=== PATIENT | female | born 1965 | race African-American/Black ===

== ENCOUNTER 2016-09-09 22:35 | Emergency (ER) | payer MEDICAID ==
[2016-09-09 22:40] VITALS: BP 187/83; BMI 41.5
--- NOTE | 2016-09-09 22:52 | DR.GENAD ---
HPI - PCP Primary Care Physician: CHARLA - Complaint/Symptoms Chief Complaint Doctors Comments: Patient states that her stomach hurts as well as her arthritis Chief Complaint:: EMS RESPONDED TO A CALL FOR PAIN ALL OVER. UPON ARRIVAL PATIENT STATES, "MY ARTHRITIS HURTS." - Source History Provided: Patient - Mode of Arrival Mode of Arrival: EMS - Timing Onset of Chief Complaint: 09/09/16 PMH - PMH Past Medical History: Yes Past Medical History: Arthritis, Asthma, Diabetes, Hypertension Past Surgical History: Yes Surgical History: Hysterectomy - Family History History of Family Medical Conditions: Yes Family Medical History: Diabetes Mellitus, [place], Coronary Artery Disease - Social History Type of Tobacco Use: None Alcohol Use: None Do you use any recreational Drugs:: No Lives Where: Home - infectious screening Have you traveled outside the country in the last 6 months?: No Isolation: Standard ROS - Review of Systems Constitutional: No Symptoms Reported Eyes: No Symptoms Reported ENTM: No Symptoms Reported Respiratoy: No Symptoms Reported Cardiovascular: No Symptoms Reported Gastrointestinal/Abdominal: Abdominal Pain Genitourinary: No Symptoms Reported Neurological: No Symptoms Reported Musculoskeletal: Hip Integumentary: No Symptoms Reported Hematologic/Lymphatic: No Symptoms Reported Endocrine: No Symptoms Reported Psychiatric: No Symptoms Reported All Other Systems: Reviewed and Negative PE - Vital Signs Vitals: Temperature 97.0 F Pulse Rate 70 Respiratory Rate 18 Blood Pressure [Right Calf] 170/84 Blood Pressure [Left Arm] 188/88 Blood Pressure [Right Arm] 186/83 Blood Pressure [Right Arm] 174/83 Blood Pressure 187/83 O2 Sat by Pulse Oximetry 98 - General Limitations: No Limitations General Appearance: Alert, In No Apparent Distress - Head Head Exam: Normal Inspection, Atraumatic - Eyes Eye exam: Normal Appearance, PERRL, EOMI - ENT ENT Exam: Normal Exam, Normal Oropharynx External Ear Exam: Normal External Inspection TM/Canal Exam: Bilateral Normal Nose Exam: Normal Nose Exam Mouth Exam: Normal Inspection Throat Exam: Normal Inspection - Neck Neck Exam: Normal Inspection - Chest Chest Inspection: Normal Inspection - Respiratory Respiratory Exam: Normal Lung Sounds Bilat Respiratory Exam: Bilateral Clear to Auscultation - Cardiovascular Cardiovascular Exam: Regular Rate, Normal Rhythm - Abdominal Exam Abdominal Exam: Normal Inspection Abdominal Tenderness: negative: RUQ, RLQ, LUQ, LLQ, Epigastrium, Suprapubic, Diffuse, Mild, Moderate, Severe, Other - Extremities Extremities Exam: Normal Inspection - Back Back Exam: Normal Inspection, Full ROM - Neurologic Neurological Exam: Alert, Oriented X3, CN II-XII Intact - Psychiatric Psychiatric Exam: Normal Affect, Normal Mood - Skin Skin Exam: Warm, Dry, Intact ROR - Labs Reviewed Laboratory Results Reviewed?: Yes (low sod) Result Diagrams: 09/09/16 22:19 09/09/16 22:19 Laboratory: WBC 10.7 X10^3/uL (3.6-10.0) H 09/09/16 22:19 RBC 4.46 X10^6/uL (3.5-5.4) 09/09/16 22:19 Hgb 11.6 g/dL (12.0-16.0) L 09/09/16 22:19 Hct 35.8 % (36.0-47.0) L 09/09/16 22:19 MCV 80.2 fL (80.0-100.0) 09/09/16 22:19 MCH 25.9 pg (27.0-34.0) L 09/09/16 22:19 MCHC 32.3 g/dL (33.0-35.0) L 09/09/16 22:19 RDW 16.3 % (11.6-16.5) 09/09/16 22:19 Plt Count 233 X10^3/uL (150.0-450.0) 09/09/16 22:19 Plt Count Comment Adequate (ADEQUATE) 09/09/16 22:19 MPV 7.6 fL (7.4-11.0) 09/09/16 22:19 Neut % 52.0 % (42.0-75.0) 09/09/16 22:19 Lymph % 39.1 % (21.0-51.0) 09/09/16 22:19 [place] % 5.8 % (0.0-13.0) 09/09/16 22:19 Eos % 2.1 % (0.9-2.9) 09/09/16 22:19 Baso % 1.0 % (0.2-1.0) 09/09/16 22:19 Neut # 5.6 x10^3/uL (2.2-4.8) H 09/09/16 22:19 Lymph # 4.2 X10^3/uL (1.3-2.9) H 09/09/16 22:19 Bos[place] # 0.6 x10^3/uL (0.3-0.8) 09/09/16 22:19 Eos # 0.2 x10^3/uL (0.0-0.2) 09/09/16 22:19 Baso # 0.1 X10^3/uL (0.0-0.1) 09/09/16 22:19 Absolute Nucleated RBC 0.1 /100WBC 09/09/16 22:19 Plt Morphology Comment Normal (NORMAL) 09/09/16 22:19 RBC Morphology Abnormal (NORMAL) A 09/09/16 22:19 Hypochromasia Slight A 09/09/16 22:19 Sodium 131 mmol/L (136-145) L 09/09/16 22:19 Corrected Sodium TNP 09/09/16 22:19 Potassium 3.5 mmol/L (3.5-5.1) 09/09/16 22:19 Chloride 100 mmol/L (98-107) 09/09/16 22:19 Carbon Dioxide 30.1 mmol/L (21-32) 09/09/16 22:19 BUN 29 mg/dL (7-18) H 09/09/16 22:19 Creatinine 1.74 mg/dL (0.55-1.02) H 09/09/16 22:19 Est GFR (MDRD) Af Amer 40 (>60) L 09/09/16 22:19 Est GFR (MDRD) Non-Af 33 (>60) L 09/09/16 22:19 Glucose 110 mg/dL (65-99) H 09/09/16 22:19 Calcium 9.5 mg/dL (8.5-10.1) 09/09/16 22:19 Corrected Calcium TNP 09/09/16 22:19 Total Bilirubin 0.20 mg/dL (0.2-1.0) 09/09/16 22:19 AST 46 Units/L (15-37) H 09/09/16 22:19 ALT 124 Units/L (12-78) H 09/09/16 22:19 Alkaline Phosphatase 200 Units/L (46-116) H 09/09/16 22:19 Total Protein 8.6 g/dL (6.4-8.2) H 09/09/16 22:19 Albumin 3.4 g/dL (3.4-5.0) 09/09/16 22:19 Globulin 5.2 g/dL (2.5-4.5) H 09/09/16 22:19 Albumin/Globulin Ratio 0.7 Ratio (1.1-2.1) L 09/09/16 22:19 - XRAY XRAY Interpreted by: Radiologist (KUB: no acute abnormality) - Diagnosis Discharge Problem: Abdominal pain Qualifiers: Abdominal location: upper abdomen, unspecified Qualified Code(s): R10.10 - Upper abdominal pain, unspecified - Discharge Plan Condition: Stable - Follow ups/Referrals Follow ups/Referrals: DIEGO DUNHAM [Primary Care Provider] - 3 days - Instructions
--- NOTE | 2016-09-09 23:17 | RAD ---
EXAM: Abdomen x-ray INDICATION: Abdominal pain COMPARISION: No priors TECHNIQUE: AP view, single view FINDINGS: The bowel loops are nonobstructed. No abnormal mass or calcification is identified. The regional ske leton is intact. IMPRESSION: Normal single view abdominal x-ray examination Reported By:
[2016-09-09] MEDS ORDERED: BENTYL I.M. INJ 10 MG IM ONE ×2 (23:24→23:27)
[2016-09-09] MEDS ORDERED: TORADOL 60 MG VIAL IM ONE (23:26)
[2016-09-09] MEDS ORDERED: TORADOL 60 MG VIAL ONE (23:27)
[2016-09-09 23:30] LABS: BASOPHILS # (AUTO) 0.1 X10^3/uL (0.0-0.1); EOSINOPHILS # (AUTO) 0.2 x10^3/uL (0.0-0.2); EOSINOPHILS % (AUTO) 2.1 % (0.9-2.9); HEMATOCRIT 35.8 % (36.0-47.0); HEMOGLOBIN 11.6 g/dL (12.0-16.0); LYMPHOCYTES # (AUTO) 4.2 X10^3/uL (1.3-2.9); LYMPHOCYTES % (AUTO) 39.1 % (21.0-51.0); MEAN CORPUSCULAR HEMOGLOBIN 25.9 pg (27.0-34.0); MEAN CORPUSCULAR HGB CONC 32.3 g/dL (33.0-35.0); MEAN CORPUSCULAR VOLUME 80.2 fL (80.0-100.0); MEAN PLATELET VOLUME 7.6 fL (7.4-11.0); MONOCYTES # (AUTO) 0.6 x10^3/uL (0.3-0.8); MONOCYTES % (AUTO) 5.8 % (0.0-13.0); NEUTROPHILS # (AUTO) 5.6 x10^3/uL (2.2-4.8); PLATELET COUNT 233 X10^3/uL (150.0-450.0); RED BLOOD COUNT 4.46 X10^6/uL (3.5-5.4); RED CELL DISTRIBUTION WIDTH 16.3 % (11.6-16.5); WHITE BLOOD COUNT 10.7 X10^3/uL (3.6-10.0)
[2016-09-09 23:38] LABS: ALANINE AMINOTRANSFERASE 124 Units/L (12-78); ALBUMIN 3.4 g/dL (3.4-5.0); ALKALINE PHOSPHATASE 200 Units/L (46-116); ASPARTATE AMINO TRANSFERASE 46 Units/L (15-37); BLOOD UREA NITROGEN 29 mg/dL (7-18); CALCIUM 9.5 mg/dL (8.5-10.1); CARBON DIOXIDE 30.1 mmol/L (21-32); CHLORIDE 100 mmol/L (98-107); CREATININE 1.74 mg/dL (0.55-1.02); GLUCOSE 110 mg/dL (65-99); SODIUM 131 mmol/L (136-145); TOTAL PROTEIN 8.6 g/dL (6.4-8.2); eGFR BLACK RACES 40 (>60); eGFR NON BLACK RACES 33 (>60)
[2016-09-09 23:50] LABS: HYPOCHROMASIA SLIGHT; PLATELET MORPHOLOGY COMMENT NORMAL (NORMAL)
[2016-09-10] MEDS ORDERED: NS 1000 ML 1,000 ML IV ONE (00:16)
== END 2016-09-10 00:36 | disposition home or self-care (01) ==
LOC: ER 22:35
DX: R10.84 Generalized abdominal pain (principal)
CPT/HCPCS: 36415; 74000; 80053; 85025; 96372; 99283; J0500; J1885

== ENCOUNTER 2016-09-15 14:53 | Emergency (ER) | payer MEDICAID ==
[2016-09-15 14:58] VITALS: BMI 40.5
--- NOTE | 2016-09-15 15:26 | DR.GENAD ---
HPI - PCP Primary Care Physician: lyle barreto - Complaint/Symptoms Chief Complaint:: sore on Self Treatment fo Chief Complaint: sore on left great toe x 2 months - Nurses notes reviewed Nurses Notes Review: Yes - Source History Provided: Patient - Mode of Arrival Mode of Arrival: Ambulatory - Timing Onset of Chief Complaint: 09/15/16 Came on: Gradually - Duration How lon Duration: Weeks - Location Location: left great toe - Severity Severity: Mild - Modifying Factors Worsens:: movement - Associated Signs and Symptoms Associated Signs and Symptoms: peeling - Other History Other History: diabetes, has had no tretment since onset PMH - PMH Past Medical History: Yes Past Medical History: Arthritis, Asthma, Diabetes, Hypertension Past Surgical History: Yes Surgical History: Hysterectomy - Family History History of Family Medical Conditions: No Family Medical History: Diabetes Mellitus, [place], Coronary Artery Disease - Social History Does patient currently use any type of tobacco product: No Have you used tobacco products in the last 12 months: No Type of Tobacco Use: None Does any household member use tobacco: No Alcohol Use: None Do you use any recreational Drugs:: No Lives With: Family Lives Where: Home - infectious screening In the last 2 months have you had wt loss of >10#?: NO Have you had fever, night sweats or hemotysis?: No Have you traveled outside the country in the last 6 months?: No Isolation: Standard ROS - Review of Systems Constitutional: No Symptoms Reported Eyes: No Symptoms Reported ENTM: No Symptoms Reported Respiratoy: No Symptoms Reported Cardiovascular: No Symptoms Reported Gastrointestinal/Abdominal: No Symptoms Reported Genitourinary: No Symptoms Reported Neurological: No Symptoms Reported Musculoskeletal: No Symptoms Reported Integumentary: Other (left great toe sore) Hematologic/Lymphatic: No Symptoms Reported Endocrine: No Symptoms Reported Psychiatric: Depression PE - Vital Signs Vitals: Temperature 98.6 F Pulse Rate 72 Respiratory Rate 16 Blood Pressure [Right Calf] 170/84 Blood Pressure [Left Arm] 188/88 Blood Pressure [Right Arm] 186/83 Blood Pressure [Right Arm] 174/83 Blood Pressure 201/93 O2 Sat by Pulse Oximetry 99 - General Limitations: No Limitations General Appearance: Alert, In No Apparent Distress - Head Head Exam: Normal Inspection - Eyes Eye exam: Normal Appearance, EOMI. negative: Scleral Icterus, Conjunctival Injection - ENT ENT Exam: Normal Exam External Ear Exam: Normal External Inspection - Neck Neck Exam: Normal Inspection, Full ROM, Trachea Midline - Chest Chest Inspection: Normal Inspection - Respiratory Respiratory Exam: negative: Accessory Muscle Use, Respiratory Distress - Extremities Extremities Exam: Normal Inspection, Full ROM - Back Back Exam: Normal Inspection - Neurologic Neurological Exam: Alert, Oriented X3, CN II-XII Intact - Psychiatric Psychiatric Exam: Depressed - Skin Skin Exam: negative: Intact, Normal Color (peeling skin, no drainage, no ulceer) - Diagnosis Discharge Problem: Diabetic skin ulcer Hypertension Qualifiers: Hypertension type: essential hypertension Qualified Code(s): I10 - Essential ( primary) hypertension - Discharge Plan Condition: Stable Prescriptions: Clindamycin Phosphate (Topical [Cleocin-T gel 1%] 1 applic TOP BID #60 gm - Follow ups/Referrals Follow ups/Referrals: Christi MCGUIREc [Primary Care Provider] - 3 days - Instructions
[2016-09-15] MEDS ORDERED: CATAPRES TAB 0.2 MG PO ONE (15:40)
[2016-09-15] MEDS ORDERED: CATAPRES TAB 0.2 MG ONE (15:41)
[2016-09-15 16:26] VITALS: BP 196/97
== END 2016-09-15 16:39 | disposition home or self-care (01) ==
LOC: ER 15:02
DX: E11.622 Type 2 diabetes mellitus with other skin ulcer (principal); I10 Essential (primary) hypertension
CPT/HCPCS: 99282

== ENCOUNTER 2016-09-16 19:30 | Emergency (ER) | payer MEDICAID ==
[2016-09-16 19:53] VITALS: BP 176/102; BMI 43.4
--- NOTE | 2016-09-16 20:23 | DR.GENAD ---
HPI - PCP Primary Care Physician: Michele BANG - Complaint/Symptoms Chief Complaint Doctors Comments: Patient states that she had arthritis of the hands and they are hurting. She states that when this happens she gets a shot. She indicated that her primary care physician is in [place]. She will be able to get an appointment with her primary next week. 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 - Family History History of Family Medical Conditions: Yes Family Medical History: Hypertension - Social History Does patient currently use any type of tobacco product: No Have you used tobacco products in the last 12 months: No Type of Tobacco Use: None Does any household member use tobacco: No Alcohol Use: None Do you use any recreational Drugs:: No Lives With: Alone Lives Where: Home - infectious screening In the last 2 months have you had wt loss of >10#?: NO Have you had fever, night sweats or hemotysis?: No Have you traveled outside the country in the last 6 months?: No Isolation: Standard ROS - Review of Systems Constitutional: No Symptoms Reported Eyes: No Symptoms Reported ENTM: No Symptoms Reported Respiratoy: No Symptoms Reported Cardiovascular: No Symptoms Reported Gastrointestinal/Abdominal: No Symptoms Reported Genitourinary: No Symptoms Reported Neurological: No Symptoms Reported Musculoskeletal: Hand (arthritis) Integumentary: No Symptoms Reported Hematologic/Lymphatic: No Symptoms Reported Endocrine: No Symptoms Reported Psychiatric: No Symptoms Reported All Other Systems: Reviewed and Negative PE - Vital Signs Vitals: Temperature 98.9 F Pulse Rate 66 Respiratory Rate 18 Blood Pressure [Right Calf] 170/84 Blood Pressure [Left Arm] 196/97 Blood Pressure [Right Arm] 186/83 Blood Pressure [Right Arm] 174/83 Blood Pressure 176/102 O2 Sat by Pulse Oximetry 99 - General Limitations: No Limitations General Appearance: Alert, In No Apparent Distress, Appears Intoxicated - Head Head Exam: Normal Inspection, Atraumatic - Eyes Eye exam: Normal Appearance, PERRL, EOMI - ENT ENT Exam: Normal Exam External Ear Exam: Normal External Inspection TM/Canal Exam: Bilateral Normal Nose Exam: Normal Nose Exam Mouth Exam: Normal Inspection Throat Exam: Normal Inspection - Neck Neck Exam: Normal Inspection, Full ROM - Chest Chest Inspection: Normal Inspection - Respiratory Respiratory Exam: Normal Lung Sounds Bilat Respiratory Exam: Bilateral Clear to Auscultation - Cardiovascular Cardiovascular Exam: Regular Rate, Normal Rhythm - Abdominal Exam Abdominal Exam: Normal Inspection, Normal Bowel Sounds Abdominal Tenderness: negative: RUQ, RLQ, LUQ, LLQ, Epigastrium, Suprapubic, Diffuse, Mild, Moderate, Severe, Other - Extremities Extremities Exam: Tenderness (right hand with decrease extension) - Back Back Exam: Normal Inspection - Neurologic Neurological Exam: Alert, Oriented X3, CN II-XII Intact - Psychiatric Psychiatric Exam: Normal Affect - Skin Skin Exam: Warm, Dry, Intact - Diagnosis Discharge Problem: Arthritis - Discharge Plan Condition: Stable - Follow ups/Referrals Follow ups/Referrals: Yenifer BANG [Primary Care Provider] - 3 days - Instructions
[2016-09-16] MEDS ORDERED: TORADOL 60 MG VIAL IM ONE (20:26)
[2016-09-16] MEDS ORDERED: TORADOL 60 MG VIAL ONE (20:29)
== END 2016-09-16 20:45 | disposition home or self-care (01) ==
LOC: ER 19:58
DX: M19.049 Primary osteoarthritis, unspecified hand (principal)
CPT/HCPCS: 96372; 99282; J1885

== ENCOUNTER 2016-09-19 18:25 | Emergency (ER) | payer MEDICAID ==
[2016-09-19 18:31] VITALS: BP 207/86; BMI 43.4
--- NOTE | 2016-09-19 19:07 | DR.GENAD ---
HPI - PCP Primary Care Physician: QUINN - HPI Comment HPI Comment: KNOWN DIABETIC. SAW BLISTER ON LEFT BIG TOE FEW DAYS AGO. IT IS NOW SWOLLEN AND PAINFUL. NO DRAINAGE NOTED. - Complaint/Symptoms Chief Complaint Doctors Comments: SORE ON LEFT BIG TOE FOR FEW DAYS. Chief Complaint:: PT C/O SORE ON LEFT BIG TOE PAINFUL TOO TOUCH - Nurses notes reviewed Nurses Notes Review: Yes - Source History Provided: Patient - Mode of Arrival Mode of Arrival: Ambulatory - Timing Onset of Chief Complaint: 09/19/16 Came on: Gradually - Duration Duration: Constant Duration: Days - Severity Severity: Moderate PMH - PMH Past Medical History: Yes Past Medical History: Arthritis, Diabetes, Hypertension Past Surgical History: Yes Surgical History: [employer] Surgery - Family History History of Family Medical Conditions: Yes Family Medical History: Hypertension - Social History Does any household member use tobacco: No Alcohol Use: None Do you use any recreational Drugs:: No Lives With: Family Lives Where: Home - infectious screening In the last 2 months have you had wt loss of >10#?: NO Have you had fever, night sweats or hemotysis?: No Have you traveled outside the country in the last 6 months?: No Isolation: Standard ROS - Review of Systems Constitutional: No Symptoms Reported. negative: Chills, Fever, Weakness, Fatigue Eyes: No Symptoms Reported ENTM: No Symptoms Reported Respiratoy: No Symptoms Reported Cardiovascular: No Symptoms Reported Gastrointestinal/Abdominal: No Symptoms Reported Genitourinary: No Symptoms Reported Neurological: Numbness (DUE TO NEUROPATHY, CHRONIC) Musculoskeletal: Muscle Pain Integumentary: Wound (LEFT GREAT TOE SWOLLEN AND TENDER. SLIGHTLY DISCOLORED.) Hematologic/Lymphatic: Easy Bruising Endocrine: Increased Thirst, Increased Urine. negative: Flushing All Other Systems: Reviewed and Negative PE - Vital Signs Vitals: Temperature 98.3 F Pulse Rate 67 Respiratory Rate 18 Blood Pressure [Right Calf] 170/84 Blood Pressure [Left Arm] 196/97 Blood Pressure [Right Arm] 186/83 Blood Pressure [Right Arm] 174/83 Blood Pressure 207/86 O2 Sat by Pulse Oximetry 98 - General Limitations: No Limitations General Appearance: Alert - Head Head Exam: Normal Inspection - Eyes Eye exam: Normal Appearance - ENT ENT Exam: Normal External Ear Exam TM/Canal Exam: Bilateral Normal Nose Exam: Normal Nose Exam Mouth Exam: Normal Inspection Throat Exam: Normal Inspection - Neck Neck Exam: Trachea Midline - Chest Chest Inspection: Symmetric Chest Wall Rise - Respiratory Respiratory Exam: negative: Chest Wall Tenderness Respiratory Exam: Bilateral Rales, Lower Rales - Cardiovascular Cardiovascular Exam: Regular Rate, Normal Rhythm, Normal Heart Sounds - Abdominal Exam Abdominal Exam: Normal Bowel Sounds, Soft. negative: Tenderness - Extremities Extremities Exam: Tenderness (LT GREAT TOE.) - Back Back Exam: Muscle Spasm - Neurologic Neurological Exam: Alert, Oriented X3 - Psychiatric Psychiatric Exam: Normal Affect, Normal Mood - Skin Skin Exam: Erythema MDM - Additional Information Additional Information Obtained From: Family (MORMON FRIEND) - Differential Diagnosis Differential Diagnosis: CELLULITIS LT GREAT TOE, R/O DRY GANGRENE Course - Treatment Treatment: SEE ORDERS. PATIENT WILL TAKE HOME MEDS FOR HTN TONIGHT. WILL TAKE MED FOR DIABETES IN AM. - Consultation Consultation Comments: DISCUSS PATIENT WITH DR. REYNA. HE WILL FOLLOW PATIENT UP IN THE OFFICE. - Education/Counseling Education/Counseling: Patient, Education Educated On: Treatment, Diagnosis, Needs for Follow Up ROR - Labs Reviewed Laboratory Results Reviewed?: Yes Result Diagrams: 09/19/16 20:20 09/19/16 20:20 Laboratory: WBC 8.4 X10^3/uL (3.6-10.0) 09/19/16 20:20 RBC 4.40 X10^6/uL (3.5-5.4) 09/19/16 20:20 Hgb 11.4 g/dL (12.0-16.0) L 09/19/16 20:20 Hct 35.6 % (36.0-47.0) L 09/19/16 20:20 MCV 80.9 fL (80.0-100.0) 09/19/16 20:20 MCH 26.0 pg (27.0-34.0) L 09/19/16 20:20 MCHC 32.1 g/dL (33.0-35.0) L 09/19/16 20:20 RDW 17.2 % (11.6-16.5) H 09/19/16 20:20 Plt Count 228 X10^3/uL (150.0-450.0) 09/19/16 20:20 MPV 7.8 fL (7.4-11.0) 09/19/16 20:20 Neut % 48.5 % (42.0-75.0) 09/19/16 20:20 Lymph % 42.7 % (21.0-51.0) 09/19/16 20:20 Thomas % 5.9 % (0.0-13.0) 09/19/16 20:20 Eos % 1.6 % (0.9-2.9) 09/19/16 20:20 Baso % 1.3 % (0.2-1.0) H 09/19/16 20:20 Neut # 4.1 x10^3/uL (2.2-4.8) 09/19/16 20:20 Lymph # 3.6 X10^3/uL (1.3-2.9) H 09/19/16 20:20 Thomas # 0.5 x10^3/uL (0.3-0.8) 09/19/16 20:20 Eos # 0.1 x10^3/uL (0.0-0.2) 09/19/16 20:20 Baso # 0.1 X10^3/uL (0.0-0.1) 09/19/16 20:20 Absolute Nucleated RBC 0.1 /100WBC 09/19/16 20:20 Sodium 144 mmol/L (136-145) 09/19/16 20:20 Corrected Sodium 148 mmol/L (136-145) H 09/19/16 20:20 Potassium 3.4 mmol/L (3.5-5.1) L 09/19/16 20:20 Chloride 106 mmol/L (98-107) 09/19/16 20:20 Carbon Dioxide 26.6 mmol/L (21-32) 09/19/16 20:20 BUN 23 mg/dL (7-18) H 09/19/16 20:20 Creatinine 1.71 mg/dL (0.55-1.02) H 09/19/16 20:20 Est GFR (MDRD) Af Amer 40 (>60) L 09/19/16 20:20 Est GFR (MDRD) Non-Af 33 (>60) L 09/19/16 20:20 Glucose 260 mg/dL (65-99) H 09/19/16 20:20 Calcium 8.9 mg/dL (8.5-10.1) 09/19/16 20:20 Corrected Calcium TNP 03/27/17 20:20 Total Bilirubin 0.40 mg/dL (0.2-1.0) 09/19/16 20:20 AST 19 Units/L (15-37) 09/19/16 20:20 ALT 38 Units/L (12-78) 09/19/16 20:20 Alkaline Phosphatase 142 Units/L (46-116) H 09/19/16 20:20 Total Protein 8.0 g/dL (6.4-8.2) 09/19/16 20:20 Albumin 3.4 g/dL (3.4-5.0) 09/19/16 20:20 Globulin 4.6 g/dL (2.5-4.5) H 09/19/16 20:20 Albumin/Globulin Ratio 0.7 Ratio (1.1-2.1) L 09/19/16 20:20 - XRAY XRAY Interpreted by: Radiologist XRAY Findings: REPORT DISCUSS WITH PATIENT. - Diagnosis Discharge Problem: Cellulitis of great toe of left foot, Hyperglycemia Hypertension Qualifiers: Hypertension type: essential hypertension Qualified Code(s): I10 - Essential ( primary) hypertension - Discharge Plan Disposition: HOME, SELF-CARE Condition: Stable Prescriptions: Clindamycin HCl 300 mg PO Q6H #40 cap Sulfamethoxazole-Trimethoprim [BACTRIM DS TAB 800/160 MG *] 1 tab PO BID #20 tab - Follow ups/Referrals Follow ups/Referrals: NFD,None [Primary Care Provider] - 09/20/16 POLI REYNA [STAFF PHYSICIAN] - 09/20/16 - Instructions Instructions: Cellulitis Additional Instructions: RETURN TO ED IF WORSE.
[2016-09-19 20:29] LABS: BASOPHILS # (AUTO) 0.1 X10^3/uL (0.0-0.1); BASOPHILS % (AUTO) 1.3 % (0.2-1.0); EOSINOPHILS # (AUTO) 0.1 x10^3/uL (0.0-0.2); EOSINOPHILS % (AUTO) 1.6 % (0.9-2.9); HEMATOCRIT 35.6 % (36.0-47.0); HEMOGLOBIN 11.4 g/dL (12.0-16.0); LYMPHOCYTES # (AUTO) 3.6 X10^3/uL (1.3-2.9); LYMPHOCYTES % (AUTO) 42.7 % (21.0-51.0); MEAN CORPUSCULAR HGB CONC 32.1 g/dL (33.0-35.0); MEAN CORPUSCULAR VOLUME 80.9 fL (80.0-100.0); MEAN PLATELET VOLUME 7.8 fL (7.4-11.0); MONOCYTES # (AUTO) 0.5 x10^3/uL (0.3-0.8); MONOCYTES % (AUTO) 5.9 % (0.0-13.0); NEUTROPHILS # (AUTO) 4.1 x10^3/uL (2.2-4.8); NEUTROPHILS % (AUTO) 48.5 % (42.0-75.0); PLATELET COUNT 228 X10^3/uL (150.0-450.0); RED CELL DISTRIBUTION WIDTH 17.2 % (11.6-16.5); WHITE BLOOD COUNT 8.4 X10^3/uL (3.6-10.0)
[2016-09-19 20:37] LABS: ALANINE AMINOTRANSFERASE 38 Units/L (12-78); ALBUMIN 3.4 g/dL (3.4-5.0); ALKALINE PHOSPHATASE 142 Units/L (46-116); ASPARTATE AMINO TRANSFERASE 19 Units/L (15-37); BLOOD UREA NITROGEN 23 mg/dL (7-18); CALCIUM 8.9 mg/dL (8.5-10.1); CARBON DIOXIDE 26.6 mmol/L (21-32); CHLORIDE 106 mmol/L (98-107); COR NA(FOR HYPERGLY) 148 mmol/L (136-145); CREATININE 1.71 mg/dL (0.55-1.02); GLUCOSE 260 mg/dL (65-99); SODIUM 144 mmol/L (136-145); eGFR BLACK RACES 40 (>60); eGFR NON BLACK RACES 33 (>60)
--- NOTE | 2016-09-19 22:08 | RAD ---
Three views of the left foot Indication: Great toe wound with pain and swelling Findings: There is ulceration along the medial aspect of the great toe at the level of the proximal phalangeal head without evidence of cortical destruction or periosteal reaction. No fracture, disloc ation or radiopaque foreign body within the left foot. Mild calcified atherosclerotic disease of the interdigital arteries is noted. The Lisfranc joint alignment is maintained. Moderate enthesopathic change of the Achilles and plantar fascia. Impression: Ulceration along the medial aspect of the great toe with surrounding soft tissue swellin g without radiographic evidence of acute fracture, dislocation or osteomyelitis. Reported By:
[2016-09-19] MEDS ORDERED: CLEOCIN ONE (22:21)
[2016-09-19] MEDS ORDERED: BACTRIM DS TAB PO ONE (22:21)
[2016-09-19] MEDS: CLEOCIN PO ONE (22:27)
[2016-09-19] MEDS: BACTRIM DS TAB PO ONE (22:27)
== END 2016-09-19 22:53 | disposition home or self-care (01) ==
LOC: ER 18:34
DX: L03.032 Cellulitis of left toe (principal); R73.9 Hyperglycemia, unspecified; I10 Essential (primary) hypertension
CPT/HCPCS: 36415; 73630; 80053; 85025; 99283

== ENCOUNTER 2016-10-19 19:15 | Emergency (ER) | payer MEDICAID ==
[2016-10-19 19:27] VITALS: BP 190/98; BMI 39.0
[2016-10-19] MEDS ORDERED: TORADOL 60 MG VIAL ONE (19:32)
--- NOTE | 2016-10-19 19:33 | DR.GENAD ---
HPI - Complaint/Symptoms Chief Complaint Doctors Comments: Patient states she is out of her pain medication trammadol and she has hand,feet and leg pain. 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 - Family History History of Family Medical Conditions: Yes Family Medical History: Hypertension - Social History Does any household member use tobacco: No Alcohol Use: None Do you use any recreational Drugs:: No Lives With: Alone Lives Where: Home - infectious screening In the last 2 months have you had wt loss of >10#?: NO Have you had fever, night sweats or hemotysis?: No Have you traveled outside the country in the last 6 months?: No Isolation: Standard ROS - Review of Systems Eyes: No Symptoms Reported ENTM: No Symptoms Reported Respiratoy: No Symptoms Reported Cardiovascular: No Symptoms Reported Gastrointestinal/Abdominal: No Symptoms Reported Genitourinary: No Symptoms Reported, Discharge Musculoskeletal: Hand, Leg (pain), Foot Integumentary: No Symptoms Reported Hematologic/Lymphatic: No Symptoms Reported Endocrine: No Symptoms Reported Psychiatric: No Symptoms Reported All Other Systems: Reviewed and Negative PE - Vital Signs Vitals: Temperature 99.1 F Pulse Rate 88 Respiratory Rate 18 Blood Pressure [Right Calf] 170/84 Blood Pressure [Left Arm] 196/97 Blood Pressure [Right Arm] 186/83 Blood Pressure [Right Arm] 174/83 Blood Pressure 190/98 O2 Sat by Pulse Oximetry 98 - General Limitations: No Limitations General Appearance: Alert, In No Apparent Distress - Head Head Exam: Normal Inspection, Atraumatic - Eyes Eye exam: Normal Appearance, PERRL, EOMI - ENT ENT Exam: Normal Exam External Ear Exam: Normal External Inspection TM/Canal Exam: Bilateral Normal Nose Exam: Normal Nose Exam Mouth Exam: Normal Inspection Throat Exam: Normal Inspection - Neck Neck Exam: Normal Inspection - Chest Chest Inspection: Normal Inspection - Respiratory Respiratory Exam: Normal Lung Sounds Bilat Respiratory Exam: Bilateral Clear to Auscultation - Cardiovascular Cardiovascular Exam: Regular Rate - Abdominal Exam Abdominal Exam: Normal Inspection Abdominal Tenderness: negative: RUQ, RLQ, LUQ, LLQ, Epigastrium, Suprapubic, Diffuse, Mild, Moderate, Severe, Other - Extremities Extremities Exam: Normal Inspection - Back Back Exam: Normal Inspection - Neurologic Neurological Exam: Alert, Oriented X3, CN II-XII Intact - Psychiatric Psychiatric Exam: Normal Affect, Normal Mood - Skin Skin Exam: Warm, Dry - Diagnosis Discharge Problem: Arthritis - Discharge Plan Condition: Stable - Follow ups/Referrals Follow ups/Referrals: NFD,None [Primary Care Provider] - 3 days - Instructions
[2016-10-19] MEDS ORDERED: TORADOL 60 MG VIAL IM ONE (19:37)
== END 2016-10-19 19:53 | disposition home or self-care (01) ==
LOC: ER 19:20
DX: M19.90 Unspecified osteoarthritis, unspecified site (principal)
CPT/HCPCS: 96372; 99282; J1885

== ENCOUNTER 2016-11-06 23:42 | Emergency (ER) | payer MEDICAID ==
[2016-11-06 23:54] VITALS: BP 196/89; BMI 36.1
--- NOTE | 2016-11-07 01:02 | DR.GENAD ---
HPI - PCP Primary Care Physician: Gucci Canres - Complaint/Symptoms Chief Complaint Doctors Comments: Patient with diabetes and complains of severe leg pain. She has diabetic neuropathy and not on medication at this time. Chief Complaint:: "My legs my feet my hands are in pain. I cant move my feet because they was in pain. I had a muscle that was hurting me. 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 - Family History History of Family Medical Conditions: Yes Family Medical History: Hypertension - Social History Alcohol Use: None Do you use any recreational Drugs:: No Lives Where: Home - infectious screening Have you traveled outside the country in the last 6 months?: No ROS - Review of Systems Eyes: No Symptoms Reported ENTM: No Symptoms Reported Respiratoy: No Symptoms Reported Cardiovascular: No Symptoms Reported Gastrointestinal/Abdominal: No Symptoms Reported Genitourinary: No Symptoms Reported Neurological: No Symptoms Reported Musculoskeletal: Left, Knee (pain) Integumentary: No Symptoms Reported Hematologic/Lymphatic: No Symptoms Reported Endocrine: No Symptoms Reported Psychiatric: No Symptoms Reported All Other Systems: Reviewed and Negative PE - Vital Signs Vitals: Temperature 98.3 F Pulse Rate 79 Respiratory Rate 18 Blood Pressure [Right Calf] 170/84 Blood Pressure [Left Arm] 196/97 Blood Pressure [Right Arm] 186/83 Blood Pressure [Right Arm] 174/83 Blood Pressure 196/89 O2 Sat by Pulse Oximetry 100 - General Limitations: No Limitations General Appearance: Alert, In No Apparent Distress - Head Head Exam: Normal Inspection, Atraumatic - Eyes Eye exam: Normal Appearance, PERRL, EOMI - ENT ENT Exam: Normal Exam External Ear Exam: Normal External Inspection TM/Canal Exam: Bilateral Normal Nose Exam: Normal Nose Exam Mouth Exam: Normal Inspection Throat Exam: Normal Inspection - Neck Neck Exam: Normal Inspection - Chest Chest Inspection: Normal Inspection - Respiratory Respiratory Exam: Normal Lung Sounds Bilat Respiratory Exam: Bilateral Clear to Auscultation - Cardiovascular Cardiovascular Exam: Regular Rate - Abdominal Exam Abdominal Exam: Normal Inspection Abdominal Tenderness: negative: RUQ, RLQ, LUQ, LLQ, Epigastrium, Suprapubic, Diffuse, Mild, Moderate, Severe, Other - Extremities Extremities Exam: Other (in left lower extrmity) - Back Back Exam: Normal Inspection - Neurologic Neurological Exam: Alert, Oriented X3, CN II-XII Intact - Psychiatric Psychiatric Exam: Normal Affect - Skin Skin Exam: Warm, Dry, Intact - Diagnosis Discharge Problem: Diabetic neuropathy Qualifiers: Diabetes mellitus type: due to underlying condition Diabetes mellitus complication detail: diabetic mononeuropathy Qualified Code(s): E08.41 - 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
[2016-11-07] MEDS ORDERED: TORADOL 60 MG VIAL IM ONE (01:07)
[2016-11-07] MEDS ORDERED: TORADOL 60 MG VIAL ONE (01:10)
== END 2016-11-07 01:36 | disposition home or self-care (01) ==
LOC: ER 23:42
DX: E08.41 Diabetes mellitus due to underlying condition with diabetic mononeuropathy (principal)
CPT/HCPCS: 96372; 99282; J1885

== ENCOUNTER 2016-11-16 02:56 | Emergency (ER) | payer MEDICAID ==
[2016-11-16] MEDS ORDERED: TORADOL 60 MG VIAL IM ONE (03:01)
--- NOTE | 2016-11-16 03:05 | DR.GENAD ---
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 - Family History History of Family Medical Conditions: Yes Family Medical History: Hypertension - Social History Does any household member use tobacco: No Do you use any recreational Drugs:: No Lives With: Family Lives Where: Home - infectious screening In the last 2 months have you had wt loss of >10#?: NO Have you had fever, night sweats or hemotysis?: No Have you traveled outside the country in the last 6 months?: No Isolation: Standard ROS - Review of Systems Constitutional: No Symptoms Reported Eyes: No Symptoms Reported ENTM: No Symptoms Reported Respiratoy: No Symptoms Reported Cardiovascular: No Symptoms Reported Gastrointestinal/Abdominal: No Symptoms Reported Genitourinary: No Symptoms Reported Neurological: Other (neuropathy) Musculoskeletal: Other (arthritis) Integumentary: No Symptoms Reported Hematologic/Lymphatic: No Symptoms Reported Endocrine: No Symptoms Reported Psychiatric: No Symptoms Reported PE - Vital Signs Vitals: Temperature 97.8 F Pulse Rate 84 Respiratory Rate 18 Blood Pressure [Right Calf] 170/84 Blood Pressure [Left Arm] 196/97 Blood Pressure [Right Arm] 186/83 Blood Pressure [Right Arm] 174/83 Blood Pressure 153/78 O2 Sat by Pulse Oximetry 97 - General Limitations: No Limitations General Appearance: Alert, In No Apparent Distress - Head Head Exam: Normal Inspection - Eyes Eye exam: EOMI. negative: Scleral Icterus, Conjunctival Injection - ENT ENT Exam: Normal Exam External Ear Exam: Normal External Inspection - Neck Neck Exam: Normal Inspection, Full ROM, Trachea Midline - Respiratory Respiratory Exam: negative: Accessory Muscle Use, Respiratory Distress - Cardiovascular Cardiovascular Exam: Regular Rate - Extremities Extremities Exam: Normal Inspection, Full ROM, Tenderness (hands) - Neurologic Neurological Exam: Alert, Oriented X3, CN II-XII Intact - Psychiatric Psychiatric Exam: Depressed - Skin Skin Exam: Intact, Normal Color - Diagnosis Discharge Problem: Arthralgia of both hands - Discharge Plan Condition: Stable - Follow ups/Referrals Follow ups/Referrals: NFD,None [Primary Care Provider] - 3 days - Instructions
[2016-11-16 03:09] VITALS: BP 153/78; BMI 37.1
[2016-11-16] MEDS ORDERED: TORADOL 60 MG VIAL ONE (03:09)
== END 2016-11-16 03:45 | disposition home or self-care (01) ==
LOC: ER 02:56
DX: M26.623 Arthralgia of bilateral temporomandibular joint (principal)
CPT/HCPCS: 96372; 99282; J1885

== ENCOUNTER 2016-11-29 15:40 | Emergency (ER) | payer MEDICAID ==
[2016-11-29 16:04] VITALS: BMI 34.3
[2016-11-29] MEDS ORDERED: CATAPRES TAB 0.3 MG PO ONE (16:32)
--- NOTE | 2016-11-29 16:32 | DR.EXTPAIN ---
HPI - PCP Primary Care Physician: BETI HARRISON - Complaint/Symptoms Chief Complaint:: PT STATES " MY TOES WITH A SORE" Self Treatment fo Chief Complaint: PT STATES " I HAVE HAD THIS SORE ON MY TOE FOR 5 MONTHS".. PT STATES " I WANT A DRESSING AND SOME OINTMENT.. 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 - Family History History of Family Medical Conditions: Yes Family Medical History: Hypertension - Social History Does patient currently use any type of tobacco product: No Have you used tobacco products in the last 12 months: No Type of Tobacco Use: None Does any household member use tobacco: No Alcohol Use: None Do you use any recreational Drugs:: No Lives With: Family Lives Where: Home - infectious screening In the last 2 months have you had wt loss of >10#?: NO Have you had fever, night sweats or hemotysis?: No Have you traveled outside the country in the last 6 months?: No Isolation: Standard PE - Vital Signs Vitals: Temperature 98.7 F Pulse Rate 82 Respiratory Rate 20 Blood Pressure [Right Calf] 170/84 Blood Pressure [Left Arm] 196/97 Blood Pressure [Right Arm] 186/83 Blood Pressure [Right Arm] 174/83 Blood Pressure 240/103 O2 Sat by Pulse Oximetry 94 ROR - Labs Reviewed Result Diagrams: 11/29/16 17:12 11/29/16 17:12 Laboratory: WBC 8.8 X10^3/uL (3.6-10.0) 11/29/16 17:12 RBC 4.08 X10^6/uL (3.5-5.4) 11/29/16 17:12 Hgb 11.9 g/dL (12.0-16.0) L 11/29/16 17:12 Hct 35.9 % (36.0-47.0) L 11/29/16 17:12 MCV 88.2 fL (80.0-100.0) 11/29/16 17:12 MCH 29.1 pg (27.0-34.0) 11/29/16 17:12 MCHC 33.0 g/dL (33.0-35.0) 11/29/16 17:12 RDW 16.1 % (11.6-16.5) 11/29/16 17:12 Plt Count 207 X10^3/uL (150.0-450.0) 11/29/16 17:12 MPV 8.2 fL (7.4-11.0) 11/29/16 17:12 Neut % 51.5 % (42.0-75.0) 11/29/16 17:12 Lymph % 40.4 % (21.0-51.0) 11/29/16 17:12 Mayes % 4.6 % (0.0-13.0) 11/29/16 17:12 Eos % 2.7 % (0.9-2.9) 11/29/16 17:12 Baso % 0.8 % (0.2-1.0) 11/29/16 17:12 Neut # 4.5 x10^3/uL (2.2-4.8) 11/29/16 17:12 Lymph # 3.5 X10^3/uL (1.3-2.9) H 11/29/16 17:12 Mayes # 0.4 x10^3/uL (0.3-0.8) 11/29/16 17:12 Eos # 0.2 x10^3/uL (0.0-0.2) 11/29/16 17:12 Baso # 0.1 X10^3/uL (0.0-0.1) 11/29/16 17:12 Absolute Nucleated RBC 0.1 /100WBC 11/29/16 17:12 Sodium 143 mmol/L (136-145) 11/29/16 17:12 Corrected Sodium 147 mmol/L (136-145) H 11/29/16 17:12 Potassium 4.0 mmol/L (3.5-5.1) 11/29/16 17:12 Chloride 106 mmol/L (98-107) 11/29/16 17:12 Carbon Dioxide 27.1 mmol/L (21-32) 11/29/16 17:12 BUN 21 mg/dL (7-18) H 11/29/16 17:12 Creatinine 1.58 mg/dL (0.55-1.02) H 11/29/16 17:12 Est GFR (MDRD) Af Amer 44 (>60) L 11/29/16 17:12 Est GFR (MDRD) Non-Af 37 (>60) L 11/29/16 17:12 Glucose 265 mg/dL (65-99) H 11/29/16 17:12 Calcium 9.4 mg/dL (8.5-10.1) 11/29/16 17:12 Corrected Calcium TNP 11/29/16 17:12 Total Bilirubin 0.30 mg/dL (0.2-1.0) 11/29/16 17:12 AST 64 Units/L (15-37) H 11/29/16 17:12 ALT 96 Units/L (12-78) H 11/29/16 17:12 Alkaline Phosphatase 153 Units/L (46-116) H 11/29/16 17:12 Total Protein 8.3 g/dL (6.4-8.2) H 11/29/16 17:12 Albumin 3.4 g/dL (3.4-5.0) 11/29/16 17:12 Globulin 4.9 g/dL (2.5-4.5) H 11/29/16 17:12 Albumin/Globulin Ratio 0.7 Ratio (1.1-2.1) L 11/29/16 17:12 - Diagnosis Discharge Problem: Toe infection Hypertension Qualifiers: Hypertension type: essential hypertension Qualified Code(s): I10 - Essential ( primary) hypertension - Discharge Plan Condition: Stable - Follow ups/Referrals Follow ups/Referrals: NFD,None [Primary Care Provider] - 3 days - Instructions Instructions: Hypertension, Wound Infection, [id number] Additional Instructions: RETURN TO ED IF WORSE. PICK YOUR ANTIBIOTIC FROM DRUG STORE AND TAKE IT PRESCRIBE.
[2016-11-29] MEDS ORDERED: CATAPRES TAB 0.3 MG ONE (16:34)
[2016-11-29 17:23] LABS: BASOPHILS # (AUTO) 0.1 X10^3/uL (0.0-0.1); BASOPHILS % (AUTO) 0.8 % (0.2-1.0); EOSINOPHILS # (AUTO) 0.2 x10^3/uL (0.0-0.2); EOSINOPHILS % (AUTO) 2.7 % (0.9-2.9); HEMATOCRIT 35.9 % (36.0-47.0); HEMOGLOBIN 11.9 g/dL (12.0-16.0); LYMPHOCYTES # (AUTO) 3.5 X10^3/uL (1.3-2.9); LYMPHOCYTES % (AUTO) 40.4 % (21.0-51.0); MEAN CORPUSCULAR HEMOGLOBIN 29.1 pg (27.0-34.0); MEAN CORPUSCULAR VOLUME 88.2 fL (80.0-100.0); MEAN PLATELET VOLUME 8.2 fL (7.4-11.0); MONOCYTES # (AUTO) 0.4 x10^3/uL (0.3-0.8); MONOCYTES % (AUTO) 4.6 % (0.0-13.0); NEUTROPHILS # (AUTO) 4.5 x10^3/uL (2.2-4.8); NEUTROPHILS % (AUTO) 51.5 % (42.0-75.0); PLATELET COUNT 207 X10^3/uL (150.0-450.0); RED BLOOD COUNT 4.08 X10^6/uL (3.5-5.4); RED CELL DISTRIBUTION WIDTH 16.1 % (11.6-16.5); WHITE BLOOD COUNT 8.8 X10^3/uL (3.6-10.0)
[2016-11-29 17:31] LABS: ALANINE AMINOTRANSFERASE 96 Units/L (12-78); ALBUMIN 3.4 g/dL (3.4-5.0); ALKALINE PHOSPHATASE 153 Units/L (46-116); ASPARTATE AMINO TRANSFERASE 64 Units/L (15-37); BLOOD UREA NITROGEN 21 mg/dL (7-18); CALCIUM 9.4 mg/dL (8.5-10.1); CARBON DIOXIDE 27.1 mmol/L (21-32); CHLORIDE 106 mmol/L (98-107); COR NA(FOR HYPERGLY) 147 mmol/L (136-145); CREATININE 1.58 mg/dL (0.55-1.02); GLUCOSE 265 mg/dL (65-99); SODIUM 143 mmol/L (136-145); TOTAL PROTEIN 8.3 g/dL (6.4-8.2); eGFR BLACK RACES 44 (>60); eGFR NON BLACK RACES 37 (>60)
--- NOTE | 2016-11-29 17:46 | RAD ---
HISTORY: Ulcer left great toe Study: Three views of the left foot Comparison: September 19, 2016 Findings: No evidence of acute displaced fracture or dislocation is identified. Mild degenerative changes of t he mid and hindfoot are noted. Spurring is seen along the Achilles and plantar insertions of the audrey caneus. Subtle lucency is seen within the medial soft tissues overlying the great toe likely represe nting the patient's known ulcer. Correlate clinically. IMPRESSION: 1. Soft tissue changes overlying the medial aspect of the left great toe as noted above. Reported By:
[2016-11-29 18:32] VITALS: BP 214/88
[2016-11-29] MEDS ORDERED: NIFEDIPINE CAP 10 MG PO ONE (18:32)
[2016-11-29] MEDS ORDERED: NIFEDIPINE CAP 10 MG ONE (18:33)
== END 2016-11-29 19:25 | disposition home or self-care (01) ==
LOC: ER 16:06
DX: L08.9 Local infection of the skin and subcutaneous tissue, unspecified (principal); I10 Essential (primary) hypertension
CPT/HCPCS: 36415; 73630; 80053; 85025; 99283

== ENCOUNTER 2016-12-22 09:21 | Emergency (ER) | payer MEDICAID ==
[2016-12-22 09:27] VITALS: BP 170/92; BMI 24.2
--- NOTE | 2016-12-22 09:42 | DR.BITE ---
HPI - Time Seen Time seen: 09:34 - PCP Primary Care Physician: BETI - Complaint/Symptoms Chief Complaint Doctor Comments: Patient presents to the ED with complaint of bugs being in her house. She has told the landlord but he has done nothing. She states that she noticed the bug(s) last week. She has not sprayed the apartment no has the landlord. She has no definite insect bite. 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 - Family History History of Family Medical Conditions: Yes Family Medical History: Hypertension - Social History Does any household member use tobacco: No Alcohol Use: None Do you use any recreational Drugs:: No Lives With: Alone Lives Where: Home - infectious screening In the last 2 months have you had wt loss of >10#?: NO Have you had fever, night sweats or hemotysis?: No Have you traveled outside the country in the last 6 months?: No Isolation: Standard ROS - Review of Systems Constitutional: negative: Diaphoresis Eyes: No Symptoms Reported ENTM: No Symptoms Reported Respiratoy: No Symptoms Reported Cardiovascular: No Symptoms Reported Gastrointestinal/Abdominal: No Symptoms Reported Genitourinary: No Symptoms Reported Neurological: No Symptoms Reported Musculoskeletal: No Symptoms Reported Integumentary: Other (bug bite) Hematologic/Lymphatic: No Symptoms Reported Endocrine: No Symptoms Reported Psychiatric: No Symptoms Reported All Other Systems: Reviewed and Negative PE - Vital Signs Vital Signs: Temp Pulse Resp BP BP BP BP 12/22/16 09:23 97.8 F 77 20 170/92 11/29/16 18:32 214/88 214/88 09/15/16 16:25 196/97 07/14/16 07:41 170/84 02/11/15 08:00 174/83 Pulse Ox 12/22/16 09:23 99 11/29/16 18:32 09/15/16 16:25 07/14/16 07:41 02/11/15 08:00 - Constitutional Limitations: No Limitations General Appearance: Alert, In No Apparent Distress - Head Head Exam: Normal Inspection, Atraumatic - Eyes Eye exam: Normal Appearance, PERRL, EOMI - ENT ENT Exam: Normal Exam, Normal Oropharynx, Normal External Ear Exam - Neck Neck Exam: Normal Inspection - Chest Chest Inspection: Normal Inspection - Respiratory Respiratory Exam: Normal Lung Sounds Bilat Respiratory Exam: Bilateral Clear to Auscultation - Cardiovascular Cardiovascular Exam: Regular Rate, Normal Rhythm - Abdominal Exam Abdominal Exam: Normal Inspection Abdominal Tenderness: negative: RUQ, RLQ, LUQ, LLQ, Epigastrium, Suprapubic, Diffuse, Mild, Moderate, Severe, Other - Extremities Extremities Exam: Normal Inspection, Full ROM - Back Back Exam: Normal Inspection - Neurologic Neurological Exam: Alert, Oriented X3, CN II-XII Intact Cranial Nerve Exam: EOM Function (II, III, IV, ): Normal Cerebellar Function: Finger to Nose: Normal Upper Motor Neuron Exam: Alfredo Neglect: Normal - Psychiatric Psychiatric Exam: Normal Affect - Skin Skin Exam: Warm, Dry, Intact, Other (nape of neck healed papule grayish with black border) Type of Lesion: Rash - Diagnosis Discharge Problem: Insect bite or sting - Discharge Plan Condition: Stable - Follow ups/Referrals Follow ups/Referrals: Yenifer BANG [Primary Care Provider] - 3 days - Instructions
== END 2016-12-22 10:03 | disposition home or self-care (01) ==
LOC: ER 09:28
DX: S10.96XA Insect bite of unspecified part of neck, initial encounter (principal); W57.XXXA Bitten or stung by nonvenomous insect and other nonvenomous arthropods, initial encounter; Y92.9 Unspecified place or not applicable
CPT/HCPCS: 99281

== ENCOUNTER 2016-12-22 22:15 | Emergency (ER) | payer MEDICAID ==
[2016-12-22 22:32] VITALS: BP 176/86; BMI 38.2
--- NOTE | 2016-12-22 23:48 | DR.GENAD ---
HPI - PCP Primary Care Physician: DR. CRUZ - Complaint/Symptoms Chief Complaint Doctors Comments: Patient was seen earlier in the day with complaint of bug bites. She now c/o abdominal pain for 2-3 days. 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 - Family History History of Family Medical Conditions: Yes Family Medical History: Hypertension - Social History Does patient currently use any type of tobacco product: No Have you used tobacco products in the last 12 months: No Type of Tobacco Use: None Alcohol Use: None Do you use any recreational Drugs:: No Lives With: Alone Lives Where: Home - infectious screening In the last 2 months have you had wt loss of >10#?: NO Have you had fever, night sweats or hemotysis?: No Have you traveled outside the country in the last 6 months?: No Isolation: Standard ROS - Review of Systems Eyes: No Symptoms Reported ENTM: No Symptoms Reported Respiratoy: No Symptoms Reported Cardiovascular: No Symptoms Reported Gastrointestinal/Abdominal: No Symptoms Reported Genitourinary: No Symptoms Reported Neurological: No Symptoms Reported Musculoskeletal: No Symptoms Reported Integumentary: No Symptoms Reported Hematologic/Lymphatic: No Symptoms Reported Endocrine: No Symptoms Reported Psychiatric: No Symptoms Reported All Other Systems: Reviewed and Negative PE - Vital Signs Vitals: Temperature 97.9 F Pulse Rate 73 Respiratory Rate 20 Blood Pressure [Right Calf] 170/84 Blood Pressure [Left Arm] 196/97 Blood Pressure [Right Arm] 214/88 Blood Pressure [Right Arm] 174/83 Blood Pressure 176/86 O2 Sat by Pulse Oximetry 100 - General Limitations: No Limitations General Appearance: Alert - Head Head Exam: Atraumatic - Eyes Eye exam: Normal Appearance, PERRL, EOMI - ENT ENT Exam: Normal Exam External Ear Exam: Normal External Inspection TM/Canal Exam: Bilateral Normal Nose Exam: Normal Nose Exam Mouth Exam: Normal Inspection Throat Exam: Normal Inspection - Neck Neck Exam: Normal Inspection, Full ROM - Chest Chest Inspection: Normal Inspection - Respiratory Respiratory Exam: Normal Lung Sounds Bilat Respiratory Exam: Bilateral Clear to Auscultation - Cardiovascular Cardiovascular Exam: Regular Rate, Normal Rhythm - Abdominal Exam Abdominal Exam: Normal Inspection, Normal Bowel Sounds, Soft Abdominal Tenderness: negative: RUQ, RLQ, LUQ, LLQ, Epigastrium, Suprapubic, Diffuse, Mild, Moderate, Severe, Other - Extremities Extremities Exam: Normal Inspection - Back Back Exam: Normal Inspection, Full ROM - Neurologic Neurological Exam: Alert, Oriented X3 - Psychiatric Psychiatric Exam: Normal Affect, Normal Mood - Skin Skin Exam: Warm, Dry, Intact - Diagnosis Discharge Problem: Stomach pain - Discharge Plan Condition: Stable - Follow ups/Referrals Follow ups/Referrals: NFD,None [Primary Care Provider] - 3 days - Instructions
--- NOTE | 2016-12-23 00:30 | RAD ---
EXAM: Abdomen x-ray INDICATION: Abdominal pain COMPARISION: Prior exam from September 09, 2016 TECHNIQUE: AP view, single view FINDINGS: The bowel loops are nonobstructed. No abnormal mass or calcification is identified. The regional ske leton is intact. IMPRESSION: Normal single view abdominal x-ray examination Reported By:
[2016-12-23] MEDS ORDERED: BENTYL I.M. INJ 10 MG IM ONE ×2 (00:39→00:52)
[2016-12-23 00:58] LABS: C-REACTIVE PROTEIN 2.2 mg/L (0-3.0); CALCIUM 8.9 mg/dL (8.5-10.1); CARBON DIOXIDE 27.1 mmol/L (21-32); CREATININE 2.17 mg/dL (0.55-1.02)
[2016-12-23 01:01] LABS: BASOPHILS # (AUTO) 0.1 X10^3/uL (0.0-0.1); EOSINOPHILS # (AUTO) 0.2 x10^3/uL (0.0-0.2); EOSINOPHILS % (AUTO) 1.6 % (0.9-2.9); HEMATOCRIT 34.6 % (36.0-47.0); HEMOGLOBIN 11.7 g/dL (12.0-16.0); LYMPHOCYTES # (AUTO) 3.8 X10^3/uL (1.3-2.9); LYMPHOCYTES % (AUTO) 39.9 % (21.0-51.0); MEAN CORPUSCULAR HEMOGLOBIN 29.3 pg (27.0-34.0); MEAN CORPUSCULAR HGB CONC 33.7 g/dL (33.0-35.0); MEAN CORPUSCULAR VOLUME 86.8 fL (80.0-100.0); MEAN PLATELET VOLUME 8.3 fL (7.4-11.0); MONOCYTES # (AUTO) 0.6 x10^3/uL (0.3-0.8); MONOCYTES % (AUTO) 6.6 % (0.0-13.0); NEUTROPHILS # (AUTO) 4.9 x10^3/uL (2.2-4.8); NEUTROPHILS % (AUTO) 50.9 % (42.0-75.0); PLATELET COUNT 269 X10^3/uL (150.0-450.0); RED BLOOD COUNT 3.99 X10^6/uL (3.5-5.4); WHITE BLOOD COUNT 9.6 X10^3/uL (3.6-10.0)
== END 2016-12-23 01:00 | disposition home or self-care (01) ==
LOC: ER 22:38
DX: R10.84 Generalized abdominal pain (principal)
CPT/HCPCS: 36415; 74000; 80048; 85025; 86140; 96372; 99282; J0500

== ENCOUNTER 2017-01-12 06:58 | Emergency (ER) | payer MEDICAID ==
[2017-01-12 07:07] VITALS: BP 184/80; BMI 38.2
[2017-01-12] MEDS ORDERED: TORADOL 60 MG VIAL IM ONE (07:19)
--- NOTE | 2017-01-12 07:19 | DR.GENAD ---
HPI - PCP Primary Care Physician: DIEGO BANG - Complaint/Symptoms Chief Complaint Doctors Comments: Patient admits to arthritis pain in her legs onset this morning. 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 - Family History History of Family Medical Conditions: Yes Family Medical History: Hypertension - Social History Does patient currently use any type of tobacco product: No Have you used tobacco products in the last 12 months: No Type of Tobacco Use: None Does any household member use tobacco: No Alcohol Use: None Do you use any recreational Drugs:: No Lives With: Alone Lives Where: Home - infectious screening In the last 2 months have you had wt loss of >10#?: NO Have you had fever, night sweats or hemotysis?: No Have you traveled outside the country in the last 6 months?: No Isolation: Standard ROS - Review of Systems Constitutional: No Symptoms Reported Eyes: No Symptoms Reported ENTM: No Symptoms Reported Respiratoy: No Symptoms Reported Cardiovascular: No Symptoms Reported Gastrointestinal/Abdominal: No Symptoms Reported Genitourinary: No Symptoms Reported Neurological: No Symptoms Reported Musculoskeletal: No Symptoms Reported Integumentary: No Symptoms Reported Hematologic/Lymphatic: No Symptoms Reported Endocrine: No Symptoms Reported Psychiatric: No Symptoms Reported All Other Systems: Reviewed and Negative PE - Vital Signs Vitals: Temperature 98.3 F Pulse Rate 78 Respiratory Rate 10 Blood Pressure [Right Calf] 170/84 Blood Pressure [Left Arm] 196/97 Blood Pressure [Right Arm] 214/88 Blood Pressure [Right Arm] 174/83 Blood Pressure 184/80 O2 Sat by Pulse Oximetry 100 - General Limitations: No Limitations General Appearance: Alert - Head Head Exam: Normal Inspection, Atraumatic - Eyes Eye exam: Normal Appearance, PERRL, EOMI - ENT ENT Exam: Normal Exam External Ear Exam: Normal External Inspection TM/Canal Exam: Bilateral Normal Nose Exam: Normal Nose Exam Mouth Exam: Normal Inspection Throat Exam: Normal Inspection - Neck Neck Exam: Normal Inspection - Chest Chest Inspection: Normal Inspection - Respiratory Respiratory Exam: Normal Lung Sounds Bilat Respiratory Exam: Bilateral Clear to Auscultation - Cardiovascular Cardiovascular Exam: Regular Rate, Normal Rhythm - Abdominal Exam Abdominal Exam: Normal Inspection Abdominal Tenderness: negative: RUQ, RLQ, LUQ, LLQ, Epigastrium, Suprapubic, Diffuse, Mild, Moderate, Severe, Other - Extremities Extremities Exam: Normal Inspection - Back Back Exam: Normal Inspection - Neurologic Neurological Exam: Alert, Oriented X3, CN II-XII Intact Course - Reevaluation 1st: Improved - Diagnosis Discharge Problem: Arthritis - Discharge Plan Condition: Stable - Follow ups/Referrals Follow ups/Referrals: Christi MCGUIREc [Primary Care Provider] - 3 days - Instructions
[2017-01-12] MEDS ORDERED: TORADOL 60 MG VIAL ONE (07:25)
== END 2017-01-12 07:56 | disposition home or self-care (01) ==
LOC: ER 06:58
DX: M19.90 Unspecified osteoarthritis, unspecified site (principal)
CPT/HCPCS: 96372; 99282; J1885

== ENCOUNTER 2017-02-07 18:23 | Emergency (ER) | payer MEDICAID ==
[2017-02-07 18:31] VITALS: BMI 44.6
[2017-02-07] MEDS ORDERED: CATAPRES TAB 0.2 MG PO ONE (19:12)
[2017-02-07] MEDS ORDERED: CATAPRES TAB 0.2 MG ONE (19:15)
--- NOTE | 2017-02-07 19:15 | DR.GENAD ---
HPI - PCP Primary Care Physician: BETI HARRISON - Complaint/Symptoms Chief Complaint:: PT STATES " I HAVE BEEN SWELLING IN MY STOMACK AND MY BREAST AND MY NIPPLES ARE BURNING , I AM CATCHING A COLD, AND I FELL LIKE SOMETHING IS RUNNING BACK AND FORTH ON MY PRIVATE AREA".. Self Treatment fo Chief Complaint: NO EDEMA NOTED... PT IS RAMBLING ABOUT HER HOUSE AND SNAKES BEING THERE .. 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 - Family History History of Family Medical Conditions: Yes Family Medical History: Hypertension - Social History Does patient currently use any type of tobacco product: No Have you used tobacco products in the last 12 months: No Type of Tobacco Use: None Does any household member use tobacco: No Alcohol Use: None Do you use any recreational Drugs:: No Lives With: Alone Lives Where: Home - infectious screening In the last 2 months have you had wt loss of >10#?: NO Have you had fever, night sweats or hemotysis?: No Have you traveled outside the country in the last 6 months?: No Isolation: Standard ROS - Review of Systems Constitutional: No Symptoms Reported Eyes: No Symptoms Reported ENTM: No Symptoms Reported Respiratoy: No Symptoms Reported Cardiovascular: No Symptoms Reported Gastrointestinal/Abdominal: No Symptoms Reported, Other (BLOATING) Genitourinary: No Symptoms Reported Neurological: No Symptoms Reported Musculoskeletal: No Symptoms Reported Integumentary: No Symptoms Reported Hematologic/Lymphatic: No Symptoms Reported Endocrine: No Symptoms Reported Psychiatric: Anxiety, Depression All Other Systems: Reviewed and Negative PE - Vital Signs Vitals: Temperature 98.3 F Pulse Rate 85 Respiratory Rate 18 Blood Pressure [Right Calf] 170/84 Blood Pressure [Left Arm] 196/97 Blood Pressure [Right Arm] 208/97 Blood Pressure [Right Arm] 174/83 Blood Pressure 208/90 O2 Sat by Pulse Oximetry 96 - General Limitations: No Limitations General Appearance: Alert, In No Apparent Distress - Head Head Exam: Normal Inspection - Eyes Eye exam: Normal Appearance, EOMI. negative: Scleral Icterus, Conjunctival Injection - ENT ENT Exam: Normal Exam, Normal Oropharynx - Neck Neck Exam: Normal Inspection, Full ROM, Trachea Midline - Chest Chest Inspection: Normal Inspection - Respiratory Respiratory Exam: Normal Lung Sounds Bilat. negative: Accessory Muscle Use, Respiratory Distress Respiratory Exam: Bilateral Clear to Auscultation - Cardiovascular Cardiovascular Exam: Regular Rate - Abdominal Exam Abdominal Exam: Normal Inspection, Normal Bowel Sounds, Soft. negative: Distention, Tenderness, Guarding - Extremities Extremities Exam: Normal Inspection - Back Back Exam: Normal Inspection - Neurologic Neurological Exam: Alert, Oriented X3, CN II-XII Intact - Psychiatric Psychiatric Exam: Normal Affect - Skin Skin Exam: Intact, Normal Color - Diagnosis Discharge Problem: Hypertension Qualifiers: Hypertension type: essential hypertension Qualified Code(s): I10 - Essential ( primary) hypertension Diabetes mellitus, insulin dependent (IDDM), uncontrolled Qualifiers: Diabetes mellitus complication status: without complication Qualified Code(s): E10.65 - Type 1 diabetes mellitus with hyperglycemia - Discharge Plan Condition: Stable - Follow ups/Referrals Follow ups/Referrals: NFD,None [Primary Care Provider] - 3 days - Instructions
[2017-02-07 19:22] VITALS: BP 208/97
[2017-02-07] MEDS ORDERED: HumuLIN R SUBCUT PRN (19:29)
[2017-02-07] MEDS ORDERED: HumuLIN R ONE (19:33)
== END 2017-02-07 20:50 | disposition home or self-care (01) ==
LOC: ER 18:37
DX: I10 Essential (primary) hypertension (principal); E10.65 Type 1 diabetes mellitus with hyperglycemia
CPT/HCPCS: 96372; 99282; J1815

== ENCOUNTER 2017-02-15 02:32 | Emergency (ER) | payer MEDICAID ==
[2017-02-15 02:41] VITALS: BP 184/88; BMI 44.6
--- NOTE | 2017-02-15 02:49 | DR.GENAD ---
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 - Family History History of Family Medical Conditions: Yes Family Medical History: Hypertension - Social History Do you use any recreational Drugs:: No Lives With: Family Lives Where: Home - infectious screening In the last 2 months have you had wt loss of >10#?: NO Have you had fever, night sweats or hemotysis?: No Have you traveled outside the country in the last 6 months?: No Isolation: Standard ROS - Review of Systems Eyes: Other (erythematous left conjunctiva) ENTM: No Symptoms Reported Respiratoy: No Symptoms Reported Cardiovascular: No Symptoms Reported Gastrointestinal/Abdominal: No Symptoms Reported Genitourinary: No Symptoms Reported Neurological: No Symptoms Reported Musculoskeletal: No Symptoms Reported Integumentary: No Symptoms Reported Hematologic/Lymphatic: No Symptoms Reported Endocrine: No Symptoms Reported Psychiatric: No Symptoms Reported All Other Systems: Reviewed and Negative PE - Vital Signs Vitals: Temperature 98.2 F Pulse Rate 76 Respiratory Rate 18 Blood Pressure [Right Calf] 170/84 Blood Pressure [Left Arm] 196/97 Blood Pressure [Right Arm] 208/97 Blood Pressure [Right Arm] 174/83 Blood Pressure 184/88 O2 Sat by Pulse Oximetry 100 - General General Appearance: Alert, In No Apparent Distress - Head Head Exam: Normal Inspection - Eyes Eye exam: Normal Appearance, PERRL, EOMI, Other (left conjunctiva erythematous laterally, good movement w/o pain) - ENT ENT Exam: Normal Exam External Ear Exam: Normal External Inspection TM/Canal Exam: Bilateral Normal Nose Exam: Normal Nose Exam Mouth Exam: Normal Inspection Throat Exam: Normal Inspection - Neck Neck Exam: Normal Inspection, Full ROM - Chest Chest Inspection: Normal Inspection, Symmetric Chest Wall Rise - Respiratory Respiratory Exam: Normal Lung Sounds Bilat Respiratory Exam: Bilateral Clear to Auscultation - Cardiovascular Cardiovascular Exam: Regular Rate, Normal Rhythm - Abdominal Exam Abdominal Exam: Normal Inspection Abdominal Tenderness: negative: RUQ, RLQ, LUQ, LLQ, Epigastrium, Suprapubic, Diffuse, Mild, Moderate, Severe, Other - Extremities Extremities Exam: Normal Inspection, Full ROM - Back Back Exam: Normal Inspection, Full ROM - Neurologic Neurological Exam: Alert, Oriented X3, CN II-XII Intact - Psychiatric Psychiatric Exam: Normal Affect - Skin Skin Exam: Warm, Dry, Intact - Diagnosis Discharge Problem: Conjunctivitis Qualifiers: Conjunctivitis type: acute Acute conjunctivitis type: bacterial Laterality: left Qualified Code(s): H10.32 - Unspecified acute conjunctivitis, left eye - Discharge Plan Condition: Stable - Follow ups/Referrals Follow ups/Referrals: NFD,None [Primary Care Provider] - 3 days - Instructions
== END 2017-02-15 02:53 | disposition home or self-care (01) ==
LOC: ER 02:32
DX: H10.32 Unspecified acute conjunctivitis, left eye (principal)
CPT/HCPCS: 99281; 99282

== ENCOUNTER 2017-03-09 04:02 | Emergency (ER) | payer MEDICAID ==
[2017-03-09 04:20] VITALS: BP 193/90; BMI 38.0
[2017-03-09] MEDS ORDERED: TORADOL 60 MG VIAL IM ONE (04:37)
--- NOTE | 2017-03-09 04:38 | DR.GENAD ---
HPI - PCP Primary Care Physician: NFD - Complaint/Symptoms Chief Complaint Doctors Comments: Patient reports that she injected her insulin 25U just prior to being seen. This inofrmation given s/p BMP revealed glucose of 33mg/d/. 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 - Family History History of Family Medical Conditions: Yes Family Medical History: Hypertension - Social History Does patient currently use any type of tobacco product: No Have you used tobacco products in the last 12 months: No Type of Tobacco Use: None Does any household member use tobacco: No Alcohol Use: None Do you use any recreational Drugs:: No Lives With: Alone Lives Where: Home - infectious screening In the last 2 months have you had wt loss of >10#?: NO Have you had fever, night sweats or hemotysis?: No Have you traveled outside the country in the last 6 months?: No Isolation: Standard ROS - Review of Systems Constitutional: No Symptoms Reported Eyes: No Symptoms Reported ENTM: No Symptoms Reported Respiratoy: No Symptoms Reported Cardiovascular: No Symptoms Reported Gastrointestinal/Abdominal: No Symptoms Reported Genitourinary: No Symptoms Reported Neurological: No Symptoms Reported Musculoskeletal: Other (cramps) Integumentary: No Symptoms Reported Hematologic/Lymphatic: No Symptoms Reported Endocrine: No Symptoms Reported Psychiatric: No Symptoms Reported All Other Systems: Reviewed and Negative PE - Vital Signs Vitals: Temperature 98.0 F Pulse Rate 64 Respiratory Rate 16 Blood Pressure [Right Calf] 170/84 Blood Pressure [Left Arm] 196/97 Blood Pressure [Right Arm] 208/97 Blood Pressure [Right Arm] 174/83 Blood Pressure 193/90 O2 Sat by Pulse Oximetry 98 - General General Appearance: Alert - Head Head Exam: Normal Inspection, Atraumatic - Eyes Eye exam: Normal Appearance, PERRL, EOMI - ENT ENT Exam: Normal Oropharynx External Ear Exam: Normal External Inspection TM/Canal Exam: Bilateral Normal Nose Exam: Normal Nose Exam Mouth Exam: Normal Inspection Throat Exam: Normal Inspection - Neck Neck Exam: Normal Inspection - Chest Chest Inspection: Normal Inspection - Respiratory Respiratory Exam: Bilateral Clear to Auscultation - Cardiovascular Cardiovascular Exam: Regular Rate - Abdominal Exam Abdominal Exam: Normal Inspection, Normal Bowel Sounds Abdominal Tenderness: negative: RUQ, RLQ, LUQ, LLQ, Epigastrium, Suprapubic, Diffuse, Mild, Moderate, Severe, Other - Extremities Extremities Exam: Normal Inspection - Back Back Exam: Normal Inspection, Full ROM - Neurologic Neurological Exam: Alert, Oriented X3, CN II-XII Intact - Psychiatric Psychiatric Exam: Normal Affect - Skin Skin Exam: Warm, Dry Course - Treatment Treatment: s/p D50 bolus serum glucose 100mg/dl--patient given breakfast. - Reevaluation 1st: Improved ROR - Labs Reviewed Result Diagrams: 03/09/17 04:55 Laboratory: Sodium 144 mmol/L (136-145) 03/09/17 04:55 Corrected Sodium TNP 03/09/17 04:55 Potassium 3.6 mmol/L (3.5-5.1) 03/09/17 04:55 Chloride 107 mmol/L (98-107) 03/09/17 04:55 Carbon Dioxide 30.1 mmol/L (21-32) 03/09/17 04:55 BUN 38 mg/dL (7-18) H 03/09/17 04:55 Creatinine 1.74 mg/dL (0.55-1.02) H 03/09/17 04:55 Est GFR (MDRD) Af Amer 40 (>60) L 03/09/17 04:55 Est GFR (MDRD) Non-Af 33 (>60) L 03/09/17 04:55 Glucose 39 mg/dL (65-99) L* 03/09/17 04:55 POC Glucose (mg/dL) 100 mg/dL (65-99) H 03/09/17 06:14 Calcium 9.4 mg/dL (8.5-10.1) 03/09/17 04:55 Corrected Calcium 10.0 mg/dL (8.5-10.1) 03/09/17 04:55 Total Bilirubin 0.20 mg/dL (0.2-1.0) 03/09/17 04:55 AST 29 Units/L (15-37) 03/09/17 04:55 ALT 65 Units/L (12-78) 03/09/17 04:55 Alkaline Phosphatase 142 Units/L (46-116) H 03/09/17 04:55 Total Protein 8.0 g/dL (6.4-8.2) 03/09/17 04:55 Albumin 3.2 g/dL (3.4-5.0) L 03/09/17 04:55 Globulin 4.8 g/dL (2.5-4.5) H 03/09/17 04:55 Albumin/Globulin Ratio 0.7 Ratio (1.1-2.1) L 03/09/17 04:55 - Diagnosis Discharge Problem: Hypoglycemia, Leg pain, left - Discharge Plan Condition: Stable - Follow ups/Referrals Follow ups/Referrals: NFD,None [Primary Care Provider] - 3 days - Instructions
[2017-03-09] MEDS ORDERED: TORADOL 60 MG VIAL ONE (04:45)
[2017-03-09 05:19] LABS: BLOOD UREA NITROGEN 38 mg/dL (7-18); CALCIUM 9.4 mg/dL (8.5-10.1); CARBON DIOXIDE 30.1 mmol/L (21-32); CHLORIDE 107 mmol/L (98-107); CREATININE 1.74 mg/dL (0.55-1.02); SODIUM 144 mmol/L (136-145); eGFR BLACK RACES 40 (>60); eGFR NON BLACK RACES 33 (>60)
[2017-03-09 05:20] LABS: ALANINE AMINOTRANSFERASE 65 Units/L (12-78); ALBUMIN 3.2 g/dL (3.4-5.0); ALKALINE PHOSPHATASE 142 Units/L (46-116); ASPARTATE AMINO TRANSFERASE 29 Units/L (15-37)
[2017-03-09] MEDS ORDERED: D50W ABBOJECT SYR IV ONE ×2 (05:25→07:37)
[2017-03-09] MEDS ORDERED: D50W ABBOJECT SYR ONE ×2 (05:36→07:38)
[2017-03-09] MEDS ORDERED: NS 1000 ML 1,000 ML ONE (05:41)
[2017-03-09] MEDS ORDERED: NS 1000 ML 1,000 ML IV SCH (06:00)
[2017-03-09] MEDS ORDERED: D5W 1000 ML IV 1,000 ML IV ONE (06:15)
[2017-03-09] MEDS ORDERED: D5W 1000 ML IV 1,000 ML IV SCH (07:00)
== END 2017-03-09 07:52 | disposition home or self-care (01) ==
LOC: ER 04:02
DX: M79.605 Pain in left leg (principal); E16.2 Hypoglycemia, unspecified
CPT/HCPCS: 36415; 80053; 96365; 96372; 96374; 96375; 99283; A4222; J1885; J3490

== ENCOUNTER 2017-03-30 21:38 | Emergency (ER) | payer MEDICAID ==
[2017-03-30 21:46] VITALS: BP 188/89; BMI 39.5
--- NOTE | 2017-03-30 23:03 | DR.GENAD ---
HPI - PCP Primary Care Physician: BETI - Complaint/Symptoms Chief Complaint Doctors Comments: Patient states that she has stomach pain, admits to constipation. Denies fever, vomiting or fever. 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 - Family History History of Family Medical Conditions: Yes Family Medical History: Hypertension - Social History Does patient currently use any type of tobacco product: No Have you used tobacco products in the last 12 months: No Type of Tobacco Use: None Does any household member use tobacco: No Alcohol Use: None Do you use any recreational Drugs:: No Lives With: Alone Lives Where: Home - infectious screening In the last 2 months have you had wt loss of >10#?: NO Have you had fever, night sweats or hemotysis?: No Have you traveled outside the country in the last 6 months?: No Isolation: Standard ROS - Review of Systems Eyes: No Symptoms Reported ENTM: No Symptoms Reported Respiratoy: No Symptoms Reported Cardiovascular: No Symptoms Reported Gastrointestinal/Abdominal: No Symptoms Reported Genitourinary: No Symptoms Reported Neurological: No Symptoms Reported Musculoskeletal: No Symptoms Reported Integumentary: No Symptoms Reported Hematologic/Lymphatic: No Symptoms Reported Endocrine: No Symptoms Reported Psychiatric: No Symptoms Reported All Other Systems: Reviewed and Negative PE - Vital Signs Vitals: Temperature 98.6 F Pulse Rate 80 Respiratory Rate 16 Blood Pressure [Right Calf] 170/84 Blood Pressure [Left Arm] 196/97 Blood Pressure [Right Arm] 208/97 Blood Pressure [Right Arm] 174/83 Blood Pressure 188/89 O2 Sat by Pulse Oximetry 97 - General Limitations: No Limitations General Appearance: Alert, In No Apparent Distress - Head Head Exam: Normal Inspection, Atraumatic - Eyes Eye exam: Normal Appearance, PERRL, EOMI - ENT ENT Exam: Normal Exam External Ear Exam: Normal External Inspection TM/Canal Exam: Bilateral Normal Nose Exam: Normal Nose Exam Mouth Exam: Normal Inspection Throat Exam: Normal Inspection - Neck Neck Exam: Normal Inspection, Full ROM - Chest Chest Inspection: Normal Inspection - Respiratory Respiratory Exam: Normal Lung Sounds Bilat Respiratory Exam: Bilateral Clear to Auscultation - Cardiovascular Cardiovascular Exam: Regular Rate, Normal Rhythm - Abdominal Exam Abdominal Exam: Normal Inspection Abdominal Tenderness: Epigastrium - Extremities Extremities Exam: Normal Inspection, Full ROM - Back Back Exam: Normal Inspection - Neurologic Neurological Exam: Alert, Oriented X3, CN II-XII Intact - Psychiatric Psychiatric Exam: Normal Affect - Skin Skin Exam: Warm, Dry, Intact ROR - Labs Reviewed Result Diagrams: 03/30/17 23:56 03/30/17 23:56 Laboratory: WBC 9.9 X10^3/uL (3.6-10.0) 03/30/17 23:56 RBC 3.48 X10^6/uL (3.5-5.4) L 03/30/17 23:56 Hgb 10.4 g/dL (12.0-16.0) L 03/30/17 23:56 Hct 30.2 % (36.0-47.0) L 03/30/17 23:56 MCV 86.6 fL (80.0-100.0) 03/30/17 23:56 MCH 29.8 pg (27.0-34.0) 03/30/17 23:56 MCHC 34.4 g/dL (33.0-35.0) 03/30/17 23:56 RDW 15.5 % (11.6-16.5) 03/30/17 23:56 Plt Count 215 X10^3/uL (150.0-450.0) 03/30/17 23:56 MPV 7.8 fL (7.4-11.0) 03/30/17 23:56 Neut % 61.8 % (42.0-75.0) 03/30/17 23:56 Lymph % 31.0 % (21.0-51.0) 03/30/17 23:56 [place] % 5.3 % (0.0-13.0) 03/30/17 23:56 Eos % 1.3 % (0.9-2.9) 03/30/17 23:56 Baso % 0.6 % (0.2-1.0) 03/30/17 23:56 Neut # 6.1 x10^3/uL (2.2-4.8) H 03/30/17 23:56 Lymph # 3.1 X10^3/uL (1.3-2.9) H 03/30/17 23:56 [place] # 0.5 x10^3/uL (0.3-0.8) 03/30/17 23:56 Eos # 0.1 x10^3/uL (0.0-0.2) 03/30/17 23:56 Baso # 0.1 X10^3/uL (0.0-0.1) 03/30/17 23:56 Absolute Nucleated RBC 0.0 /100WBC 03/30/17 23:56 Sodium 136 mmol/L (136-145) 03/30/17 23:56 Corrected Sodium 143 mmol/L (136-145) 03/30/17 23:56 Potassium 3.8 mmol/L (3.5-5.1) 03/30/17 23:56 Chloride 102 mmol/L (98-107) 03/30/17 23:56 Carbon Dioxide 27.0 mmol/L (21-32) 03/30/17 23:56 BUN 22 mg/dL (7-18) H 03/30/17 23:56 Creatinine 2.18 mg/dL (0.55-1.02) H 03/30/17 23:56 Est GFR (MDRD) Af Amer 30 (>60) L 03/30/17 23:56 Est GFR (MDRD) Non-Af 25 (>60) L 03/30/17 23:56 Glucose 405 mg/dL (65-99) H 03/30/17 23:56 Calcium 9.0 mg/dL (8.5-10.1) 03/30/17 23:56 Specimen Type Clean catch urine 03/31/17 00:23 Urine Color Yellow (YELLOW) 03/31/17 00:23 Urine Appearance Clear (CLEAR) 03/31/17 00:23 Urine pH 7.0 (5.0 - 8.0) 03/31/17 00:23 Ur Specific [place] 1.005 (1.000-1.030) 03/31/17 00:23 Urine Protein 3+ (NEGATIVE) 03/31/17 00:23 Urine Glucose (UA) 4+ (NEGATIVE) 03/31/17 00:23 Urine Ketones Negative (NEGATIVE) 03/31/17 00:23 Urine Occult Blood 2+ (NEGATIVE) 03/31/17 00:23 Urine Nitrite Negative (NEGATIVE) 03/31/17 00:23 Urine Bilirubin Negative (NEGATIVE) 03/31/17 00:23 Urine Urobilinogen Normal (NORMAL) 03/31/17 00:23 Ur Leukocyte Esterase Negative (NEGATIVE) 03/31/17 00:23 Urine RBC 0-3 /HPF (NEGATIVE) 03/31/17 00:23 Urine WBC 0-3 /HPF (NEGATIVE) 03/31/17 00:23 Ur Squamous Epith Cells Rare /HPF (NEGATIVE) 03/31/17 00:23 Urine Bacteria Negative /HPF (NEGATIVE) 03/31/17 00:23 Ur Culture Indicated? No/not indicated 03/31/17 00:23 - Diagnosis Discharge Problem: Hyperglycemia - Discharge Plan Disposition: 07 AGAINST MEDICAL ADVICE Condition: Stable - Follow ups/Referrals Follow ups/Referrals: CHARLEE BANG [Primary Care Provider] - 3 days - Instructions
[2017-03-31 00:32] LABS: CREATININE 2.18 mg/dL (0.55-1.02)
[2017-03-31 00:33] LABS: BASOPHILS # (AUTO) 0.1 X10^3/uL (0.0-0.1); BASOPHILS % (AUTO) 0.6 % (0.2-1.0); EOSINOPHILS # (AUTO) 0.1 x10^3/uL (0.0-0.2); EOSINOPHILS % (AUTO) 1.3 % (0.9-2.9); HEMATOCRIT 30.2 % (36.0-47.0); HEMOGLOBIN 10.4 g/dL (12.0-16.0); LYMPHOCYTES # (AUTO) 3.1 X10^3/uL (1.3-2.9); MEAN CORPUSCULAR HEMOGLOBIN 29.8 pg (27.0-34.0); MEAN CORPUSCULAR HGB CONC 34.4 g/dL (33.0-35.0); MEAN CORPUSCULAR VOLUME 86.6 fL (80.0-100.0); MEAN PLATELET VOLUME 7.8 fL (7.4-11.0); MONOCYTES # (AUTO) 0.5 x10^3/uL (0.3-0.8); MONOCYTES % (AUTO) 5.3 % (0.0-13.0); NEUTROPHILS # (AUTO) 6.1 x10^3/uL (2.2-4.8); NEUTROPHILS % (AUTO) 61.8 % (42.0-75.0); PLATELET COUNT 215 X10^3/uL (150.0-450.0); RED BLOOD COUNT 3.48 X10^6/uL (3.5-5.4); RED CELL DISTRIBUTION WIDTH 15.5 % (11.6-16.5); WHITE BLOOD COUNT 9.9 X10^3/uL (3.6-10.0)
[2017-03-31] MEDS ORDERED: NS 1000 ML 1,000 ML IV ONE (00:54)
[2017-03-31] MEDS ORDERED: NS 1000 ML 1,000 ML ONE (00:56)
[2017-03-31 00:58] LABS: BILIRUBIN,URINE NEGATIVE (NEGATIVE); BLOOD/HEMOGLOBIN,URINE 2+ (NEGATIVE); GLUCOSE, URINE 4+ (NEGATIVE); KETONES,URINE NEGATIVE (NEGATIVE); LEUKOCYTE ESTERASE ,URINE NEGATIVE (NEGATIVE); NITRITES,URINE NEGATIVE (NEGATIVE); PROTEIN,URINE 3+ (NEGATIVE); UROBILINOGEN,URINE NORMAL (NORMAL)
[2017-03-31 01:10] LABS: APPEARANCE,URINE CLEAR (CLEAR); BACTERIA,URINE NEGATIVE /HPF (NEGATIVE); COLOR,URINE YELLOW (YELLOW); RBC,URINE 0-3 /HPF (NEGATIVE); SQUAMOUS EPITHELIAL CELL,UR RARE /HPF (NEGATIVE)
== END 2017-03-31 02:00 | disposition left against medical advice (07) ==
LOC: ER 21:50
DX: R73.9 Hyperglycemia, unspecified (principal)
CPT/HCPCS: 36415; 74000; 80048; 81001; 85025; 99283; A4222

== ENCOUNTER 2017-04-01 14:05 | Emergency (ER) | payer MEDICAID ==
[2017-04-01 14:12] VITALS: BP 215/90; BMI 39.6
[2017-04-01] MEDS ORDERED: CLEOCIN PO STA (15:01)
[2017-04-01] MEDS ORDERED: XYLOCAINE VISCOUS MT STA (15:02)
[2017-04-01] MEDS ORDERED: TYLENOL #3 TAB (W/CODEINE) PO STA (15:03)
--- NOTE | 2017-04-01 15:03 | DR.TOOTHHP ---
HPI - Time Seen Time seen: 14:57 - Primary Care Physician Primary Care Physician: DR. CRUZ - Complaints Chief Complaint Doctors Comments: Patient states she has an infection in her tooth and she need some antibiotic pills. She is seeing Dr. Chaves in [place] and is using mouth rinse but her tooth is still hurting. She denies fever, chills, nausea or vomiting. States the pain is 5 of 10. she denies tobacco or alcohol usage. She goes to [facility] in [place]. States she is allergic to penicillin. she denies dysuria, hematuria, diarrhea or sore throat. Chief Complaint:: PT C/O LOSING HER BIOLOGY PILLS AND THAT SHE HAS A TOOTHACHE AND THAT HER DENTIST APPT IS IN 3 WEEKS... Self Treatment fo Chief Complaint: CHLORHEXIDINE - Reviewed Nurses Notes Reviewed: Yes - Source History Provided: Patient - Mode of Arrival Mode of Arrival: Ambulatory - Timing Onset of Chief Complaint: 03/29/17 - Severity Pain Severity: Moderate - Location Location:: Left, Upper, Tooth, Gums - Context Onset:: Previous Caries History Of: None - Modifying Factors Worsens:: Heat, Cold, Chewing Improves:: Analgesics not used - Associated Signs and Symptoms Associated signs and symptoms: Sore Throat PMH - PMH Past Medical History: Yes Past Medical History: Arthritis, Diabetes, Hypertension Past Surgical History: 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 - Family History History of Family Medical Conditions: Yes Family Medical History: Hypertension - Social History Does patient currently use any type of tobacco product: No Have you used tobacco products in the last 12 months: No Type of Tobacco Use: None Does any household member use tobacco: No Do you use any recreational Drugs:: No Lives With: Alone Lives Where: Home - infectious screening In the last 2 months have you had wt loss of >10#?: NO Have you had fever, night sweats or hemotysis?: No Have you traveled outside the country in the last 6 months?: No Isolation: Standard ROS - Review of Systems Constitutional: No Symptoms Reported. negative: See HPI, Chills, Diaphoresis, Fever, Malaise, Weakness, Irritable, Fatigue, Loss of Appetite, Other Eyes: No Symptoms Reported ENTM: No Symptoms Reported, Mouth Pain. negative: See HPI, Ear Pain, Ear Discharge, Pulling on Ears, Hearing Loss, Nose Pain, Nose Discharge, Epistaxis, Nose Congestion, Mouth Swelling, Loose Teeth, Drooling, Throat Pain, Throat Swelling, Ear Foreign Body Respiratoy: No Symptoms Reported. negative: See HPI, Productive Cough, Non- Productive Cough, Moist Cough, Dry Cough, Hacking Cough, Barking Cough, Brassy Cough, Orthopnea, Short of Breath, Stridor, Wheezing, Hemoptysis, Other Cardiovascular: No Symptoms Reported Gastrointestinal/Abdominal: No Symptoms Reported Genitourinary: No Symptoms Reported Neurological: No Symptoms Reported Musculoskeletal: No Symptoms Reported Integumentary: No Symptoms Reported Hematologic/Lymphatic: No Symptoms Reported Endocrine: No Symptoms Reported Psychiatric: No Symptoms Reported PE - Vital Signs Vitals: Temperature 98.8 F Pulse Rate 72 Respiratory Rate 20 Blood Pressure [Right Calf] 170/84 Blood Pressure [Left Arm] 196/97 Blood Pressure [Right Arm] 208/97 Blood Pressure [Right Arm] 174/83 Blood Pressure 215/90 O2 Sat by Pulse Oximetry 99 - General Limitations: No Limitations General Appearance: Alert, In No Apparent Distress - Head Head Exam: Normal Inspection, Atraumatic, Normocephalic - Eyes Eye exam: Normal Appearance, PERRL, EOMI. negative: Scleral Icterus, Conjunctival Injection, Nystagmus, Miosis, Mydrasis, Periorbital Swelling, Periorbital Tenderness, Other - ENT ENT Exam: Normal Exam, Normal Oropharynx, Normal External Ear Exam, Mucous Membranes Moist, TM's Normal Bilaterally External Ear Exam: Normal External Inspection TM/Canal Exam: Bilateral Normal Nose Exam: Normal Nose Exam Mouth Exam: Normal Inspection Teeth Exam: Normal Inspection, Dental Caries, Gingival Swelling Throat Exam: Normal Inspection. negative: Tonsillar Erythema, Tonsillomegaly, Tonsillar Exudate, R Peritonsillar Mass, L Peritonsillar Mass, Muffled Voice, Other - Neck Neck Exam: Normal Inspection, Full ROM, Trachea Midline. negative: Tenderness, Meningismus, Lymphadenopathy, Thyromegaly, Other - Chest Chest Inspection: Normal Inspection, Symmetric Chest Wall Rise - Respiratory Respiratory Exam: Normal Lung Sounds Bilat Respiratory Exam: Bilateral Clear to Auscultation - Cardiovascular Cardiovascular Exam: Regular Rate, Normal Rhythm, Normal Heart Sounds - Abdominal Exam Abdominal Exam: Normal Inspection, Normal Bowel Sounds, Soft Abdominal Tenderness: negative: RUQ, RLQ, LUQ, LLQ, Epigastrium, Suprapubic, Diffuse, Mild, Moderate, Severe, Other - Extremities Extremities Exam: Normal Inspection, Full ROM, Normal Capillary Refill. negative: Tenderness, Edema, Joint Swelling, Calf Tenderness, Other - Back Back Exam: Normal Inspection, Full ROM. negative: Tenderness, (R) CVA Tenderness, (L) CVA Tenderness, Muscle Spasm, Paraspinal Tenderness, Vertebral Tenderness, Rashes, (R) Sciatic Notch Tenderness, (L) Sciatic Notch Tendern, (R ) Straight Leg Raise, (L) Straight Leg Raise, Other - Neurologic Neurological Exam: Alert, Oriented X3, CN II-XII Intact, Normal Gait, Reflexes Normal - Psychiatric Psychiatric Exam: Normal Affect, Normal Mood. negative: Depressed, Agitated, Anxious, Flat Affect, Manic, Homicidal Ideation, Suicidal Ideation, Other - Skin Skin Exam: Warm, Dry, Intact, Normal Color - Diagnosis Discharge Problem: Dental caries, Pain, dental - Discharge Plan Disposition: 01 HOME, SELF-CARE Condition: Stable Prescriptions: Clindamycin HCl 300 mg PO Q6H #40 cap Ibuprofen [MOTRIN TAB 800 MG *] 800 mg PO BID PRN #40 tab PRN Reason: Pain/Inflammation - Follow ups/Referrals Follow ups/Referrals: NFD,None [Primary Care Provider] - 3 days - Instructions Instructions: Dental Caries, Preventive Dental Care, Adult
[2017-04-01] MEDS ORDERED: CLEOCIN ONE (15:05)
[2017-04-01] MEDS ORDERED: TYLENOL #3 TAB (W/CODEINE) PO ONE (15:05)
[2017-04-01] MEDS ORDERED: CATAPRES TAB 0.2 MG ONE (15:28)
[2017-04-01] MEDS ORDERED: CATAPRES TAB 0.2 MG PO ONE (15:28)
== END 2017-04-01 16:11 | disposition home or self-care (01) ==
LOC: ER 14:34
DX: K02.9 Dental caries, unspecified (principal); K08.89 Other specified disorders of teeth and supporting structures
CPT/HCPCS: 99282

== ENCOUNTER 2017-04-04 04:04 | Emergency (ER) | payer MEDICAID ==
[2017-04-04 04:14] VITALS: BP 181/84; BMI 39.9
[2017-04-04] MEDS ORDERED: TORADOL 60 MG VIAL IM ONE (04:18)
[2017-04-04] MEDS ORDERED: TORADOL 60 MG VIAL ONE (04:19)
--- NOTE | 2017-04-04 04:22 | DR.GENAD ---
HPI - PCP Primary Care Physician: adalberto - Complaint/Symptoms Chief Complaint Doctors Comments: Patient presented to the ED via EMS with complaint of left leg hurting. She states that she takes Tramadol but is out it. She has a history of arthritis. 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 - Family History History of Family Medical Conditions: Yes Family Medical History: Hypertension - Social History Does patient currently use any type of tobacco product: No Have you used tobacco products in the last 12 months: No Type of Tobacco Use: None Does any household member use tobacco: No Alcohol Use: None Do you use any recreational Drugs:: No Lives With: Alone Lives Where: Home - infectious screening In the last 2 months have you had wt loss of >10#?: NO Have you had fever, night sweats or hemotysis?: No Have you traveled outside the country in the last 6 months?: No Isolation: Standard ROS - Review of Systems Eyes: No Symptoms Reported ENTM: No Symptoms Reported Respiratoy: No Symptoms Reported Cardiovascular: No Symptoms Reported Gastrointestinal/Abdominal: No Symptoms Reported Genitourinary: No Symptoms Reported Neurological: No Symptoms Reported Musculoskeletal: No Symptoms Reported Integumentary: No Symptoms Reported Hematologic/Lymphatic: No Symptoms Reported Endocrine: No Symptoms Reported Psychiatric: No Symptoms Reported All Other Systems: Reviewed and Negative PE - Vital Signs Vitals: Temperature 98.6 F Pulse Rate 73 Respiratory Rate 16 Blood Pressure [Right Calf] 170/84 Blood Pressure [Left Arm] 196/97 Blood Pressure [Right Arm] 208/97 Blood Pressure [Right Arm] 174/83 Blood Pressure 181/84 O2 Sat by Pulse Oximetry 98 - General General Appearance: Alert, In No Apparent Distress - Head Head Exam: Normal Inspection, Atraumatic - Eyes Eye exam: Normal Appearance, PERRL, EOMI - ENT ENT Exam: Normal Exam External Ear Exam: Normal External Inspection TM/Canal Exam: Bilateral Normal Nose Exam: Normal Nose Exam Mouth Exam: Normal Inspection Throat Exam: Normal Inspection - Chest Chest Inspection: Normal Inspection - Respiratory Respiratory Exam: Normal Lung Sounds Bilat Respiratory Exam: Bilateral Clear to Auscultation - Cardiovascular Cardiovascular Exam: Regular Rate - Abdominal Exam Abdominal Exam: Normal Inspection Abdominal Tenderness: negative: RUQ, RLQ, LUQ, LLQ, Epigastrium, Suprapubic, Diffuse, Mild, Moderate, Severe, Other - Extremities Extremities Exam: Normal Inspection, Full ROM - Back Back Exam: Normal Inspection, Full ROM - Neurologic Neurological Exam: Alert, Oriented X3, CN II-XII Intact - Psychiatric Psychiatric Exam: Normal Affect, Normal Mood - Skin Skin Exam: Warm, Dry, Intact Course - Reevaluation 1st: Improved - Diagnosis Discharge Problem: Leg pain, lateral Qualifiers: Laterality: right Qualified Code(s): M79.604 - Pain in right leg - Discharge Plan Condition: Stable - Follow ups/Referrals Follow ups/Referrals: Yenifer BANG [Primary Care Provider] - 3 days - Instructions
== END 2017-04-04 04:27 | disposition home or self-care (01) ==
LOC: ER 04:04
DX: M79.604 Pain in right leg (principal)
CPT/HCPCS: 96372; 99282; J1885

== ENCOUNTER 2017-04-09 14:06 | Emergency (ER) | payer MEDICAID ==
[2017-04-09 14:13] VITALS: BP 181/72; BMI 37.1
--- NOTE | 2017-04-09 17:17 | DR.GENAD ---
HPI - PCP Primary Care Physician: BETI - HPI Comment HPI Comment: PATIENT WITH ARTHRITIS AND HAVE HAD FLARE UP FOR SEVERAL DAYS NOW. - Complaint/Symptoms Chief Complaint Doctors Comments: GENERALIZE BODY ACHES AND JOINT PAIN TIMES SEVERAL DAYS. GLUCOSE LOW IN ED. PATIENT IS A DIABETIC. GLUCOSE IS 48 BUT SHE ALERT AND ORIENTED. Chief Complaint:: PT C/O BODY ACHES. 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 negative: Chills, Fever Eyes: No Symptoms Reported. negative: Eye Pain, Blurred Vision, Discharge ENTM: negative: Ear Pain, Nose Discharge, Nose Congestion, Throat Pain Respiratoy: Non-Productive Cough. negative: Productive Cough, Short of Breath, Wheezing, Hemoptysis Cardiovascular: negative: Chest Pain, Palpitations, Syncope Gastrointestinal/Abdominal: negative: Abdominal Pain, Diarrhea, Nausea, Vomiting Genitourinary: negative: Dysuria, Hematuria Neurological: Weakness, Dizziness. negative: Headache Musculoskeletal: Joint Pain, Muscle Pain Integumentary: Wound (DIABETIC FOOT ULCER.) Hematologic/Lymphatic: No Symptoms Reported Endocrine: negative: Flushing All Other Systems: Reviewed and Negative PE - Vital Signs Vitals: Temperature 98.0 F Pulse Rate 70 Respiratory Rate 22 Blood Pressure [Right Calf] 170/84 Blood Pressure [Left Arm] 196/97 Blood Pressure [Right Arm] 208/97 Blood Pressure [Right Arm] 174/83 Blood Pressure 181/72 O2 Sat by Pulse Oximetry 100 - General Limitations: No Limitations General Appearance: Alert - Head Head Exam: Normal Inspection - Eyes Eye exam: Normal Appearance - ENT ENT Exam: Normal External Ear Exam External Ear Exam: Normal External Inspection TM/Canal Exam: Bilateral Normal Nose Exam: Normal Nose Exam Mouth Exam: Normal Inspection Throat Exam: Normal Inspection - Neck Neck Exam: Trachea Midline - Chest Chest Inspection: Symmetric Chest Wall Rise - Respiratory Respiratory Exam: Normal Lung Sounds Bilat Respiratory Exam: Bilateral Rhonchi, Lower Rhonchi - Cardiovascular Cardiovascular Exam: Regular Rate, Normal Rhythm, Normal Heart Sounds - Abdominal Exam Abdominal Exam: Normal Bowel Sounds, Soft. negative: Tenderness - Extremities Extremities Exam: Joint Swelling (KNEES SWOLLEN AND TENDER.), Other (DIABETIC FOOT ULCER) - Back Back Exam: Normal Inspection - Neurologic Neurological Exam: Alert, Oriented X3 - Psychiatric Psychiatric Exam: Normal Affect, Normal Mood - Skin Skin Exam: Erythema MDM - Differential Diagnosis Differential Diagnosis: ARTHRITIS, HYPOGLYCEMIA, DIABETIC FOOT ULCER. Course - Treatment Treatment: SEE ORTHERS. GLUCOSE CORRECTED WITH D50 AND FOOD INTAKE IN ED. WILL HOLD INSULIN TONIGHT AND IN AM. - Reevaluation 1st: Improved - Education/Counseling Education/Counseling: Patient, Education Educated On: Diagnosis, Needs for Follow Up ROR - Labs Reviewed Laboratory Results Reviewed?: Yes Result Diagrams: 04/09/17 17:25 04/09/17 17:25 Laboratory: WBC 10.0 X10^3/uL (3.6-10.0) 04/09/17 17:25 RBC 3.80 X10^6/uL (3.5-5.4) 04/09/17 17:25 Hgb 10.7 g/dL (12.0-16.0) L 04/09/17 17:25 Hct 31.4 % (36.0-47.0) L 04/09/17 17:25 MCV 82.7 fL (80.0-100.0) 04/09/17 17:25 MCH 28.0 pg (27.0-34.0) 04/09/17 17:25 MCHC 33.9 g/dL (33.0-35.0) 04/09/17 17:25 RDW 15.1 % (11.6-16.5) 04/09/17 17:25 Plt Count 260 X10^3/uL (150.0-450.0) 04/09/17 17:25 Plt Count Comment Adequate (ADEQUATE) 04/09/17 17:25 MPV 7.8 fL (7.4-11.0) 04/09/17 17:25 Neut % 51.2 % (42.0-75.0) 04/09/17 17:25 Lymph % 39.3 % (21.0-51.0) 04/09/17 17:25 [place] % 5.5 % (0.0-13.0) 04/09/17 17:25 Eos % 2.0 % (0.9-2.9) 04/09/17 17:25 Baso % 2.0 % (0.2-1.0) H 04/09/17 17:25 Neut # 5.1 x10^3/uL (2.2-4.8) H 04/09/17 17:25 Lymph # 3.9 X10^3/uL (1.3-2.9) H 04/09/17 17:25 [place] # 0.6 x10^3/uL (0.3-0.8) 04/09/17 17:25 Eos # 0.2 x10^3/uL (0.0-0.2) 04/09/17 17:25 Baso # 0.2 X10^3/uL (0.0-0.1) H 04/09/17 17:25 Absolute Nucleated RBC 0.1 /100WBC 04/09/17 17:25 Total Counted 100 04/09/17 17:25 Neutrophils % (Manual) 44 % (39-76) 04/09/17 17:25 Band Neutrophils % 0 % (0-10) 04/09/17 17:25 Lymphocytes % (Manual) 46 % (13-43) H 04/09/17 17:25 Monocytes % (Manual) 7 % (4-9) 04/09/17 17:25 Eosinophils % (Manual) 3 % (0-6) 04/09/17 17:25 Plt Morphology Comment Normal (NORMAL) 04/09/17 17:25 RBC Morphology Normal (NORMAL) 04/09/17 17:25 Sodium 145 mmol/L (136-145) 04/09/17 17:25 Corrected Sodium TNP 04/09/17 17:25 Potassium 3.3 mmol/L (3.5-5.1) L 04/09/17 17:25 Chloride 104 mmol/L (98-107) 04/09/17 17:25 Carbon Dioxide 30.2 mmol/L (21-32) 04/09/17 17:25 BUN 30 mg/dL (7-18) H 04/09/17 17:25 Creatinine 2.69 mg/dL (0.55-1.02) H 04/09/17 17:25 Est GFR (MDRD) Af Amer 24 (>60) L 04/09/17 17:25 Est GFR (MDRD) Non-Af 20 (>60) L 04/09/17 17:25 Glucose 48 mg/dL (65-99) L* 04/09/17 17:25 POC Glucose (mg/dL) 137 mg/dL (65-99) H 04/09/17 20:39 Calcium 9.1 mg/dL (8.5-10.1) 04/09/17 17:25 Corrected Calcium 9.7 mg/dL (8.5-10.1) 04/09/17 17:25 Total Bilirubin 0.30 mg/dL (0.2-1.0) 04/09/17 17:25 AST 19 Units/L (15-37) 04/09/17 17:25 ALT 30 Units/L (12-78) 04/09/17 17:25 Alkaline Phosphatase 141 Units/L (46-116) H 04/09/17 17:25 Total Protein 8.0 g/dL (6.4-8.2) 04/09/17 17:25 Albumin 3.3 g/dL (3.4-5.0) L 04/09/17 17:25 Globulin 4.7 g/dL (2.5-4.5) H 04/09/17 17:25 Albumin/Globulin Ratio 0.7 Ratio (1.1-2.1) L 04/09/17 17:25 Influenza Type A (PCR) Negative (NEGATIVE) 04/09/17 18:06 Influenza Type B (PCR) Negative (NEGATIVE) 04/09/17 18:06 - Diagnosis Discharge Problem: Hypoglycemia, Essential hypertension, Hypoglycemia due to insulin, Arthritis Arthralgia Qualifiers: Joint pain location: unspecified Qualified Code(s): M25.50 - Pain in unspecified joint - Discharge Plan Disposition: 01 HOME, SELF-CARE Condition: Stable - Follow ups/Referrals Follow ups/Referrals: CHARLEE BANG [Primary Care Provider] - 04/10/17 - Instructions Instructions: Osteoarthritis, Hypoglycemia, [id number] Additional Instructions: RETURN TO ED IF WORSE. DO NOT TAKE YOUR INSULIN TONIGHT OR TOMORROW.
[2017-04-09 17:40] LABS: BASOPHILS # (AUTO) 0.2 X10^3/uL (0.0-0.1); EOSINOPHILS # (AUTO) 0.2 x10^3/uL (0.0-0.2); HEMATOCRIT 31.4 % (36.0-47.0); HEMOGLOBIN 10.7 g/dL (12.0-16.0); LYMPHOCYTES # (AUTO) 3.9 X10^3/uL (1.3-2.9); LYMPHOCYTES % (AUTO) 39.3 % (21.0-51.0); MEAN CORPUSCULAR HGB CONC 33.9 g/dL (33.0-35.0); MEAN CORPUSCULAR VOLUME 82.7 fL (80.0-100.0); MEAN PLATELET VOLUME 7.8 fL (7.4-11.0); MONOCYTES # (AUTO) 0.6 x10^3/uL (0.3-0.8); MONOCYTES % (AUTO) 5.5 % (0.0-13.0); NEUTROPHILS # (AUTO) 5.1 x10^3/uL (2.2-4.8); NEUTROPHILS % (AUTO) 51.2 % (42.0-75.0); PLATELET COUNT 260 X10^3/uL (150.0-450.0); RED CELL DISTRIBUTION WIDTH 15.1 % (11.6-16.5)
[2017-04-09 17:48] LABS: BLOOD UREA NITROGEN 30 mg/dL (7-18); CALCIUM 9.1 mg/dL (8.5-10.1); CARBON DIOXIDE 30.2 mmol/L (21-32); CHLORIDE 104 mmol/L (98-107); CREATININE 2.69 mg/dL (0.55-1.02); SODIUM 145 mmol/L (136-145); eGFR BLACK RACES 24 (>60); eGFR NON BLACK RACES 20 (>60)
[2017-04-09 17:50] LABS: ALANINE AMINOTRANSFERASE 30 Units/L (12-78); ALBUMIN 3.3 g/dL (3.4-5.0); ALKALINE PHOSPHATASE 141 Units/L (46-116); ASPARTATE AMINO TRANSFERASE 19 Units/L (15-37); COR CA(FOR HYPOALB) 9.7 mg/dL (8.5-10.1)
[2017-04-09 17:57] LABS: BAND NEUTROPHILS % 0 % (0-10); PLATELET MORPHOLOGY COMMENT NORMAL (NORMAL)
[2017-04-09] MEDS ORDERED: TORADOL 60 MG VIAL IM ONE (20:28)
[2017-04-09] MEDS ORDERED: TORADOL 60 MG VIAL ONE (20:30)
== END 2017-04-09 20:57 | disposition home or self-care (01) ==
LOC: ER 14:16
DX: E16.1 Other hypoglycemia (principal); I10 Essential (primary) hypertension; M19.90 Unspecified osteoarthritis, unspecified site; M25.50 Pain in unspecified joint
CPT/HCPCS: 36415; 80053; 85025; 87502; 96372; 99283; J1885

== ENCOUNTER → 2017-04-18 | Outpatient (CLI) | payer MEDICAID ==
[2017-04-09 14:13] VITALS: BP 181/72
[2017-04-18 09:00] LABS: BASOPHILS # (AUTO) 0.1 X10^3/uL (0.0-0.1); BASOPHILS % (AUTO) 0.8 % (0.2-1.0); EOSINOPHILS % (AUTO) 0.3 % (0.9-2.9); HEMATOCRIT 32.7 % (36.0-47.0); LYMPHOCYTES # (AUTO) 1.3 X10^3/uL (1.3-2.9); LYMPHOCYTES % (AUTO) 14.1 % (21.0-51.0); MEAN CORPUSCULAR HEMOGLOBIN 27.9 pg (27.0-34.0); MEAN CORPUSCULAR HGB CONC 33.5 g/dL (33.0-35.0); MEAN CORPUSCULAR VOLUME 83.1 fL (80.0-100.0); MEAN PLATELET VOLUME 8.1 fL (7.4-11.0); MONOCYTES # (AUTO) 0.6 x10^3/uL (0.3-0.8); MONOCYTES % (AUTO) 6.4 % (0.0-13.0); NEUTROPHILS # (AUTO) 7.1 x10^3/uL (2.2-4.8); NEUTROPHILS % (AUTO) 78.4 % (42.0-75.0); PLATELET COUNT 228 X10^3/uL (150.0-450.0); RED BLOOD COUNT 3.93 X10^6/uL (3.5-5.4); RED CELL DISTRIBUTION WIDTH 15.5 % (11.6-16.5)
[2017-04-18 09:29] LABS: ALANINE AMINOTRANSFERASE 27 Units/L (12-78); ALBUMIN 3.4 g/dL (3.4-5.0); ALKALINE PHOSPHATASE 124 Units/L (46-116); ASPARTATE AMINO TRANSFERASE 22 Units/L (15-37); BLOOD UREA NITROGEN 40 mg/dL (7-18); CALCIUM 9.2 mg/dL (8.5-10.1); CARBON DIOXIDE 26.1 mmol/L (21-32); CHLORIDE 103 mmol/L (98-107); CHOLESTEROL 131 mg/dL (0-200); COR NA(FOR HYPERGLY) 144 mmol/L (136-145); CREATININE 2.26 mg/dL (0.55-1.02); HDL CHOLESTEROL 43 mg/dL (40-60); SODIUM 139 mmol/L (136-145); TOTAL PROTEIN 8.3 g/dL (6.4-8.2); TRIGLYCERIDES 170 mg/dL (0-150); eGFR BLACK RACES 29 (>60); eGFR NON BLACK RACES 24 (>60)
== END ==
LOC: LAB 08:30
PROVIDERS: ATTEND Physician Assistant Medical
DX: E11.9 Type 2 diabetes mellitus without complications (principal); I10 Essential (primary) hypertension; E78.2 Mixed hyperlipidemia
CPT/HCPCS: 36415; 80053; 80061; 85025

== ENCOUNTER 2017-04-19 22:50 | Emergency (ER) | payer MEDICAID ==
[2017-04-19 22:55] VITALS: BP 169/73; BMI 37.1
[2017-04-19] MEDS ORDERED: TORADOL 30 MG VIAL IM ONE (23:13)
[2017-04-19] MEDS ORDERED: TORADOL 30 MG VIAL ONE (23:14)
--- NOTE | 2017-04-19 23:18 | DR.GENAD ---
HPI - PCP Primary Care Physician: BETI - Complaint/Symptoms Chief Complaint Doctors Comments: Patient states that she take tramadol but it is not working. 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 - Family History History of Family Medical Conditions: Yes Family Medical History: Hypertension - Social History Does patient currently use any type of tobacco product: No Have you used tobacco products in the last 12 months: No Type of Tobacco Use: None Does any household member use tobacco: No Alcohol Use: None Do you use any recreational Drugs:: No Lives With: Alone Lives Where: Home - infectious screening In the last 2 months have you had wt loss of >10#?: NO Have you had fever, night sweats or hemotysis?: No Have you traveled outside the country in the last 6 months?: No Isolation: Standard ROS - Review of Systems Eyes: No Symptoms Reported ENTM: No Symptoms Reported Respiratoy: No Symptoms Reported Cardiovascular: No Symptoms Reported Gastrointestinal/Abdominal: No Symptoms Reported Genitourinary: No Symptoms Reported Neurological: No Symptoms Reported Musculoskeletal: Hand (pain due to arthritis) Integumentary: No Symptoms Reported Hematologic/Lymphatic: No Symptoms Reported Endocrine: No Symptoms Reported Psychiatric: No Symptoms Reported All Other Systems: Reviewed and Negative PE - Vital Signs Vitals: Temperature 98.2 F Pulse Rate 74 Respiratory Rate 16 Blood Pressure [Right Calf] 170/84 Blood Pressure [Left Arm] 196/97 Blood Pressure [Right Arm] 208/97 Blood Pressure [Right Arm] 174/83 Blood Pressure 169/73 O2 Sat by Pulse Oximetry 96 - General General Appearance: Alert, In No Apparent Distress - Head Head Exam: Normal Inspection, Atraumatic - Eyes Eye exam: Normal Appearance, PERRL, EOMI - ENT ENT Exam: Normal Exam External Ear Exam: Normal External Inspection TM/Canal Exam: Bilateral Normal Nose Exam: Normal Nose Exam Mouth Exam: Normal Inspection Throat Exam: Normal Inspection - Neck Neck Exam: Normal Inspection, Full ROM - Chest Chest Inspection: Normal Inspection - Respiratory Respiratory Exam: Normal Lung Sounds Bilat Respiratory Exam: Bilateral Clear to Auscultation - Cardiovascular Cardiovascular Exam: Regular Rate - Abdominal Exam Abdominal Exam: Normal Inspection Abdominal Tenderness: negative: RUQ, RLQ, LUQ, LLQ, Epigastrium, Suprapubic, Diffuse, Mild, Moderate, Severe, Other - Extremities Extremities Exam: Normal Inspection, Full ROM - Back Back Exam: Normal Inspection, Full ROM - Neurologic Neurological Exam: Alert, Oriented X3, CN II-XII Intact - Psychiatric Psychiatric Exam: Normal Affect, Depressed - Skin Skin Exam: Warm, Dry, Intact - Diagnosis Discharge Problem: Arthralgia Qualifiers: Joint pain location: hand Laterality: bilateral Qualified Code(s): M25.541 - Pain in joints of right hand; M25.542 - Pain in joints of left hand; M25.542 - Pain in joints of left hand - Discharge Plan Condition: Stable - Follow ups/Referrals Follow ups/Referrals: Yenifer BANG [Primary Care Provider] - 3 days - Instructions
== END 2017-04-19 23:45 | disposition home or self-care (01) ==
LOC: ER 22:52
DX: M25.541 Pain in joints of right hand (principal); M25.542 Pain in joints of left hand
CPT/HCPCS: 96372; 99282; J1885

== ENCOUNTER 2017-05-06 11:55 | Observation (INO) | payer MEDICAID ==
[2017-05-06 11:59] VITALS: BMI 35.5
[2017-05-06] MEDS ORDERED: D5 NS 1000 ML 1,000 ML IV ONE (12:29)
[2017-05-06] MEDS ORDERED: SOLU-Medrol 125 MG VIAL ONE (12:29)
[2017-05-06] MEDS ORDERED: SOLU-Medrol 125 MG VIAL IVP ONE (12:30)
[2017-05-06] MEDS ORDERED: LASIX IVP STA (12:31)
[2017-05-06] MEDS ORDERED: LASIX ONE (12:35)
[2017-05-06] MEDS: D5 1/2 NS 1000 ML 1,000 ML with POTASSIUM CHLORIDE INJ 10 MEQ VIAL 10 MEQ IV SCH ×2 (12:35)
--- NOTE | 2017-05-06 12:35 | DR.GENAD ---
HPI - PCP Primary Care Physician: Deyvi - Complaint/Symptoms Chief Complaint Doctors Comments: Patient states she took her insulin and did not eat. EMS states her glucose was 30 when they checked it and they gave her a glucogon shot with glucose pasted because they have problems getting and IV on her. Patient states she took 90 units of insulin and has not been able to eat today because she had a seizure. States she is a patient of Dr. Ying. she denies chest pain, SOB, cold or cough. She denies dysuria, hematuria, nausea or vomiting. Patient diaphoretic with cool skin on arrival; glucose 70 presently. Chief Complaint:: "I took some insulin last night and forgot to eat. 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 - Family History History of Family Medical Conditions: Yes Family Medical History: Hypertension - Social History Does patient currently use any type of tobacco product: No Have you used tobacco products in the last 12 months: No Type of Tobacco Use: None Does any household member use tobacco: No Alcohol Use: None Do you use any recreational Drugs:: No Lives With: Alone Lives Where: Home - infectious screening In the last 2 months have you had wt loss of >10#?: NO Have you had fever, night sweats or hemotysis?: No Have you traveled outside the country in the last 6 months?: No Isolation: Standard ROS - Review of Systems Constitutional: No Symptoms Reported, Weakness, Loss of Appetite. negative: See HPI, Chills, Diaphoresis, Fever, Malaise, Irritable, Fatigue, Other Eyes: No Symptoms Reported. negative: See HPI, Eye Pain, Blurred Vision, Tearing, Discharge, Photophobia, Diplopia, Other ENTM: No Symptoms Reported Respiratoy: No Symptoms Reported. negative: See HPI, Productive Cough, Non- Productive Cough, Moist Cough, Dry Cough, Hacking Cough, Barking Cough, Brassy Cough, Orthopnea, Short of Breath, Stridor, Wheezing, Hemoptysis, Other Cardiovascular: No Symptoms Reported, Edema. negative: See HPI, Chest Pain, Palpitations, Syncope, Cyanosis, Skin Mottling, Other Gastrointestinal/Abdominal: No Symptoms Reported. negative: See HPI, Abdominal Pain, Constipation, Diarrhea, Nausea, Vomiting, Food Intolerance, Other Genitourinary: No Symptoms Reported. negative: See HPI, Discharge, Dysuria, Frequency, Hematuria, Pain, Bleeding, Other Neurological: No Symptoms Reported, Seizure, Weakness. negative: See HPI, Anxiety, Depressed, Emotional Problems, Headache, Numbness, Paresthesia, Pre- existing Deficit, Tingling, Tremors, Dizziness, Problems Walking, Speech Problem , Other Musculoskeletal: No Symptoms Reported Integumentary: No Symptoms Reported. negative: See HPI, Change in Color, Change in Hair/Nails, Dryness, Lesions, Lumps, Rash, Itching, Wound, Bruises, Juandice, Other Hematologic/Lymphatic: No Symptoms Reported Endocrine: No Symptoms Reported Psychiatric: No Symptoms Reported PE - Vital Signs Vitals: Temperature 96.7 F Pulse Rate 54 Respiratory Rate 18 Blood Pressure [Right Calf] 170/84 Blood Pressure [Left Arm] 196/97 Blood Pressure [Right Arm] 208/97 Blood Pressure [Right Arm] 174/83 Blood Pressure 178/84 O2 Sat by Pulse Oximetry 98 - General Limitations: No Limitations General Appearance: Alert, In Distress (mild) - Head Head Exam: Normal Inspection, Atraumatic, Normocephalic - Eyes Eye exam: Normal Appearance, PERRL, EOMI. negative: Scleral Icterus, Conjunctival Injection, Nystagmus, Miosis, Mydrasis, Periorbital Swelling, Periorbital Tenderness, Other - ENT ENT Exam: Normal Exam, Normal Oropharynx, Normal External Ear Exam, Mucous Membranes Moist, TM's Normal Bilaterally External Ear Exam: Normal External Inspection TM/Canal Exam: Bilateral Normal Nose Exam: Normal Nose Exam Mouth Exam: Normal Inspection Throat Exam: Normal Inspection - Neck Neck Exam: Normal Inspection, Full ROM, Trachea Midline - Chest Chest Inspection: Normal Inspection, Symmetric Chest Wall Rise - Respiratory Respiratory Exam: Normal Lung Sounds Bilat Respiratory Exam: Bilateral Clear to Auscultation - Cardiovascular Cardiovascular Exam: Regular Rate, Normal Rhythm, Normal Heart Sounds. negative : Bradycardia, Tachycardia, Irregular Rhythm, Systolic Murmur, Diastolic Murmur , Rubs, Gallop, Clicks, JVD, +S1, +S2, +S3, +S4, Other - Abdominal Exam Abdominal Exam: Normal Inspection, Normal Bowel Sounds, Soft Abdominal Tenderness: negative: RUQ, RLQ, LUQ, LLQ, Epigastrium, Suprapubic, Diffuse, Mild, Moderate, Severe, Other - Extremities Extremities Exam: Normal Inspection, Full ROM, Normal Capillary Refill. negative: Tenderness - Back Back Exam: Normal Inspection, Full ROM. negative: Tenderness, (R) CVA Tenderness, (L) CVA Tenderness, Muscle Spasm, Paraspinal Tenderness, Vertebral Tenderness, Rashes, (R) Sciatic Notch Tenderness, (L) Sciatic Notch Tendern, (R ) Straight Leg Raise, (L) Straight Leg Raise, Other - Neurologic Neurological Exam: Alert, Oriented X3, CN II-XII Intact, Reflexes Normal. negative: Normal Gait (gait not tested) - Psychiatric Psychiatric Exam: Normal Affect, Normal Mood - Skin Skin Exam: Warm, Dry, Intact, Normal Color Course - Reevaluation 1st: Improved - Consultation Called: 16:21 Call Returned: 16:21 (Dr. Mckeon to admit) - Education/Counseling Education/Counseling: Patient, Family Educated On: Treatment, Diagnosis, Needs for Follow Up ROR - Labs Reviewed Laboratory Results Reviewed?: Yes (all labs and x-ray results reviewed and discussed with patient) Result Diagrams: 05/06/17 14:36 05/06/17 14:36 Laboratory: WBC 6.4 X10^3/uL (3.6-10.0) 05/06/17 14:36 RBC 4.11 X10^6/uL (3.5-5.4) 05/06/17 14:36 Hgb 13.2 g/dL (12.0-16.0) 05/06/17 14:36 Hct 39.0 % (36.0-47.0) 05/06/17 14:36 MCV 94.7 fL (80.0-100.0) 05/06/17 14:36 MCH 32.1 pg (27.0-34.0) 05/06/17 14:36 MCHC 34.0 g/dL (33.0-35.0) 05/06/17 14:36 RDW 14.4 % (11.6-16.5) 05/06/17 14:36 Plt Count 204 X10^3/uL (150.0-450.0) 05/06/17 14:36 MPV 8.7 fL (7.4-11.0) 05/06/17 14:36 Neut % 88.1 % (42.0-75.0) H 05/06/17 14:36 Lymph % 8.8 % (21.0-51.0) L 05/06/17 14:36 [place] % 2.3 % (0.0-13.0) 05/06/17 14:36 Eos % 0.3 % (0.9-2.9) L 05/06/17 14:36 Baso % 0.5 % (0.2-1.0) 05/06/17 14:36 Neut # 5.6 x10^3/uL (2.2-4.8) H 05/06/17 14:36 Lymph # 0.6 X10^3/uL (1.3-2.9) L 05/06/17 14:36 [place] # 0.1 x10^3/uL (0.3-0.8) L 05/06/17 14:36 Eos # 0.0 x10^3/uL (0.0-0.2) 05/06/17 14:36 Baso # 0.0 X10^3/uL (0.0-0.1) 05/06/17 14:36 Absolute Nucleated RBC 0.0 /100WBC 05/06/17 14:36 Sodium 140 mmol/L (136-145) 05/06/17 14:36 Corrected Sodium TNP 05/06/17 14:36 Potassium 3.4 mmol/L (3.5-5.1) L 05/06/17 14:36 Chloride 101 mmol/L (98-107) 05/06/17 14:36 Carbon Dioxide 26.8 mmol/L (21-32) 05/06/17 14:36 BUN 7 mg/dL (7-18) 05/06/17 14:36 Creatinine 1.19 mg/dL (0.55-1.02) H 05/06/17 14:36 Est GFR (MDRD) Af Amer > 60 (>60) 05/06/17 14:36 Est GFR (MDRD) Non-Af 51 (>60) L 05/06/17 14:36 Glucose 102 mg/dL (65-99) H 05/06/17 14:36 POC Glucose (mg/dL) 70 mg/dL (65-99) 05/06/17 12:27 Calcium 10.9 mg/dL (8.5-10.1) H 05/06/17 14:36 Corrected Calcium TNP 05/06/17 14:36 Total Bilirubin 0.70 mg/dL (0.2-1.0) 05/06/17 14:36 AST 40 Units/L (15-37) H 05/06/17 14:36 ALT 38 Units/L (12-78) 05/06/17 14:36 Alkaline Phosphatase 63 Units/L (46-116) 05/06/17 14:36 Creatine Kinase 249 Units/L (26-192) H 05/06/17 14:36 CK-MB (CK-2) < 1.0 ng/mL (0-4.0) 05/06/17 14:36 CK/CKMB % Calc 0.4 % (<4) 05/06/17 14:36 Troponin I < 0.02 ng/mL (0-1.5) 05/06/17 14:36 Total Protein 9.2 g/dL (6.4-8.2) H 05/06/17 14:36 Albumin 5.2 g/dL (3.4-5.0) H 05/06/17 14:36 Globulin 4.0 g/dL (2.5-4.5) 05/06/17 14:36 Albumin/Globulin Ratio 1.3 Ratio (1.1-2.1) 05/06/17 14:36 - XRAY XRAY Interpreted by: Radiologist (CXR: Cardiomegaly with pulmonary vascular changes consistent w/ mild CHF) - Diagnosis Discharge Problem: peristent hypoglycemia, Diabetes mellitus type 1, uncontrolled, Congestive heart failure, Cardiomegaly, Chronic kidney disease (CKD) stage G2/A3, mildly decreased glomerular filtration rate (GFR) between 60-89 mL/min/1.73 square meter and albuminuria creatinine ratio greater than 300 mg/g, Hypokalemia - Discharge Plan Condition: Stable - Follow ups/Referrals Follow ups/Referrals: CHARLEE BANG [Primary Care Provider] - 3 days - Instructions
--- NOTE | 2017-05-06 13:03 | RAD ---
Examination: Portable AP chest History: Diabetes and hypertension Comparison reference: 07/13/2016 Findings: There is moderate cardiac enlargement. The pulmonary vessels are congested and indistinct. There is no evidence for pneumothorax, large pleural effusion or pulmonary consolidation. There is a metallic device projected over the left lower chest. Additional metallic densities noted in the midli ne at the cervicothoracic junction. Impression: 1. Cardiomegaly with pulmonary vascular changes consistent with mild CHF. 2. Metallic foreign densities projected at cervicothoracic junction and left lower chest. Correlate c linically. New Reported By:
[2017-05-06 15:00] LABS: BASOPHILS % (AUTO) 0.5 % (0.2-1.0); EOSINOPHILS % (AUTO) 0.3 % (0.9-2.9); HEMOGLOBIN 13.2 g/dL (12.0-16.0); LYMPHOCYTES # (AUTO) 0.6 X10^3/uL (1.3-2.9); LYMPHOCYTES % (AUTO) 8.8 % (21.0-51.0); MEAN CORPUSCULAR HEMOGLOBIN 32.1 pg (27.0-34.0); MEAN CORPUSCULAR VOLUME 94.7 fL (80.0-100.0); MEAN PLATELET VOLUME 8.7 fL (7.4-11.0); MONOCYTES # (AUTO) 0.1 x10^3/uL (0.3-0.8); MONOCYTES % (AUTO) 2.3 % (0.0-13.0); NEUTROPHILS # (AUTO) 5.6 x10^3/uL (2.2-4.8); NEUTROPHILS % (AUTO) 88.1 % (42.0-75.0); PLATELET COUNT 204 X10^3/uL (150.0-450.0); RED BLOOD COUNT 4.11 X10^6/uL (3.5-5.4); RED CELL DISTRIBUTION WIDTH 14.4 % (11.6-16.5); WHITE BLOOD COUNT 6.4 X10^3/uL (3.6-10.0)
[2017-05-06 15:21] LABS: BLOOD UREA NITROGEN 7 mg/dL (7-18); CALCIUM 10.9 mg/dL (8.5-10.1); CARBON DIOXIDE 26.8 mmol/L (21-32); CHLORIDE 101 mmol/L (98-107); CREATININE 1.19 mg/dL (0.55-1.02); SODIUM 140 mmol/L (136-145); TROPONIN I < 0.02 ng/mL (0-1.5); eGFR BLACK RACES > 60 (>60); eGFR NON BLACK RACES 51 (>60)
[2017-05-06 15:24] LABS: ALANINE AMINOTRANSFERASE 38 Units/L (12-78); ALBUMIN 5.2 g/dL (3.4-5.0); ALKALINE PHOSPHATASE 63 Units/L (46-116); ASPARTATE AMINO TRANSFERASE 40 Units/L (15-37); CKMB % 0.4 % (<4); CREATINE KINASE 249 Units/L (26-192); CREATINE KINASE MB < 1.0 ng/mL (0-4.0); TOTAL PROTEIN 9.2 g/dL (6.4-8.2)
[2017-05-06] MEDS ORDERED: PHENERGAN INJ 25 MG IV PRN (16:23)
[2017-05-06] MEDS ORDERED: ZOFRAN INJ 4 MG VIAL IVP PRN (16:23)
[2017-05-06] MEDS ORDERED: ALBUTEROL SULFATE INH PRN (16:32)
[2017-05-06] MEDS ORDERED: VENTOLIN or PROAIR HFA IN PRN (16:37)
[2017-05-06] MEDS ORDERED: PEPCID 20 MG IV PREMIX* 50 ML IV SCH (17:00)
[2017-05-06] MEDS: DUONEB 0.5 MG/3 MG NEB SCH (17:13)
[2017-05-06] MEDS ORDERED: DUONEB 0.5 MG/3 MG NEB SCH (18:00)
[2017-05-06] MEDS: LASIX IVP SCH (20:49)
[2017-05-06] MEDS: LIPITOR TAB 20 MG PO SCH (20:49)
[2017-05-06] MEDS: PEPCID 20 MG IV PREMIX* 20 MG/50 ML BAG IV SCH (20:49)
[2017-05-06] MEDS: NORVASC TAB 10 MG PO SCH (20:49)
[2017-05-06] MEDS ORDERED: HumuLIN R SUBCUT ONE ×2 (23:04)
[2017-05-07] MEDS: DUONEB 0.5 MG/3 MG NEB SCH ×5 (01:18→20:10)
[2017-05-07] MEDS: D5 1/2 NS 1000 ML 1,000 ML with POTASSIUM CHLORIDE INJ 10 MEQ VIAL 10 MEQ IV SCH ×4 (03:26→14:54)
[2017-05-07 05:31] LABS: BASOPHILS % (AUTO) 0.3 % (0.2-1.0); HEMATOCRIT 30.6 % (36.0-47.0); HEMOGLOBIN 10.1 g/dL (12.0-16.0); LYMPHOCYTES # (AUTO) 1.3 X10^3/uL (1.3-2.9); LYMPHOCYTES % (AUTO) 11.3 % (21.0-51.0); MEAN CORPUSCULAR HEMOGLOBIN 27.8 pg (27.0-34.0); MEAN CORPUSCULAR HGB CONC 32.8 g/dL (33.0-35.0); MEAN CORPUSCULAR VOLUME 84.7 fL (80.0-100.0); MEAN PLATELET VOLUME 8.8 fL (7.4-11.0); MONOCYTES # (AUTO) 0.4 x10^3/uL (0.3-0.8); MONOCYTES % (AUTO) 3.4 % (0.0-13.0); NEUTROPHILS # (AUTO) 9.7 x10^3/uL (2.2-4.8); PLATELET COUNT 219 X10^3/uL (150.0-450.0); RED BLOOD COUNT 3.62 X10^6/uL (3.5-5.4); WHITE BLOOD COUNT 11.5 X10^3/uL (3.6-10.0)
[2017-05-07 05:35] LABS: ALBUMIN 2.7 g/dL (3.4-5.0); CALCIUM 8.7 mg/dL (8.5-10.1); CARBON DIOXIDE 25.1 mmol/L (21-32); COR CA(FOR HYPOALB) 9.7 mg/dL (8.5-10.1); CREATININE 2.25 mg/dL (0.55-1.02); TOTAL PROTEIN 7.2 g/dL (6.4-8.2)
[2017-05-07] MEDS: D5 1/2 NS + KCL 20 MEQ/L 1,000 ML IV SCH ×2 (07:43→09:50)
[2017-05-07] MEDS: LASIX IVP SCH ×2 (09:00→20:35)
[2017-05-07] MEDS: PEPCID 20 MG IV PREMIX* 20 MG/50 ML BAG IV SCH ×2 (09:00→20:35)
--- NOTE | 2017-05-07 15:39 | DR.H&P ---
H&P - History & Physical for Day of: H&P Date: 05/06/17 - Chief Complaint Chief Complaint: HYPERGLYCEMIA - Allergies Allergies/Adverse Reactions: Allergies Allergy/AdvReac Type Severity Reaction Status Date / Time penicillin G Allergy Verified 02/07/17 19:36 Penicillins Allergy Verified 02/07/17 19:36 - History of Present Illness History of Present Illness: IS A 51 YEAR OLD PATIENT OF DR.JOHN BANG. SHE PRESENTED TO THE EMERGENCY ROOM WITH COMPLAINTS OF HYPOGLYCEMIA. PATIENT STATES I TOOK SOME INUSLIN LAST NIGHT AND FORGOT TO EAT. MY BLOOD SUGAR HAS DROPPED NOW. PATIENT REPORTS TAKING 90 UNITS OF INSULIN AND HAS NOT BEEN ABLE TO EAT TODAY DUE TO HAVING A SEIZURE. PATIENTS FAMILY CALLED EMS TO TRANSPORT HER TO THE ER. WHEN EMS ARRIVED, PATIENTS BLOOD SUGAR WAS NOTED TO BE 30. SHE WAS GIVEN GLUCAGON. ON ARRIVAL TO THE ED, GLUCOSE WAS NOTED TO BE 70. PATIENT WAS DIAPHORETIC WITH COOL SKIN. ASSOCIATED SYMPTOMS ARE WEAKNESS, LOSS OF APPETITE, BILATERAL LOWER EXTREMITY EDEMA, NAUSEA, SEIZURE, AND SHORTNESS OF BREATH. ON ARRIVAL TO THE ER, HER VITAL SIGNS WERE 97.6-54-18-98%- 178/84. LABS, CHEST XRAY, AND EKG WERE OBTAINED. ABNORMAL LAB VALUES INCLUDE THE FOLLOWING: POTASSIUM 3.4, CREATININE 1.19, GLUCOSE 02, CALCIUM 10.9, AST 40 , CREATINE KINASE 249, TOTAL PROTEIN 9.2, ALBUMIN 5.2. CHEST XRAY REPORTED CARDIOMEGALY WITH PULMONARY VASCULAR CHANGES CONSISTENT WITH MILD CHF AND INCIDENTAL FINDINGS OF METALLIC FOREIGN DENSITIES PROJECTED AT THE CERVICOTHORACID JUNCTION AND LEFT LOWER CHEST. EKG REPORTED SINUS RHYTHM WITH HR 89. SHE WAS STARTED ON D51/2 NS WITH 10MEQ KCL AT 80ML/HR, GIVEN LASIX 20MG IV X 1, AND SOLU-MEDROL 125MG IVP X 1. WE ADMITTED PATIENT FOR FURTHER TREATMENT AND EVALUATION. WE PLAN TO FOLLOW UP WITH AM LABS AND CONTINUE TO MONITOR PATIENT. - Past Medical History Past Medical History: Arthritis, Diabetes, Hypertension Additional Medical History: Diabetic Neuropathy, Intellectual Disabilities, Cataracts, Gall Bladder Disease,. 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
[2017-05-07] MEDS: HumuLIN R SC PRN ×2 (16:33→21:58)
[2017-05-07] MEDS: NS 1/2 + KCL 20 MEQ/L 1,000 ML IV SCH (16:33)
[2017-05-07] MEDS ORDERED: SNACK - Diabetic Appropriate PO SCH (20:00)
[2017-05-07] MEDS: NORVASC TAB 10 MG PO SCH (20:35)
[2017-05-07] MEDS: LIPITOR TAB 20 MG PO SCH (20:36)
[2017-05-07] MEDS ORDERED: ROBITUSSIN DM PO PRN (20:44)
[2017-05-08] MEDS: DUONEB 0.5 MG/3 MG NEB SCH ×3 (00:45→11:31)
[2017-05-08 05:03] LABS: BASOPHILS # (AUTO) 0.1 X10^3/uL (0.0-0.1); BASOPHILS % (AUTO) 0.7 % (0.2-1.0); EOSINOPHILS # (AUTO) 0.1 x10^3/uL (0.0-0.2); EOSINOPHILS % (AUTO) 0.5 % (0.9-2.9); HEMATOCRIT 29.7 % (36.0-47.0); HEMOGLOBIN 9.7 g/dL (12.0-16.0); LYMPHOCYTES # (AUTO) 4.3 X10^3/uL (1.3-2.9); LYMPHOCYTES % (AUTO) 32.9 % (21.0-51.0); MEAN CORPUSCULAR HEMOGLOBIN 27.6 pg (27.0-34.0); MEAN CORPUSCULAR HGB CONC 32.6 g/dL (33.0-35.0); MEAN CORPUSCULAR VOLUME 84.8 fL (80.0-100.0); MEAN PLATELET VOLUME 8.9 fL (7.4-11.0); MONOCYTES # (AUTO) 0.7 x10^3/uL (0.3-0.8); MONOCYTES % (AUTO) 5.4 % (0.0-13.0); NEUTROPHILS # (AUTO) 7.8 x10^3/uL (2.2-4.8); NEUTROPHILS % (AUTO) 60.5 % (42.0-75.0); PLATELET COUNT 219 X10^3/uL (150.0-450.0); RED CELL DISTRIBUTION WIDTH 16.1 % (11.6-16.5)
[2017-05-08 05:15] LABS: ALBUMIN 2.8 g/dL (3.4-5.0); CALCIUM 8.8 mg/dL (8.5-10.1); CARBON DIOXIDE 29.2 mmol/L (21-32); COR CA(FOR HYPOALB) 9.8 mg/dL (8.5-10.1); CREATININE 2.19 mg/dL (0.55-1.02); TOTAL PROTEIN 7.2 g/dL (6.4-8.2)
[2017-05-08] MEDS: NS 1/2 + KCL 20 MEQ/L 1,000 ML IV SCH (06:18)
--- NOTE | 2017-05-08 08:18 | RAD ---
History: Shortness of breath Study: Portable AP chest Comparison: May 06, 2017 Findings: There is persistent mild cardiomegaly slightly improved. There is persistent vascular conge stion also improved. There is no a interstitial edema or pleural effusion. Impression: Improving cardiomegaly and vascular congestion Reported By:
[2017-05-08] MEDS: PEPCID 20 MG IV PREMIX* 20 MG/50 ML BAG IV SCH (08:50)
[2017-05-08] MEDS: LASIX IVP SCH (08:50)
[2017-05-08] MEDS: HumuLIN R SC PRN (11:28)
[2017-05-08 12:35] VITALS: BP 175/76
== END 2017-05-08 15:40 | disposition home or self-care (01) | DRG 639 ==
LOC: ER 12:09 → MED/SURG 16:21
PROVIDERS: ADMIT Internal Medicine; ATTEND Internal Medicine
DX: E10.649 Type 1 diabetes mellitus with hypoglycemia without coma (principal); I50.9 Heart failure, unspecified; I51.7 Cardiomegaly; E87.6 Hypokalemia; R94.31 Abnormal electrocardiogram [ECG] [EKG]; R60.0 Localized edema; R06.02 Shortness of breath; I10 Essential (primary) hypertension; Z79.4 Long term (current) use of insulin; E10.65 Type 1 diabetes mellitus with hyperglycemia
CPT/HCPCS: 36415; 71010; 80053; 82550; 82553; 84484; 85025; 93005; 94640; 94760; 96365; 96367; 96374; 96375; 99284; A4222; J7030; S0028; G0378; J1815; J1940; J2550; J2930; J3480; J7042; J7620

== ENCOUNTER 2017-05-15 03:50 | Emergency (ER) | payer MEDICAID ==
[2017-05-15 04:02] VITALS: BMI 38.4
--- NOTE | 2017-05-15 04:16 | DR.GENAD ---
HPI - PCP Primary Care Physician: Michele BANG - Complaint/Symptoms Chief Complaint Doctors Comments: Patient states that she awakened this morning with her left leg hurting above the knee downward. She denies trauma. The leg carnes not hurt with movement. 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 - Family History History of Family Medical Conditions: Yes Family Medical History: Hypertension - Social History Does patient currently use any type of tobacco product: No Have you used tobacco products in the last 12 months: No Type of Tobacco Use: None Does any household member use tobacco: No Alcohol Use: None Do you use any recreational Drugs:: No Lives With: Alone Lives Where: Home - infectious screening In the last 2 months have you had wt loss of >10#?: NO Have you had fever, night sweats or hemotysis?: No Have you traveled outside the country in the last 6 months?: No Isolation: Standard ROS - Review of Systems Eyes: No Symptoms Reported ENTM: No Symptoms Reported Respiratoy: No Symptoms Reported Cardiovascular: No Symptoms Reported Gastrointestinal/Abdominal: No Symptoms Reported Genitourinary: No Symptoms Reported Neurological: No Symptoms Reported Musculoskeletal: Leg Integumentary: No Symptoms Reported Hematologic/Lymphatic: No Symptoms Reported Endocrine: No Symptoms Reported Psychiatric: No Symptoms Reported All Other Systems: Reviewed and Negative PE - Vital Signs Vitals: Temperature 98.0 F Pulse Rate 64 Respiratory Rate 20 Blood Pressure [Right Calf] 170/84 Blood Pressure [Left Arm] 175/76 Blood Pressure [Right Arm] 162/70 Blood Pressure [Right Arm] 174/83 Blood Pressure 174/66 O2 Sat by Pulse Oximetry 99 - General General Appearance: Alert, In No Apparent Distress - Head Head Exam: Normal Inspection, Atraumatic - Eyes Eye exam: Normal Appearance, PERRL, EOMI - ENT ENT Exam: Normal Exam External Ear Exam: Normal External Inspection TM/Canal Exam: Bilateral Normal Nose Exam: Normal Nose Exam Mouth Exam: Normal Inspection Throat Exam: Normal Inspection - Neck Neck Exam: Normal Inspection, Full ROM - Chest Chest Inspection: Normal Inspection - Respiratory Respiratory Exam: Normal Lung Sounds Bilat Respiratory Exam: Bilateral Clear to Auscultation - Cardiovascular Cardiovascular Exam: Regular Rate, Normal Rhythm - Abdominal Exam Abdominal Exam: Normal Inspection Abdominal Tenderness: negative: RUQ, RLQ, LUQ, LLQ, Epigastrium, Suprapubic, Diffuse, Mild, Moderate, Severe, Other - Extremities Extremities Exam: Normal Inspection, Full ROM, Normal Capillary Refill. negative: Edema, Joint Swelling, Calf Tenderness - Back Back Exam: Normal Inspection, Full ROM - Neurologic Neurological Exam: Alert, Oriented X3, CN II-XII Intact - Psychiatric Psychiatric Exam: Normal Affect - Skin Skin Exam: Warm, Dry, Intact - Diagnosis Discharge Problem: Leg pain, left - Discharge Plan Condition: Stable - Follow ups/Referrals Follow ups/Referrals: Yenifer BANG [Primary Care Provider] - 3 days - Instructions
[2017-05-15] MEDS ORDERED: TORADOL 60 MG VIAL IM ONE (04:19)
[2017-05-15] MEDS ORDERED: TORADOL 60 MG VIAL ONE (04:22)
[2017-05-15 05:26] VITALS: BP 176/79
== END 2017-05-15 05:34 | disposition home or self-care (01) ==
LOC: ER 03:50
DX: M79.605 Pain in left leg (principal)
CPT/HCPCS: 96372; 99282; J1885

== ENCOUNTER 2017-05-25 05:07 | Emergency (ER) | payer MEDICAID ==
[2017-05-25 05:11] VITALS: BMI 35.2
[2017-05-25] MEDS ORDERED: D50W ABBOJECT SYR ONE ×2 (05:16→05:24)
[2017-05-25 05:42] LABS: BASOPHILS % (AUTO) 0.2 % (0.2-1.0); EOSINOPHILS # (AUTO) 0.1 x10^3/uL (0.0-0.2); EOSINOPHILS % (AUTO) 0.6 % (0.9-2.9); HEMATOCRIT 33.2 % (36.0-47.0); HEMOGLOBIN 10.8 g/dL (12.0-16.0); LYMPHOCYTES # (AUTO) 2.3 X10^3/uL (1.3-2.9); LYMPHOCYTES % (AUTO) 19.7 % (21.0-51.0); MEAN CORPUSCULAR HEMOGLOBIN 27.6 pg (27.0-34.0); MEAN CORPUSCULAR HGB CONC 32.5 g/dL (33.0-35.0); MEAN CORPUSCULAR VOLUME 84.9 fL (80.0-100.0); MEAN PLATELET VOLUME 7.7 fL (7.4-11.0); MONOCYTES # (AUTO) 0.7 x10^3/uL (0.3-0.8); MONOCYTES % (AUTO) 5.6 % (0.0-13.0); NEUTROPHILS # (AUTO) 8.8 x10^3/uL (2.2-4.8); NEUTROPHILS % (AUTO) 73.9 % (42.0-75.0); PLATELET COUNT 243 X10^3/uL (150.0-450.0); RED BLOOD COUNT 3.91 X10^6/uL (3.5-5.4); RED CELL DISTRIBUTION WIDTH 16.2 % (11.6-16.5); WHITE BLOOD COUNT 11.9 X10^3/uL (3.6-10.0)
--- NOTE | 2017-05-25 05:42 | DR.GENAD ---
HPI - HPI Comment HPI Comment: EMS GAVE ORAL GLUCOSE. PATIENT WILL OPEN EYES AND BACK TO SLEEP. BG 11 IN ED. - Complaint/Symptoms Chief Complaint Doctors Comments: LOW BLOOD GLUCOSE. FOUND AT HOME BY HER SON UNRESPONSIVE. PATIENT IS A DIABETIC. Chief Complaint:: pt brought in via ems with low bloodsugar. ems states her bs was 20. they gave her 3 oral glucose tubes and rechecked it and got 30. pt is snoring when brought in. 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 - Family History History of Family Medical Conditions: Yes Family Medical History: Hypertension - Social History Do you use any recreational Drugs:: No - infectious screening Have you traveled outside the country in the last 6 months?: No ROS - Review of Systems Constitutional: No Symptoms Reported Eyes: No Symptoms Reported ENTM: negative: Ear Pain, Nose Discharge, Nose Congestion Respiratoy: negative: Productive Cough, Non-Productive Cough, Short of Breath, Wheezing, Hemoptysis Cardiovascular: negative: Chest Pain Gastrointestinal/Abdominal: negative: Abdominal Pain, Diarrhea, Nausea, Vomiting Genitourinary: negative: Dysuria, Pain, Bleeding Neurological: Headache, Weakness, Dizziness Musculoskeletal: Muscle Pain Integumentary: No Symptoms Reported Hematologic/Lymphatic: Easy Bleeding, Easy Bruising Endocrine: Decreased Appetite All Other Systems: Reviewed and Negative Unable to Obtain Due To: Altered mental status (HISTORY GIVEN BY PATIENT WHEN SHE BECAME ALERT.) PE - Vital Signs Vitals: Temperature 97 F Pulse Rate 71 Respiratory Rate 18 Blood Pressure [Right Calf] 170/84 Blood Pressure [Left Arm] 184/90 Blood Pressure [Right Arm] 176/79 Blood Pressure [Right Arm] 174/83 Blood Pressure 189/86 O2 Sat by Pulse Oximetry 100 - General Limitations: Altered Mental Status - Head Head Exam: Normocephalic - Eyes Eye exam: PERRL, EOMI. negative: Scleral Icterus, Conjunctival Injection - ENT ENT Exam: Normal Oropharynx, Normal External Ear Exam, TM's Normal Bilaterally External Ear Exam: Normal External Inspection TM/Canal Exam: Bilateral Normal Nose Exam: Normal Nose Exam Mouth Exam: Normal Inspection Throat Exam: Normal Inspection - Neck Neck Exam: Trachea Midline - Chest Chest Inspection: Symmetric Chest Wall Rise - Respiratory Respiratory Exam: Normal Lung Sounds Bilat Respiratory Exam: Bilateral Clear to Auscultation - Cardiovascular Cardiovascular Exam: Regular Rate, Normal Rhythm, Normal Heart Sounds - Abdominal Exam Abdominal Exam: Normal Bowel Sounds, Soft. negative: Distention - Extremities Extremities Exam: Edema - Back Back Exam: Paraspinal Tenderness - Neurologic Neurological Exam: Alert - Psychiatric Psychiatric Exam: Flat Affect - Skin Skin Exam: Diaphoresis, Pallor, Mottled. negative: Rash MDM - Additional Information Additional Information Obtained From: Family - Differential Diagnosis Differential Diagnosis: HYPOGLYCEMIA Course - Treatment Treatment: SEE ORDERS. IV D50 IN ED. - Education/Counseling Education/Counseling: Patient, Family, Education Educated On: Treatment, Diagnosis, Needs for Follow Up ROR - Labs Reviewed Laboratory Results Reviewed?: Yes Result Diagrams: 05/25/17 05:20 05/25/17 05:20 Laboratory: WBC 11.9 X10^3/uL (3.6-10.0) H 05/25/17 05:20 RBC 3.91 X10^6/uL (3.5-5.4) 05/25/17 05:20 Hgb 10.8 g/dL (12.0-16.0) L 05/25/17 05:20 Hct 33.2 % (36.0-47.0) L 05/25/17 05:20 MCV 84.9 fL (80.0-100.0) 05/25/17 05:20 MCH 27.6 pg (27.0-34.0) 05/25/17 05:20 MCHC 32.5 g/dL (33.0-35.0) L 05/25/17 05:20 RDW 16.2 % (11.6-16.5) 05/25/17 05:20 Plt Count 243 X10^3/uL (150.0-450.0) 05/25/17 05:20 MPV 7.7 fL (7.4-11.0) 05/25/17 05:20 Neut % 73.9 % (42.0-75.0) 05/25/17 05:20 Lymph % 19.7 % (21.0-51.0) L 05/25/17 05:20 [place] % 5.6 % (0.0-13.0) 05/25/17 05:20 Eos % 0.6 % (0.9-2.9) L 05/25/17 05:20 Baso % 0.2 % (0.2-1.0) 05/25/17 05:20 Neut # 8.8 x10^3/uL (2.2-4.8) H 05/25/17 05:20 Lymph # 2.3 X10^3/uL (1.3-2.9) 05/25/17 05:20 [place] # 0.7 x10^3/uL (0.3-0.8) 05/25/17 05:20 Eos # 0.1 x10^3/uL (0.0-0.2) 05/25/17 05:20 Baso # 0.0 X10^3/uL (0.0-0.1) 05/25/17 05:20 Absolute Nucleated RBC 0.0 /100WBC 05/25/17 05:20 Sodium 144 mmol/L (136-145) 05/25/17 05:20 Corrected Sodium TNP 05/25/17 05:20 Potassium 3.4 mmol/L (3.5-5.1) L 05/25/17 05:20 Chloride 108 mmol/L (98-107) H 05/25/17 05:20 Carbon Dioxide 25.3 mmol/L (21-32) 05/25/17 05:20 BUN 30 mg/dL (7-18) H 05/25/17 05:20 Creatinine 1.95 mg/dL (0.55-1.02) H 05/25/17 05:20 Est GFR (MDRD) Af Amer 35 (>60) L 05/25/17 05:20 Est GFR (MDRD) Non-Af 29 (>60) L 05/25/17 05:20 Glucose 49 mg/dL (65-99) L* 05/25/17 05:20 POC Glucose (mg/dL) 203 mg/dL (65-99) H 05/25/17 08:47 Calcium 9.0 mg/dL (8.5-10.1) 05/25/17 05:20 Corrected Calcium TNP 05/25/17 05:20 Total Bilirubin 0.20 mg/dL (0.2-1.0) 05/25/17 05:20 AST 32 Units/L (15-37) 05/25/17 05:20 ALT 67 Units/L (12-78) 05/25/17 05:20 Alkaline Phosphatase 172 Units/L (46-116) H 05/25/17 05:20 Total Protein 7.9 g/dL (6.4-8.2) 05/25/17 05:20 Albumin 3.4 g/dL (3.4-5.0) 05/25/17 05:20 Globulin 4.5 g/dL (2.5-4.5) 05/25/17 05:20 Albumin/Globulin Ratio 0.8 Ratio (1.1-2.1) L 05/25/17 05:20 - Diagnosis Discharge Problem: Hypoglycemia - Discharge Plan Disposition: 01 HOME, SELF-CARE Condition: Stable - Follow ups/Referrals Follow ups/Referrals: NFD,None [Primary Care Provider] - 2 days - Instructions Instructions: Hypoglycemia, [id number] Additional Instructions: RETURN TO ED IF WORSE.
[2017-05-25 05:47] LABS: BLOOD UREA NITROGEN 30 mg/dL (7-18); CARBON DIOXIDE 25.3 mmol/L (21-32); CHLORIDE 108 mmol/L (98-107); CREATININE 1.95 mg/dL (0.55-1.02); SODIUM 144 mmol/L (136-145); eGFR BLACK RACES 35 (>60); eGFR NON BLACK RACES 29 (>60)
[2017-05-25 05:48] LABS: ALANINE AMINOTRANSFERASE 67 Units/L (12-78); ALBUMIN 3.4 g/dL (3.4-5.0); ALKALINE PHOSPHATASE 172 Units/L (46-116); ASPARTATE AMINO TRANSFERASE 32 Units/L (15-37); TOTAL PROTEIN 7.9 g/dL (6.4-8.2)
[2017-05-25] MEDS ORDERED: D5 1/2 NS 1000 ML 1,000 ML IV ONE (05:58)
[2017-05-25] MEDS ORDERED: LOPRESSOR TAB 25 MG PO ONE (07:08)
[2017-05-25] MEDS ORDERED: APRESOLINE TAB 10 MG PO ONE (07:10)
[2017-05-25] MEDS ORDERED: HYDROCHLOROTHIAZIDE 25 MG TAB ONE (07:13)
[2017-05-25] MEDS ORDERED: HYDROCHLOROTHIAZIDE 25 MG TAB PO SCH (08:00)
[2017-05-25] MEDS ORDERED: DIOVAN TAB 160 MG PO SCH (08:00)
[2017-05-25 08:40] VITALS: BP 184/90
== END 2017-05-25 08:51 | disposition home or self-care (01) ==
LOC: ER 05:07
DX: E16.2 Hypoglycemia, unspecified (principal)
CPT/HCPCS: 36415; 80053; 85025; 96365; 96367; 96374; 96375; 99282; 99283; A4222; J3490; J7042

== ENCOUNTER 2017-06-02 09:20 | Inpatient (IN) | payer MEDICAID ==
[2017-06-02 09:39] VITALS: BMI 32.3
--- NOTE | 2017-06-02 09:47 | DR.GENAD ---
HPI - PCP Primary Care Physician: CHAU - HPI Comment HPI Comment: WORSE THIS AM. NO FEVER. KNOWN DIABETIC. GLUCOSE CHECK NOT LOW PER EMS. PATIENT SLEEPY BUT FULLY AROUSABLE. ANSWER ALL QUESTIONS AND FOLLOW COMMAND. SOB AND CHEST PAIN ALSO PRESENT. - Complaint/Symptoms Chief Complaint Doctors Comments: GENERALIZE WEAKNESS, ABDOMINAL PAIN, NAUSEA, AND BODYACHES SINCE LAST NIGHT. Chief Complaint:: PT C/O BODY ACHES AND NAUSEA. PT STATES SHE STARTED FEELING BAD LAST NIGHT AROUND 10 PM. PT HAS NOT TAKEN HER AM MEDICAITONS. 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 negative: Chills, Fever Eyes: negative: Eye Pain, Discharge ENTM: negative: Ear Pain, Nose Discharge, Nose Congestion, Throat Pain Respiratoy: Non-Productive Cough, Short of Breath, Wheezing. negative: Productive Cough, Hemoptysis Cardiovascular: Chest Pain, Edema (TRACE) Gastrointestinal/Abdominal: Abdominal Pain, Nausea. negative: Diarrhea, Vomiting Genitourinary: negative: Dysuria, Hematuria Neurological: Headache, Weakness, Dizziness Musculoskeletal: Back Pain, Muscle Pain Integumentary: Change in Color, Lesions, Other (DIABETIC FOOT ULCER LT FOOT) Hematologic/Lymphatic: Easy Bleeding, Easy Bruising Endocrine: negative: Flushing, Increased Thirst, Increased Urine Psychiatric: Anxiety All Other Systems: Reviewed and Negative Unable to Obtain Due To: Altered mental status PE - Vital Signs Vitals: Temperature 98.9 F Pulse Rate 87 Respiratory Rate 22 Blood Pressure [Right Calf] 170/84 Blood Pressure [Left Arm] 184/90 Blood Pressure [Right Arm] 176/79 Blood Pressure [Right Arm] 174/83 Blood Pressure 211/100 O2 Sat by Pulse Oximetry 90 - General Limitations: Altered Mental Status General Appearance: Other (SLEEPY BUT AROUSABLE) - Head Head Exam: Normal Inspection - Eyes Eye exam: Normal Appearance, PERRL, EOMI. negative: Scleral Icterus, Conjunctival Injection - ENT ENT Exam: Normal External Ear Exam External Ear Exam: Normal External Inspection TM/Canal Exam: Bilateral Normal Nose Exam: Normal Nose Exam Mouth Exam: Normal Inspection Throat Exam: Normal Inspection - Neck Neck Exam: Trachea Midline - Chest Chest Inspection: Symmetric Chest Wall Rise - Respiratory Respiratory Exam: Respiratory Distress Respiratory Exam: Bilateral Rhonchi, Upper Rhonchi, Lower Rhonchi - Cardiovascular Cardiovascular Exam: Regular Rate, Normal Rhythm, Normal Heart Sounds - Abdominal Exam Abdominal Exam: Normal Bowel Sounds, Soft, Tenderness Abdominal Tenderness: Diffuse, Mild - Extremities Extremities Exam: Tenderness (DIABETIC FOOT ULCER LLE.) - Back Back Exam: Paraspinal Tenderness - Neurologic Neurological Exam: Alert, Other (AMS, SLEEPY) - Psychiatric Psychiatric Exam: Anxious - Skin Skin Exam: Erythema MDM - Differential Diagnosis Differential Diagnosis: GENERALIZE WEAKNESS, HYPOGLYCEMIA, SOB, PNEUMONIA, [place], BRONCHITIS, UTI Course - Treatment Treatment: SEE ORDERS. - Consultation Consultation Comments: DISCUSS PATIENT WITH DR. GOMES. HE WILL ADMIT PATIENT. - Education/Counseling Education/Counseling: Patient, Education Educated On: Treatment, Diagnosis ROR - Labs Reviewed Laboratory Results Reviewed?: Yes Result Diagrams: 06/05/17 04:15 06/05/17 04:15 Laboratory: WBC 15.7 X10^3/uL (3.6-10.0) H 06/02/17 10:10 RBC 3.64 X10^6/uL (3.5-5.4) 06/02/17 10:10 Hgb 9.9 g/dL (12.0-16.0) L 06/02/17 10:10 Hct 30.6 % (36.0-47.0) L 06/02/17 10:10 MCV 84.2 fL (80.0-100.0) 06/02/17 10:10 MCH 27.3 pg (27.0-34.0) 06/02/17 10:10 MCHC 32.4 g/dL (33.0-35.0) L 06/02/17 10:10 RDW 15.9 % (11.6-16.5) 06/02/17 10:10 Plt Count 224 X10^3/uL (150.0-450.0) 06/02/17 10:10 MPV 7.8 fL (7.4-11.0) 06/02/17 10:10 Neut % 80.5 % (42.0-75.0) H 06/02/17 10:10 Lymph % 12.6 % (21.0-51.0) L 06/02/17 10:10 [place] % 5.4 % (0.0-13.0) 06/02/17 10:10 Eos % 0.5 % (0.9-2.9) L 06/02/17 10:10 Baso % 1.0 % (0.2-1.0) 06/02/17 10:10 Neut # 12.7 x10^3/uL (2.2-4.8) H 06/02/17 10:10 Lymph # 2.0 X10^3/uL (1.3-2.9) 06/02/17 10:10 [place] # 0.8 x10^3/uL (0.3-0.8) 06/02/17 10:10 Eos # 0.1 x10^3/uL (0.0-0.2) 06/02/17 10:10 Baso # 0.2 X10^3/uL (0.0-0.1) H 06/02/17 10:10 Absolute Nucleated RBC 0.0 /100WBC 06/02/17 10:10 Sodium 140 mmol/L (136-145) 06/02/17 10:10 Corrected Sodium 143 mmol/L (136-145) 06/02/17 10:10 Potassium 4.0 mmol/L (3.5-5.1) 06/02/17 10:10 Chloride 104 mmol/L (98-107) 06/02/17 10:10 Carbon Dioxide 28.9 mmol/L (21-32) 06/02/17 10:10 BUN 16 mg/dL (7-18) 06/02/17 10:10 Creatinine 2.08 mg/dL (0.55-1.02) H 06/02/17 10:10 Est GFR (MDRD) Af Amer 32 (>60) L 06/02/17 10:10 Est GFR (MDRD) Non-Af 27 (>60) L 06/02/17 10:10 Glucose 238 mg/dL (65-99) H 06/02/17 10:10 POC Glucose (mg/dL) 228 mg/dL (65-99) H 06/02/17 12:41 Lactic Acid 1.1 mmol/L (0.4-2.0) 06/02/17 12:00 Calcium 8.6 mg/dL (8.5-10.1) 06/02/17 10:10 Corrected Calcium 9.7 mg/dL (8.5-10.1) 06/02/17 10:10 Total Bilirubin 1.10 mg/dL (0.2-1.0) H 06/02/17 10:10 AST 27 Units/L (15-37) 06/02/17 10:10 ALT 82 Units/L (12-78) H 06/02/17 10:10 Alkaline Phosphatase 181 Units/L (46-116) H 06/02/17 10:10 Creatine Kinase 208 Units/L (26-192) H 06/02/17 10:10 CK-MB (CK-2) 1.2 ng/mL (0-4.0) 06/02/17 10:10 CK/CKMB % Calc 0.6 % (<4) 06/02/17 10:10 Troponin I 0.05 ng/mL (0-1.5) 06/02/17 10:10 Total Protein 7.1 g/dL (6.4-8.2) 06/02/17 10:10 Albumin 2.6 g/dL (3.4-5.0) L 06/02/17 10:10 Globulin 4.5 g/dL (2.5-4.5) 06/02/17 10:10 Albumin/Globulin Ratio 0.6 Ratio (1.1-2.1) L 06/02/17 10:10 Specimen Type Random urine 06/02/17 11:12 Urine Color Yellow (YELLOW) 06/02/17 11:12 Urine Appearance Clear (CLEAR) 06/02/17 11:12 Urine pH 7.0 (5.0 - 8.0) 12/08/17 11:12 Ur Specific [place] 1.010 (1.000-1.030) 06/02/17 11:12 Urine Protein 4+ (NEGATIVE) 06/02/17 11:12 Urine Glucose (UA) 3+ (NEGATIVE) 06/02/17 11:12 Urine Ketones Negative (NEGATIVE) 06/02/17 11:12 Urine Occult Blood 3+ (NEGATIVE) 06/02/17 11:12 Urine Nitrite Negative (NEGATIVE) 06/02/17 11:12 Urine Bilirubin Negative (NEGATIVE) 06/02/17 11:12 Urine Urobilinogen Normal (NORMAL) 06/02/17 11:12 Ur Leukocyte Esterase Negative (NEGATIVE) 06/02/17 11:12 Urine RBC 10-20 /HPF (NEGATIVE) 06/02/17 11:12 Urine WBC 0-5 /HPF (NEGATIVE) 06/02/17 11:12 Ur Squamous Epith Cells Moderate /HPF (NEGATIVE) 06/02/17 11:12 Urine Bacteria Negative /HPF (NEGATIVE) 06/02/17 11:12 Ur Culture Indicated? No/not indicated 06/02/17 11:12 - XRAY XRAY Interpreted by: Radiologist XRAY Findings: REPORT DISCUSS WITH PATIENT. - EKG Rhythm: NSR (EKG NOTED) - Diagnosis Discharge Problem: Shortness of breath at rest, Weakness Pneumonia Qualifiers: Pneumonia type: due to unspecified organism Laterality: bilateral Lung location : lower lobe of lung Qualified Code(s): J18.9 - Pneumonia, unspecified organism - Discharge Plan Disposition: ADMITTED INPATIENT Condition: Stable - Follow ups/Referrals - Instructions
[2017-06-02 10:17] LABS: BASOPHILS # (AUTO) 0.2 X10^3/uL (0.0-0.1); EOSINOPHILS # (AUTO) 0.1 x10^3/uL (0.0-0.2); EOSINOPHILS % (AUTO) 0.5 % (0.9-2.9); HEMATOCRIT 30.6 % (36.0-47.0); HEMOGLOBIN 9.9 g/dL (12.0-16.0); LYMPHOCYTES % (AUTO) 12.6 % (21.0-51.0); MEAN CORPUSCULAR HEMOGLOBIN 27.3 pg (27.0-34.0); MEAN CORPUSCULAR HGB CONC 32.4 g/dL (33.0-35.0); MEAN CORPUSCULAR VOLUME 84.2 fL (80.0-100.0); MEAN PLATELET VOLUME 7.8 fL (7.4-11.0); MONOCYTES # (AUTO) 0.8 x10^3/uL (0.3-0.8); MONOCYTES % (AUTO) 5.4 % (0.0-13.0); NEUTROPHILS # (AUTO) 12.7 x10^3/uL (2.2-4.8); NEUTROPHILS % (AUTO) 80.5 % (42.0-75.0); PLATELET COUNT 224 X10^3/uL (150.0-450.0); RED BLOOD COUNT 3.64 X10^6/uL (3.5-5.4); RED CELL DISTRIBUTION WIDTH 15.9 % (11.6-16.5); WHITE BLOOD COUNT 15.7 X10^3/uL (3.6-10.0)
[2017-06-02 10:34] LABS: CALCIUM 8.6 mg/dL (8.5-10.1); CARBON DIOXIDE 28.9 mmol/L (21-32); CREATININE 2.08 mg/dL (0.55-1.02); TROPONIN I 0.05 ng/mL (0-1.5)
[2017-06-02 10:38] LABS: ALBUMIN 2.6 g/dL (3.4-5.0); CKMB % 0.6 % (<4); COR CA(FOR HYPOALB) 9.7 mg/dL (8.5-10.1); CREATINE KINASE MB 1.2 ng/mL (0-4.0); TOTAL PROTEIN 7.1 g/dL (6.4-8.2)
--- NOTE | 2017-06-02 10:59 | RAD ---
Examination: Portable AP chest History: Pain in upper back, elevated blood pressure Comparison reference 05/08/2017 Findings: Persistent mild cardiomegaly. Central vascular congestion with diffuse airspace disease in the right lung. No pneumothorax or large pleural effusion. Impression: Interval appearance of airspace process in the right lung compatible with pneumonia or un ilateral pulmonary edema. Reported By:
[2017-06-02 11:31] LABS: BILIRUBIN,URINE NEGATIVE (NEGATIVE); BLOOD/HEMOGLOBIN,URINE 3+ (NEGATIVE); GLUCOSE, URINE 3+ (NEGATIVE); KETONES,URINE NEGATIVE (NEGATIVE); LEUKOCYTE ESTERASE ,URINE NEGATIVE (NEGATIVE); NITRITES,URINE NEGATIVE (NEGATIVE); PROTEIN,URINE 4+ (NEGATIVE); UROBILINOGEN,URINE NORMAL (NORMAL)
[2017-06-02 11:41] LABS: APPEARANCE,URINE CLEAR (CLEAR); BACTERIA,URINE NEGATIVE /HPF (NEGATIVE); COLOR,URINE YELLOW (YELLOW); SQUAMOUS EPITHELIAL CELL,UR MODERATE /HPF (NEGATIVE)
[2017-06-02] MEDS ORDERED: LEVAQUIN PREMIX IV 500 MG 500 MG/100 ML BAG IV ONE (11:49)
--- NOTE | 2017-06-02 11:49 | CT ---
HISTORY: Abdominal pain and nausea Study: CT abdomen and pelvis without IV or oral contrast Comparison: 01/08/2015. Technique: Multiple axial images of the abdomen and pelvis were obtained from the lung bases to the pubic symphy sis without the administration of IV or oral contrast. Coronal and sagittal images are reviewed. Dos e reduction techniques utilized automatic exposure control. Findings: There are patchy bilateral lower lobe foci of infiltrate or edema. No pleural fluid is seen. The live r, spleen, pancreas, right kidney and adrenal glands are unremarkable in their CT appearance. Gallbla dder is again seen to be surgically absent. Two small cortical calcifications are again seen in the u pper pole of the left kidney, unchanged from prior studies.. No significant mesenteric lymphadenopat hy or stranding can be observed. No free fluid or free air is seen within the abdomen. No bowel wal l thickening or bowel dilatation is present. Uncomplicated appearing descending and sigmoid colon di verticulosis is present without diverticulitis, abscess or fluid. The uterus and ovaries are not iden tified and may be surgically absent. The appendix is normal. The urinary bladder is grossly unremarka ble. The bony structures are grossly intact. IMPRESSION: Bilateral lower lobe patchy foci of infiltrate or edema. Postsurgical changes as noted above. Two small cortical calcifications present in the upper pole left kidney, unchanged from prior studies . Mild an uncomplicated appearing descending and sigmoid colon diverticulosis. Reported By:
[2017-06-02] MEDS ORDERED: LEVAQUIN PREMIX IV 750 MG 750 MG/150 ML BAG IV ONE ×2 (11:57→12:37)
[2017-06-02] MEDS ORDERED: CONSULT PHARMACY - ANTIBIOTIC XX SCH (12:00)
[2017-06-02] MEDS ORDERED: NS 1/2 1000 ML IV 1,000 ML IV ONE (12:37)
[2017-06-02] MEDS ORDERED: NIFEDIPINE CAP 10 MG ONE (13:41)
[2017-06-02] MEDS ORDERED: NIFEDIPINE CAP 10 MG PO ONE (13:44)
[2017-06-02] MEDS ORDERED: SALINE 3% 15 ML NEB TX ONE (14:14)
[2017-06-02] MEDS: DUONEB 0.5 MG/3 MG NEB SCH ×3 (14:20→20:55)
[2017-06-02 14:45] LABS: ABG BASE EXCESS 5.4 mmol/L (-2.0-2.0)
--- NOTE | 2017-06-02 15:59 | RAD ---
Examination: Chest x-ray. Clinical history: Hypertension, diabetes, central line placement. Technique: A single portable AP view of the chest was obtained. Comparison: 06/02/2017 at 10:22 a.m.. Findings: The costophrenic angles were omitted from the image bilaterally. A central venous line inserted from the right neck is noted with the tip in the superior vena cava. The cardiac silhouette appears enlarged. The cardiac silhouette size may be accentuated by the AP pro jection. No pneumothorax or pleural effusion is noted. Patchy areas of confluent opacity are present in the perihilar regions bilaterally and the mid and lo wer lung zones bilaterally. Findings are slightly more pronounced when compared to the prior examinat ion and could be due to edema and/or pneumonia. No acute osseous abnormality is noted. Impression: 1. The cardiac silhouette appears enlarged. The cardiac silhouette size may be accentuated by the AP projection. 2. Patchy areas of confluent opacity are present in the perihilar regions bilaterally and the mid and lower lung zones bilaterally. Findings are slightly more pronounced when compared to the prior exami nation and could be due to edema and/or pneumonia. 3. A central venous line inserted from the right neck is noted with the tip in the superior vena cava . Reported By:
[2017-06-02] MEDS: NS 1/2 1000 ML IV 1,000 ML IV SCH (16:04)
[2017-06-02] MEDS ORDERED: SALINE 3% 15 ML NEB TX NEB ONE (16:12)
[2017-06-02] MEDS: ROBITUSSIN DM PO SCH ×2 (18:18→20:56)
[2017-06-02] MEDS: ZITHROMAX INJ 500 MG VIAL 500 MG in NS 250 ML IV 250 ML IV SCH (18:18)
[2017-06-02] MEDS ORDERED: PHENERGAN INJ 25 MG IV PRN (19:47)
[2017-06-02] MEDS: TUSSIONEX PENNKINETIC SUSP PO PRN (20:56)
[2017-06-03] MEDS: DUONEB 0.5 MG/3 MG NEB SCH ×6 (01:30→21:51)
[2017-06-03] MEDS: NS 1/2 1000 ML IV 1,000 ML IV SCH ×2 (04:07→20:48)
[2017-06-03 04:46] LABS: BASOPHILS # (AUTO) 0.1 X10^3/uL (0.0-0.1); BASOPHILS % (AUTO) 0.7 % (0.2-1.0); EOSINOPHILS % (AUTO) 0.2 % (0.9-2.9); HEMATOCRIT 27.7 % (36.0-47.0); LYMPHOCYTES # (AUTO) 1.5 X10^3/uL (1.3-2.9); LYMPHOCYTES % (AUTO) 10.9 % (21.0-51.0); MEAN CORPUSCULAR HEMOGLOBIN 27.7 pg (27.0-34.0); MEAN CORPUSCULAR HGB CONC 32.6 g/dL (33.0-35.0); MEAN CORPUSCULAR VOLUME 84.9 fL (80.0-100.0); MEAN PLATELET VOLUME 8.1 fL (7.4-11.0); MONOCYTES # (AUTO) 0.9 x10^3/uL (0.3-0.8); MONOCYTES % (AUTO) 6.5 % (0.0-13.0); NEUTROPHILS # (AUTO) 11.2 x10^3/uL (2.2-4.8); NEUTROPHILS % (AUTO) 81.7 % (42.0-75.0); PLATELET COUNT 199 X10^3/uL (150.0-450.0); RED BLOOD COUNT 3.27 X10^6/uL (3.5-5.4); RED CELL DISTRIBUTION WIDTH 15.9 % (11.6-16.5); WHITE BLOOD COUNT 13.7 X10^3/uL (3.6-10.0)
[2017-06-03 04:58] LABS: ALBUMIN 2.1 g/dL (3.4-5.0); CALCIUM 8.2 mg/dL (8.5-10.1); CARBON DIOXIDE 25.5 mmol/L (21-32); COR CA(FOR HYPOALB) 9.7 mg/dL (8.5-10.1); CREATININE 2.05 mg/dL (0.55-1.02); TOTAL PROTEIN 6.7 g/dL (6.4-8.2)
[2017-06-03] MEDS: HumuLIN R SC PRN ×4 (06:34→20:48)
--- NOTE | 2017-06-03 08:41 | RAD ---
Examination: Portable AP chest History: Hypertension and chest pain Comparison reference 06/02/2017 Findings: Continued cardiomegaly with confluent bilateral airspace disease. Considering technical dif ferences, there is little change. No developing pleural fluid or pneumothorax. Impression: No significant change in the degree of cardiomegaly or bilateral pulmonary edema. Reported By:
[2017-06-03] MEDS: ZITHROMAX INJ 500 MG VIAL 500 MG in NS 250 ML IV 250 ML IV SCH (10:04)
[2017-06-03] MEDS: ROBITUSSIN DM PO SCH ×4 (10:04→20:47)
--- NOTE | 2017-06-03 11:21 | DR.UPDATE ---
H&P Update History and Physical Update: History and Physical reviewed and patient examined. Changes noted: NO Yes with the following:agree with H&P. will place CVL Procedures (ALL) - Central Line Placement PCM.CLCO: written consent Time out performed: Yes Patient placed pm monitor/pulse ox: Yes prep: mask, gown, gloves, other Centrial line prep: chlorhexidine scrub Local anesthsia used: lidocane 1% Ultrasound used for placement: Yes (right IJ easily identified and visualization of needle cannulating right IJ) Central line lumen ininserted: triple (threaded to 15cm) Post procedure: sutured in place, good blood return, all ports aspirated, flushed,capped, sterile dressing applied Post procedure xray: tip oc catheter in good position, no pneumothorax seen Patient tolerated procedure: Yes
[2017-06-03] MEDS: LEVAQUIN PREMIX IV 750 MG 750 MG/150 ML BAG IV SCH (11:52)
[2017-06-03] MEDS: TYLENOL 325 MG TAB PO PRN ×2 (13:02→20:48)
[2017-06-03] MEDS: TUSSIONEX PENNKINETIC SUSP PO PRN (20:47)
[2017-06-04] MEDS: NORCO 5/325 MG TAB PO PRN ×2 (00:33→21:23)
[2017-06-04] MEDS: DUONEB 0.5 MG/3 MG NEB SCH ×6 (01:39→21:00)
[2017-06-04 04:39] LABS: BASOPHILS # (AUTO) 0.1 X10^3/uL (0.0-0.1); BASOPHILS % (AUTO) 0.6 % (0.2-1.0); EOSINOPHILS # (AUTO) 0.3 x10^3/uL (0.0-0.2); EOSINOPHILS % (AUTO) 2.5 % (0.9-2.9); HEMATOCRIT 25.4 % (36.0-47.0); HEMOGLOBIN 8.4 g/dL (12.0-16.0); LYMPHOCYTES # (AUTO) 2.1 X10^3/uL (1.3-2.9); LYMPHOCYTES % (AUTO) 17.8 % (21.0-51.0); MEAN CORPUSCULAR VOLUME 84.9 fL (80.0-100.0); MEAN PLATELET VOLUME 7.9 fL (7.4-11.0); MONOCYTES # (AUTO) 0.6 x10^3/uL (0.3-0.8); MONOCYTES % (AUTO) 5.3 % (0.0-13.0); NEUTROPHILS # (AUTO) 8.8 x10^3/uL (2.2-4.8); NEUTROPHILS % (AUTO) 73.8 % (42.0-75.0); PLATELET COUNT 194 X10^3/uL (150.0-450.0); RED BLOOD COUNT 2.99 X10^6/uL (3.5-5.4); RED CELL DISTRIBUTION WIDTH 15.8 % (11.6-16.5); WHITE BLOOD COUNT 11.9 X10^3/uL (3.6-10.0)
[2017-06-04 04:59] LABS: ALBUMIN 1.8 g/dL (3.4-5.0); CALCIUM 8.4 mg/dL (8.5-10.1); CARBON DIOXIDE 26.2 mmol/L (21-32); COR CA(FOR HYPOALB) 10.2 mg/dL (8.5-10.1); CREATININE 2.05 mg/dL (0.55-1.02); TOTAL PROTEIN 6.5 g/dL (6.4-8.2)
[2017-06-04] MEDS: HumuLIN R SC PRN ×4 (06:18→21:26)
[2017-06-04] MEDS: ROBITUSSIN DM PO SCH ×4 (09:29→21:24)
[2017-06-04] MEDS: ZITHROMAX INJ 500 MG VIAL 500 MG in NS 250 ML IV 250 ML IV SCH (09:29)
[2017-06-04] MEDS: TYLENOL 325 MG TAB PO PRN (09:29)
[2017-06-04] MEDS: NS 1/2 1000 ML IV 1,000 ML IV SCH ×2 (09:34→22:11)
[2017-06-04] MEDS ORDERED: ALBUTEROL SULFATE INH PRN (10:13)
[2017-06-04] MEDS ORDERED: HYDROCHLOROTHIAZIDE PO SCH (10:15)
[2017-06-04] MEDS ORDERED: [UNRECOGNIZED DRUG - OTHER] PO SCH (10:15)
[2017-06-04] MEDS ORDERED: VALSARTAN PO SCH (10:15)
[2017-06-04] MEDS ORDERED: GLUCOPHAGE ONE ×2 (11:41→20:50)
[2017-06-04] MEDS: GLUCOPHAGE PO SCH ×2 (11:46→21:24)
[2017-06-04] MEDS: SINGULAIR TAB 10 MG PO SCH (11:46)
[2017-06-04] MEDS: APRESOLINE TAB 10 MG PO SCH ×2 (11:46→21:24)
[2017-06-04] MEDS: ULTRAM PO SCH (11:47)
[2017-06-04] MEDS: PEPCID TAB 20 MG PO SCH (11:47)
[2017-06-04] MEDS: ASPIRIN EC 81 MG PO SCH (11:47)
[2017-06-04] MEDS: PLAVIX PO SCH (11:48)
[2017-06-04] MEDS ORDERED: INSULIN LISPRO 5 UNIT SUBCUT SCH (12:00)
[2017-06-04] MEDS ORDERED: NS 1/2 1000 ML IV 1,000 ML IV ONE (13:08)
[2017-06-04] MEDS: LOPRESSOR TAB 25 MG PO SCH (17:44)
--- NOTE | 2017-06-04 21:01 | DR.H&P ---
H&P - History & Physical for Day of: H&P Date: 06/02/17 - Chief Complaint Chief Complaint: GENERALIZED WEAKNESS, SHORTNESS OF BREATH, ABDOMINAL PAIN - Allergies Allergies/Adverse Reactions: Allergies Allergy/AdvReac Type Severity Reaction Status Date / Time penicillin G Allergy Verified 02/07/17 19:36 Penicillins Allergy Verified 02/07/17 19:36 - History of Present Illness History of Present Illness: IS A 51 YEAR OLD PATIENT OF [facility] WHO PRESENTED TO THE ER VIA EMS WITH COMPLAINTS OF GENERALIZED BODY ACHES, ABDOMINAL PAIN, NAUSEA, AND SHORTNESS OF BREATH. PATIENT REPORTS THAT SYMPTOMS BEGAN AT 10PM LAST NIGHT AND HAVE INCREASINGLY GOTTEN WORSE TODAY. ON EXAMINATION, HEART RATE IS NORMAL IN RATE AND RHYTHM. LUNG SOUNDS ARE DIMINISHED THROUGHOUT. ABDOMEN IS ROUND, SOFT, AND NOTED WITH MODERATE, DIFFUSE TENDERNESS TO PALPATION. THERE IS GOOD MOVEMENT IN ALL EXTREMITIES. ON ARRIVAL TO THE ER, VITALS WERE 98.9-87-22-90%-211/100. LABS, CHEST XRAY, EKG, AND ABD/ PELVIS CT WERE OBTAINED. ABNORMAL LAB VALUES INCLUDE THE FOLLOWING: WBC 15.7, HGB 9.9, HCT 30.6, CREATININE 2.08, GFR 32, GLUCOSE 238, TOTAL BILI 1.10, ALT 82 , ALKALINE PHOSPHATASE 181, CREATININE 208, ALBUMIN 2.6, A/G RATIO 0.6. URINALYSIS REPORTED RBC 10-20, WBC 0-5, BACTERIA NEGATIVE, LEUKOCYTES NEGATIVE, OCCULT BLOOD 3+, URINE PROTEIN 4+. ABG REPORTED PH 7.490, P02 40, HC03 29, 02 80 , BASE EXCESS 5.4. BLOOD CULTURES AND SPUTUM CULTURES WERE OBTAINED AND ARE PENDING. EKG SHOWS SINUS RHYTHM WITH HR 85. CHEST XRAY REPORTED INTERVAL APPEARANCE OF AIRSPACE PROCESS IN THE RIGHT LUNG COMPATIBLE WITH PNEUMONIA OR UNILATERAL PULMONARY EDEMA. ABD/PELVIS CT REPORTS BILATERAL LOWER LOBE PATCHY FOCI OF INFILTRATE OR EDEMA. TWO SMALL CORTICAL CALCIFICATIONS PRESENT IN THE UPPER POLE LEFT KIDNEY, UNCHANGED FROM PRIOR STUDIES. MILD AND UNCOMPLICATED APPEARING DESCENDIGN AND SIGMOID COLON DIVERTICULOSIS. A CENTRAL LINE WAS INSERTED ON ADMISSION DUE TO UNSUCCESSFUL IV ATTEMPTS. WE ADMITTED PATIENT FOR FURTHER EVALUATION AND TREATMENT OF BILATERAL LOWER LOBE PNEUMONIA, GENERALIZED WEAKNESS, AND SHORNTESS OF BREATH. SHE WAS STARTED ON NORMAL SALINE AT KVO, LEVAQUIN 750MG IV Q48H, AZITHROMYCIN 500MG IV DAILY, AND BREATHING TREATMENTS. WE PLAN TO FOLLOW UP WITH AM LABS AND CONTINUE TO MONITOR PATIENT. - Past Medical History Past Medical History: Arthritis, Diabetes, Hypertension Additional Medical History: Diabetic Neuropathy, Intellectual Disabilities, Cataracts, Gall Bladder Disease,. 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 - Family History Family Medical History: Hypertension - Social History Does patient currently use any type of tobacco product: No Have you used tobacco products in the last 12 months: No Type of Tobacco Use: None Does any household member use tobacco: No Alcohol Use: None Drug Use: None - Physical Exam Vital Signs: Temperature 99.3 F Pulse Rate [Left Brachial] 89 Pulse Rate [Right Brachial] 90 Pulse Rate 85 Respiratory Rate 14 Blood Pressure [Right Calf] 143/66 Blood Pressure [Left Arm] 191/85 Blood Pressure [Right Arm] 168/81 Blood Pressure [Right Arm] 174/83 Blood Pressure 211/100 O2 Sat by Pulse Oximetry 92 - Assessment/Plan (1) Pneumonia Qualifiers: Pneumonia type: due to unspecified organism Laterality: bilateral Lung location: lower lobe of lung Qualified Code(s): J18.9 - Pneumonia, unspecified organism Status: Acute Plan: PNEUMONIA PROTOCOL, LEVAQUIN IV, AZITHROMYCIN IV, DUONEBS, SUPPLEMENTAL OXYGEN, CONTINUE TO MONITOR (2) Shortness of breath at rest Status: Acute Plan: DUONEBS, SUPPLEMENTAL OXYGEN, CONTINUE TO MONITOR (3) Weakness Status: Acute Plan: TREAT PNEUMONIA, CONTINUE TO MONITOR
[2017-06-04] MEDS: TUSSIONEX PENNKINETIC SUSP PO PRN (21:24)
[2017-06-04] MEDS: LIPITOR TAB 20 MG PO SCH (21:24)
--- NOTE | 2017-06-05 00:37 | PCM.PROG ---
Progress Note - Progress Note for Day of Date: 06/03/17 - Subjective Subjective: WAS ADMITTED FOR BILATERAL LOWER LOBE PNEUMONIA. TODAY, SHE IS ALERT AND ORIENTED, LYING IN BED ON MORNING ROUNDS. FAMILY IS AT BEDSIDE. TODAY, SHE CONTINUES WITH COMPLAINTS OF SHORNTESS OF BREATH AND GENERALIZED WEAKNESS. SHE IS NOTED WITH A PERSISTENT, NON-PRODUCTIVE COUGH TODAY. ON EXAMINATION, HEART IS NORMAL IN RATE AND RHYTHM. LUNGS ARE NOTED WITH RHONCHI THROUGHOUT. SHE IS NOTED TO BE UTILIZING OXYGEN VIA [employer] CANNULA AT 2L/ MIN AT THIS TIME. ABDOMEN IS ROUND, SOFT, AND NOTED WITH MILD, DIFFUSE TENDERNESS ON PALPATION. THERE IS GOOD MOVEMENT NOTED IN ALL EXTREMITIES. THERE IS A DIABETIC ULCER NOTED TO LEFT GREAT TOE. WOUND IS NOTED WITH PURULENT DRAINAGE. WOUND CULTURE WAS COLLECTED ON ADMISSION AND IS PENDING RESULTS. HER VITALS SIGNS THIS MORNING ARE 98.9-97-20-92%-185/86. ABNORMAL LAB VALUES INCLUDE THE FOLLOWING: WBC 13.7, RBC 3.27, HGB 9.0, HCT 27.7, BUN 20, CREATININE 2.05, GLUCOSE 231, CALCIUM 8.2, TOTAL BILI 1.20, ALK PHOS 162, ALBUMIN 2.1, GLOBULIN 4.6, A/G RATIO 0.5. A CHEST XRAY WAS OBTAINED TODAY AND REPORTS NO SIGNIFICANT CHANGE IN THE DEGREE OF CARDIOMEGALY OR BILATERAL PULMONARY EDEMA. SHE IS CURRENTLY RECEIVING DUONEBS AND AZITHROMYCIN IV AND LEVAQUIN IV. WE WILL CONTINUE WITH CURRENT PLAN OF CARE TODAY. WE PLAN TO FOLLOW UP WITH AM LABS AND CONTINUE TO MONITOR PATIENT. - Past Medical Family Social History Past Med/Fam/Surg Hx: No changes since H&P Allergies: Allergies penicillin G Allergy (Verified 02/07/17 19:36) Penicillins Allergy (Verified 02/07/17 19:36) - Review of Systems ROS: No change since H&P - Vital Signs and I&O's Vital Signs: Temperature 100.5 F Pulse Rate [Left Brachial] 88 Pulse Rate [Right Brachial] 90 Pulse Rate 92 Respiratory Rate 24 Blood Pressure [Right Calf] 143/66 Blood Pressure [Left Arm] 183/73 Blood Pressure [Right Arm] 168/81 Blood Pressure [Right Arm] 174/83 Blood Pressure 211/100 O2 Sat by Pulse Oximetry 92 Intake and Output: Intake & Output 06/02/17 06/03/17 06/04/1717 11:59 11:59 11:59 11:59 Intake Total 740 2366 2942 Balance 740 2366 2942 - Physical Exam Oriented: Normal. negative: Time, Person, Place, Not Oriented, Unable to test, Other Eyes: Normal. negative: Blurred Vision, Diplopia, Discharge, Pain, Redness, Photophobia, Other Ear: Normal. negative: Right, Left, Swelling, Ecchymosis, Hemotypanum, Abrasion , Laceration Nose: Normal. negative: Injected, Discharge, Blood, Other Throat: Normal. negative: Tonsillar Hypertrophy, Red, Exudate, Dry, Other Respiratory: Rhonchi Cardiovascular: Normal. negative: Tachycardia, Bradycardia, Irregular, S3, S4, Systolic, Diastolic, Murmur, Edema, Other : Normal. negative: Dysuria, Hematuria, Frequency, Discharge, Testicular Pain , Bleeding, , Other Auscultation: Bowel Sounds: Normal. negative: Bruit, Absent, Increased, Decreased, High Pitched, Other Palpation: Normal. negative: Spleen Enlarged, Liver Enlarged, Mass Pulsatile, Other Tenderness: Diffuse, Mild Skin: Normal. negative: Decreased Turgur, Rash, Papular, Macular, Maculopapular , Vesicular, Pustular, Petechial, Red, Tender, Hot, Diaphoresis, Wound, Bruising , Ecchymosis, Other Musculoskeletal: Normal. negative: Right, Left, Shoulder, Clavicle, Arm, Elbow , Forearm, Wrist, Hand, Hip, Thigh, Knee, Leg, Ankle, Foot, Back:Thoracic, Back: Lumbar, Back:Midline, Back:Paraspinous, Pelvis, Swelling, Tender, Deformity, Pulse Deficit, Motor Deficit, Sensory Deficit, Instability, Crepitance Psychiatric: Normal. negative: Anxiety, Depression, Agitation, Other Mood Description: Calm Affect: Normal Speech Pattern: Clear, Appropriate - Laboratory and Diagnostics Result Diagrams: 06/04/17 04:15 06/04/17 04:15 Labs: 06/02/17 12:05 Blood Blood Culture - Preliminary 06/02/17 12:00 Blood Blood Culture - Preliminary 06/02/17 17:30 Foot - Left Gram Stain - Final 06/02/17 17:30 Foot - Left Wound Culture - Final Stenotrophomonas Maltophilia Laboratory WBC 11.9 X10^3/uL (3.6-10.0) H 06/04/17 04:15 RBC 2.99 X10^6/uL (3.5-5.4) L 06/04/17 04:15 Hgb 8.4 g/dL (12.0-16.0) L 06/04/17 04:15 Hct 25.4 % (36.0-47.0) L 06/04/17 04:15 MCV 84.9 fL (80.0-100.0) 06/04/17 04:15 MCH 28.0 pg (27.0-34.0) 06/04/17 04:15 MCHC 33.0 g/dL (33.0-35.0) 06/04/17 04:15 RDW 15.8 % (11.6-16.5) 06/04/17 04:15 Plt Count 194 X10^3/uL (150.0-450.0) 06/04/17 04:15 MPV 7.9 fL (7.4-11.0) 06/04/17 04:15 Neut % 73.8 % (42.0-75.0) 06/04/17 04:15 Lymph % 17.8 % (21.0-51.0) L 06/04/17 04:15 Young % 5.3 % (0.0-13.0) 06/04/17 04:15 Eos % 2.5 % (0.9-2.9) 06/04/17 04:15 Baso % 0.6 % (0.2-1.0) 06/04/17 04:15 Neut # 8.8 x10^3/uL (2.2-4.8) H 06/04/17 04:15 Lymph # 2.1 X10^3/uL (1.3-2.9) 06/04/17 04:15 Young # 0.6 x10^3/uL (0.3-0.8) 06/04/17 04:15 Eos # 0.3 x10^3/uL (0.0-0.2) H 06/04/17 04:15 Baso # 0.1 X10^3/uL (0.0-0.1) 06/04/17 04:15 Absolute Nucleated RBC 0.0 /100WBC 06/04/17 04:15 Sample Site Left brachial 06/02/17 14:20 ABG pH 7.490 (7.35-7.45) H 06/02/17 14:20 ABG pCO2 38.0 mmHg (35.0-45.0) 06/02/17 14:20 ABG pO2 40.0 mmHg (80.0-100.0) L* 06/02/17 14:20 ABG HCO3 29.0 mmol/L (22-26) H 06/02/17 14:20 ABG O2 Saturation 80.0 % (90-100) L* 06/02/17 14:20 ABG Base Excess 5.4 mmol/L (-2.0-2.0) H 06/02/17 14:20 Rambo Test Na 06/02/17 14:20 A-a Gradient 62.0 mmHg 06/02/17 14:20 FiO2 21.000 06/02/17 14:20 Blood Gas Comments Hannah well aw 06/02/17 14:20 Sodium 138 mmol/L (136-145) 06/04/17 04:15 Corrected Sodium 141 mmol/L (136-145) 06/04/17 04:15 Potassium 3.7 mmol/L (3.5-5.1) 06/04/17 04:15 Chloride 103 mmol/L (98-107) 06/04/17 04:15 Carbon Dioxide 26.2 mmol/L (21-32) 06/04/17 04:15 BUN 21 mg/dL (7-18) H 06/04/17 04:15 Creatinine 2.05 mg/dL (0.55-1.02) H 06/04/17 04:15 Est GFR (MDRD) Af Amer 33 (>60) L 06/04/17 04:15 Est GFR (MDRD) Non-Af 27 (>60) L 06/04/17 04:15 Glucose 224 mg/dL (65-99) H 06/04/17 04:15 POC Glucose (mg/dL) 225 mg/dL (65-99) H 06/04/17 20:20 Lactic Acid 1.1 mmol/L (0.4-2.0) 06/02/17 12:00 Calcium 8.4 mg/dL (8.5-10.1) L 06/04/17 04:15 Corrected Calcium 10.2 mg/dL (8.5-10.1) H 06/04/17 04:15 Total Bilirubin 1.20 mg/dL (0.2-1.0) H 06/04/17 04:15 AST 17 Units/L (15-37) 06/04/17 04:15 ALT 49 Units/L (12-78) 06/04/17 04:15 Alkaline Phosphatase 160 Units/L (46-116) H 06/04/17 04:15 Creatine Kinase 208 Units/L (26-192) H 06/02/17 10:10 CK-MB (CK-2) 1.2 ng/mL (0-4.0) 06/02/17 10:10 CK/CKMB % Calc 0.6 % (<4) 06/02/17 10:10 Troponin I 0.05 ng/mL (0-1.5) 06/02/17 10:10 Total Protein 6.5 g/dL (6.4-8.2) 06/04/17 04:15 Albumin 1.8 g/dL (3.4-5.0) L 06/04/17 04:15 Globulin 4.7 g/dL (2.5-4.5) H 06/04/17 04:15 Albumin/Globulin Ratio 0.4 Ratio (1.1-2.1) L 06/04/17 04:15 Specimen Type Random urine 06/02/17 11:12 Urine Color Yellow (YELLOW) 06/02/17 11:12 Urine Appearance Clear (CLEAR) 06/02/17 11:12 Urine pH 7.0 (5.0 - 8.0) 06/02/17 11:12 Ur Specific [place] 1.010 (1.000-1.030) 06/02/17 11:12 Urine Protein 4+ (NEGATIVE) 06/02/17 11:12 Urine Glucose (UA) 3+ (NEGATIVE) 06/02/17 11:12 Urine Ketones Negative (NEGATIVE) 06/02/17 11:12 Urine Occult Blood 3+ (NEGATIVE) 06/02/17 11:12 Urine Nitrite Negative (NEGATIVE) 06/02/17 11:12 Urine Bilirubin Negative (NEGATIVE) 06/02/17 11:12 Urine Urobilinogen Normal (NORMAL) 06/02/17 11:12 Ur Leukocyte Esterase Negative (NEGATIVE) 06/02/17 11:12 Urine RBC 10-20 /HPF (NEGATIVE) 06/02/17 11:12 Urine WBC 0-5 /HPF (NEGATIVE) 06/02/17 11:12 Ur Squamous Epith Cells Moderate /HPF (NEGATIVE) 06/02/17 11:12 Urine Bacteria Negative /HPF (NEGATIVE) 06/02/17 11:12 Ur Culture Indicated? No/not indicated 06/02/17 11:12 - Plan (1) Pneumonia Status: Acute Qualifiers: Pneumonia type: due to unspecified organism Laterality: bilateral Lung location: lower lobe of lung Qualified Code(s): J18.9 - Pneumonia, unspecified organism Plan: PNEUMONIA PROTOCOL, LEVAQUIN IV, AZITHROMYCIN IV, DUONEBS, SUPPLEMENTAL OXYGEN, CONTINUE TO MONITOR (2) Shortness of breath at rest Status: Acute Plan: DUONEBS, SUPPLEMENTAL OXYGEN, CONTINUE TO MONITOR (3) Weakness Status: Acute Plan: TREAT PNEUMONIA, CONTINUE TO MONITOR
[2017-06-05] MEDS: DUONEB 0.5 MG/3 MG NEB SCH ×6 (01:22→20:45)
[2017-06-05 05:21] LABS: ALBUMIN 1.9 g/dL (3.4-5.0); CALCIUM 8.7 mg/dL (8.5-10.1); CARBON DIOXIDE 25.6 mmol/L (21-32); COR CA(FOR HYPOALB) 10.4 mg/dL (8.5-10.1); CREATININE 2.09 mg/dL (0.55-1.02); TOTAL PROTEIN 6.9 g/dL (6.4-8.2)
[2017-06-05 05:26] LABS: BASOPHILS # (AUTO) 0.1 X10^3/uL (0.0-0.1); BASOPHILS % (AUTO) 1.2 % (0.2-1.0); EOSINOPHILS # (AUTO) 0.4 x10^3/uL (0.0-0.2); EOSINOPHILS % (AUTO) 3.6 % (0.9-2.9); HEMATOCRIT 25.8 % (36.0-47.0); HEMOGLOBIN 8.5 g/dL (12.0-16.0); LYMPHOCYTES # (AUTO) 2.4 X10^3/uL (1.3-2.9); LYMPHOCYTES % (AUTO) 19.3 % (21.0-51.0); MEAN CORPUSCULAR HEMOGLOBIN 27.7 pg (27.0-34.0); MEAN CORPUSCULAR HGB CONC 33.1 g/dL (33.0-35.0); MEAN CORPUSCULAR VOLUME 83.7 fL (80.0-100.0); MEAN PLATELET VOLUME 8.2 fL (7.4-11.0); MONOCYTES # (AUTO) 0.8 x10^3/uL (0.3-0.8); MONOCYTES % (AUTO) 6.3 % (0.0-13.0); NEUTROPHILS # (AUTO) 8.6 x10^3/uL (2.2-4.8); NEUTROPHILS % (AUTO) 69.6 % (42.0-75.0); PLATELET COUNT 218 X10^3/uL (150.0-450.0); RED BLOOD COUNT 3.08 X10^6/uL (3.5-5.4); WHITE BLOOD COUNT 12.3 X10^3/uL (3.6-10.0)
[2017-06-05] MEDS: LOPRESSOR TAB 25 MG PO SCH ×2 (06:07→17:26)
--- NOTE | 2017-06-05 06:18 | RAD ---
Chest AP portable Indication: Dyspnea. Comparison: 06/03/2017 radiograph Findings: Right IJ catheter tip is over the SVC. There is cardiomegaly and diffuse increased bilatera l pulmonary opacities. Effusions are probable. There is no pneumothorax. Impression: Cardiomegaly and pulmonary edema suggesting CHF. Underlying infection not excluded. Reported By:
[2017-06-05] MEDS: ZITHROMAX INJ 500 MG VIAL 500 MG in NS 250 ML IV 250 ML IV SCH (09:37)
[2017-06-05] MEDS: ROBITUSSIN DM PO SCH ×4 (09:39→21:47)
[2017-06-05] MEDS: ULTRAM PO SCH (09:40)
[2017-06-05] MEDS: PLAVIX PO SCH (09:40)
[2017-06-05] MEDS: DIOVAN TAB 160 MG PO SCH (09:40)
[2017-06-05] MEDS: PEPCID TAB 20 MG PO SCH (09:40)
[2017-06-05] MEDS: HYDROCHLOROTHIAZIDE 25 MG TAB PO SCH (09:40)
[2017-06-05] MEDS: SINGULAIR TAB 10 MG PO SCH (09:40)
[2017-06-05] MEDS: APRESOLINE TAB 10 MG PO SCH ×2 (09:40→21:27)
[2017-06-05] MEDS: ASPIRIN EC 81 MG PO SCH (09:40)
[2017-06-05] MEDS: SNACK - Diabetic Appropriate PO SCH ×2 (09:41→21:45)
[2017-06-05] MEDS: GLUCOPHAGE PO SCH ×2 (09:43→21:26)
[2017-06-05] MEDS ORDERED: GLUCOPHAGE ONE ×2 (09:43→21:08)
[2017-06-05] MEDS: HumuLIN R SC PRN ×2 (12:59→17:25)
[2017-06-05] MEDS: LEVAQUIN PREMIX IV 750 MG 750 MG/150 ML BAG IV SCH (13:02)
--- NOTE | 2017-06-05 15:16 | US ---
History: Chronic renal failure Study: Ultrasound of the kidneys Comparison: None Findings: The right kidney measures 9.4 x 4.7 x 5.3 cm and the left kidney measures 11 x 4.5 x 5.7 cm . There is no hydronephrosis or mass or calculus. There is increased echogenicity of renal cortex valeria aterally. There is no free fluid. The urinary bladder is partially empty. Impression: Increased echogenicity of renal cortex compatible with a diffuse renal cortical disease. Reported By:
[2017-06-05] MEDS: TUSSIONEX PENNKINETIC SUSP PO PRN (21:26)
[2017-06-05] MEDS: NORCO 5/325 MG TAB PO PRN (21:26)
[2017-06-05] MEDS: LIPITOR TAB 20 MG PO SCH (21:26)
[2017-06-05] MEDS: LANTUS SC SCH (21:45)
[2017-06-05] MEDS: NS 1/2 1000 ML IV 1,000 ML IV SCH (21:47)
--- NOTE | 2017-06-05 22:28 | PCM.PROG ---
Progress Note - Progress Note for Day of Date: 06/05/17 - Subjective Subjective: WAS ADMITTED FOR BILATERAL LOWER LOBE PNEUMONIA. TODAY, SHE IS ALERT AND ORIENTED, LYING IN BED ON MORNING ROUNDS. FAMILY IS AT BEDSIDE. TODAY, SHE CONTINUES WITH COMPLAINTS OF SHORNTESS OF BREATH AND NON- PRODUCTIVE COUGH. ON EXAMINATION, HEART IS NORMAL IN RATE AND RHYTHM. LUNGS CONTINUE WITH RHONCHI AND WHEEZING THROUGHOUT. SHE IS NOTED TO BE UTILIZING OXYGEN VIA [employer] CANNULA AT 2L/MIN AT THIS TIME. ABDOMEN IS ROUND, SOFT, NON- TENDER. NORMAL BOWEL SOUNDS ARE NOTED IN ALL QUADRANTS. THERE IS GOOD MOVEMENT NOTED IN ALL EXTREMITIES. DRESSING TO LEFT TOE NOTED DRY AND INTACT.. HER VITALS SIGNS THIS MORNING ARE 99.3-85-16-94%-184/77. ABNORMAL LAB VALUES INCLUDE THE FOLLOWING: WBC 11.9, RBC 2.99, HGB 8.4, HCT 25.4, BUN 21, CREATININE 2.05, GLUCOSE 224, CALCIUM 8.4, TOTAL BILI 1.20, ALK PHOS 160, ALBUMIN 1.8, GLOBULIN 4.7, A/G RATIO 0.4. WOUND CULTURE REPORTS GROWTH OF STENOTROPHOMONAS MALTOPHILIA. IT IS SENSITIVE TO THE LEVAQUIN THAT SHE IS CURRENTLY ON. SHE IS CURRENTLY RECEIVING DUONEBS, AZITHROMYCIN IV, AND LEVAQUIN IV. WE WILL CONTINUE WITH CURRENT PLAN OF CARE TODAY. WE PLAN TO FOLLOW UP WITH AM LABS AND CONTINUE TO MONITOR PATIENT. - Past Medical Family Social History Past Med/Fam/Surg Hx: No changes since H&P Allergies: Allergies penicillin G Allergy (Verified 02/07/17 19:36) Penicillins Allergy (Verified 02/07/17 19:36) - Review of Systems ROS: No change since H&P - Vital Signs and I&O's Vital Signs: Temperature 98.8 F Pulse Rate [Left Brachial] 94 Pulse Rate [Right Brachial] 90 Pulse Rate 91 Respiratory Rate 15 Blood Pressure [Right Calf] 143/66 Blood Pressure [Left Arm] 169/90 Blood Pressure [Right Arm] 146/64 Blood Pressure [Right Arm] 174/83 Blood Pressure 211/100 O2 Sat by Pulse Oximetry 93 Intake and Output: Intake & Output 06/03/17 06/04/17 06/05/17 06/06/17 11:59 11:59 11:59 11:59 Intake Total 740 2366 3122 1060 Balance 740 2366 3122 1060 - Physical Exam Oriented: Normal. negative: Time, Person, Place, Not Oriented, Unable to test, Other Eyes: Normal. negative: Blurred Vision, Diplopia, Discharge, Pain, Redness, Photophobia, Other Ear: Normal. negative: Right, Left, Swelling, Ecchymosis, Hemotypanum, Abrasion , Laceration Nose: Normal. negative: Injected, Discharge, Blood, Other Throat: Normal. negative: Tonsillar Hypertrophy, Red, Exudate, Dry, Other Respiratory: Right, Left, Generalized, Wheezes, Rhonchi Cardiovascular: Normal. negative: Tachycardia, Bradycardia, Irregular, S3, S4, Systolic, Diastolic, Murmur, Edema, Other : Normal. negative: Dysuria, Hematuria, Frequency, Discharge, Testicular Pain , Bleeding, , Other Auscultation: Bowel Sounds: Normal. negative: Bruit, Absent, Increased, Decreased, High Pitched, Other Palpation: Normal Tenderness: Diffuse, Mild Skin: Normal. negative: Decreased Turgur, Rash, Papular, Macular, Maculopapular , Vesicular, Pustular, Petechial, Red, Tender, Hot, Diaphoresis, Wound, Bruising , Ecchymosis, Other Musculoskeletal: Normal. negative: Right, Left, Shoulder, Clavicle, Arm, Elbow , Forearm, Wrist, Hand, Hip, Thigh, Knee, Leg, Ankle, Foot, Back:Thoracic, Back: Lumbar, Back:Midline, Back:Paraspinous, Pelvis, Swelling, Tender, Deformity, Pulse Deficit, Motor Deficit, Sensory Deficit, Instability, Crepitance Psychiatric: Normal. negative: Anxiety, Depression, Agitation, Other Mood Description: Calm Affect: Normal Speech Pattern: Clear, Appropriate - Laboratory and Diagnostics Result Diagrams: 06/05/17 04:15 06/05/17 04:15 Labs: 06/02/17 12:05 Blood Blood Culture - Preliminary 06/02/17 12:00 Blood Blood Culture - Preliminary 06/02/17 17:30 Foot - Left Gram Stain - Final 06/02/17 17:30 Foot - Left Wound Culture - Final Stenotrophomonas Maltophilia Laboratory WBC 12.3 X10^3/uL (3.6-10.0) H 06/05/17 04:15 RBC 3.08 X10^6/uL (3.5-5.4) L 06/05/17 04:15 Hgb 8.5 g/dL (12.0-16.0) L 06/05/17 04:15 Hct 25.8 % (36.0-47.0) L 06/05/17 04:15 MCV 83.7 fL (80.0-100.0) 06/05/17 04:15 MCH 27.7 pg (27.0-34.0) 06/05/17 04:15 MCHC 33.1 g/dL (33.0-35.0) 06/05/17 04:15 RDW 16.0 % (11.6-16.5) 06/05/17 04:15 Plt Count 218 X10^3/uL (150.0-450.0) 06/05/17 04:15 MPV 8.2 fL (7.4-11.0) 06/05/17 04:15 Neut % 69.6 % (42.0-75.0) 06/05/17 04:15 Lymph % 19.3 % (21.0-51.0) L 06/05/17 04:15 Sherman % 6.3 % (0.0-13.0) 06/05/17 04:15 Eos % 3.6 % (0.9-2.9) H 06/05/17 04:15 Baso % 1.2 % (0.2-1.0) H 06/05/17 04:15 Neut # 8.6 x10^3/uL (2.2-4.8) H 06/05/17 04:15 Lymph # 2.4 X10^3/uL (1.3-2.9) 06/05/17 04:15 Sherman # 0.8 x10^3/uL (0.3-0.8) 06/05/17 04:15 Eos # 0.4 x10^3/uL (0.0-0.2) H 06/05/17 04:15 Baso # 0.1 X10^3/uL (0.0-0.1) 06/05/17 04:15 Absolute Nucleated RBC 0.0 /100WBC 06/05/17 04:15 Sample Site Left brachial 06/02/17 14:20 ABG pH 7.490 (7.35-7.45) H 06/02/17 14:20 ABG pCO2 38.0 mmHg (35.0-45.0) 06/02/17 14:20 ABG pO2 40.0 mmHg (80.0-100.0) L* 06/02/17 14:20 ABG HCO3 29.0 mmol/L (22-26) H 06/02/17 14:20 ABG O2 Saturation 80.0 % (90-100) L* 06/02/17 14:20 ABG Base Excess 5.4 mmol/L (-2.0-2.0) H 06/02/17 14:20 Rambo Test Na 06/02/17 14:20 A-a Gradient 62.0 mmHg 06/02/17 14:20 FiO2 21.000 06/02/17 14:20 Blood Gas Comments Hannah well aw 06/02/17 14:20 Sodium 137 mmol/L (136-145) 06/05/17 04:15 Corrected Sodium 139 mmol/L (136-145) 06/05/17 04:15 Potassium 3.9 mmol/L (3.5-5.1) 06/05/17 04:15 Chloride 102 mmol/L (98-107) 06/05/17 04:15 Carbon Dioxide 25.6 mmol/L (21-32) 06/05/17 04:15 BUN 23 mg/dL (7-18) H 06/05/17 04:15 Creatinine 2.09 mg/dL (0.55-1.02) H 06/05/17 04:15 Est GFR (MDRD) Af Amer 32 (>60) L 06/05/17 04:15 Est GFR (MDRD) Non-Af 26 (>60) L 06/05/17 04:15 Glucose 204 mg/dL (65-99) H 06/05/17 04:15 POC Glucose (mg/dL) 199 mg/dL (65-99) H 06/05/17 20:08 Lactic Acid 1.1 mmol/L (0.4-2.0) 06/02/17 12:00 Calcium 8.7 mg/dL (8.5-10.1) 06/05/17 04:15 Corrected Calcium 10.4 mg/dL (8.5-10.1) H 06/05/17 04:15 Total Bilirubin 1.10 mg/dL (0.2-1.0) H 06/05/17 04:15 AST 35 Units/L (15-37) 06/05/17 04:15 ALT 61 Units/L (12-78) 06/05/17 04:15 Alkaline Phosphatase 217 Units/L (46-116) H 06/05/17 04:15 Creatine Kinase 208 Units/L (26-192) H 06/02/17 10:10 CK-MB (CK-2) 1.2 ng/mL (0-4.0) 06/02/17 10:10 CK/CKMB % Calc 0.6 % (<4) 06/02/17 10:10 Troponin I 0.05 ng/mL (0-1.5) 06/02/17 10:10 Total Protein 6.9 g/dL (6.4-8.2) 06/05/17 04:15 Albumin 1.9 g/dL (3.4-5.0) L 06/05/17 04:15 Globulin 5.0 g/dL (2.5-4.5) H 06/05/17 04:15 Albumin/Globulin Ratio 0.4 Ratio (1.1-2.1) L 06/05/17 04:15 Specimen Type Random urine 06/02/17 11:12 Urine Color Yellow (YELLOW) 06/02/17 11:12 Urine Appearance Clear (CLEAR) 06/02/17 11:12 Urine pH 7.0 (5.0 - 8.0) 06/02/17 11:12 Ur Specific [place] 1.010 (1.000-1.030) 06/02/17 11:12 Urine Protein 4+ (NEGATIVE) 06/02/17 11:12 Urine Glucose (UA) 3+ (NEGATIVE) 06/02/17 11:12 Urine Ketones Negative (NEGATIVE) 06/02/17 11:12 Urine Occult Blood 3+ (NEGATIVE) 06/02/17 11:12 Urine Nitrite Negative (NEGATIVE) 06/02/17 11:12 Urine Bilirubin Negative (NEGATIVE) 06/02/17 11:12 Urine Urobilinogen Normal (NORMAL) 06/02/17 11:12 Ur Leukocyte Esterase Negative (NEGATIVE) 06/02/17 11:12 Urine RBC 10-20 /HPF (NEGATIVE) 06/02/17 11:12 Urine WBC 0-5 /HPF (NEGATIVE) 06/02/17 11:12 Ur Squamous Epith Cells Moderate /HPF (NEGATIVE) 06/02/17 11:12 Urine Bacteria Negative /HPF (NEGATIVE) 06/02/17 11:12 Ur Culture Indicated? No/not indicated 06/02/17 11:12 - Plan (1) Pneumonia Status: Acute Qualifiers: Pneumonia type: due to other aerobic Gram-negative bacteria Laterality: bilateral Lung location: lower lobe of lung Qualified Code(s): J15.6 - Pneumonia due to other Gram-negative bacteria Plan: PNEUMONIA PROTOCOL, LEVAQUIN IV, AZITHROMYCIN IV, DUONEBS, SUPPLEMENTAL OXYGEN, CONTINUE TO MONITOR (2) Shortness of breath at rest Status: Acute Plan: DUONEBS, SUPPLEMENTAL OXYGEN, CONTINUE TO MONITOR (3) Weakness Status: Acute Plan: TREAT PNEUMONIA, CONTINUE TO MONITOR
--- NOTE | 2017-06-06 00:45 | PCM.PROG ---
Progress Note - Progress Note for Day of Date: 06/05/17 - Subjective Subjective: WAS ADMITTED FOR BILATERAL LOWER LOBE PNEUMONIA. TODAY, SHE IS ALERT AND ORIENTED, LYING IN BED ON MORNING ROUNDS. FAMILY IS AT BEDSIDE. TODAY, SHE CONTINUES WITH COMPLAINTS OF SHORNTESS OF BREATH AND NON- PRODUCTIVE COUGH. ON EXAMINATION, HEART IS NORMAL IN RATE AND RHYTHM. LUNGS CONTINUE WITH RHONCHI AND WHEEZING THROUGHOUT. SHE IS NOTED TO BE UTILIZING OXYGEN VIA [employer] CANNULA AT 2L/MIN AT THIS TIME. ABDOMEN IS ROUND, SOFT, NON- TENDER. NORMAL BOWEL SOUNDS ARE NOTED IN ALL QUADRANTS. THERE IS GOOD MOVEMENT NOTED IN ALL EXTREMITIES. DRESSING TO LEFT TOE NOTED DRY AND INTACT. HER VITALS SIGNS THIS MORNING ARE 99.6-96-24-92%-190/83. ABNORMAL LAB VALUES INCLUDE THE FOLLOWING: WBC 12.3, RBC 3.08, HGB 8.5, HCT 25.8, BUN 23, CREATININE 2.09, GLUCOSE 204, TOTAL BILI 1.10, ALK PHOS 217, ALBUMIN 1.9, GLOBULIN 5.0, A/G RATIO 0.4. SHE IS CURRENTLY ON LEVAQUIN FOR PNEUMONIA AND GROWTH OF STENOTROPHOMONAS MALTOPHILIA TO DIABETIC ULCER TO THE LEFT GREAT TOE. PATIENT HAS A SURGICAL CONSULT WITH IN [place] ON MONDAY FOR WOUND. TODAY , WE WILL OBTAIN AN ECHOCARDIOGRAM AND A RENAL ULTRASOUND DUE TO ELEVATED KIDNEY FUNCTION. OTHERWISE, WILL CONTINUE WITH CURRENT PLAN OF CARE TODAY. WE PLAN TO FOLLOW UP WITH AM LABS AND CONTINUE TO MONITOR PATIENT. - Past Medical Family Social History Past Med/Fam/Surg Hx: No changes since H&P Allergies: Allergies penicillin G Allergy (Verified 02/07/17 19:36) Penicillins Allergy (Verified 02/07/17 19:36) - Review of Systems ROS: No change since H&P - Vital Signs and I&O's Vital Signs: Temperature 99.3 F Pulse Rate [Left Brachial] 81 Pulse Rate [Right Brachial] 90 Pulse Rate 91 Respiratory Rate 15 Blood Pressure [Right Calf] 192/84 Blood Pressure [Left Arm] 169/90 Blood Pressure [Right Arm] 146/64 Blood Pressure [Right Arm] 174/83 Blood Pressure 211/100 O2 Sat by Pulse Oximetry 93 Intake and Output: Intake & Output 12/09/17 12/10/17 12/11/17 12/12/17 11:59 11:59 11:59 11:59 Intake Total 740 2366 3122 1060 Balance 740 2366 3122 1060 - Physical Exam Oriented: Normal. negative: Time, Person, Place, Not Oriented, Unable to test, Other Eyes: Normal. negative: Blurred Vision, Diplopia, Discharge, Pain, Redness, Photophobia, Other Ear: Normal. negative: Right, Left, Swelling, Ecchymosis, Hemotypanum, Abrasion , Laceration Nose: Normal. negative: Injected, Discharge, Blood, Other Throat: Normal. negative: Tonsillar Hypertrophy, Red, Exudate, Dry, Other Respiratory: Right, Left, Generalized, Wheezes, Rhonchi Cardiovascular: Normal. negative: Tachycardia, Bradycardia, Irregular, S3, S4, Systolic, Diastolic, Murmur, Edema, Other : Normal. negative: Dysuria, Hematuria, Frequency, Discharge, Testicular Pain , Bleeding, , Other Auscultation: Bowel Sounds: Normal. negative: Bruit, Absent, Increased, Decreased, High Pitched, Other Palpation: Normal Tenderness: Diffuse, Mild Skin: Normal. negative: Decreased Turgur, Rash, Papular, Macular, Maculopapular , Vesicular, Pustular, Petechial, Red, Tender, Hot, Diaphoresis, Wound, Bruising , Ecchymosis, Other Musculoskeletal: Normal. negative: Right, Left, Shoulder, Clavicle, Arm, Elbow , Forearm, Wrist, Hand, Hip, Thigh, Knee, Leg, Ankle, Foot, Back:Thoracic, Back: Lumbar, Back:Midline, Back:Paraspinous, Pelvis, Swelling, Tender, Deformity, Pulse Deficit, Motor Deficit, Sensory Deficit, Instability, Crepitance Psychiatric: Normal. negative: Anxiety, Depression, Agitation, Other Mood Description: Calm Affect: Normal Speech Pattern: Clear, Appropriate - Laboratory and Diagnostics Result Diagrams: 06/05/17 04:15 06/05/17 04:15 Labs: 06/02/17 12:05 Blood Blood Culture - Preliminary 06/02/17 12:00 Blood Blood Culture - Preliminary 06/02/17 17:30 Foot - Left Gram Stain - Final 06/02/17 17:30 Foot - Left Wound Culture - Final Stenotrophomonas Maltophilia Laboratory WBC 12.3 X10^3/uL (3.6-10.0) H 06/05/17 04:15 RBC 3.08 X10^6/uL (3.5-5.4) L 06/05/17 04:15 Hgb 8.5 g/dL (12.0-16.0) L 06/05/17 04:15 Hct 25.8 % (36.0-47.0) L 06/05/17 04:15 MCV 83.7 fL (80.0-100.0) 06/05/17 04:15 MCH 27.7 pg (27.0-34.0) 06/05/17 04:15 MCHC 33.1 g/dL (33.0-35.0) 06/05/17 04:15 RDW 16.0 % (11.6-16.5) 06/05/17 04:15 Plt Count 218 X10^3/uL (150.0-450.0) 06/05/17 04:15 MPV 8.2 fL (7.4-11.0) 06/05/17 04:15 Neut % 69.6 % (42.0-75.0) 06/05/17 04:15 Lymph % 19.3 % (21.0-51.0) L 06/05/17 04:15 Cottle % 6.3 % (0.0-13.0) 06/05/17 04:15 Eos % 3.6 % (0.9-2.9) H 06/05/17 04:15 Baso % 1.2 % (0.2-1.0) H 06/05/17 04:15 Neut # 8.6 x10^3/uL (2.2-4.8) H 06/05/17 04:15 Lymph # 2.4 X10^3/uL (1.3-2.9) 06/05/17 04:15 Cottle # 0.8 x10^3/uL (0.3-0.8) 06/05/17 04:15 Eos # 0.4 x10^3/uL (0.0-0.2) H 06/05/17 04:15 Baso # 0.1 X10^3/uL (0.0-0.1) 06/05/17 04:15 Absolute Nucleated RBC 0.0 /100WBC 06/05/17 04:15 Sample Site Left brachial 06/02/17 14:20 ABG pH 7.490 (7.35-7.45) H 06/02/17 14:20 ABG pCO2 38.0 mmHg (35.0-45.0) 06/02/17 14:20 ABG pO2 40.0 mmHg (80.0-100.0) L* 06/02/17 14:20 ABG HCO3 29.0 mmol/L (22-26) H 06/02/17 14:20 ABG O2 Saturation 80.0 % (90-100) L* 06/02/17 14:20 ABG Base Excess 5.4 mmol/L (-2.0-2.0) H 06/02/17 14:20 Rambo Test Na 06/02/17 14:20 A-a Gradient 62.0 mmHg 06/02/17 14:20 FiO2 21.000 06/02/17 14:20 Blood Gas Comments Hannah well aw 06/02/17 14:20 Sodium 137 mmol/L (136-145) 06/05/17 04:15 Corrected Sodium 139 mmol/L (136-145) 06/05/17 04:15 Potassium 3.9 mmol/L (3.5-5.1) 06/05/17 04:15 Chloride 102 mmol/L (98-107) 06/05/17 04:15 Carbon Dioxide 25.6 mmol/L (21-32) 06/05/17 04:15 BUN 23 mg/dL (7-18) H 06/05/17 04:15 Creatinine 2.09 mg/dL (0.55-1.02) H 06/05/17 04:15 Est GFR (MDRD) Af Amer 32 (>60) L 06/05/17 04:15 Est GFR (MDRD) Non-Af 26 (>60) L 06/05/17 04:15 Glucose 204 mg/dL (65-99) H 06/05/17 04:15 POC Glucose (mg/dL) 199 mg/dL (65-99) H 06/05/17 20:08 Lactic Acid 1.1 mmol/L (0.4-2.0) 06/02/17 12:00 Calcium 8.7 mg/dL (8.5-10.1) 06/05/17 04:15 Corrected Calcium 10.4 mg/dL (8.5-10.1) H 06/05/17 04:15 Total Bilirubin 1.10 mg/dL (0.2-1.0) H 06/05/17 04:15 AST 35 Units/L (15-37) 06/05/17 04:15 ALT 61 Units/L (12-78) 06/05/17 04:15 Alkaline Phosphatase 217 Units/L (46-116) H 06/05/17 04:15 Creatine Kinase 208 Units/L (26-192) H 06/02/17 10:10 CK-MB (CK-2) 1.2 ng/mL (0-4.0) 06/02/17 10:10 CK/CKMB % Calc 0.6 % (<4) 06/02/17 10:10 Troponin I 0.05 ng/mL (0-1.5) 06/02/17 10:10 Total Protein 6.9 g/dL (6.4-8.2) 06/05/17 04:15 Albumin 1.9 g/dL (3.4-5.0) L 06/05/17 04:15 Globulin 5.0 g/dL (2.5-4.5) H 06/05/17 04:15 Albumin/Globulin Ratio 0.4 Ratio (1.1-2.1) L 06/05/17 04:15 Specimen Type Random urine 06/02/17 11:12 Urine Color Yellow (YELLOW) 06/02/17 11:12 Urine Appearance Clear (CLEAR) 06/02/17 11:12 Urine pH 7.0 (5.0 - 8.0) 06/02/17 11:12 Ur Specific Gantt 1.010 (1.000-1.030) 06/02/17 11:12 Urine Protein 4+ (NEGATIVE) 06/02/17 11:12 Urine Glucose (UA) 3+ (NEGATIVE) 06/02/17 11:12 Urine Ketones Negative (NEGATIVE) 06/02/17 11:12 Urine Occult Blood 3+ (NEGATIVE) 06/02/17 11:12 Urine Nitrite Negative (NEGATIVE) 06/02/17 11:12 Urine Bilirubin Negative (NEGATIVE) 06/02/17 11:12 Urine Urobilinogen Normal (NORMAL) 06/02/17 11:12 Ur Leukocyte Esterase Negative (NEGATIVE) 06/02/17 11:12 Urine RBC 10-20 /HPF (NEGATIVE) 06/02/17 11:12 Urine WBC 0-5 /HPF (NEGATIVE) 06/02/17 11:12 Ur Squamous Epith Cells Moderate /HPF (NEGATIVE) 06/02/17 11:12 Urine Bacteria Negative /HPF (NEGATIVE) 06/02/17 11:12 Ur Culture Indicated? No/not indicated 06/02/17 11:12 - Plan (1) Pneumonia Status: Acute Qualifiers: Pneumonia type: due to other aerobic Gram-negative bacteria Laterality: bilateral Lung location: lower lobe of lung Qualified Code(s): J15.6 - Pneumonia due to other Gram-negative bacteria Plan: PNEUMONIA PROTOCOL, LEVAQUIN IV, AZITHROMYCIN IV, DUONEBS, SUPPLEMENTAL OXYGEN, CONTINUE TO MONITOR (2) CHF (congestive heart failure) Status: Acute Qualifiers: Congestive heart failure type: systolic Congestive heart failure chronicity : acute on chronic Qualified Code(s): I50.23 - Acute on chronic systolic ( congestive) heart failure Plan: CONTINUE HCTZ, CONTINUE DIOVAN, OBTAIN ECHO, CONTINUE RESPIRATORY TX, CONTINUE TO MONITOR (3) Shortness of breath at rest Status: Acute Plan: DUONEBS, SUPPLEMENTAL OXYGEN, CONTINUE TO MONITOR (4) Diabetic ulcer of left great toe Status: Acute Plan: CONTINUE IV ANTIBIOTICS, WOUND CARE, CONTINUE TO MONITOR (5) Weakness Status: Acute Plan: TREAT PNEUMONIA, CONTINUE TO MONITOR (6) Diabetes mellitus, type 2 Status: Chronic Qualifiers: Diabetes mellitus complication status: with circulatory complication Diabetes mellitus complication detail: with peripheral angiopathy without gangrene Diabetes mellitus buttermaker helper insulin use: with buttermaker helper use Qualified Code(s): E11.51 - Type 2 diabetes mellitus with diabetic peripheral angiopathy without gangrene; Z79.4 - jail (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; Z79.4 - jail (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; Z79.4 - jail (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 ; Z79.4 - moth exterminator (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 Plan: CONTNUE LANTUS, CONTINUE HUMULIN R, CONTINUE GLUCOPHAGE, CONTINUE TO MONITOR (7) GERD (gastroesophageal reflux disease) Status: Chronic Qualifiers: Esophagitis presence: esophagitis presence not specified Qualified Code(s) : K21.9 - Gastro-esophageal reflux disease without esophagitis Plan: CONTINUE PEPCID, CONTINUE TO MONITOR (8) Hypertension Status: Chronic Qualifiers: Hypertension type: essential hypertension Qualified Code(s): I10 - Essential (primary) hypertension Plan: CONTINUE DIOVAN, CONTINUE APRESOLINE, CONTINUE LOPRESSOR, CONTINUE TO MONITOR (9) Chronic kidney disease (CKD) Status: Chronic Qualifiers: Chronic kidney disease stage: unspecified stage Qualified Code(s): N18.9 - Chronic kidney disease, unspecified Plan: OBTAIN RENAL ULTRASOUND, CONTINUE TO MONITOR
[2017-06-06] MEDS: DUONEB 0.5 MG/3 MG NEB SCH ×6 (01:08→21:42)
[2017-06-06 05:30] LABS: BASOPHILS # (AUTO) 0.1 X10^3/uL (0.0-0.1); BASOPHILS % (AUTO) 1.1 % (0.2-1.0); EOSINOPHILS # (AUTO) 0.3 x10^3/uL (0.0-0.2); EOSINOPHILS % (AUTO) 3.2 % (0.9-2.9); LYMPHOCYTES # (AUTO) 2.3 X10^3/uL (1.3-2.9); LYMPHOCYTES % (AUTO) 21.8 % (21.0-51.0); MEAN CORPUSCULAR HGB CONC 33.3 g/dL (33.0-35.0); MEAN CORPUSCULAR VOLUME 84.1 fL (80.0-100.0); MEAN PLATELET VOLUME 7.6 fL (7.4-11.0); MONOCYTES # (AUTO) 0.7 x10^3/uL (0.3-0.8); MONOCYTES % (AUTO) 6.5 % (0.0-13.0); NEUTROPHILS # (AUTO) 7.2 x10^3/uL (2.2-4.8); NEUTROPHILS % (AUTO) 67.4 % (42.0-75.0); PLATELET COUNT 233 X10^3/uL (150.0-450.0); RED BLOOD COUNT 2.86 X10^6/uL (3.5-5.4); RED CELL DISTRIBUTION WIDTH 15.5 % (11.6-16.5); WHITE BLOOD COUNT 10.7 X10^3/uL (3.6-10.0)
[2017-06-06 05:46] LABS: ALBUMIN 1.7 g/dL (3.4-5.0); CALCIUM 8.7 mg/dL (8.5-10.1); CARBON DIOXIDE 24.2 mmol/L (21-32); COR CA(FOR HYPOALB) 10.5 mg/dL (8.5-10.1); CREATININE 2.22 mg/dL (0.55-1.02); TOTAL PROTEIN 6.8 g/dL (6.4-8.2)
[2017-06-06] MEDS: HumuLIN R SC PRN ×2 (06:26→12:20)
[2017-06-06] MEDS: LOPRESSOR TAB 25 MG PO SCH ×2 (06:26→16:54)
[2017-06-06] MEDS: NS 1/2 1000 ML IV 1,000 ML IV SCH ×3 (06:28→22:46)
--- NOTE | 2017-06-06 07:06 | RAD ---
Examination: Portable AP chest History: SOB Comparison reference 06/05/2017 Findings: Continued cardiomegaly with pulmonary vascular congestion and interstitial edema. This proc ess has improved slightly since 1 day earlier. Stable position of right jugular line. Impression: Persistent cardiomegaly and CHF with slight interval improvement. Reported By:
[2017-06-06] MEDS ORDERED: NS 1/2 1000 ML IV 1,000 ML IV ONE (08:56)
[2017-06-06] MEDS ORDERED: GLUCOPHAGE ONE ×2 (08:56→20:50)
[2017-06-06] MEDS: ROBITUSSIN DM PO SCH ×4 (09:58→21:17)
[2017-06-06] MEDS: ALBUMIN HUMAN 25%- 100ML 200 ML IV SCH (09:58)
[2017-06-06] MEDS: ASPIRIN EC 81 MG PO SCH (10:01)
[2017-06-06] MEDS: DIOVAN TAB 160 MG PO SCH (10:01)
[2017-06-06] MEDS: ULTRAM PO SCH (10:01)
[2017-06-06] MEDS: SINGULAIR TAB 10 MG PO SCH (10:01)
[2017-06-06] MEDS: HYDROCHLOROTHIAZIDE 25 MG TAB PO SCH (10:01)
[2017-06-06] MEDS: PEPCID TAB 20 MG PO SCH (10:02)
[2017-06-06] MEDS: GLUCOPHAGE PO SCH ×2 (10:02→21:13)
[2017-06-06] MEDS: APRESOLINE TAB 10 MG PO SCH ×2 (10:02→21:13)
[2017-06-06] MEDS: PLAVIX PO SCH (10:03)
[2017-06-06] MEDS: TUSSIONEX PENNKINETIC SUSP PO PRN (21:13)
[2017-06-06] MEDS: LANTUS SC SCH (21:14)
[2017-06-06] MEDS: LIPITOR TAB 20 MG PO SCH (21:14)
[2017-06-06] MEDS: SNACK - Diabetic Appropriate PO SCH (21:17)
[2017-06-07] MEDS: DUONEB 0.5 MG/3 MG NEB SCH ×6 (01:11→21:41)
[2017-06-07 04:49] LABS: ALANINE AMINOTRANSFERASE 42 Units/L (12-78); ALBUMIN 2.1 g/dL (3.4-5.0); ALKALINE PHOSPHATASE 210 Units/L (46-116); ASPARTATE AMINO TRANSFERASE 20 Units/L (15-37); BLOOD UREA NITROGEN 34 mg/dL (7-18); CALCIUM 9.1 mg/dL (8.5-10.1); CARBON DIOXIDE 25.2 mmol/L (21-32); CHLORIDE 104 mmol/L (98-107); COR CA(FOR HYPOALB) 10.6 mg/dL (8.5-10.1); CREATININE 2.15 mg/dL (0.55-1.02); SODIUM 141 mmol/L (136-145); TOTAL PROTEIN 7.2 g/dL (6.4-8.2); eGFR BLACK RACES 31 (>60); eGFR NON BLACK RACES 26 (>60)
[2017-06-07 04:55] LABS: BASOPHILS # (AUTO) 0.1 X10^3/uL (0.0-0.1); BASOPHILS % (AUTO) 0.8 % (0.2-1.0); EOSINOPHILS # (AUTO) 0.4 x10^3/uL (0.0-0.2); EOSINOPHILS % (AUTO) 2.9 % (0.9-2.9); HEMATOCRIT 24.8 % (36.0-47.0); HEMOGLOBIN 7.9 g/dL (12.0-16.0); LYMPHOCYTES # (AUTO) 2.6 X10^3/uL (1.3-2.9); LYMPHOCYTES % (AUTO) 20.8 % (21.0-51.0); MEAN CORPUSCULAR HGB CONC 31.9 g/dL (33.0-35.0); MEAN CORPUSCULAR VOLUME 84.5 fL (80.0-100.0); MEAN PLATELET VOLUME 7.8 fL (7.4-11.0); MONOCYTES # (AUTO) 0.7 x10^3/uL (0.3-0.8); NEUTROPHILS # (AUTO) 8.7 x10^3/uL (2.2-4.8); NEUTROPHILS % (AUTO) 69.5 % (42.0-75.0); PLATELET COUNT 266 X10^3/uL (150.0-450.0); RED BLOOD COUNT 2.94 X10^6/uL (3.5-5.4); WHITE BLOOD COUNT 12.4 X10^3/uL (3.6-10.0)
[2017-06-07 05:29] LABS: HYPOCHROMASIA SLIGHT; PLATELET MORPHOLOGY COMMENT NORMAL (NORMAL)
[2017-06-07] MEDS: NS 1/2 1000 ML IV 1,000 ML IV SCH (06:05)
[2017-06-07] MEDS: LOPRESSOR TAB 25 MG PO SCH ×2 (06:05→17:01)
--- NOTE | 2017-06-07 09:26 | RAD ---
Examination: AP chest History: SOB CHF Comparison reference 06/06/2017 Findings: Stable heart size, no change in position of right jugular line in the SVC. Persistent bilat eral infiltrates or pulmonary edema with slight interval improvement since 1 day earlier. No new abno rmality. Impression: Slight interval improvement in aeration of the lungs. Stable cardiomegaly. Reported By:
[2017-06-07] MEDS: ALBUMIN HUMAN 25%- 100ML 200 ML IV SCH (09:31)
[2017-06-07] MEDS: ROBITUSSIN DM PO SCH ×4 (09:32→21:07)
[2017-06-07] MEDS: LEVAQUIN PREMIX IV 750 MG 750 MG/150 ML BAG IV SCH ×2 (09:32→11:00)
[2017-06-07] MEDS: APRESOLINE TAB 10 MG PO SCH ×2 (09:33→21:05)
[2017-06-07] MEDS: ASPIRIN EC 81 MG PO SCH (09:33)
[2017-06-07] MEDS: DIOVAN TAB 160 MG PO SCH (09:33)
[2017-06-07] MEDS: PEPCID TAB 20 MG PO SCH (09:33)
[2017-06-07] MEDS: ULTRAM PO SCH (09:34)
[2017-06-07] MEDS: SINGULAIR TAB 10 MG PO SCH (09:34)
[2017-06-07] MEDS: PLAVIX PO SCH (09:35)
[2017-06-07] MEDS: LASIX IVP SCH ×2 (09:37→21:05)
--- NOTE | 2017-06-07 11:35 | PCM.PROG ---
Progress Note - Progress Note for Day of Date: 06/06/17 - Subjective Subjective: WAS ADMITTED FOR BILATERAL LOWER LOBE PNEUMONIA. TODAY, SHE IS ALERT AND ORIENTED, LYING IN BED ON MORNING ROUNDS. SHE CONTINUES WITH COMPLAINTS OF SHORNTESS OF BREATH AND COUGH. ON EXAMINATION, HEART IS NORMAL IN RATE AND RHYTHM. LUNGS CONTINUE WITH RHONCHI AND WHEEZING THROUGHOUT. SHE IS NOTED TO BE UTILIZING OXYGEN VIA [employer] CANNULA AT 2L/MIN AT THIS TIME. ABDOMEN IS ROUND, SOFT, NON-TENDER. NORMAL BOWEL SOUNDS ARE NOTED IN ALL QUADRANTS. THERE IS GOOD MOVEMENT NOTED IN ALL EXTREMITIES. THERE IS A DIABETIC ULCER NOTED TO THE LEFT GREAT TOE. NO DRAINAGE NOTED AT THIS TIME. HER VITALS SIGNS THIS MORNING ARE 99.3-79-20-92%-172/81. ABNORMAL LAB VALUES INCLUDE THE FOLLOWING: WBC 10.7, RBC 2.86, HGB 8.0, HCT 24.0, BUN 29, CREATININE 2.22, GLUCOSE 237, ALK PHOS 222, ALBUMIN 1.7, GLOBULIN 5.1, A/G RATIO 0.3. WE WILL CONTINUE WITH IV ANTIBIOTICS FOR PNEUMONIA AND INFECTION TO LEFT GREAT TOE. OTHERWISE, WILL CONTINUE WITH CURRENT PLAN OF CARE TODAY. WE PLAN TO FOLLOW UP WITH AM LABS AND CONTINUE TO MONITOR PATIENT. - Past Medical Family Social History Past Med/Fam/Surg Hx: No changes since H&P Allergies: Allergies penicillin G Allergy (Verified 02/07/17 19:36) Penicillins Allergy (Verified 02/07/17 19:36) - Review of Systems ROS: No change since H&P - Vital Signs and I&O's Vital Signs: Temperature 98.3 F Pulse Rate [Left Brachial] 68 Pulse Rate [Right Brachial] 85 Pulse Rate 86 Respiratory Rate 18 Blood Pressure [Right Calf] 190/87 Blood Pressure [Left Arm] 190/81 Blood Pressure [Right Arm] 188/84 Blood Pressure [Right Arm] 174/83 Blood Pressure 211/100 O2 Sat by Pulse Oximetry 92 Intake and Output: Intake & Output 06/04/17 06/05/17 06/06/17 06/07/17 11:59 11:59 11:59 11:59 Intake Total 2366 3122 1500 1315 Balance 2366 3122 1500 1315 - Physical Exam Oriented: Normal. negative: Time, Person, Place, Not Oriented, Unable to test, Other Eyes: Normal. negative: Blurred Vision, Diplopia, Discharge, Pain, Redness, Photophobia, Other Ear: Normal. negative: Right, Left, Swelling, Ecchymosis, Hemotypanum, Abrasion , Laceration Nose: Normal. negative: Injected, Discharge, Blood, Other Throat: Normal. negative: Tonsillar Hypertrophy, Red, Exudate, Dry, Other Respiratory: Right, Left, Generalized, Wheezes, Rhonchi Cardiovascular: Normal. negative: Tachycardia, Bradycardia, Irregular, S3, S4, Systolic, Diastolic, Murmur, Edema, Other : Normal. negative: Dysuria, Hematuria, Frequency, Discharge, Testicular Pain , Bleeding, , Other Auscultation: Bowel Sounds: Normal. negative: Bruit, Absent, Increased, Decreased, High Pitched, Other Palpation: Normal Tenderness: Diffuse, Mild Skin: Wound (DIABETIC ULCER, LEFT GREAT TOE ) Musculoskeletal: Normal. negative: Right, Left, Shoulder, Clavicle, Arm, Elbow , Forearm, Wrist, Hand, Hip, Thigh, Knee, Leg, Ankle, Foot, Back:Thoracic, Back: Lumbar, Back:Midline, Back:Paraspinous, Pelvis, Swelling, Tender, Deformity, Pulse Deficit, Motor Deficit, Sensory Deficit, Instability, Crepitance Psychiatric: Normal. negative: Anxiety, Depression, Agitation, Other Mood Description: Calm Affect: Normal Speech Pattern: Clear, Appropriate - Laboratory and Diagnostics Result Diagrams: 06/07/17 03:40 06/07/17 03:40 Labs: 06/02/17 12:05 Blood Blood Culture - Preliminary 06/02/17 12:00 Blood Blood Culture - Preliminary 06/02/17 17:30 Foot - Left Gram Stain - Final 06/02/17 17:30 Foot - Left Wound Culture - Final Stenotrophomonas Maltophilia Laboratory WBC 12.4 X10^3/uL (3.6-10.0) H 06/07/17 03:40 RBC 2.94 X10^6/uL (3.5-5.4) L 06/07/17 03:40 Hgb 7.9 g/dL (12.0-16.0) L 06/07/17 03:40 Hct 24.8 % (36.0-47.0) L 06/07/17 03:40 MCV 84.5 fL (80.0-100.0) 06/07/17 03:40 MCH 27.0 pg (27.0-34.0) 06/07/17 03:40 MCHC 31.9 g/dL (33.0-35.0) L 06/07/17 03:40 RDW 16.0 % (11.6-16.5) 06/07/17 03:40 Plt Count 266 X10^3/uL (150.0-450.0) 06/07/17 03:40 Plt Count Comment Adequate (ADEQUATE) 06/07/17 03:40 MPV 7.8 fL (7.4-11.0) 06/07/17 03:40 Neut % 69.5 % (42.0-75.0) 06/07/17 03:40 Lymph % 20.8 % (21.0-51.0) L 06/07/17 03:40 Delta % 6.0 % (0.0-13.0) 06/07/17 03:40 Eos % 2.9 % (0.9-2.9) 06/07/17 03:40 Baso % 0.8 % (0.2-1.0) 06/07/17 03:40 Neut # 8.7 x10^3/uL (2.2-4.8) H 06/07/17 03:40 Lymph # 2.6 X10^3/uL (1.3-2.9) 06/07/17 03:40 Delta # 0.7 x10^3/uL (0.3-0.8) 06/07/17 03:40 Eos # 0.4 x10^3/uL (0.0-0.2) H 06/07/17 03:40 Baso # 0.1 X10^3/uL (0.0-0.1) 06/07/17 03:40 Absolute Nucleated RBC 0.0 /100WBC 06/07/17 03:40 Plt Morphology Comment Normal (NORMAL) 06/07/17 03:40 RBC Morphology Abnormal (NORMAL) A 06/07/17 03:40 Hypochromasia Slight A 06/07/17 03:40 Sample Site Left brachial 06/02/17 14:20 ABG pH 7.490 (7.35-7.45) H 06/02/17 14:20 ABG pCO2 38.0 mmHg (35.0-45.0) 06/02/17 14:20 ABG pO2 40.0 mmHg (80.0-100.0) L* 06/02/17 14:20 ABG HCO3 29.0 mmol/L (22-26) H 06/02/17 14:20 ABG O2 Saturation 80.0 % (90-100) L* 06/02/17 14:20 ABG Base Excess 5.4 mmol/L (-2.0-2.0) H 06/02/17 14:20 Rambo Test Na 06/02/17 14:20 A-a Gradient 62.0 mmHg 06/02/17 14:20 FiO2 21.000 06/02/17 14:20 Blood Gas Comments Hannah well aw 06/02/17 14:20 Sodium 141 mmol/L (136-145) 06/07/17 03:40 Corrected Sodium TNP 06/07/17 03:40 Potassium 3.7 mmol/L (3.5-5.1) 06/07/17 03:40 Chloride 104 mmol/L (98-107) 06/07/17 03:40 Carbon Dioxide 25.2 mmol/L (21-32) 06/07/17 03:40 BUN 34 mg/dL (7-18) H 06/07/17 03:40 Creatinine 2.15 mg/dL (0.55-1.02) H 06/07/17 03:40 Est GFR (MDRD) Af Amer 31 (>60) L 06/07/17 03:40 Est GFR (MDRD) Non-Af 26 (>60) L 06/07/17 03:40 Glucose 107 mg/dL (65-99) H 06/07/17 03:40 POC Glucose (mg/dL) 100 mg/dL (65-99) H 06/07/17 05:24 Lactic Acid 1.1 mmol/L (0.4-2.0) 06/02/17 12:00 Calcium 9.1 mg/dL (8.5-10.1) 06/07/17 03:40 Corrected Calcium 10.6 mg/dL (8.5-10.1) H 06/07/17 03:40 Total Bilirubin 0.70 mg/dL (0.2-1.0) 06/07/17 03:40 AST 20 Units/L (15-37) 06/07/17 03:40 ALT 42 Units/L (12-78) 06/07/17 03:40 Alkaline Phosphatase 210 Units/L (46-116) H 06/07/17 03:40 Creatine Kinase 208 Units/L (26-192) H 06/02/17 10:10 CK-MB (CK-2) 1.2 ng/mL (0-4.0) 06/02/17 10:10 CK/CKMB % Calc 0.6 % (<4) 06/02/17 10:10 Troponin I 0.05 ng/mL (0-1.5) 06/02/17 10:10 Total Protein 7.2 g/dL (6.4-8.2) 06/07/17 03:40 Albumin 2.1 g/dL (3.4-5.0) L 06/07/17 03:40 Globulin 5.1 g/dL (2.5-4.5) H 06/07/17 03:40 Albumin/Globulin Ratio 0.4 Ratio (1.1-2.1) L 06/07/17 03:40 Specimen Type Random urine 06/02/17 11:12 Urine Color Yellow (YELLOW) 06/02/17 11:12 Urine Appearance Clear (CLEAR) 06/02/17 11:12 Urine pH 7.0 (5.0 - 8.0) 06/02/17 11:12 Ur Specific Mico 1.010 (1.000-1.030) 06/02/17 11:12 Urine Protein 4+ (NEGATIVE) 06/02/17 11:12 Urine Glucose (UA) 3+ (NEGATIVE) 06/02/17 11:12 Urine Ketones Negative (NEGATIVE) 06/02/17 11:12 Urine Occult Blood 3+ (NEGATIVE) 06/02/17 11:12 Urine Nitrite Negative (NEGATIVE) 06/02/17 11:12 Urine Bilirubin Negative (NEGATIVE) 06/02/17 11:12 Urine Urobilinogen Normal (NORMAL) 06/02/17 11:12 Ur Leukocyte Esterase Negative (NEGATIVE) 06/02/17 11:12 Urine RBC 10-20 /HPF (NEGATIVE) 06/02/17 11:12 Urine WBC 0-5 /HPF (NEGATIVE) 06/02/17 11:12 Ur Squamous Epith Cells Moderate /HPF (NEGATIVE) 06/02/17 11:12 Urine Bacteria Negative /HPF (NEGATIVE) 06/02/17 11:12 Ur Culture Indicated? No/not indicated 06/02/17 11:12 - Plan (1) Pneumonia Status: Acute Qualifiers: Pneumonia type: due to other aerobic Gram-negative bacteria Laterality: bilateral Lung location: lower lobe of lung Qualified Code(s): J15.6 - Pneumonia due to other Gram-negative bacteria Plan: PNEUMONIA PROTOCOL, LEVAQUIN IV, AZITHROMYCIN IV, DUONEBS, SUPPLEMENTAL OXYGEN, CONTINUE TO MONITOR (2) CHF (congestive heart failure) Status: Acute Qualifiers: Congestive heart failure type: systolic Congestive heart failure chronicity : acute on chronic Qualified Code(s): I50.23 - Acute on chronic systolic ( congestive) heart failure Plan: CONTINUE HCTZ, CONTINUE DIOVAN, OBTAIN ECHO, CONTINUE RESPIRATORY TX, CONTINUE TO MONITOR (3) Shortness of breath at rest Status: Acute Plan: DUONEBS, SUPPLEMENTAL OXYGEN, CONTINUE TO MONITOR (4) Diabetic ulcer of left great toe Status: Acute Plan: CONTINUE IV ANTIBIOTICS, WOUND CARE, CONTINUE TO MONITOR (5) Weakness Status: Acute Plan: TREAT PNEUMONIA, CONTINUE TO MONITOR (6) Diabetes mellitus, type 2 Status: Chronic Qualifiers: Diabetes mellitus complication status: with circulatory complication Diabetes mellitus complication detail: with peripheral angiopathy without gangrene Diabetes mellitus bed bug exterminator insulin use: with fpc use Qualified Code(s): E11.51 - Type 2 diabetes mellitus with diabetic peripheral angiopathy without gangrene; Z79.4 - bed bug exterminator (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; Z79.4 - bed bug exterminator (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; Z79.4 - bed bug exterminator (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 ; Z79.4 - bed bug exterminator (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 Plan: CONTNUE LANTUS, CONTINUE HUMULIN R, CONTINUE GLUCOPHAGE, CONTINUE TO MONITOR (7) GERD (gastroesophageal reflux disease) Status: Chronic Qualifiers: Esophagitis presence: esophagitis presence not specified Qualified Code(s) : K21.9 - Gastro-esophageal reflux disease without esophagitis Plan: CONTINUE PEPCID, CONTINUE TO MONITOR (8) Hypertension Status: Chronic Qualifiers: Hypertension type: essential hypertension Qualified Code(s): I10 - Essential (primary) hypertension Plan: CONTINUE DIOVAN, CONTINUE APRESOLINE, CONTINUE LOPRESSOR, CONTINUE TO MONITOR (9) Chronic kidney disease (CKD) Status: Chronic Qualifiers: Chronic kidney disease stage: unspecified stage Qualified Code(s): N18.9 - Chronic kidney disease, unspecified Plan: OBTAIN RENAL ULTRASOUND, CONTINUE TO MONITOR
[2017-06-07] MEDS: HumuLIN R SC PRN (12:45)
[2017-06-07] MEDS: LIPITOR TAB 20 MG PO SCH (21:05)
[2017-06-07] MEDS: LANTUS SC SCH (21:06)
[2017-06-07] MEDS: SNACK - Diabetic Appropriate PO SCH (21:07)
[2017-06-07] MEDS: NORCO 5/325 MG TAB PO PRN (21:15)
[2017-06-08] MEDS: DUONEB 0.5 MG/3 MG NEB SCH ×6 (01:15→21:09)
[2017-06-08] MEDS: LOPRESSOR TAB 25 MG PO SCH ×2 (06:03→16:49)
[2017-06-08 06:14] LABS: BASOPHILS # (AUTO) 0.1 X10^3/uL (0.0-0.1); BASOPHILS % (AUTO) 0.6 % (0.2-1.0); EOSINOPHILS # (AUTO) 0.4 x10^3/uL (0.0-0.2); EOSINOPHILS % (AUTO) 3.6 % (0.9-2.9); HEMATOCRIT 23.8 % (36.0-47.0); LYMPHOCYTES # (AUTO) 2.6 X10^3/uL (1.3-2.9); LYMPHOCYTES % (AUTO) 23.1 % (21.0-51.0); MEAN CORPUSCULAR HEMOGLOBIN 27.6 pg (27.0-34.0); MEAN CORPUSCULAR VOLUME 83.5 fL (80.0-100.0); MEAN PLATELET VOLUME 7.5 fL (7.4-11.0); MONOCYTES # (AUTO) 0.8 x10^3/uL (0.3-0.8); MONOCYTES % (AUTO) 6.9 % (0.0-13.0); NEUTROPHILS # (AUTO) 7.4 x10^3/uL (2.2-4.8); NEUTROPHILS % (AUTO) 65.8 % (42.0-75.0); PLATELET COUNT 289 X10^3/uL (150.0-450.0); RED BLOOD COUNT 2.85 X10^6/uL (3.5-5.4); WHITE BLOOD COUNT 11.3 X10^3/uL (3.6-10.0)
[2017-06-08 06:27] LABS: HEMOGLOBIN 7.9 g/dL (12.0-16.0)
[2017-06-08 06:35] LABS: ALBUMIN 2.5 g/dL (3.4-5.0); CARBON DIOXIDE 26.4 mmol/L (21-32); COR CA(FOR HYPOALB) 10.2 mg/dL (8.5-10.1); CREATININE 2.14 mg/dL (0.55-1.02); TOTAL PROTEIN 7.4 g/dL (6.4-8.2)
[2017-06-08] MEDS: ALBUMIN HUMAN 25%- 100ML 200 ML IV SCH (08:27)
[2017-06-08] MEDS: ROBITUSSIN DM PO SCH ×4 (08:28→21:22)
[2017-06-08] MEDS: LASIX IVP SCH ×2 (08:28→21:23)
[2017-06-08] MEDS: DIOVAN TAB 160 MG PO SCH (08:29)
[2017-06-08] MEDS: PLAVIX PO SCH (08:29)
[2017-06-08] MEDS: PEPCID TAB 20 MG PO SCH (08:29)
[2017-06-08] MEDS: SINGULAIR TAB 10 MG PO SCH (08:29)
[2017-06-08] MEDS: ASPIRIN EC 81 MG PO SCH (08:29)
[2017-06-08] MEDS: APRESOLINE TAB 10 MG PO SCH (08:29)
[2017-06-08] MEDS: ULTRAM PO SCH (08:30)
--- NOTE | 2017-06-08 09:18 | RAD ---
Examination: AP chest History: SOB follow-up pneumonia Comparison reference 06/07/2017 Findings: There is no change in heart size or configuration. Stable position of right jugular line. P ersistent vascular congestion and bilateral infiltrates consistent with pneumonia/CHF. No developing pleural fluid or pneumothorax. Impression: No change since 1 day earlier. Reported By:
--- NOTE | 2017-06-08 11:33 | PCM.PROG ---
Progress Note - Progress Note for Day of Date: 06/07/17 - Subjective Subjective: WAS ADMITTED FOR BILATERAL LOWER LOBE PNEUMONIA. TODAY, SHE IS ALERT AND ORIENTED, LYING IN BED ON MORNING ROUNDS. SHE CONTINUES WITH COMPLAINTS OF SHORNTESS OF BREATH AND COUGH. STAFF REPORTS THAT WHILE PATIENT WAS AMBULATING IN ROOM THIS MORNING, HER OXYGEN SATURATIONS DROPPED INTO THE 70S ON OXYGEN AT 2L/MIN. ON EXAMINATION, HEART IS NORMAL IN RATE AND RHYTHM. LUNGS CONTINUE WITH RHONCHI AND WHEEZING THROUGHOUT. SHE IS NOTED TO BE UTILIZING OXYGEN VIA [employer] CANNULA AT 2L/MIN AT THIS TIME. ABDOMEN IS ROUND, SOFT , NON-TENDER. NORMAL BOWEL SOUNDS ARE NOTED IN ALL QUADRANTS. THERE IS GOOD MOVEMENT NOTED IN ALL EXTREMITIES. THERE IS A DIABETIC ULCER NOTED TO THE LEFT GREAT TOE. NO DRAINAGE NOTED AT THIS TIME. HER VITALS SIGNS THIS MORNING ARE 98.3-68-22-96%-188/84. ABNORMAL LAB VALUES INCLUDE THE FOLLOWING: AN INCREASE IN WBC TO 12.4, RBC 2.94, HGB 7.9, HCT 24.8, BUN 34, CREATININE 2.15, GLUCOSE 107, ALK PHOS 210, ALBUMIN 2.1, GLOBULIN 5.1, A/G RATIO 0.4. A CHEST XRAY WAS OBTAINED AND REPORTED PERSISTENT BILATERAL INFILTRATES OR PULMONARY EDEMA WITH SLIGHT INTERVAL IMPROVEMENT SINCE DAY ONE. TODAY, WE WILL DISCONTINUE HER HOME MEDICATION OF HCTZ AND START LASIX 20MG IV Q12H AND DISCONTINUE IV FLUIDS. WE WILL CONTINUE WITH IV ANTIBIOTICS FOR PNEUMONIA AND INFECTION TO LEFT GREAT TOE. OTHERWISE, WILL CONTINUE WITH CURRENT PLAN OF CARE TODAY. WE PLAN TO FOLLOW UP WITH AM LABS AND CONTINUE TO MONITOR PATIENT. - Past Medical Family Social History Past Med/Fam/Surg Hx: No changes since H&P Allergies: Allergies penicillin G Allergy (Verified 02/07/17 19:36) Penicillins Allergy (Verified 02/07/17 19:36) - Review of Systems ROS: No change since H&P - Vital Signs and I&O's Vital Signs: Temperature 98.3 F Pulse Rate [Left Brachial] 78 Pulse Rate [Right Brachial] 85 Pulse Rate 89 Respiratory Rate 20 Blood Pressure [Right Calf] 190/87 Blood Pressure [Left Arm] 197/86 Blood Pressure [Right Arm] 140/81 Blood Pressure [Right Arm] 174/83 Blood Pressure 211/100 O2 Sat by Pulse Oximetry 91 Intake and Output: Intake & Output 06/05/17 06/06/17 06/07/17 06/08/17 11:59 11:59 11:59 11:59 Intake Total 3122 1500 1315 1960 Balance 3122 1500 1315 1959 - Physical Exam Oriented: Normal. negative: Time, Person, Place, Not Oriented, Unable to test, Other Eyes: Normal. negative: Blurred Vision, Diplopia, Discharge, Pain, Redness, Photophobia, Other Ear: Normal. negative: Right, Left, Swelling, Ecchymosis, Hemotypanum, Abrasion , Laceration Nose: Normal. negative: Injected, Discharge, Blood, Other Throat: Normal. negative: Tonsillar Hypertrophy, Red, Exudate, Dry, Other Respiratory: Right, Left, Generalized, Wheezes, Rhonchi Cardiovascular: Normal. negative: Tachycardia, Bradycardia, Irregular, S3, S4, Systolic, Diastolic, Murmur, Edema, Other : Normal. negative: Dysuria, Hematuria, Frequency, Discharge, Testicular Pain , Bleeding, , Other Auscultation: Bowel Sounds: Normal. negative: Bruit, Absent, Increased, Decreased, High Pitched, Other Palpation: Normal Tenderness: Normal Skin: Wound (DIABETIC ULCER, LEFT GREAT TOE ) Musculoskeletal: Normal. negative: Right, Left, Shoulder, Clavicle, Arm, Elbow , Forearm, Wrist, Hand, Hip, Thigh, Knee, Leg, Ankle, Foot, Back:Thoracic, Back: Lumbar, Back:Midline, Back:Paraspinous, Pelvis, Swelling, Tender, Deformity, Pulse Deficit, Motor Deficit, Sensory Deficit, Instability, Crepitance Psychiatric: Normal. negative: Anxiety, Depression, Agitation, Other Mood Description: Calm Affect: Normal Speech Pattern: Clear, Appropriate - Laboratory and Diagnostics Result Diagrams: 06/08/17 05:30 06/08/17 05:30 Labs: 06/02/17 12:05 Blood Blood Culture - Final 06/02/17 12:00 Blood Blood Culture - Final 06/02/17 17:30 Foot - Left Gram Stain - Final 06/02/17 17:30 Foot - Left Wound Culture - Final Stenotrophomonas Maltophilia Laboratory WBC 11.3 X10^3/uL (3.6-10.0) H 06/08/17 05:30 RBC 2.85 X10^6/uL (3.5-5.4) L 06/08/17 05:30 Hgb 7.9 g/dL (12.0-16.0) L 06/08/17 05:30 Hct 23.8 % (36.0-47.0) L 06/08/17 05:30 MCV 83.5 fL (80.0-100.0) 06/08/17 05:30 MCH 27.6 pg (27.0-34.0) 06/08/17 05:30 MCHC 33.0 g/dL (33.0-35.0) 06/08/17 05:30 RDW 16.0 % (11.6-16.5) 06/08/17 05:30 Plt Count 289 X10^3/uL (150.0-450.0) 06/08/17 05:30 Plt Count Comment Adequate (ADEQUATE) 06/07/17 03:40 MPV 7.5 fL (7.4-11.0) 06/08/17 05:30 Neut % 65.8 % (42.0-75.0) 06/08/17 05:30 Lymph % 23.1 % (21.0-51.0) 06/08/17 05:30 Pershing % 6.9 % (0.0-13.0) 06/08/17 05:30 Eos % 3.6 % (0.9-2.9) H 06/08/17 05:30 Baso % 0.6 % (0.2-1.0) 06/08/17 05:30 Neut # 7.4 x10^3/uL (2.2-4.8) H 06/08/17 05:30 Lymph # 2.6 X10^3/uL (1.3-2.9) 06/08/17 05:30 Pershing # 0.8 x10^3/uL (0.3-0.8) 06/08/17 05:30 Eos # 0.4 x10^3/uL (0.0-0.2) H 06/08/17 05:30 Baso # 0.1 X10^3/uL (0.0-0.1) 06/08/17 05:30 Absolute Nucleated RBC 0.1 /100WBC 06/08/17 05:30 Plt Morphology Comment Normal (NORMAL) 06/07/17 03:40 RBC Morphology Abnormal (NORMAL) A 06/07/17 03:40 Hypochromasia Slight A 06/07/17 03:40 Sample Site Left brachial 06/02/17 14:20 ABG pH 7.490 (7.35-7.45) H 06/02/17 14:20 ABG pCO2 38.0 mmHg (35.0-45.0) 06/02/17 14:20 ABG pO2 40.0 mmHg (80.0-100.0) L* 06/02/17 14:20 ABG HCO3 29.0 mmol/L (22-26) H 06/02/17 14:20 ABG O2 Saturation 80.0 % (90-100) L* 06/02/17 14:20 ABG Base Excess 5.4 mmol/L (-2.0-2.0) H 06/02/17 14:20 Rambo Test Na 06/02/17 14:20 A-a Gradient 62.0 mmHg 06/02/17 14:20 FiO2 21.000 06/02/17 14:20 Blood Gas Comments Hannah well aw 06/02/17 14:20 Sodium 139 mmol/L (136-145) 06/08/17 05:30 Corrected Sodium 140 mmol/L (136-145) 06/08/17 05:30 Potassium 3.4 mmol/L (3.5-5.1) L 06/08/17 05:30 Chloride 101 mmol/L (98-107) 06/08/17 05:30 Carbon Dioxide 26.4 mmol/L (21-32) 06/08/17 05:30 BUN 32 mg/dL (7-18) H 06/08/17 05:30 Creatinine 2.14 mg/dL (0.55-1.02) H 06/08/17 05:30 Est GFR (MDRD) Af Amer 31 (>60) L 06/08/17 05:30 Est GFR (MDRD) Non-Af 26 (>60) L 06/08/17 05:30 Glucose 129 mg/dL (65-99) H 06/08/17 05:30 POC Glucose (mg/dL) 127 mg/dL (65-99) H 06/08/17 05:33 Lactic Acid 1.1 mmol/L (0.4-2.0) 06/02/17 12:00 Calcium 9.0 mg/dL (8.5-10.1) 06/08/17 05:30 Corrected Calcium 10.2 mg/dL (8.5-10.1) H 06/08/17 05:30 Total Bilirubin 0.70 mg/dL (0.2-1.0) 06/08/17 05:30 AST 36 Units/L (15-37) 06/08/17 05:30 ALT 49 Units/L (12-78) 06/08/17 05:30 Alkaline Phosphatase 215 Units/L (46-116) H 06/08/17 05:30 Creatine Kinase 208 Units/L (26-192) H 06/02/17 10:10 CK-MB (CK-2) 1.2 ng/mL (0-4.0) 06/02/17 10:10 CK/CKMB % Calc 0.6 % (<4) 06/02/17 10:10 Troponin I 0.05 ng/mL (0-1.5) 06/02/17 10:10 Total Protein 7.4 g/dL (6.4-8.2) 06/08/17 05:30 Albumin 2.5 g/dL (3.4-5.0) L 06/08/17 05:30 Globulin 4.9 g/dL (2.5-4.5) H 06/08/17 05:30 Albumin/Globulin Ratio 0.5 Ratio (1.1-2.1) L 06/08/17 05:30 Specimen Type Random urine 06/02/17 11:12 Urine Color Yellow (YELLOW) 06/02/17 11:12 Urine Appearance Clear (CLEAR) 06/02/17 11:12 Urine pH 7.0 (5.0 - 8.0) 06/02/17 11:12 Ur Specific [place] 1.010 (1.000-1.030) 06/02/17 11:12 Urine Protein 4+ (NEGATIVE) 06/02/17 11:12 Urine Glucose (UA) 3+ (NEGATIVE) 06/02/17 11:12 Urine Ketones Negative (NEGATIVE) 06/02/17 11:12 Urine Occult Blood 3+ (NEGATIVE) 06/02/17 11:12 Urine Nitrite Negative (NEGATIVE) 06/02/17 11:12 Urine Bilirubin Negative (NEGATIVE) 06/02/17 11:12 Urine Urobilinogen Normal (NORMAL) 06/02/17 11:12 Ur Leukocyte Esterase Negative (NEGATIVE) 06/02/17 11:12 Urine RBC 10-20 /HPF (NEGATIVE) 06/02/17 11:12 Urine WBC 0-5 /HPF (NEGATIVE) 06/02/17 11:12 Ur Squamous Epith Cells Moderate /HPF (NEGATIVE) 06/02/17 11:12 Urine Bacteria Negative /HPF (NEGATIVE) 06/02/17 11:12 Ur Culture Indicated? No/not indicated 06/02/17 11:12 - Plan (1) Pneumonia Status: Acute Qualifiers: Pneumonia type: due to other aerobic Gram-negative bacteria Laterality: bilateral Lung location: lower lobe of lung Qualified Code(s): J15.6 - Pneumonia due to other Gram-negative bacteria Plan: PNEUMONIA PROTOCOL, LEVAQUIN IV, AZITHROMYCIN IV, DUONEBS, SUPPLEMENTAL OXYGEN, CONTINUE TO MONITOR (2) CHF (congestive heart failure) Status: Acute Qualifiers: Congestive heart failure type: systolic Congestive heart failure chronicity : acute on chronic Qualified Code(s): I50.23 - Acute on chronic systolic ( congestive) heart failure Plan: START LASIX 20MG IV BID, DISCONTINUE HCTZ, CONTINUE DIOVAN, OBTAIN ECHO, CONTINUE RESPIRATORY TX, CONTINUE TO MONITOR (3) Shortness of breath at rest Status: Acute Plan: DUONEBS, SUPPLEMENTAL OXYGEN, CONTINUE TO MONITOR (4) Diabetic ulcer of left great toe Status: Acute Plan: CONTINUE IV ANTIBIOTICS, WOUND CARE, CONTINUE TO MONITOR (5) Weakness Status: Acute Plan: TREAT PNEUMONIA, CONTINUE TO MONITOR (6) Diabetes mellitus, type 2 Status: Chronic Qualifiers: Diabetes mellitus complication status: with circulatory complication Diabetes mellitus complication detail: with peripheral angiopathy without gangrene Diabetes mellitus intermediate card tender insulin use: with snf use Qualified Code(s): E11.51 - Type 2 diabetes mellitus with diabetic peripheral angiopathy without gangrene; 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; Z79.4 - intermediate (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; Z79.4 - intermediate (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 ; 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 Plan: CONTNUE LANTUS, CONTINUE HUMULIN R, CONTINUE GLUCOPHAGE, CONTINUE TO MONITOR (7) GERD (gastroesophageal reflux disease) Status: Chronic Qualifiers: Esophagitis presence: esophagitis presence not specified Qualified Code(s) : K21.9 - Gastro-esophageal reflux disease without esophagitis Plan: CONTINUE PEPCID, CONTINUE TO MONITOR (8) Hypertension Status: Chronic Qualifiers: Hypertension type: essential hypertension Qualified Code(s): I10 - Essential (primary) hypertension Plan: CONTINUE DIOVAN, CONTINUE APRESOLINE, CONTINUE LOPRESSOR, CONTINUE TO MONITOR (9) Chronic kidney disease (CKD) Status: Chronic Qualifiers: Chronic kidney disease stage: unspecified stage Qualified Code(s): N18.9 - Chronic kidney disease, unspecified Plan: OBTAIN RENAL ULTRASOUND, CONTINUE TO MONITOR
[2017-06-08] MEDS: MILK OF MAGNESIA PO SCH ×4 (11:38→21:24)
[2017-06-08] MEDS: MIRALAX POWDER (1 DOSE 17GM) PO SCH (11:38)
[2017-06-08] MEDS: COLACE CAP 100 MG PO SCH ×2 (11:39→21:22)
[2017-06-08] MEDS: APRESOLINE TAB 25 MG PO SCH ×2 (14:29→21:22)
[2017-06-08] MEDS: HumuLIN R SC PRN (16:56)
[2017-06-08] MEDS: SNACK - Diabetic Appropriate PO SCH (20:20)
[2017-06-08] MEDS: LIPITOR TAB 20 MG PO SCH (21:22)
[2017-06-08] MEDS: LANTUS SC SCH (21:23)
[2017-06-09] MEDS: DUONEB 0.5 MG/3 MG NEB SCH ×6 (01:01→20:52)
[2017-06-09 05:16] LABS: BASOPHILS # (AUTO) 0.1 X10^3/uL (0.0-0.1); BASOPHILS % (AUTO) 0.6 % (0.2-1.0); EOSINOPHILS # (AUTO) 0.4 x10^3/uL (0.0-0.2); EOSINOPHILS % (AUTO) 3.7 % (0.9-2.9); HEMATOCRIT 22.4 % (36.0-47.0); HEMOGLOBIN 7.6 g/dL (12.0-16.0); LYMPHOCYTES # (AUTO) 2.5 X10^3/uL (1.3-2.9); LYMPHOCYTES % (AUTO) 24.3 % (21.0-51.0); MEAN CORPUSCULAR HEMOGLOBIN 28.2 pg (27.0-34.0); MEAN CORPUSCULAR HGB CONC 33.9 g/dL (33.0-35.0); MEAN CORPUSCULAR VOLUME 83.1 fL (80.0-100.0); MEAN PLATELET VOLUME 7.2 fL (7.4-11.0); MONOCYTES # (AUTO) 0.8 x10^3/uL (0.3-0.8); MONOCYTES % (AUTO) 7.6 % (0.0-13.0); NEUTROPHILS # (AUTO) 6.5 x10^3/uL (2.2-4.8); NEUTROPHILS % (AUTO) 63.8 % (42.0-75.0); PLATELET COUNT 318 X10^3/uL (150.0-450.0); RED BLOOD COUNT 2.69 X10^6/uL (3.5-5.4); RED CELL DISTRIBUTION WIDTH 15.7 % (11.6-16.5); WHITE BLOOD COUNT 10.2 X10^3/uL (3.6-10.0)
[2017-06-09 05:32] LABS: ALBUMIN 2.5 g/dL (3.4-5.0); CALCIUM 8.5 mg/dL (8.5-10.1); CARBON DIOXIDE 30.9 mmol/L (21-32); COR CA(FOR HYPOALB) 9.7 mg/dL (8.5-10.1); CREATININE 2.17 mg/dL (0.55-1.02); TOTAL PROTEIN 6.9 g/dL (6.4-8.2)
[2017-06-09] MEDS: APRESOLINE TAB 25 MG PO SCH ×3 (05:56→21:27)
[2017-06-09] MEDS: LOPRESSOR TAB 25 MG PO SCH ×2 (06:04→16:22)
[2017-06-09 06:47] LABS: HYPOCHROMASIA SLIGHT; PLATELET MORPHOLOGY COMMENT NORMAL (NORMAL)
--- NOTE | 2017-06-09 07:21 | RAD ---
Examination: Portable AP chest History: SOB Comparison reference 06/08/2017 Findings: Continued cardiac enlargement, vascular congestion and bilateral infiltrates/edema. No cruz ge in position of right jugular line. No pneumothorax seen. Impression: Stable appearance of chest with no significant change since 1 day earlier. Reported By:
[2017-06-09] MEDS: MIRALAX POWDER (1 DOSE 17GM) PO SCH (09:00)
[2017-06-09] MEDS: ROBITUSSIN DM PO SCH ×4 (09:01→20:31)
[2017-06-09] MEDS: ALBUMIN HUMAN 25%- 100ML 200 ML IV SCH (09:01)
[2017-06-09] MEDS: DIOVAN TAB 160 MG PO SCH (09:01)
[2017-06-09] MEDS: SINGULAIR TAB 10 MG PO SCH (09:02)
[2017-06-09] MEDS: ASPIRIN EC 81 MG PO SCH (09:02)
[2017-06-09] MEDS: MILK OF MAGNESIA PO SCH ×4 (09:02→20:30)
[2017-06-09] MEDS: LASIX IVP SCH ×2 (09:02→20:32)
[2017-06-09] MEDS: PEPCID TAB 20 MG PO SCH (09:02)
[2017-06-09] MEDS: ULTRAM PO SCH (09:02)
[2017-06-09] MEDS: PLAVIX PO SCH (09:05)
[2017-06-09 10:58] LABS: HEMATOCRIT 25.9 % (36.0-47.0)
--- NOTE | 2017-06-09 11:27 | PCM.PROG ---
Progress Note - Progress Note for Day of Date: 06/08/17 - Subjective Subjective: WAS ADMITTED FOR BILATERAL LOWER LOBE PNEUMONIA. TODAY, SHE IS ALERT AND ORIENTED, LYING IN BED ON MORNING ROUNDS. SHE CONTINUES WITH COMPLAINTS OF SHORNTESS OF BREATH AND COUGH, BUT REPORTS THAT SYMPTOMS HAVE IMPROVED SINCE YESTERDAY. ON EXAMINATION, HEART IS NORMAL IN RATE AND RHYTHM. LUNGS CONTINUE WITH RHONCHI AND WHEEZING THROUGHOUT. SHE IS NOTED TO BE UTILIZING OXYGEN VIA [place] CANNULA AT 2L/MIN AT THIS TIME. ABDOMEN IS ROUND, SOFT, NON-TENDER. NORMAL BOWEL SOUNDS ARE NOTED IN ALL QUADRANTS. THERE IS GOOD MOVEMENT NOTED IN ALL EXTREMITIES. THERE IS A DIABETIC ULCER NOTED TO THE LEFT GREAT TOE. NO DRAINAGE NOTED AT THIS TIME. HER VITALS SIGNS THIS MORNING ARE 98.3-78-20-91%-197/86. ABNORMAL LAB VALUES INCLUDE THE FOLLOWING: A DECREASE IN WBC TO 11.3, RBC 2.69, HGB 7.6, HCT 22.4, POTASSIUM 3.4, BUN 32, CREATININE 2.14 , GLUCOSE 129, ALK PHOS 215, ALBUMIN 2.5, GLOBULIN 4.9, A/G RATIO 0.5. A CHEST XRAY WAS OBTAINED AND REPORTED PERSISTENT BASCULAR CONGESTION AND BILATERAL INFILTRATES CONSISTENT WITH PNEUMONIA/CHF. WE WILL CONTINUE WITH IV ANTIBIOTICS FOR PNEUMONIA AND INFECTION TO LEFT GREAT TOE. OTHEWE PLAN TO FOLLOW UP WITH AM LABS AND CONTINUE TO MONITOR PATIENT. - Past Medical Family Social History Past Med/Fam/Surg Hx: No changes since H&P Allergies: Allergies penicillin G Allergy (Verified 02/07/17 19:36) Penicillins Allergy (Verified 02/07/17 19:36) - Review of Systems ROS: No change since H&P - Vital Signs and I&O's Vital Signs: Temperature 98.4 F Pulse Rate [Left Brachial] 67 Pulse Rate [Right Brachial] 85 Pulse Rate 88 Respiratory Rate 20 Blood Pressure [Right Calf] 190/87 Blood Pressure [Left Arm] 182/79 Blood Pressure [Right Arm] 140/81 Blood Pressure [Right Arm] 174/83 Blood Pressure 211/100 O2 Sat by Pulse Oximetry 96 Intake and Output: Intake & Output 06/06/17 06/07/17 06/08/17 06/09/17 11:59 11:59 11:59 11:59 Intake Total 1500 1315 1960 1840 Balance 1500 1315 1960 1840 - Physical Exam Oriented: Normal. negative: Time, Person, Place, Not Oriented, Unable to test, Other Eyes: Normal. negative: Blurred Vision, Diplopia, Discharge, Pain, Redness, Photophobia, Other Ear: Normal. negative: Right, Left, Swelling, Ecchymosis, Hemotypanum, Abrasion , Laceration Nose: Normal. negative: Injected, Discharge, Blood, Other Throat: Normal. negative: Tonsillar Hypertrophy, Red, Exudate, Dry, Other Respiratory: Right, Left, Generalized, Wheezes, Rhonchi Cardiovascular: Normal. negative: Tachycardia, Bradycardia, Irregular, S3, S4, Systolic, Diastolic, Murmur, Edema, Other : Normal. negative: Dysuria, Hematuria, Frequency, Discharge, Testicular Pain , Bleeding, , Other Auscultation: Bowel Sounds: Normal. negative: Bruit, Absent, Increased, Decreased, High Pitched, Other Palpation: Normal Tenderness: Normal Skin: Wound (DIABETIC ULCER, LEFT GREAT TOE ) Musculoskeletal: Normal. negative: Right, Left, Shoulder, Clavicle, Arm, Elbow , Forearm, Wrist, Hand, Hip, Thigh, Knee, Leg, Ankle, Foot, Back:Thoracic, Back: Lumbar, Back:Midline, Back:Paraspinous, Pelvis, Swelling, Tender, Deformity, Pulse Deficit, Motor Deficit, Sensory Deficit, Instability, Crepitance Psychiatric: Normal. negative: Anxiety, Depression, Agitation, Other Mood Description: Calm Affect: Normal Speech Pattern: Clear, Appropriate - Laboratory and Diagnostics Result Diagrams: 06/09/17 10:50 06/09/17 04:35 Labs: 06/02/17 12:05 Blood Blood Culture - Final 06/02/17 12:00 Blood Blood Culture - Final 06/02/17 17:30 Foot - Left Gram Stain - Final 06/02/17 17:30 Foot - Left Wound Culture - Final Stenotrophomonas Maltophilia Laboratory WBC 10.2 X10^3/uL (3.6-10.0) H 06/09/17 04:35 RBC 2.69 X10^6/uL (3.5-5.4) L 06/09/17 04:35 Hgb 8.6 g/dL (12.0-16.0) L 06/09/17 10:50 Hct 25.9 % (36.0-47.0) L 06/09/17 10:50 MCV 83.1 fL (80.0-100.0) 06/09/17 04:35 MCH 28.2 pg (27.0-34.0) 06/09/17 04:35 MCHC 33.9 g/dL (33.0-35.0) 06/09/17 04:35 RDW 15.7 % (11.6-16.5) 06/09/17 04:35 Plt Count 318 X10^3/uL (150.0-450.0) 06/09/17 04:35 Plt Count Comment Adequate (ADEQUATE) 06/09/17 04:35 MPV 7.2 fL (7.4-11.0) L 06/09/17 04:35 Neut % 63.8 % (42.0-75.0) 06/09/17 04:35 Lymph % 24.3 % (21.0-51.0) 06/09/17 04:35 [place] % 7.6 % (0.0-13.0) 06/09/17 04:35 Eos % 3.7 % (0.9-2.9) H 06/09/17 04:35 Baso % 0.6 % (0.2-1.0) 06/09/17 04:35 Neut # 6.5 x10^3/uL (2.2-4.8) H 06/09/17 04:35 Lymph # 2.5 X10^3/uL (1.3-2.9) 06/09/17 04:35 [place] # 0.8 x10^3/uL (0.3-0.8) 06/09/17 04:35 Eos # 0.4 x10^3/uL (0.0-0.2) H 06/09/17 04:35 Baso # 0.1 X10^3/uL (0.0-0.1) 06/09/17 04:35 Absolute Nucleated RBC 0.0 /100WBC 06/09/17 04:35 Plt Morphology Comment Normal (NORMAL) 06/09/17 04:35 RBC Morphology Abnormal (NORMAL) A 06/09/17 04:35 Hypochromasia Slight A 06/09/17 04:35 Sample Site Left brachial 06/02/17 14:20 ABG pH 7.490 (7.35-7.45) H 06/02/17 14:20 ABG pCO2 38.0 mmHg (35.0-45.0) 06/02/17 14:20 ABG pO2 40.0 mmHg (80.0-100.0) L* 06/02/17 14:20 ABG HCO3 29.0 mmol/L (22-26) H 06/02/17 14:20 ABG O2 Saturation 80.0 % (90-100) L* 06/02/17 14:20 ABG Base Excess 5.4 mmol/L (-2.0-2.0) H 06/02/17 14:20 Rambo Test Na 06/02/17 14:20 A-a Gradient 62.0 mmHg 06/02/17 14:20 FiO2 21.000 06/02/17 14:20 Blood Gas Comments Hannah well aw 06/02/17 14:20 Sodium 137 mmol/L (136-145) 06/09/17 04:35 Corrected Sodium 137 mmol/L (136-145) 06/09/17 04:35 Potassium 3.4 mmol/L (3.5-5.1) L 06/09/17 04:35 Chloride 101 mmol/L (98-107) 06/09/17 04:35 Carbon Dioxide 30.9 mmol/L (21-32) 06/09/17 04:35 BUN 35 mg/dL (7-18) H 06/09/17 04:35 Creatinine 2.17 mg/dL (0.55-1.02) H 06/09/17 04:35 Est GFR (MDRD) Af Amer 31 (>60) L 06/09/17 04:35 Est GFR (MDRD) Non-Af 25 (>60) L 06/09/17 04:35 Glucose 120 mg/dL (65-99) H 06/09/17 04:35 POC Glucose (mg/dL) 102 mg/dL (65-99) H 06/09/17 06:02 Lactic Acid 1.1 mmol/L (0.4-2.0) 06/02/17 12:00 Calcium 8.5 mg/dL (8.5-10.1) 06/09/17 04:35 Corrected Calcium 9.7 mg/dL (8.5-10.1) 06/09/17 04:35 Total Bilirubin 0.40 mg/dL (0.2-1.0) 06/09/17 04:35 AST 23 Units/L (15-37) 06/09/17 04:35 ALT 40 Units/L (12-78) 06/09/17 04:35 Alkaline Phosphatase 193 Units/L (46-116) H 06/09/17 04:35 Creatine Kinase 208 Units/L (26-192) H 06/02/17 10:10 CK-MB (CK-2) 1.2 ng/mL (0-4.0) 06/02/17 10:10 CK/CKMB % Calc 0.6 % (<4) 06/02/17 10:10 Troponin I 0.05 ng/mL (0-1.5) 06/02/17 10:10 Total Protein 6.9 g/dL (6.4-8.2) 06/09/17 04:35 Albumin 2.5 g/dL (3.4-5.0) L 06/09/17 04:35 Globulin 4.4 g/dL (2.5-4.5) 06/09/17 04:35 Albumin/Globulin Ratio 0.6 Ratio (1.1-2.1) L 06/09/17 04:35 Specimen Type Random urine 06/02/17 11:12 Urine Color Yellow (YELLOW) 06/02/17 11:12 Urine Appearance Clear (CLEAR) 06/02/17 11:12 Urine pH 7.0 (5.0 - 8.0) 06/02/17 11:12 Ur Specific [place] 1.010 (1.000-1.030) 06/02/17 11:12 Urine Protein 4+ (NEGATIVE) 06/02/17 11:12 Urine Glucose (UA) 3+ (NEGATIVE) 06/02/17 11:12 Urine Ketones Negative (NEGATIVE) 06/02/17 11:12 Urine Occult Blood 3+ (NEGATIVE) 06/02/17 11:12 Urine Nitrite Negative (NEGATIVE) 06/02/17 11:12 Urine Bilirubin Negative (NEGATIVE) 06/02/17 11:12 Urine Urobilinogen Normal (NORMAL) 06/02/17 11:12 Ur Leukocyte Esterase Negative (NEGATIVE) 06/02/17 11:12 Urine RBC 10-20 /HPF (NEGATIVE) 06/02/17 11:12 Urine WBC 0-5 /HPF (NEGATIVE) 06/02/17 11:12 Ur Squamous Epith Cells Moderate /HPF (NEGATIVE) 06/02/17 11:12 Urine Bacteria Negative /HPF (NEGATIVE) 06/02/17 11:12 Ur Culture Indicated? No/not indicated 06/02/17 11:12 - Plan (1) Pneumonia Status: Acute Qualifiers: Pneumonia type: due to other aerobic Gram-negative bacteria Laterality: bilateral Lung location: lower lobe of lung Qualified Code(s): J15.6 - Pneumonia due to other Gram-negative bacteria Plan: PNEUMONIA PROTOCOL, LEVAQUIN IV, AZITHROMYCIN IV, DUONEBS, SUPPLEMENTAL OXYGEN, CONTINUE TO MONITOR (2) CHF (congestive heart failure) Status: Acute Qualifiers: Congestive heart failure type: systolic Congestive heart failure chronicity : acute on chronic Qualified Code(s): I50.23 - Acute on chronic systolic ( congestive) heart failure Plan: START LASIX 20MG IV BID, DISCONTINUE HCTZ, CONTINUE DIOVAN, OBTAIN ECHO, CONTINUE RESPIRATORY TX, CONTINUE TO MONITOR (3) Shortness of breath at rest Status: Acute Plan: DUONEBS, SUPPLEMENTAL OXYGEN, CONTINUE TO MONITOR (4) Diabetic ulcer of left great toe Status: Acute Plan: CONTINUE IV ANTIBIOTICS, WOUND CARE, CONTINUE TO MONITOR (5) Weakness Status: Acute Plan: TREAT PNEUMONIA, CONTINUE TO MONITOR (6) Diabetes mellitus, type 2 Status: Chronic Qualifiers: Diabetes mellitus complication status: with circulatory complication Diabetes mellitus complication detail: with peripheral angiopathy without gangrene Diabetes mellitus alf insulin use: with alf use Qualified Code(s): E11.51 - Type 2 diabetes mellitus with diabetic peripheral angiopathy without gangrene; Z79.4 - case sealer (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; Z79.4 - correction (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; Z79.4 - correction (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 ; Z79.4 - correction (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 Plan: CONTNUE LANTUS, CONTINUE HUMULIN R, CONTINUE GLUCOPHAGE, CONTINUE TO MONITOR (7) GERD (gastroesophageal reflux disease) Status: Chronic Qualifiers: Esophagitis presence: esophagitis presence not specified Qualified Code(s) : K21.9 - Gastro-esophageal reflux disease without esophagitis Plan: CONTINUE PEPCID, CONTINUE TO MONITOR (8) Hypertension Status: Chronic Qualifiers: Hypertension type: essential hypertension Qualified Code(s): I10 - Essential (primary) hypertension Plan: CONTINUE DIOVAN, CONTINUE APRESOLINE, CONTINUE LOPRESSOR, CONTINUE TO MONITOR (9) Chronic kidney disease (CKD) Status: Chronic Qualifiers: Chronic kidney disease stage: unspecified stage Qualified Code(s): N18.9 - Chronic kidney disease, unspecified Plan: OBTAIN RENAL ULTRASOUND, CONTINUE TO MONITOR
[2017-06-09 11:28] LABS: HEMOGLOBIN 8.6 g/dL (12.0-16.0)
[2017-06-09] MEDS: HumuLIN R SC PRN ×3 (11:45→20:32)
[2017-06-09] MEDS: LEVAQUIN PREMIX IV 750 MG 750 MG/150 ML BAG IV SCH (12:01)
[2017-06-09] MEDS: TYLENOL 325 MG TAB PO PRN ×2 (12:11→20:45)
[2017-06-09] MEDS: NORCO 5/325 MG TAB PO PRN (16:23)
[2017-06-09] MEDS: LIPITOR TAB 20 MG PO SCH (20:30)
[2017-06-09] MEDS: COLACE CAP 100 MG PO SCH (20:30)
[2017-06-09] MEDS: SNACK - Diabetic Appropriate PO SCH (20:31)
[2017-06-09] MEDS: LANTUS SC SCH (20:31)
[2017-06-10] MEDS: DUONEB 0.5 MG/3 MG NEB SCH ×6 (01:11→21:16)
[2017-06-10 05:29] LABS: ALANINE AMINOTRANSFERASE 34 Units/L (12-78); ALKALINE PHOSPHATASE 181 Units/L (46-116); ASPARTATE AMINO TRANSFERASE 21 Units/L (15-37); BLOOD UREA NITROGEN 38 mg/dL (7-18); CARBON DIOXIDE 31.1 mmol/L (21-32); CHLORIDE 102 mmol/L (98-107); COR CA(FOR HYPOALB) 9.8 mg/dL (8.5-10.1); CREATININE 2.15 mg/dL (0.55-1.02); SODIUM 141 mmol/L (136-145); TOTAL PROTEIN 7.3 g/dL (6.4-8.2); eGFR BLACK RACES 31 (>60); eGFR NON BLACK RACES 26 (>60)
[2017-06-10] MEDS: APRESOLINE TAB 25 MG PO SCH ×3 (06:01→22:56)
[2017-06-10] MEDS: LOPRESSOR TAB 25 MG PO SCH ×3 (06:02→17:26)
[2017-06-10] MEDS: DIOVAN TAB 160 MG PO SCH (09:50)
[2017-06-10] MEDS: SINGULAIR TAB 10 MG PO SCH (09:50)
[2017-06-10] MEDS: MILK OF MAGNESIA PO SCH ×4 (09:50→20:59)
[2017-06-10] MEDS: PEPCID TAB 20 MG PO SCH (09:50)
[2017-06-10] MEDS: ASPIRIN EC 81 MG PO SCH (09:50)
[2017-06-10] MEDS: LASIX IVP SCH ×2 (09:51→20:59)
[2017-06-10] MEDS: ULTRAM PO SCH (09:51)
[2017-06-10] MEDS: PLAVIX PO SCH (09:51)
[2017-06-10] MEDS: ROBITUSSIN DM PO SCH ×4 (09:51→20:59)
[2017-06-10] MEDS: ALBUMIN HUMAN 25%- 100ML 200 ML IV SCH (09:52)
[2017-06-10] MEDS: MIRALAX POWDER (1 DOSE 17GM) PO SCH (09:52)
[2017-06-10] MEDS: HumuLIN R SC PRN (17:27)
[2017-06-10] MEDS: LANTUS SC SCH (20:57)
[2017-06-10] MEDS: SNACK - Diabetic Appropriate PO SCH (20:57)
[2017-06-10] MEDS: COLACE CAP 100 MG PO SCH (20:58)
[2017-06-10] MEDS: LIPITOR TAB 20 MG PO SCH (20:58)
[2017-06-10] MEDS: NORCO 5/325 MG TAB PO PRN (20:59)
[2017-06-11] MEDS: DUONEB 0.5 MG/3 MG NEB SCH ×6 (01:07→22:01)
[2017-06-11 06:13] LABS: ALANINE AMINOTRANSFERASE 35 Units/L (12-78); ALBUMIN 3.1 g/dL (3.4-5.0); ALKALINE PHOSPHATASE 178 Units/L (46-116); ASPARTATE AMINO TRANSFERASE 26 Units/L (15-37); BLOOD UREA NITROGEN 38 mg/dL (7-18); CALCIUM 8.7 mg/dL (8.5-10.1); CARBON DIOXIDE 31.9 mmol/L (21-32); CHLORIDE 102 mmol/L (98-107); COR CA(FOR HYPOALB) 9.4 mg/dL (8.5-10.1); CREATININE 2.07 mg/dL (0.55-1.02); SODIUM 140 mmol/L (136-145); TOTAL PROTEIN 7.5 g/dL (6.4-8.2); eGFR BLACK RACES 32 (>60); eGFR NON BLACK RACES 27 (>60)
[2017-06-11] MEDS: APRESOLINE TAB 25 MG PO SCH ×3 (06:43→21:03)
[2017-06-11] MEDS: LOPRESSOR TAB 25 MG PO SCH (06:43)
--- NOTE | 2017-06-11 07:14 | RAD ---
Examination: Chest, PA and lateral History: Pneumonia, CHF, diabetes Comparison reference: Portable AP chest 06/09/2017 Findings: Continued cardiomegaly with pulmonary vascular distention and diffuse interstitial changes consistent with edema. No localized consolidation, pneumothorax or large pleural effusion. Stable pos ition of right IJ line in to the SVC. Impression: Persistent cardiomegaly and CHF. Considering technical differences, little change since 2 days prior. Reported By:
[2017-06-11] MEDS: ROBITUSSIN DM PO SCH ×4 (08:50→21:02)
[2017-06-11] MEDS: MILK OF MAGNESIA PO SCH ×4 (08:50→21:03)
[2017-06-11] MEDS: SINGULAIR TAB 10 MG PO SCH (08:51)
[2017-06-11] MEDS: PEPCID TAB 20 MG PO SCH (08:51)
[2017-06-11] MEDS: DIOVAN TAB 160 MG PO SCH (08:51)
[2017-06-11] MEDS: ASPIRIN EC 81 MG PO SCH (08:51)
[2017-06-11] MEDS: ULTRAM PO SCH (08:51)
[2017-06-11] MEDS: MIRALAX POWDER (1 DOSE 17GM) PO SCH (08:52)
[2017-06-11] MEDS: ALBUMIN HUMAN 25%- 100ML 200 ML IV SCH (08:52)
[2017-06-11] MEDS: LASIX IVP SCH ×2 (08:52→21:04)
[2017-06-11] MEDS: PLAVIX PO SCH (08:55)
[2017-06-11] MEDS ORDERED: NS 500 ML IV 500 ML IV ONE (11:05)
[2017-06-11] MEDS: LEVAQUIN PREMIX IV 750 MG 750 MG/150 ML BAG IV SCH (11:16)
[2017-06-11] MEDS: COREG TAB 6.25 MG PO SCH ×2 (13:45→21:03)
[2017-06-11] MEDS: HumuLIN R SC PRN (17:08)
[2017-06-11] MEDS: SNACK - Diabetic Appropriate PO SCH (21:02)
[2017-06-11] MEDS: LIPITOR TAB 20 MG PO SCH (21:02)
[2017-06-11] MEDS: NORCO 5/325 MG TAB PO PRN (21:03)
[2017-06-11] MEDS: COLACE CAP 100 MG PO SCH (21:03)
[2017-06-11] MEDS: LANTUS SC SCH (21:04)
[2017-06-12] MEDS: DUONEB 0.5 MG/3 MG NEB SCH ×3 (00:28→09:03)
[2017-06-12] MEDS: TYLENOL 325 MG TAB PO PRN (00:46)
[2017-06-12] MEDS: HumuLIN R SC PRN (05:44)
[2017-06-12] MEDS: APRESOLINE TAB 25 MG PO SCH (05:45)
[2017-06-12 06:15] LABS: BASOPHILS # (AUTO) 0.1 X10^3/uL (0.0-0.1); BASOPHILS % (AUTO) 1.2 % (0.2-1.0); EOSINOPHILS % (AUTO) 0.2 % (0.9-2.9); HEMATOCRIT 23.2 % (36.0-47.0); HEMOGLOBIN 7.6 g/dL (12.0-16.0); LYMPHOCYTES # (AUTO) 0.8 X10^3/uL (1.3-2.9); MEAN CORPUSCULAR HEMOGLOBIN 27.4 pg (27.0-34.0); MEAN CORPUSCULAR HGB CONC 32.9 g/dL (33.0-35.0); MEAN CORPUSCULAR VOLUME 83.4 fL (80.0-100.0); MONOCYTES # (AUTO) 0.7 x10^3/uL (0.3-0.8); MONOCYTES % (AUTO) 6.3 % (0.0-13.0); NEUTROPHILS # (AUTO) 10.1 x10^3/uL (2.2-4.8); NEUTROPHILS % (AUTO) 85.3 % (42.0-75.0); PLATELET COUNT 367 X10^3/uL (150.0-450.0); RED BLOOD COUNT 2.78 X10^6/uL (3.5-5.4); RED CELL DISTRIBUTION WIDTH 16.1 % (11.6-16.5); WHITE BLOOD COUNT 11.8 X10^3/uL (3.6-10.0)
[2017-06-12 06:33] LABS: ALBUMIN 3.3 g/dL (3.4-5.0); CALCIUM 8.8 mg/dL (8.5-10.1); CARBON DIOXIDE 30.3 mmol/L (21-32); COR CA(FOR HYPOALB) 9.4 mg/dL (8.5-10.1); CREATININE 2.59 mg/dL (0.55-1.02); TOTAL PROTEIN 7.6 g/dL (6.4-8.2)
[2017-06-12 07:09] LABS: PLATELET MORPHOLOGY COMMENT NORMAL (NORMAL)
[2017-06-12 08:18] VITALS: BP 149/66
[2017-06-12] MEDS ORDERED: HEMOCYTE-PLUS PO SCH (09:00)
[2017-06-12] MEDS: MIRALAX POWDER (1 DOSE 17GM) PO SCH (09:01)
[2017-06-12] MEDS: LASIX IVP SCH (09:01)
[2017-06-12] MEDS: MILK OF MAGNESIA PO SCH (09:01)
[2017-06-12] MEDS: ROBITUSSIN DM PO SCH (09:01)
[2017-06-12] MEDS: DIOVAN TAB 160 MG PO SCH (09:01)
[2017-06-12] MEDS: SINGULAIR TAB 10 MG PO SCH (09:04)
[2017-06-12] MEDS: COREG TAB 6.25 MG PO SCH (09:04)
[2017-06-12] MEDS: ASPIRIN EC 81 MG PO SCH (09:04)
[2017-06-12] MEDS: PLAVIX PO SCH (09:04)
[2017-06-12] MEDS: PEPCID TAB 20 MG PO SCH (09:05)
[2017-06-12] MEDS: ULTRAM PO SCH (09:06)
--- NOTE | 2017-06-12 11:21 | PCM.PROG ---
Progress Note - Progress Note for Day of Date: 06/09/17 - Subjective Subjective: WAS ADMITTED FOR BILATERAL LOWER LOBE PNEUMONIA. TODAY, SHE IS ALERT AND ORIENTED, LYING IN BED ON MORNING ROUNDS. SHE CONTINUES WITH COMPLAINTS OF SHORNTESS OF BREATH AND COUGH. SHE REPORTS THAT SYMPTOMS SEEN TO BE WORSE TODAY THAN THEY WERE YESTERDAY. ON EXAMINATION, HEART IS NORMAL IN RATE AND RHYTHM. LUNGS CONTINUE WITH RHONCHI AND WHEEZING THROUGHOUT. SHE IS NOTED TO BE UTILIZING OXYGEN VIA NASAL CANNULA AT 2L/MIN AT THIS TIME. ABDOMEN IS ROUND, SOFT, NON-TENDER. NORMAL BOWEL SOUNDS ARE NOTED IN ALL QUADRANTS. THERE IS NORMAL RANGE OF MOTION NOTED IN ALL EXTREMITIES. THERE IS A DIABETIC ULCER NOTED TO THE LEFT GREAT TOE. NO DRAINAGE NOTED AT THIS TIME. HER VITALS SIGNS THIS MORNING ARE 98.4-67-20-96%-182/79. ABNORMAL LAB VALUES INCLUDE THE FOLLOWING: WBC 10.2, RBC 2.69, HGB 7.6, HCT 22.4, BUN 38, CREATININE 2.07, GLUCOSE 103, ALKALINE PHOS 178, ALBUMIN 3.1. A CHEST XRAY WAS OBTAINED AND REPORTS CONTINUED CARDIAC ENLARGEMENT, VASCULAR CONGESTION AND BILATERAL INFILTRATES/ED[place], OTHERWISE STABLE. WE WILL CONTINUE WITH IV ANTIBIOTICS FOR PNEUMONIA AND INFECTION TO LEFT GREAT TOE. WE WILL CHECK A H&H AND TRANSFUSE 2 UNITS OF PRBC IF THERE HAS BEEN A DROP IN HGB. OTHERWISE, WE PLAN TO FOLLOW UP WITH AM LABS AND CONTINUE TO MONITOR PATIENT. - Past Medical Family Social History Past Med/Fam/Surg Hx: No changes since H&P Allergies: Allergies penicillin G Allergy (Verified 02/07/17 19:36) Penicillins Allergy (Verified 02/07/17 19:36) - Review of Systems ROS: No change since H&P - Vital Signs and I&O's Vital Signs: Temperature 99.7 F Pulse Rate [Left Brachial] 88 Pulse Rate [Right Brachial] 70 Pulse Rate 86 Respiratory Rate 20 Blood Pressure [Right Calf] 183/80 Blood Pressure [Left Arm] 149/66 Blood Pressure [Right Arm] 161/85 Blood Pressure [Right Arm] 174/83 Blood Pressure 211/100 O2 Sat by Pulse Oximetry 98 Intake and Output: Intake & Output 06/09/17 06/10/17 06/11/17 06/12/17 11:59 11:59 11:59 11:59 Intake Total 1840 1550 1555 1580 Output Total 400 450 Balance 1840 1150 1105 1580 - Physical Exam Oriented: Normal. negative: Time, Person, Place, Not Oriented, Unable to test, Other Eyes: Normal. negative: Blurred Vision, Diplopia, Discharge, Pain, Redness, Photophobia, Other Ear: Normal. negative: Right, Left, Swelling, Ecchymosis, Hemotypanum, Abrasion , Laceration Nose: Normal. negative: Injected, Discharge, Blood, Other Throat: Normal. negative: Tonsillar Hypertrophy, Red, Exudate, Dry, Other Respiratory: Right, Left, Generalized, Wheezes, Rhonchi Cardiovascular: Normal. negative: Tachycardia, Bradycardia, Irregular, S3, S4, Systolic, Diastolic, Murmur, Edema, Other : Normal. negative: Dysuria, Hematuria, Frequency, Discharge, Testicular Pain , Bleeding, , Other Auscultation: Bowel Sounds: Normal. negative: Bruit, Absent, Increased, Decreased, High Pitched, Other Palpation: Normal Tenderness: Normal Skin: Wound (DIABETIC ULCER, LEFT GREAT TOE ) Musculoskeletal: Normal. negative: Right, Left, Shoulder, Clavicle, Arm, Elbow , Forearm, Wrist, Hand, Hip, Thigh, Knee, Leg, Ankle, Foot, Back:Thoracic, Back: Lumbar, Back:Midline, Back:Paraspinous, Pelvis, Swelling, Tender, Deformity, Pulse Deficit, Motor Deficit, Sensory Deficit, Instability, Crepitance Psychiatric: Normal. negative: Anxiety, Depression, Agitation, Other Mood Description: Calm Affect: Normal Speech Pattern: Clear, Appropriate - Laboratory and Diagnostics Result Diagrams: 06/12/17 03:40 06/12/17 03:40 Labs: 06/02/17 12:05 Blood Blood Culture - Final 06/02/17 12:00 Blood Blood Culture - Final 06/02/17 17:30 Foot - Left Gram Stain - Final 06/02/17 17:30 Foot - Left Wound Culture - Final Stenotrophomonas Maltophilia Laboratory WBC 11.8 X10^3/uL (3.6-10.0) H 06/12/17 03:40 RBC 2.78 X10^6/uL (3.5-5.4) L 06/12/17 03:40 Hgb 7.6 g/dL (12.0-16.0) L 06/12/17 03:40 Hct 23.2 % (36.0-47.0) L 06/12/17 03:40 MCV 83.4 fL (80.0-100.0) 06/12/17 03:40 MCH 27.4 pg (27.0-34.0) 06/12/17 03:40 MCHC 32.9 g/dL (33.0-35.0) L 06/12/17 03:40 RDW 16.1 % (11.6-16.5) 06/12/17 03:40 Plt Count 367 X10^3/uL (150.0-450.0) 06/12/17 03:40 Plt Count Comment Adequate (ADEQUATE) 06/12/17 03:40 MPV 7.0 fL (7.4-11.0) L 06/12/17 03:40 Neut % 85.3 % (42.0-75.0) H 06/12/17 03:40 Lymph % 7.0 % (21.0-51.0) L 06/12/17 03:40 [place] % 6.3 % (0.0-13.0) 06/12/17 03:40 Eos % 0.2 % (0.9-2.9) L 06/12/17 03:40 Baso % 1.2 % (0.2-1.0) H 06/12/17 03:40 Neut # 10.1 x10^3/uL (2.2-4.8) H 06/12/17 03:40 Lymph # 0.8 X10^3/uL (1.3-2.9) L 06/12/17 03:40 [place] # 0.7 x10^3/uL (0.3-0.8) 06/12/17 03:40 Eos # 0.0 x10^3/uL (0.0-0.2) 06/12/17 03:40 Baso # 0.1 X10^3/uL (0.0-0.1) 06/12/17 03:40 Absolute Nucleated RBC 0.0 /100WBC 06/12/17 03:40 Plt Morphology Comment Normal (NORMAL) 06/12/17 03:40 RBC Morphology Normal (NORMAL) 06/12/17 03:40 Hypochromasia Slight A 06/09/17 04:35 Sample Site Left brachial 06/02/17 14:20 ABG pH 7.490 (7.35-7.45) H 06/02/17 14:20 ABG pCO2 38.0 mmHg (35.0-45.0) 06/02/17 14:20 ABG pO2 40.0 mmHg (80.0-100.0) L* 06/02/17 14:20 ABG HCO3 29.0 mmol/L (22-26) H 06/02/17 14:20 ABG O2 Saturation 80.0 % (90-100) L* 06/02/17 14:20 ABG Base Excess 5.4 mmol/L (-2.0-2.0) H 06/02/17 14:20 Rambo Test Na 06/02/17 14:20 A-a Gradient 62.0 mmHg 06/02/17 14:20 FiO2 21.000 06/02/17 14:20 Blood Gas Comments Hannah well aw 06/02/17 14:20 Sodium 136 mmol/L (136-145) 06/12/17 03:40 Corrected Sodium 139 mmol/L (136-145) 06/12/17 03:40 Potassium 4.0 mmol/L (3.5-5.1) 06/12/17 03:40 Chloride 98 mmol/L (98-107) 06/12/17 03:40 Carbon Dioxide 30.3 mmol/L (21-32) 06/12/17 03:40 BUN 42 mg/dL (7-18) H 06/12/17 03:40 Creatinine 2.59 mg/dL (0.55-1.02) H 06/12/17 03:40 Est GFR (MDRD) Af Amer 25 (>60) L 06/12/17 03:40 Est GFR (MDRD) Non-Af 21 (>60) L 06/12/17 03:40 Glucose 214 mg/dL (65-99) H 06/12/17 03:40 POC Glucose (mg/dL) 244 mg/dL (65-99) H 06/12/17 05:30 Lactic Acid 1.1 mmol/L (0.4-2.0) 06/02/17 12:00 Calcium 8.8 mg/dL (8.5-10.1) 06/12/17 03:40 Corrected Calcium 9.4 mg/dL (8.5-10.1) 06/12/17 03:40 Total Bilirubin 0.60 mg/dL (0.2-1.0) 06/12/17 03:40 AST 40 Units/L (15-37) H 06/12/17 03:40 ALT 43 Units/L (12-78) 06/12/17 03:40 Alkaline Phosphatase 216 Units/L (46-116) H 06/12/17 03:40 Creatine Kinase 208 Units/L (26-192) H 06/02/17 10:10 CK-MB (CK-2) 1.2 ng/mL (0-4.0) 06/02/17 10:10 CK/CKMB % Calc 0.6 % (<4) 06/02/17 10:10 Troponin I 0.05 ng/mL (0-1.5) 06/02/17 10:10 Total Protein 7.6 g/dL (6.4-8.2) 06/12/17 03:40 Albumin 3.3 g/dL (3.4-5.0) L 06/12/17 03:40 Globulin 4.3 g/dL (2.5-4.5) 06/12/17 03:40 Albumin/Globulin Ratio 0.8 Ratio (1.1-2.1) L 06/12/17 03:40 Specimen Type Random urine 06/02/17 11:12 Urine Color Yellow (YELLOW) 06/02/17 11:12 Urine Appearance Clear (CLEAR) 06/02/17 11:12 Urine pH 7.0 (5.0 - 8.0) 06/02/17 11:12 Ur Specific [place] 1.010 (1.000-1.030) 06/02/17 11:12 Urine Protein 4+ (NEGATIVE) 06/02/17 11:12 Urine Glucose (UA) 3+ (NEGATIVE) 06/02/17 11:12 Urine Ketones Negative (NEGATIVE) 06/02/17 11:12 Urine Occult Blood 3+ (NEGATIVE) 06/02/17 11:12 Urine Nitrite Negative (NEGATIVE) 06/02/17 11:12 Urine Bilirubin Negative (NEGATIVE) 06/02/17 11:12 Urine Urobilinogen Normal (NORMAL) 06/02/17 11:12 Ur Leukocyte Esterase Negative (NEGATIVE) 06/02/17 11:12 Urine RBC 10-20 /HPF (NEGATIVE) 06/02/17 11:12 Urine WBC 0-5 /HPF (NEGATIVE) 06/02/17 11:12 Ur Squamous Epith Cells Moderate /HPF (NEGATIVE) 06/02/17 11:12 Urine Bacteria Negative /HPF (NEGATIVE) 06/02/17 11:12 Ur Culture Indicated? No/not indicated 06/02/17 11:12 - Plan (1) Pneumonia Status: Acute Qualifiers: Pneumonia type: due to other aerobic Gram-negative bacteria Laterality: bilateral Lung location: lower lobe of lung Qualified Code(s): J15.6 - Pneumonia due to other Gram-negative bacteria Plan: PNEUMONIA PROTOCOL, LEVAQUIN IV, AZITHROMYCIN IV, DUONEBS, SUPPLEMENTAL OXYGEN, CONTINUE TO MONITOR (2) CHF (congestive heart failure) Status: Acute Qualifiers: Congestive heart failure type: systolic Congestive heart failure chronicity : acute on chronic Qualified Code(s): I50.23 - Acute on chronic systolic ( congestive) heart failure Plan: START LASIX 20MG IV BID, DISCONTINUE HCTZ, CONTINUE DIOVAN, OBTAIN ECHO, CONTINUE RESPIRATORY TX, CONTINUE TO MONITOR (3) Shortness of breath at rest Status: Acute Plan: DUONEBS, SUPPLEMENTAL OXYGEN, CONTINUE TO MONITOR (4) Diabetic ulcer of left great toe Status: Acute Plan: CONTINUE IV ANTIBIOTICS, WOUND CARE, CONTINUE TO MONITOR (5) Weakness Status: Acute Plan: TREAT PNEUMONIA, CONTINUE TO MONITOR (6) Diabetes mellitus, type 2 Status: Chronic Qualifiers: Diabetes mellitus complication status: with circulatory complication Diabetes mellitus complication detail: with peripheral angiopathy without gangrene Diabetes mellitus remote computer terminal operator insulin use: with remote computer terminal operator use Qualified Code(s): E11.51 - Type 2 diabetes mellitus with diabetic peripheral angiopathy without gangrene; Z79.4 - jail (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; Z79.4 - intermediate frame tender (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; Z79.4 - jail (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 ; Z79.4 - jail (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 Plan: CONTNUE LANTUS, CONTINUE HUMULIN R, CONTINUE GLUCOPHAGE, CONTINUE TO MONITOR (7) GERD (gastroesophageal reflux disease) Status: Chronic Qualifiers: Esophagitis presence: esophagitis presence not specified Qualified Code(s) : K21.9 - Gastro-esophageal reflux disease without esophagitis Plan: CONTINUE PEPCID, CONTINUE TO MONITOR (8) Hypertension Status: Chronic Qualifiers: Hypertension type: essential hypertension Qualified Code(s): I10 - Essential (primary) hypertension Plan: CONTINUE DIOVAN, CONTINUE APRESOLINE, CONTINUE LOPRESSOR, CONTINUE TO MONITOR (9) Chronic kidney disease (CKD) Status: Chronic Qualifiers: Chronic kidney disease stage: unspecified stage Qualified Code(s): N18.9 - Chronic kidney disease, unspecified Plan: OBTAIN RENAL ULTRASOUND, CONTINUE TO MONITOR (10) Anemia Status: Acute Qualifiers: Anemia type: iron deficiency Iron deficiency anemia type: unspecified iron deficiency Qualified Code(s): D50.9 - Iron deficiency anemia, unspecified Plan: MONITOR H&H, TRANSFUSE 2 UNITS PRBC IF FALLS ANY LOWER THAN 7.6
== END 2017-06-12 11:50 | disposition home or self-care (01) | DRG 177 ==
LOC: ER 09:34 → MED/SURG 16:04
PROVIDERS: ADMIT Internal Medicine; ATTEND Internal Medicine
PROC: 05HM33Z Insertion of Infusion Device into Right Internal Jugular Vein, Percutaneous Approach (ICD-10-PCS; principal; 2017-06-03)
PROC: B543ZZA Ultrasonography of Right Jugular Veins, Guidance (ICD-10-PCS; 2017-06-03)
DX: J15.6 Pneumonia due to other Gram-negative bacteria (principal); I50.23 Acute on chronic systolic (congestive) heart failure; L97.528 Non-pressure chronic ulcer of other part of left foot with other specified severity; R53.1 Weakness; R07.89 Other chest pain; I12.9 Hypertensive chronic kidney disease with stage 1 through stage 4 chronic kidney disease, or unspecified chronic kidney disease; E11.65 Type 2 diabetes mellitus with hyperglycemia; R10.84 Generalized abdominal pain; I51.7 Cardiomegaly; E11.621 Type 2 diabetes mellitus with foot ulcer; B96.5 Pseudomonas (aeruginosa) (mallei) (pseudomallei) as the cause of diseases classified elsewhere; R94.4 Abnormal results of kidney function studies; E11.51 Type 2 diabetes mellitus with diabetic peripheral angiopathy without gangrene; Z79.4 Long term (current) use of insulin; K21.9 Gastro-esophageal reflux disease without esophagitis; N18.9 Chronic kidney disease, unspecified; D50.8 Other iron deficiency anemias; R26.89 Other abnormalities of gait and mobility
CPT/HCPCS: 36415; 36556; 36600; 71010; 71020; 74176; 76770; 80053; 81001; 82550; 82553; 82803; 83605; 84484; 85014; 85018; 85025; 87040; 87070; 87075; 87077; 87186; 87205; 93005; 93306; 94640; 94760; 96365; 96374; 99284; A4222; P9047; J0456; J1815; J1940; J1956; J2550; J7620

== ENCOUNTER 2017-07-06 01:39 | Emergency (ER) | payer MEDICAID ==
[2017-07-06 01:50] VITALS: BMI 40.7
[2017-07-06] MEDS ORDERED: NIFEDIPINE CAP 10 MG ONE (02:04)
[2017-07-06] MEDS ORDERED: NIFEDIPINE CAP 10 MG PO ONE (02:04)
--- NOTE | 2017-07-06 02:15 | DR.GENAD ---
HPI - PCP Primary Care Physician: NFD - Complaint/Symptoms Chief Complaint:: PT STATES" I WOKE UP AND WAS GETTING UP TO GO TO THE BATHROOM MY HEART FELT LIKE IT WAS RUNNING FAST. 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 - Family History History of Family Medical Conditions: Yes Family Medical History: Hypertension - Social History Does patient currently use any type of tobacco product: No Have you used tobacco products in the last 12 months: No Alcohol Use: None Do you use any recreational Drugs:: No Lives With: Family Lives Where: Home - infectious screening In the last 2 months have you had wt loss of >10#?: NO Have you had fever, night sweats or hemotysis?: No Have you traveled outside the country in the last 6 months?: No Isolation: Standard ROS - Review of Systems Constitutional: No Symptoms Reported Eyes: No Symptoms Reported ENTM: No Symptoms Reported Respiratoy: No Symptoms Reported Cardiovascular: Palpitations Genitourinary: No Symptoms Reported Neurological: Anxiety Musculoskeletal: No Symptoms Reported Integumentary: No Symptoms Reported Hematologic/Lymphatic: No Symptoms Reported Endocrine: No Symptoms Reported Psychiatric: No Symptoms Reported All Other Systems: Reviewed and Negative PE - Vital Signs Vitals: Temperature 98.6 F Pulse Rate [Apical] 90 Pulse Rate 90 Respiratory Rate 20 Blood Pressure [Right Calf] 183/80 Blood Pressure [Left Arm] 210/90 Blood Pressure [Right Arm] 161/85 Blood Pressure [Right Arm] 174/83 Blood Pressure 149/66 O2 Sat by Pulse Oximetry 93 - General Limitations: No Limitations General Appearance: Alert, In No Apparent Distress - Head Head Exam: Normal Inspection - Eyes Eye exam: Normal Appearance, PERRL, EOMI - ENT ENT Exam: Normal Exam - Neck Neck Exam: Normal Inspection - Chest Chest Inspection: Normal Inspection - Respiratory Respiratory Exam: Normal Lung Sounds Bilat - Cardiovascular Cardiovascular Exam: Regular Rate, Normal Rhythm - Abdominal Exam Abdominal Exam: Normal Inspection, Normal Bowel Sounds, Soft - Extremities Extremities Exam: Normal Inspection, Full ROM, Edema (1+ pitting in legs b/l/) - Back Back Exam: Normal Inspection - Neurologic Neurological Exam: Alert, Oriented X3, CN II-XII Intact - Psychiatric Psychiatric Exam: Normal Affect - Skin Skin Exam: Warm, Dry ROR - Labs Reviewed Result Diagrams: 07/06/17 02:00 07/06/17 02:00 Laboratory: WBC 10.2 X10^3/uL (3.6-10.0) H 07/06/17 02:00 RBC 3.22 X10^6/uL (3.5-5.4) L 07/06/17 02:00 Hgb 8.7 g/dL (12.0-16.0) L 07/06/17 02:00 Hct 27.5 % (36.0-47.0) L 07/06/17 02:00 MCV 85.4 fL (80.0-100.0) 07/06/17 02:00 MCH 27.1 pg (27.0-34.0) 07/06/17 02:00 MCHC 31.7 g/dL (33.0-35.0) L 07/06/17 02:00 RDW 17.7 % (11.6-16.5) H 07/06/17 02:00 Plt Count 160 X10^3/uL (150.0-450.0) 07/06/17 02:00 MPV 8.0 fL (7.4-11.0) 07/06/17 02:00 Neut % 79.1 % (42.0-75.0) H 07/06/17 02:00 Lymph % 13.8 % (21.0-51.0) L 07/06/17 02:00 [place] % 5.1 % (0.0-13.0) 07/06/17 02:00 Eos % 1.7 % (0.9-2.9) 07/06/17 02:00 Baso % 0.3 % (0.2-1.0) 07/06/17 02:00 Neut # 8.1 x10^3/uL (2.2-4.8) H 07/06/17 02:00 Lymph # 1.4 X10^3/uL (1.3-2.9) 07/06/17 02:00 [place] # 0.5 x10^3/uL (0.3-0.8) 07/06/17 02:00 Eos # 0.2 x10^3/uL (0.0-0.2) 07/06/17 02:00 Baso # 0.0 X10^3/uL (0.0-0.1) 07/06/17 02:00 Absolute Nucleated RBC 0.0 /100WBC 07/06/17 02:00 Sample Site Rrad 07/06/17 02:50 ABG pH 7.460 (7.35-7.45) H 07/06/17 02:50 ABG pCO2 38.0 mmHg (35.0-45.0) 07/06/17 02:50 ABG pO2 40.0 mmHg (80.0-100.0) L* 07/06/17 02:50 ABG HCO3 27.0 mmol/L (22-26) H 07/06/17 02:50 ABG O2 Saturation 78.0 % (90-100) L* 07/06/17 02:50 ABG Base Excess 3.1 mmol/L (-2.0-2.0) H 07/06/17 02:50 Rambo Test Pos 07/06/17 02:50 A-a Gradient 141.0 mmHg 07/06/17 02:50 FiO2 32.000 07/06/17 02:50 Blood Gas Comments Hannah abg well-mtf 07/06/17 02:50 Sodium 140 mmol/L (136-145) 07/06/17 02:00 Corrected Sodium 149 mmol/L (136-145) H 07/06/17 02:00 Potassium 5.1 mmol/L (3.5-5.1) 07/06/17 02:00 Chloride 105 mmol/L (98-107) 07/06/17 02:00 Carbon Dioxide 25.8 mmol/L (21-32) 07/06/17 02:00 BUN 26 mg/dL (7-18) H 07/06/17 02:00 Creatinine 2.08 mg/dL (0.55-1.02) H 07/06/17 02:00 Est GFR (MDRD) Af Amer 32 (>60) L 07/06/17 02:00 Est GFR (MDRD) Non-Af 27 (>60) L 07/06/17 02:00 Glucose 487 mg/dL (65-99) H 07/06/17 02:00 Calcium 8.9 mg/dL (8.5-10.1) 07/06/17 02:00 Corrected Calcium 9.9 mg/dL (8.5-10.1) 07/06/17 02:00 Total Bilirubin 0.50 mg/dL (0.2-1.0) 07/06/17 02:00 AST 73 Units/L (15-37) H 07/06/17 02:00 ALT 149 Units/L (12-78) H 07/06/17 02:00 Alkaline Phosphatase 242 Units/L (46-116) H 07/06/17 02:00 B-Natriuretic Peptide 366 pg/mL (0-79) H 07/06/17 02:00 Total Protein 6.8 g/dL (6.4-8.2) 07/06/17 02:00 Albumin 2.8 g/dL (3.4-5.0) L 07/06/17 02:00 Globulin 4.0 g/dL (2.5-4.5) 07/06/17 02:00 Albumin/Globulin Ratio 0.7 Ratio (1.1-2.1) L 07/06/17 02:00 Specimen Type Clean catch urine 07/06/17 02:33 Urine Color Yellow (YELLOW) 07/06/17 02:33 Urine Appearance Clear (CLEAR) 07/06/17 02:33 Urine pH 8.0 (5.0 - 8.0) 07/06/17 02:33 Ur Specific [place] 1.010 (1.000-1.030) 07/06/17 02:33 Urine Protein 3+ (NEGATIVE) 07/06/17 02:33 Urine Glucose (UA) 4+ (NEGATIVE) 07/06/17 02:33 Urine Ketones Negative (NEGATIVE) 07/06/17 02:33 Urine Occult Blood 2+ (NEGATIVE) 07/06/17 02:33 Urine Nitrite Negative (NEGATIVE) 07/06/17 02:33 Urine Bilirubin Negative (NEGATIVE) 07/06/17 02:33 Urine Urobilinogen Normal (NORMAL) 07/06/17 02:33 Ur Leukocyte Esterase Negative (NEGATIVE) 07/06/17 02:33 Urine RBC Rare /HPF (NEGATIVE) 07/06/17 02:33 Urine WBC None seen /HPF (NEGATIVE) 07/06/17 02:33 Ur Squamous Epith Cells Few /HPF (NEGATIVE) 07/06/17 02:33 Urine Bacteria Negative /HPF (NEGATIVE) 07/06/17 02:33 Ur Culture Indicated? No/not indicated 07/06/17 02:33 Acetone, Semi-Quant Negative (NEGATIVE) 07/06/17 02:00 - XRAY XRAY Interpreted by: Radiologist (CT SCAN OF BRAN: NO ACUTE INTRACRANIAL ABNORMALITY. CXR: persistent CHF unchanged from previous.), Self XRAY Findings: cardiomegaly w/ interstitial vasc. congestion, - Diagnosis Discharge Problem: CHF (congestive heart failure), NYHA class III, Anxiety - Discharge Plan Disposition: HOME, SELF-CARE Condition: Stable - Follow ups/Referrals Follow ups/Referrals: NFD,None [Primary Care Provider] - 3 days - Instructions
[2017-07-06 02:22] LABS: BASOPHILS % (AUTO) 0.3 % (0.2-1.0); EOSINOPHILS # (AUTO) 0.2 x10^3/uL (0.0-0.2); EOSINOPHILS % (AUTO) 1.7 % (0.9-2.9); HEMATOCRIT 27.5 % (36.0-47.0); HEMOGLOBIN 8.7 g/dL (12.0-16.0); LYMPHOCYTES # (AUTO) 1.4 X10^3/uL (1.3-2.9); LYMPHOCYTES % (AUTO) 13.8 % (21.0-51.0); MEAN CORPUSCULAR HEMOGLOBIN 27.1 pg (27.0-34.0); MEAN CORPUSCULAR HGB CONC 31.7 g/dL (33.0-35.0); MEAN CORPUSCULAR VOLUME 85.4 fL (80.0-100.0); MONOCYTES # (AUTO) 0.5 x10^3/uL (0.3-0.8); MONOCYTES % (AUTO) 5.1 % (0.0-13.0); NEUTROPHILS # (AUTO) 8.1 x10^3/uL (2.2-4.8); NEUTROPHILS % (AUTO) 79.1 % (42.0-75.0); PLATELET COUNT 160 X10^3/uL (150.0-450.0); RED BLOOD COUNT 3.22 X10^6/uL (3.5-5.4); RED CELL DISTRIBUTION WIDTH 17.7 % (11.6-16.5); WHITE BLOOD COUNT 10.2 X10^3/uL (3.6-10.0)
[2017-07-06 02:33] LABS: ALBUMIN 2.8 g/dL (3.4-5.0); CALCIUM 8.9 mg/dL (8.5-10.1); CARBON DIOXIDE 25.8 mmol/L (21-32); COR CA(FOR HYPOALB) 9.9 mg/dL (8.5-10.1); CREATININE 2.08 mg/dL (0.55-1.02); TOTAL PROTEIN 6.8 g/dL (6.4-8.2)
--- NOTE | 2017-07-06 02:44 | CT ---
CT head without contrast Indication: Seizure Technique: Helical CT images of the brain were obtained without IV contrast. Reformatted images in th e coronal and sagittal planes were also generated for review. Comparison: 04/15/2016 Findings: There is no intracranial hemorrhage, visible acute infarct, focal or generalized edema, ext ra-axial collection, hydrocephalus or mass. There is stable mild cerebral atrophy with proportional c ompensatory ventricular and sulcal enlargement. Remote right basal ganglia infarct and patchy periven tricular hypoattenuation, suggestive for chronic microvascular ischemic disease also appear unchanged . The visualized paranasal sinuses and mastoid air cells are clear. No acute osseous or soft tissue a bnormality is identified. Impression: No acute intracranial abnormality. Stable atrophy, microangiopathic disease and remote right basal ganglia infarct. Reported By:
[2017-07-06] MEDS ORDERED: DUONEB 0.5 MG/3 MG ONE (02:50)
[2017-07-06] MEDS ORDERED: DUONEB 0.5 MG/3 MG NEB ONE (02:51)
[2017-07-06 02:55] LABS: BILIRUBIN,URINE NEGATIVE (NEGATIVE); BLOOD/HEMOGLOBIN,URINE 2+ (NEGATIVE); GLUCOSE, URINE 4+ (NEGATIVE); KETONES,URINE NEGATIVE (NEGATIVE); LEUKOCYTE ESTERASE ,URINE NEGATIVE (NEGATIVE); NITRITES,URINE NEGATIVE (NEGATIVE); PROTEIN,URINE 3+ (NEGATIVE); UROBILINOGEN,URINE NORMAL (NORMAL)
[2017-07-06 03:01] LABS: APPEARANCE,URINE CLEAR (CLEAR); BACTERIA,URINE NEGATIVE /HPF (NEGATIVE); COLOR,URINE YELLOW (YELLOW); RBC,URINE RARE /HPF (NEGATIVE); SQUAMOUS EPITHELIAL CELL,UR FEW /HPF (NEGATIVE)
[2017-07-06 03:11] LABS: ABG BASE EXCESS 3.1 mmol/L (-2.0-2.0)
[2017-07-06 03:12] LABS: ABG ALLEN TEST POS
[2017-07-06] MEDS ORDERED: LASIX IVP ONE ×2 (03:36→03:38)
[2017-07-06] MEDS ORDERED: CATAPRES TAB 0.1 MG PO ONE (03:36)
[2017-07-06] MEDS ORDERED: CATAPRES TAB 0.1 MG ONE (03:38)
[2017-07-06 05:31] VITALS: BP 187/89
--- NOTE | 2017-07-06 09:03 | RAD ---
Chest, one view Indication: 'Low saturation' Comparison: 06/11/2017 Findings: There is stable cardiomegaly with persistent diffuse interstitial edema. No focal consolida tion or significant effusion is identified. The right IJ CVL has been removed without pneumothorax. Impression: Imaging findings compatible with persistent congestive heart failure, grossly unchanged since prior e xam. Reported By:
== END 2017-07-06 05:48 | disposition home or self-care (01) ==
LOC: ER 01:39
DX: I50.9 Heart failure, unspecified (principal); F41.8 Other specified anxiety disorders; G31.9 Degenerative disease of nervous system, unspecified
CPT/HCPCS: 36415; 36600; 70450; 71045; 80053; 81001; 82009; 82803; 83880; 85025; 90472; 96365; 96374; 99282; 99283; A4222; J1940; J7620

== ENCOUNTER 2017-07-11 05:02 | Inpatient (IN) | payer MEDICAID ==
[2017-07-11] MEDS ORDERED: LASIX IVP ONE ×2 (05:11→05:21)
[2017-07-11] MEDS ORDERED: NIFEDIPINE CAP 10 MG PO ONE (05:19)
[2017-07-11] MEDS ORDERED: NIFEDIPINE CAP 10 MG ONE (05:22)
[2017-07-11 05:23] LABS: ABG BASE EXCESS 2.3 mmol/L (-2.0-2.0); ABG HCO3 28.3 mmol/L (22-26)
[2017-07-11 05:24] LABS: ABG ALLEN TEST POS
--- NOTE | 2017-07-11 05:50 | DR.GENAD ---
HPI - PCP Primary Care Physician: BETI - Complaint/Symptoms Chief Complaint:: PT WAS UP TO BATHROOM AND PULLED THE HOSE OFF OF HER CPAP AND WASNT GETTING THE OXYGEN PT STATED HAVING A PANIC ATTACK CALLED EMS THEY HAD TO BUST HER DOOR DOWN PT HAD A SEVERE PAINC ATTACK STARTED VOMITING - Nurses notes reviewed Nurses Notes Review: Yes - Source History Provided: Patient, Family Member - Mode of Arrival Mode of Arrival: EMS - Timing Onset of Chief Complaint: 07/11/17 Came on: Suddenly - Duration Duration: Constant Duration: Days - Severity Severity: Moderate PMH - PMH Past Medical History: Yes Past Medical History: Arthritis, CHF, Diabetes, Hypertension Past Surgical History: Yes 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 negative: Chills, Diaphoresis, Fever Eyes: Eye Pain, Blurred Vision. negative: Tearing ENTM: Nose Congestion. negative: Ear Pain, Nose Pain, Throat Pain Respiratoy: Moist Cough, Short of Breath, Wheezing. negative: Hemoptysis Cardiovascular: Chest Pain, Edema, Cyanosis (PERIPHERAL) Gastrointestinal/Abdominal: Nausea Genitourinary: negative: Dysuria Neurological: Headache, Weakness, Dizziness, Other (AMS) Musculoskeletal: Muscle Pain Integumentary: Change in Color Hematologic/Lymphatic: Easy Bleeding Endocrine: Flushing All Other Systems: Reviewed and Negative PE - Vital Signs Vitals: Temperature 98.4 F Pulse Rate [Right Brachial] 74 Pulse Rate 102 Respiratory Rate 20 Blood Pressure [Right Calf] 183/80 Blood Pressure [Left Arm] 187/89 Blood Pressure [Right Arm] 168/79 Blood Pressure [Right Arm] 174/83 Blood Pressure 217/102 O2 Sat by Pulse Oximetry 99 - General Limitations: Altered Mental Status General Appearance: Alert, In Distress, Other (SLEEPY) - Head Head Exam: Normal Inspection - Eyes Eye exam: PERRL, EOMI. negative: Scleral Icterus, Conjunctival Injection, Periorbital Tenderness - ENT TM/Canal Exam: Bilateral Normal Nose Exam: Normal Nose Exam Mouth Exam: Normal Inspection Throat Exam: Normal Inspection - Neck Neck Exam: Trachea Midline - Chest Chest Inspection: Symmetric Chest Wall Rise - Respiratory Respiratory Exam: Normal Lung Sounds Bilat Respiratory Exam: Bilateral Wheezing, Bilateral Rhonchi, Upper Wheezing, Upper Rhonchi, Lower Wheezing, Lower Rhonchi - Cardiovascular Cardiovascular Exam: Regular Rate, Normal Rhythm, Normal Heart Sounds - Abdominal Exam Abdominal Exam: Normal Bowel Sounds, Soft. negative: Tenderness - Extremities Extremities Exam: Edema (TRACE) - Back Back Exam: Paraspinal Tenderness - Neurologic Neurological Exam: Alert, Oriented X3 - Psychiatric Psychiatric Exam: Anxious - Skin Skin Exam: Erythema MDM - Additional Information Additional Information Obtained From: Family - Differential Diagnosis Differential Diagnosis: RESPIRATORY DISTRESS, HYPOXIX, HTN, CHEST PAIN, CA, PNEUMONIA Course - Treatment Treatment: SEE ORDERS. - Education/Counseling Education/Counseling: Patient, Family, Education Educated On: Diagnosis ROR - Labs Reviewed Result Diagrams: 07/11/17 06:07 07/11/17 06:07 Laboratory: WBC 13.9 X10^3/uL (3.6-10.0) H 07/11/17 06:07 RBC 2.98 X10^6/uL (3.5-5.4) L 07/11/17 06:07 Hgb 8.1 g/dL (12.0-16.0) L 07/11/17 06:07 Hct 24.9 % (36.0-47.0) L 07/11/17 06:07 MCV 83.6 fL (80.0-100.0) 07/11/17 06:07 MCH 27.3 pg (27.0-34.0) 07/11/17 06:07 MCHC 32.7 g/dL (33.0-35.0) L 07/11/17 06:07 RDW 17.3 % (11.6-16.5) H 07/11/17 06:07 Plt Count 303 X10^3/uL (150.0-450.0) 07/11/17 06:07 MPV 7.5 fL (7.4-11.0) 07/11/17 06:07 Neut % 83.3 % (42.0-75.0) H 07/11/17 06:07 Lymph % 11.0 % (21.0-51.0) L 07/11/17 06:07 [place] % 3.5 % (0.0-13.0) 07/11/17 06:07 Eos % 1.7 % (0.9-2.9) 07/11/17 06:07 Baso % 0.5 % (0.2-1.0) 07/11/17 06:07 Neut # 11.6 x10^3/uL (2.2-4.8) H 07/11/17 06:07 Lymph # 1.5 X10^3/uL (1.3-2.9) 07/11/17 06:07 [place] # 0.5 x10^3/uL (0.3-0.8) 07/11/17 06:07 Eos # 0.2 x10^3/uL (0.0-0.2) 07/11/17 06:07 Baso # 0.1 X10^3/uL (0.0-0.1) 07/11/17 06:07 Absolute Nucleated RBC 0.1 /100WBC 07/11/17 06:07 Sample Site Lbra 07/11/17 06:46 ABG pH 7.380 (7.35-7.45) 07/11/17 06:46 ABG pCO2 47.0 mmHg (35.0-45.0) H 07/11/17 06:46 ABG pO2 89.0 mmHg (80.0-100.0) 07/11/17 06:46 ABG HCO3 27.8 mmol/L (22-26) H 07/11/17 06:46 ABG O2 Saturation 97.0 % (90-100) 07/11/17 06:46 ABG Base Excess 2.1 mmol/L (-2.0-2.0) H 07/11/17 06:46 Rambo Test Na 07/11/17 06:46 A-a Gradient 423.0 mmHg 07/11/17 06:46 FiO2 80.000 07/11/17 06:46 Blood Gas Comments Hannah well=mtf 07/11/17 06:46 Sodium 141 mmol/L (136-145) 07/11/17 06:07 Corrected Sodium 145 mmol/L (136-145) 07/11/17 06:07 Potassium 3.7 mmol/L (3.5-5.1) 07/11/17 06:07 Chloride 103 mmol/L (98-107) 07/11/17 06:07 Carbon Dioxide 28.1 mmol/L (21-32) 07/11/17 06:07 BUN 22 mg/dL (7-18) H 07/11/17 06:07 Creatinine 1.99 mg/dL (0.55-1.02) H 07/11/17 06:07 Est GFR (MDRD) Af Amer 34 (>60) L 07/11/17 06:07 Est GFR (MDRD) Non-Af 28 (>60) L 07/11/17 06:07 Glucose 280 mg/dL (65-99) H 07/11/17 06:07 Calcium 8.6 mg/dL (8.5-10.1) 07/11/17 06:07 Corrected Calcium 9.6 mg/dL (8.5-10.1) 07/11/17 06:07 Total Bilirubin 0.80 mg/dL (0.2-1.0) 07/11/17 06:07 AST 17 Units/L (15-37) 07/11/17 06:07 ALT 44 Units/L (12-78) 07/11/17 06:07 Alkaline Phosphatase 188 Units/L (46-116) H 07/11/17 06:07 Creatine Kinase 101 Units/L (26-192) 07/11/17 06:07 CK-MB (CK-2) 1.0 ng/mL (0-4.0) 07/11/17 06:07 CK/CKMB % Calc 1.0 % (<4) 07/11/17 06:07 Troponin I 0.02 ng/mL (0-1.5) 07/11/17 06:07 B-Natriuretic Peptide 750 pg/mL (0-79) H* 07/11/17 06:07 Total Protein 7.5 g/dL (6.4-8.2) 07/11/17 06:07 Albumin 2.7 g/dL (3.4-5.0) L 07/11/17 06:07 Globulin 4.8 g/dL (2.5-4.5) H 07/11/17 06:07 Albumin/Globulin Ratio 0.6 Ratio (1.1-2.1) L 07/11/17 06:07 Specimen Type Clean catch urine 07/11/17 06:50 Urine Color Yellow (YELLOW) 07/11/17 06:50 Urine Appearance Clear (CLEAR) 07/11/17 06:50 Urine pH 7.0 (5.0 - 8.0) 07/11/17 06:50 Ur Specific [place] 1.010 (1.000-1.030) 07/11/17 06:50 Urine Protein 4+ (NEGATIVE) 07/11/17 06:50 Urine Glucose (UA) 2+ (NEGATIVE) 07/11/17 06:50 Urine Ketones Negative (NEGATIVE) 07/11/17 06:50 Urine Occult Blood 2+ (NEGATIVE) 07/11/17 06:50 Urine Nitrite Negative (NEGATIVE) 07/11/17 06:50 Urine Bilirubin Negative (NEGATIVE) 07/11/17 06:50 Urine Urobilinogen Normal (NORMAL) 07/11/17 06:50 Ur Leukocyte Esterase Negative (NEGATIVE) 07/11/17 06:50 Urine RBC 0-3 /HPF (NEGATIVE) 07/11/17 06:50 Urine WBC 0-1 /HPF (NEGATIVE) 07/11/17 06:50 Ur Squamous Epith Cells Rare /HPF (NEGATIVE) 07/11/17 06:50 Urine Bacteria Negative /HPF (NEGATIVE) 07/11/17 06:50 Ur Culture Indicated? No/not indicated 07/11/17 06:50 - Discharge Plan Condition: Stable - Follow ups/Referrals Follow ups/Referrals: NFD,None [Primary Care Provider] - 3 days - Instructions
[2017-07-11] MEDS ORDERED: SOLU-Medrol 125 MG VIAL IVP ONE (06:03)
[2017-07-11] MEDS ORDERED: DUONEB 0.5 MG/3 MG NEB ONE (06:03)
--- NOTE | 2017-07-11 06:15 | RAD ---
Examination: Portable AP chest History: SOB Comparison 07/06/2017 Findings: Stable cardiac size. Increasing bilateral confluent pulmonary infiltrates or edema. The parmjit phragm surfaces are now obscured. No complicating pneumothorax is seen. Impression: Increasing bilateral pulmonary infiltrates compatible with edema. Reported By:
[2017-07-11 06:30] LABS: BASOPHILS # (AUTO) 0.1 X10^3/uL (0.0-0.1); BASOPHILS % (AUTO) 0.5 % (0.2-1.0); EOSINOPHILS # (AUTO) 0.2 x10^3/uL (0.0-0.2); EOSINOPHILS % (AUTO) 1.7 % (0.9-2.9); HEMATOCRIT 24.9 % (36.0-47.0); HEMOGLOBIN 8.1 g/dL (12.0-16.0); LYMPHOCYTES # (AUTO) 1.5 X10^3/uL (1.3-2.9); MEAN CORPUSCULAR HEMOGLOBIN 27.3 pg (27.0-34.0); MEAN CORPUSCULAR HGB CONC 32.7 g/dL (33.0-35.0); MEAN CORPUSCULAR VOLUME 83.6 fL (80.0-100.0); MEAN PLATELET VOLUME 7.5 fL (7.4-11.0); MONOCYTES # (AUTO) 0.5 x10^3/uL (0.3-0.8); MONOCYTES % (AUTO) 3.5 % (0.0-13.0); NEUTROPHILS # (AUTO) 11.6 x10^3/uL (2.2-4.8); NEUTROPHILS % (AUTO) 83.3 % (42.0-75.0); PLATELET COUNT 303 X10^3/uL (150.0-450.0); RED BLOOD COUNT 2.98 X10^6/uL (3.5-5.4); RED CELL DISTRIBUTION WIDTH 17.3 % (11.6-16.5); WHITE BLOOD COUNT 13.9 X10^3/uL (3.6-10.0)
[2017-07-11] MEDS ORDERED: SOLU-Medrol 125 MG VIAL ONE (06:31)
[2017-07-11 06:33] LABS: CALCIUM 8.6 mg/dL (8.5-10.1); CARBON DIOXIDE 28.1 mmol/L (21-32); CREATININE 1.99 mg/dL (0.55-1.02); TROPONIN I 0.02 ng/mL (0-1.5)
[2017-07-11 06:38] LABS: ALBUMIN 2.7 g/dL (3.4-5.0); COR CA(FOR HYPOALB) 9.6 mg/dL (8.5-10.1); TOTAL PROTEIN 7.5 g/dL (6.4-8.2)
[2017-07-11 06:59] LABS: BILIRUBIN,URINE NEGATIVE (NEGATIVE); BLOOD/HEMOGLOBIN,URINE 2+ (NEGATIVE); GLUCOSE, URINE 2+ (NEGATIVE); KETONES,URINE NEGATIVE (NEGATIVE); LEUKOCYTE ESTERASE ,URINE NEGATIVE (NEGATIVE); NITRITES,URINE NEGATIVE (NEGATIVE); PROTEIN,URINE 4+ (NEGATIVE); UROBILINOGEN,URINE NORMAL (NORMAL)
[2017-07-11 07:07] LABS: ABG BASE EXCESS 2.1 mmol/L (-2.0-2.0); ABG HCO3 27.8 mmol/L (22-26)
[2017-07-11 07:12] LABS: APPEARANCE,URINE CLEAR (CLEAR); BACTERIA,URINE NEGATIVE /HPF (NEGATIVE); COLOR,URINE YELLOW (YELLOW); RBC,URINE 0-3 /HPF (NEGATIVE); SQUAMOUS EPITHELIAL CELL,UR RARE /HPF (NEGATIVE)
[2017-07-11] MEDS ORDERED: ZOFRAN INJ 4 MG VIAL ONE (08:49)
[2017-07-11 09:21] VITALS: BMI 38.6
[2017-07-11] MEDS: DUONEB 0.5 MG/3 MG NEB SCH ×5 (09:36→20:56)
[2017-07-11] MEDS ORDERED: ZOFRAN INJ 4 MG VIAL IVP PRN (09:47)
[2017-07-11] MEDS: LASIX IVP SCH ×3 (09:48→21:51)
[2017-07-11] MEDS: K-DUR TAB 20 MEQ PO SCH ×2 (10:05→11:17)
[2017-07-11] MEDS: LEVAQUIN TAB 500 MG PO SCH (10:05)
[2017-07-11] MEDS: DIOVAN TAB 160 MG PO SCH (10:15)
[2017-07-11] MEDS: LOPRESSOR TAB 25 MG PO SCH ×2 (10:15→21:50)
[2017-07-11] MEDS: APRESOLINE TAB 10 MG PO SCH ×2 (10:15→21:50)
[2017-07-11] MEDS ORDERED: ALBUTEROL SULFATE INH PRN (11:35)
[2017-07-11] MEDS ORDERED: GLUCOPHAGE PO SCH (12:00)
[2017-07-11 12:29] LABS: CKMB % 1.7 % (<4); CREATINE KINASE MB 1.6 ng/mL (0-4.0); TROPONIN I 0.04 ng/mL (0-1.5)
[2017-07-11] MEDS: PEPCID TAB 20 MG PO SCH (13:07)
[2017-07-11] MEDS: ASPIRIN EC 81 MG PO SCH (13:07)
[2017-07-11] MEDS: SINGULAIR TAB 10 MG PO SCH (13:07)
[2017-07-11] MEDS: ULTRAM PO SCH (13:07)
[2017-07-11] MEDS: PLAVIX PO SCH (13:08)
[2017-07-11] MEDS: HumaLOG SC SCH ×2 (13:12→16:37)
[2017-07-11] MEDS: HEMOCYTE-PLUS PO SCH (13:42)
[2017-07-11] MEDS: BACTROBAN OINT TOP SCH ×2 (13:42→21:49)
[2017-07-11] MEDS ORDERED: SALINE 3% 15 ML NEB TX ONE (14:54)
[2017-07-11] MEDS ORDERED: SALINE 3% 15 ML NEB TX NEB ONE (14:55)
[2017-07-11] MEDS: BENADRYL CAP 50 MG PO PRN (16:38)
[2017-07-11 18:28] LABS: CKMB % 1.3 % (<4); CREATINE KINASE MB 1.2 ng/mL (0-4.0); TROPONIN I 0.02 ng/mL (0-1.5)
[2017-07-11] MEDS ORDERED: HumuLIN R SUBCUT ONE (21:32)
[2017-07-11] MEDS ORDERED: HumuLIN R ONE (21:43)
[2017-07-11] MEDS: LIPITOR TAB 20 MG PO SCH (21:50)
[2017-07-11] MEDS: LANTUS SC SCH (21:51)
[2017-07-12] MEDS: DUONEB 0.5 MG/3 MG NEB SCH ×5 (00:29→16:27)
[2017-07-12] MEDS: BACTROBAN OINT TOP SCH ×3 (05:08→21:41)
[2017-07-12 06:36] LABS: BASOPHILS # (AUTO) 0.1 X10^3/uL (0.0-0.1); BASOPHILS % (AUTO) 0.5 % (0.2-1.0); EOSINOPHILS % (AUTO) 0.2 % (0.9-2.9); HEMATOCRIT 23.8 % (36.0-47.0); HEMOGLOBIN 7.6 g/dL (12.0-16.0); LYMPHOCYTES # (AUTO) 2.2 X10^3/uL (1.3-2.9); LYMPHOCYTES % (AUTO) 18.1 % (21.0-51.0); MEAN CORPUSCULAR HEMOGLOBIN 26.9 pg (27.0-34.0); MEAN CORPUSCULAR HGB CONC 32.1 g/dL (33.0-35.0); MEAN CORPUSCULAR VOLUME 83.8 fL (80.0-100.0); MEAN PLATELET VOLUME 7.9 fL (7.4-11.0); MONOCYTES # (AUTO) 0.5 x10^3/uL (0.3-0.8); NEUTROPHILS # (AUTO) 9.4 x10^3/uL (2.2-4.8); NEUTROPHILS % (AUTO) 77.2 % (42.0-75.0); PLATELET COUNT 278 X10^3/uL (150.0-450.0); RED BLOOD COUNT 2.84 X10^6/uL (3.5-5.4); RED CELL DISTRIBUTION WIDTH 17.3 % (11.6-16.5); WHITE BLOOD COUNT 12.2 X10^3/uL (3.6-10.0)
[2017-07-12 06:57] LABS: ALBUMIN 2.5 g/dL (3.4-5.0); CALCIUM 8.6 mg/dL (8.5-10.1); CARBON DIOXIDE 26.6 mmol/L (21-32); COR CA(FOR HYPOALB) 9.8 mg/dL (8.5-10.1); CREATININE 2.53 mg/dL (0.55-1.02); MAGNESIUM 1.8 mg/dL (1.7-2.9); TOTAL PROTEIN 7.1 g/dL (6.4-8.2)
[2017-07-12 07:15] LABS: PLATELET MORPHOLOGY COMMENT NORMAL (NORMAL)
[2017-07-12 07:16] LABS: ANISOCYTOSIS SLIGHT; HYPOCHROMASIA SLIGHT
[2017-07-12] MEDS ORDERED: SOLU-Medrol 40 MG VIAL IVP SCH (09:00)
[2017-07-12] MEDS: HumaLOG SC SCH ×3 (09:40→17:30)
[2017-07-12] MEDS: HEMOCYTE-PLUS PO SCH (09:42)
[2017-07-12] MEDS: LEVAQUIN TAB 500 MG PO SCH (09:42)
[2017-07-12] MEDS: K-DUR TAB 20 MEQ PO SCH (09:42)
[2017-07-12] MEDS: LASIX IVP SCH ×2 (09:42→21:38)
[2017-07-12] MEDS: ULTRAM PO SCH (09:43)
[2017-07-12] MEDS: LOPRESSOR TAB 25 MG PO SCH ×2 (09:43→21:38)
[2017-07-12] MEDS: APRESOLINE TAB 10 MG PO SCH ×4 (09:43→21:38)
[2017-07-12] MEDS: DIOVAN TAB 160 MG PO SCH (09:43)
[2017-07-12] MEDS: SINGULAIR TAB 10 MG PO SCH (09:43)
[2017-07-12] MEDS: PLAVIX PO SCH (09:44)
[2017-07-12] MEDS: PEPCID TAB 20 MG PO SCH (09:44)
[2017-07-12] MEDS: ASPIRIN EC 81 MG PO SCH (09:44)
[2017-07-12] MEDS: BENADRYL CAP 50 MG PO PRN ×2 (09:46→21:38)
--- NOTE | 2017-07-12 11:18 | DR.H&P ---
H&P - History & Physical for Day of: H&P Date: 07/11/17 - Chief Complaint Chief Complaint: short of breath - Allergies Allergies/Adverse Reactions: Allergies Allergy/AdvReac Type Severity Reaction Status Date / Time penicillin G Allergy Verified 02/07/17 19:36 Penicillins Allergy Verified 02/07/17 19:36 - History of Present Illness History of Present Illness: is a 51 year old patient of ours who presented to the emergency room via EMS with complaints of shortness of breath. Patient reports that she got up to go to the bathroom and pulled the oxygen tubing off of her CPAP. Patient reports that she became short of breath, began having a panic attack, and began vomiting. Patient called for EMS. Associated symptoms include weakness, fatigue, nasal congestion, moist cough, shortness of breath, wheezing, chest pain, edema, peripheral cyanosis, nausea, headache, dizziness, altered mental status and muscle pain. Upon arrival to the emergency room, patient is noted to be in moderate respiratory distress. Her oxygen saturations are noted to the in the 80s. Medical history includes: cataracts, CHF, hyperlipidemia, hypertension, asthma, pneumonia, GERD, constipation, urinary tract infections, arthritis, back pain, diabetes, and anxiety. On examination, heart rate is noted to be slightly rapid, regular. Bilateral lungs are noted with scattered wheezing and rhonchi. Diminished lung sounds are noted bilaterally throughout. Abdomen is round, soft, and non-tender with normal bowel sounds noted in all quadrants. Bilateral lower extremities are noted with trace edema. Normal range of motion noted to all extremities. Patient is noted to be short of breath on exertion. On arrival to the ER, vitals were 98.4, 102, 32, 85%RA, 217/102. Labs and chest xray were obtained. Abnormal Labs include the following: WBC 13.9, RBC 2.98, Hgb 8.1, Hct 24.9, MCHC 32.7, RDW 17.3, Neut % 83.3, Lymph% 11.0, Neut# 11.6, BUN 22, Creatinine 1.99, GFR(AA) 34, GFR(non) 28, Glucose 280, Alk Phos 188, BNP 750, Albumin 2.7, Globulin 4.8, A/G Ratio 0.6. Urinalysis reported: Protein 4+, Glucose 2+, Occult Blood 2+, RBC 0-3, WBC 0-1, Squam Epith Cells Rare. ABG reported: (0500) PCO2 49.0, PO2 35.0, HCO3 28.3 , O2 saturation 65.0, Base Excess 2.3, FIO2 28.0. EKG reported: Sinus rhythm. Heart rate=91. Chest xray reported: Increasing bilateral pulmonary infiltrates compatible with edema. Patient placed on bipap therapy with settings at IPAP 14 , CPAP 7, Rate 10, FIO2 80.0. Oxygen saturation increasing to 99%. She was given solu-medrol 125mg iv x 1, levaquin 500mg po, nifedipine 10mg po x 1, and neb tx in the ER. Only slight improvement in symptoms noted. A decrease in blood pressure to 176/74 was noted. We admitted patient for further treatment and evaluation. She was started on neb treatments, levaquin 500mg daily, and Lasix 40mg iv bid. We plan to follow up with am labs and chest xray and continue to monitor patient. - Past Medical History Past Medical History: Arthritis, CHF, Diabetes, Hypertension Additional Medical History: Diabetic Neuropathy, Intellectual Disabilities, Cataracts, Gall Bladder Disease,. 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 - Family History Family Medical History: Hypertension - Social History Does patient currently use any type of tobacco product: No Have you used tobacco products in the last 12 months: No Type of Tobacco Use: None Alcohol Use: None Drug Use: None - Medications Home Medications: Ipratropium/Albuterol Nebule [DUONEB 0.5 MG/3 MG NEBULE *] 1 nebule NEB TID PRN 07/11/17 [History Confirmed 07/11/17] Mupirocin Oint [BACTROBAN OINT 2%] 1 applic TOP TID 07/11/17 [History Confirmed 07/11/17] - Review of Systems Constitutional: Weakness, Malaise Eyes: No Symptoms Reported ENT: Nose Congestion Respiratory: Cough, Shortness of Breath, Wheezing Cardiovascular: Chest Pain, Edema (bilateral lower extremities ) Gastrointestinal: Nausea Genitourinary: No Symptoms Reported Musculoskeletal: Other (muscle pain ) Skin: No Symptoms Reported Neurological: Confusion - Physical Exam Vital Signs: Temperature 98.3 F Pulse Rate [Right Brachial] 76 Pulse Rate 62 Respiratory Rate 19 Blood Pressure [Right Calf] 183/80 Blood Pressure [Left Arm] 197/91 Blood Pressure [Right Arm] 186/94 Blood Pressure [Right Arm] 174/83 Blood Pressure 217/102 O2 Sat by Pulse Oximetry 99 Oriented: Person Eyes: Normal Ear: Normal Nose: Other (nasal congestion ) Throat: Normal Respiratory: Diminished Throughout, Rhonchi Throughout, Wheezes Throughout Cardiovascular: Tachycardia, Edema (bilateral lower extremites ) : Normal Auscultation: Bowel Sounds: Normal Palpation: Normal Tenderness: Normal Skin: Other (peripheral cyanosis ) Musculoskeletal: Back:Paraspinous Psychiatric: Anxiety Mood Description: Anxious Affect: Anxious Speech Pattern: Clear - Assessment/Plan (1) Respiratory failure with hypercapnia Qualifiers: Chronicity: acute Qualified Code(s): J96.02 - Acute respiratory failure with hypercapnia Status: Acute Plan: bipap, neb tx, lasis 40mg iv q12h, telemetry, continue to monitor (2) COPD (chronic obstructive pulmonary disease) Qualifiers: COPD type: COPD with acute exacerbation Qualified Code(s): J44.1 - Chronic obstructive pulmonary disease with (acute) exacerbation Status: Acute Plan: duoneb tx, bipap, continue to monitor (3) CHF (congestive heart failure) Qualifiers: Congestive heart failure type: systolic Congestive heart failure chronicity : acute on chronic Qualified Code(s): I50.23 - Acute on chronic systolic ( congestive) heart failure Status: Acute Plan: lasix 40mg iv q12h, continue lopressor, continue diovan, continue respiratory tx, continue to monitor
--- NOTE | 2017-07-12 17:49 | PCM.PROG ---
Progress Note - Progress Note for Day of Date: 07/12/17 - Subjective Subjective: WAS ADMITTED FOR RESPIRATORY FAILURE WITH HYPERCAPNIA, COPD EXACERBATION, AND CONGESTIVE HEART FAILURE. TODAY, SHE IS LYING IN BED WITH EYES CLOSED ON MORNING ROUNDS. SHE AWAKENS AND RESPONDS TO VERBAL STIMULI. SHE IS CURRENTLY UTILIZING THE BIPAP. SHE CONTINUES WITH COMPLAINTS OF COUGH, WEAKNESS, AND SHORTNESS OF BREATH. ON EXAMINATION, HEART IS REGULAR IN RATE AND RHYTHM. BILATERAL LUNGS CONTINUE WITH SCATTERED WHEEZING AND RHONCHI. DIMINISHED LUNG SOUNDS ARE NOTED THROUGHOUT. ABDOMEN IS ROUND, SOFT, AND NON- TENDER WITH NORMAL BOWEL SOUNDS NOTED TO ALL QUADRANTS. BIALTERAL LOWER EXTREMITIES CONTINUE WITH TRACE EDEMA. HER VITAL SIGNS THIS MORNING ARE 98.3-60- 13-100% BIPAP, 171/77. LABS WERE OBTAINED. ABNORMAL LAB VALUES INCLUDE THE FOLLOWING: WBC 12.2, RBC 2.84, HGB 7.6, HCT 23.8, BUN 37, CREATININE 2.53, GFR 26, GLUCOSE 300, AST 13, ALK PHOS 153, ALBUMIN 2.5, GLOBULIN 4.6. TODAY, WE WILL DISCONTINUE THE SOLU-MEDROL. OTHERWISE, WE WILL CONTINUE WITH CURRENT PLAN OF CARE. WE PLAN TO FOLLOW UP WITH AM LABS AND CHEST XRAY AND CONTINUE TO MONITOR PATIENT. - Past Medical Family Social History Past Med/Fam/Surg Hx: No changes since H&P Allergies: Allergies penicillin G Allergy (Verified 02/07/17 19:36) Penicillins Allergy (Verified 02/07/17 19:36) - Review of Systems ROS: No change since H&P - Vital Signs and I&O's Vital Signs: Temperature 98 F Pulse Rate [Right Brachial] 78 Pulse Rate 62 Respiratory Rate 20 Blood Pressure [Right Calf] 183/80 Blood Pressure [Left Arm] 202/87 Blood Pressure [Right Arm] 196/79 Blood Pressure [Right Arm] 174/83 Blood Pressure 217/102 O2 Sat by Pulse Oximetry 98 Intake and Output: Intake & Output 07/10/17 07/11/17 07/12/17 07/13/17 11:59 11:59 11:59 11:59 Intake Total 1070 410 Output Total 2200 1300 Balance -1130 -890 - Physical Exam Oriented: Person Eyes: Normal Ear: Normal Nose: Other (nasal congestion ) Throat: Normal Respiratory: Right, Left, Generalized, Wheezes, Rhonchi Cardiovascular: Tachycardia, Edema (bilateral lower extremites ) : Normal Auscultation: Bowel Sounds: Normal Palpation: Normal Tenderness: Normal Skin: Other (peripheral cyanosis ) Musculoskeletal: Back:Paraspinous Psychiatric: Anxiety Mood Description: Anxious Affect: Anxious Speech Pattern: Clear - Laboratory and Diagnostics Result Diagrams: 07/12/17 05:52 07/12/17 16:17 Labs: Laboratory WBC 12.2 X10^3/uL (3.6-10.0) H 07/12/17 05:52 RBC 2.84 X10^6/uL (3.5-5.4) L 07/12/17 05:52 Hgb 7.6 g/dL (12.0-16.0) L 07/12/17 05:52 Hct 23.8 % (36.0-47.0) L 07/12/17 05:52 MCV 83.8 fL (80.0-100.0) 07/12/17 05:52 MCH 26.9 pg (27.0-34.0) L 07/12/17 05:52 MCHC 32.1 g/dL (33.0-35.0) L 07/12/17 05:52 RDW 17.3 % (11.6-16.5) H 07/12/17 05:52 Plt Count 278 X10^3/uL (150.0-450.0) 07/12/17 05:52 Plt Count Comment Adequate (ADEQUATE) 07/12/17 05:52 MPV 7.9 fL (7.4-11.0) 07/12/17 05:52 Neut % 77.2 % (42.0-75.0) H 07/12/17 05:52 Lymph % 18.1 % (21.0-51.0) L 07/12/17 05:52 [place] % 4.0 % (0.0-13.0) 07/12/17 05:52 Eos % 0.2 % (0.9-2.9) L 07/12/17 05:52 Baso % 0.5 % (0.2-1.0) 07/12/17 05:52 Neut # 9.4 x10^3/uL (2.2-4.8) H 07/12/17 05:52 Lymph # 2.2 X10^3/uL (1.3-2.9) 07/12/17 05:52 [place] # 0.5 x10^3/uL (0.3-0.8) 07/12/17 05:52 Eos # 0.0 x10^3/uL (0.0-0.2) 07/12/17 05:52 Baso # 0.1 X10^3/uL (0.0-0.1) 07/12/17 05:52 Absolute Nucleated RBC 0.1 /100WBC 07/12/17 05:52 Plt Morphology Comment Normal (NORMAL) 07/12/17 05:52 RBC Morphology Abnormal (NORMAL) A 07/12/17 05:52 Hypochromasia Slight A 07/12/17 05:52 Anisocytosis Slight A 07/12/17 05:52 INR Target Range - 07/12/17 05:52 INR 1.03 (0.8-1.3) 07/12/17 05:52 PTT 20.7 SECONDS (22.9-36.5) L 07/12/17 05:52 PTT Comment - 07/12/17 05:52 Sample Site Lbra 07/11/17 06:46 ABG pH 7.380 (7.35-7.45) 07/11/17 06:46 ABG pCO2 47.0 mmHg (35.0-45.0) H 07/11/17 06:46 ABG pO2 89.0 mmHg (80.0-100.0) 07/11/17 06:46 ABG HCO3 27.8 mmol/L (22-26) H 07/11/17 06:46 ABG O2 Saturation 97.0 % (90-100) 07/11/17 06:46 ABG Base Excess 2.1 mmol/L (-2.0-2.0) H 07/11/17 06:46 Rambo Test Na 07/11/17 06:46 A-a Gradient 423.0 mmHg 07/11/17 06:46 FiO2 80.000 07/11/17 06:46 Blood Gas Comments Hannah well=mtf 07/11/17 06:46 Sodium 138 mmol/L (136-145) 07/12/17 05:52 Corrected Sodium 143 mmol/L (136-145) 07/12/17 05:52 Potassium 4.4 mmol/L (3.5-5.1) 07/12/17 05:52 Chloride 102 mmol/L (98-107) 07/12/17 05:52 Carbon Dioxide 26.6 mmol/L (21-32) 07/12/17 05:52 BUN 37 mg/dL (7-18) H 07/12/17 05:52 Creatinine 2.53 mg/dL (0.55-1.02) H 07/12/17 05:52 Est GFR (MDRD) Af Amer 26 (>60) L 07/12/17 05:52 Est GFR (MDRD) Non-Af 21 (>60) L 07/12/17 05:52 Glucose 456 mg/dL (65-99) H 07/12/17 16:17 POC Glucose (mg/dL) 411 mg/dL (65-99) H* 07/12/17 15:59 Calcium 8.6 mg/dL (8.5-10.1) 07/12/17 05:52 Corrected Calcium 9.8 mg/dL (8.5-10.1) 07/12/17 05:52 Magnesium 1.8 mg/dL (1.7-2.9) 07/12/17 05:52 Total Bilirubin 0.40 mg/dL (0.2-1.0) 07/12/17 05:52 AST 13 Units/L (15-37) L 07/12/17 05:52 ALT 32 Units/L (12-78) 07/12/17 05:52 Alkaline Phosphatase 159 Units/L (46-116) H 07/12/17 05:52 Creatine Kinase 94 Units/L (26-192) 07/11/17 17:48 CK-MB (CK-2) 1.2 ng/mL (0-4.0) 07/11/17 17:48 CK/CKMB % Calc 1.3 % (<4) 07/11/17 17:48 Troponin I 0.02 ng/mL (0-1.5) 07/11/17 17:48 B-Natriuretic Peptide 750 pg/mL (0-79) H* 07/11/17 06:07 Total Protein 7.1 g/dL (6.4-8.2) 07/12/17 05:52 Albumin 2.5 g/dL (3.4-5.0) L 07/12/17 05:52 Globulin 4.6 g/dL (2.5-4.5) H 07/12/17 05:52 Albumin/Globulin Ratio 0.5 Ratio (1.1-2.1) L 07/12/17 05:52 Specimen Type Clean catch urine 07/11/17 06:50 Urine Color Yellow (YELLOW) 07/11/17 06:50 Urine Appearance Clear (CLEAR) 07/11/17 06:50 Urine pH 7.0 (5.0 - 8.0) 07/11/17 06:50 Ur Specific [place] 1.010 (1.000-1.030) 07/11/17 06:50 Urine Protein 4+ (NEGATIVE) 07/11/17 06:50 Urine Glucose (UA) 2+ (NEGATIVE) 07/11/17 06:50 Urine Ketones Negative (NEGATIVE) 07/11/17 06:50 Urine Occult Blood 2+ (NEGATIVE) 07/11/17 06:50 Urine Nitrite Negative (NEGATIVE) 07/11/17 06:50 Urine Bilirubin Negative (NEGATIVE) 07/11/17 06:50 Urine Urobilinogen Normal (NORMAL) 07/11/17 06:50 Ur Leukocyte Esterase Negative (NEGATIVE) 07/11/17 06:50 Urine RBC 0-3 /HPF (NEGATIVE) 07/11/17 06:50 Urine WBC 0-1 /HPF (NEGATIVE) 07/11/17 06:50 Ur Squamous Epith Cells Rare /HPF (NEGATIVE) 07/11/17 06:50 Urine Bacteria Negative /HPF (NEGATIVE) 07/11/17 06:50 Ur Culture Indicated? No/not indicated 07/11/17 06:50 - Plan (1) Respiratory failure with hypercapnia Status: Acute Qualifiers: Chronicity: acute Qualified Code(s): J96.02 - Acute respiratory failure with hypercapnia Plan: bipap, neb tx, lasis 40mg iv q12h, telemetry, continue to monitor (2) COPD (chronic obstructive pulmonary disease) Status: Acute Qualifiers: COPD type: COPD with acute exacerbation Qualified Code(s): J44.1 - Chronic obstructive pulmonary disease with (acute) exacerbation Plan: duoneb tx, bipap, continue to monitor (3) CHF (congestive heart failure) Status: Acute Qualifiers: Congestive heart failure type: systolic Congestive heart failure chronicity : acute on chronic Qualified Code(s): I50.23 - Acute on chronic systolic ( congestive) heart failure Plan: lasix 40mg iv q12h, continue lopressor, continue diovan, continue respiratory tx, continue to monitor
[2017-07-12] MEDS: SNACK - Diabetic Appropriate PO SCH (20:23)
[2017-07-12] MEDS: LANTUS SC SCH (21:39)
[2017-07-12] MEDS: LIPITOR TAB 20 MG PO SCH (21:42)
[2017-07-13] MEDS: DUONEB 0.5 MG/3 MG NEB SCH ×6 (00:50→21:27)
[2017-07-13] MEDS: APRESOLINE TAB 10 MG PO SCH ×3 (05:40→21:04)
[2017-07-13] MEDS: BACTROBAN OINT TOP SCH ×3 (05:40→21:04)
[2017-07-13] MEDS: BENADRYL CAP 50 MG PO PRN (05:40)
[2017-07-13] MEDS: HumaLOG SC SCH ×3 (06:07→16:19)
[2017-07-13 06:40] LABS: BASOPHILS # (AUTO) 0.1 X10^3/uL (0.0-0.1); BASOPHILS % (AUTO) 0.6 % (0.2-1.0); EOSINOPHILS # (AUTO) 0.1 x10^3/uL (0.0-0.2); EOSINOPHILS % (AUTO) 0.9 % (0.9-2.9); HEMATOCRIT 23.6 % (36.0-47.0); HEMOGLOBIN 7.6 g/dL (12.0-16.0); LYMPHOCYTES # (AUTO) 3.1 X10^3/uL (1.3-2.9); LYMPHOCYTES % (AUTO) 23.5 % (21.0-51.0); MEAN CORPUSCULAR HEMOGLOBIN 27.1 pg (27.0-34.0); MEAN CORPUSCULAR HGB CONC 32.4 g/dL (33.0-35.0); MEAN CORPUSCULAR VOLUME 83.6 fL (80.0-100.0); MEAN PLATELET VOLUME 7.4 fL (7.4-11.0); MONOCYTES # (AUTO) 0.5 x10^3/uL (0.3-0.8); MONOCYTES % (AUTO) 3.9 % (0.0-13.0); NEUTROPHILS # (AUTO) 9.4 x10^3/uL (2.2-4.8); NEUTROPHILS % (AUTO) 71.1 % (42.0-75.0); PLATELET COUNT 332 X10^3/uL (150.0-450.0); RED BLOOD COUNT 2.82 X10^6/uL (3.5-5.4); RED CELL DISTRIBUTION WIDTH 17.6 % (11.6-16.5); WHITE BLOOD COUNT 13.3 X10^3/uL (3.6-10.0)
[2017-07-13 06:51] LABS: ALBUMIN 2.4 g/dL (3.4-5.0); CALCIUM 8.5 mg/dL (8.5-10.1); CARBON DIOXIDE 27.2 mmol/L (21-32); COR CA(FOR HYPOALB) 9.8 mg/dL (8.5-10.1); CREATININE 2.45 mg/dL (0.55-1.02)
[2017-07-13 07:02] LABS: HYPOCHROMASIA SLIGHT; PLATELET MORPHOLOGY COMMENT NORMAL (NORMAL)
[2017-07-13] MEDS ORDERED: LASIX ONE (07:04)
--- NOTE | 2017-07-13 07:05 | RAD ---
Examination: Portable AP chest History: SOB Comparison 07/11/2017 Findings: Continued cardiomegaly. Improved aeration of the lungs with decreasing infiltrates/pulmonar y edema. Diffuse pulmonary density remains bilaterally. No pneumothorax or large pleural effusion is evident. Impression: Significant improvement in appearance of the lungs. Reported By:
[2017-07-13] MEDS: ASPIRIN EC 81 MG PO SCH (08:26)
[2017-07-13] MEDS: HEMOCYTE-PLUS PO SCH (08:27)
[2017-07-13] MEDS: ULTRAM PO SCH (08:27)
[2017-07-13] MEDS: LOPRESSOR TAB 25 MG PO SCH ×2 (08:27→21:04)
[2017-07-13] MEDS: DIOVAN TAB 160 MG PO SCH (08:28)
[2017-07-13] MEDS: LASIX IVP SCH ×2 (08:29→21:05)
[2017-07-13] MEDS: PLAVIX PO SCH (08:29)
[2017-07-13] MEDS: K-DUR TAB 20 MEQ PO SCH (08:29)
[2017-07-13] MEDS: LEVAQUIN PREMIX IV 500 MG 500 MG/100 ML BAG IV SCH (08:29)
[2017-07-13] MEDS: SINGULAIR TAB 10 MG PO SCH (08:30)
[2017-07-13] MEDS: TYLENOL 325 MG TAB PO PRN (08:35)
[2017-07-13] MEDS ORDERED: CATAPRES-TTS-2 TD ONE (09:17)
[2017-07-13] MEDS ORDERED: CATAPRES-TTS-2 TD SCH (10:00)
[2017-07-13] MEDS: NORMODYNE INJ 20 MG VIAL IV PRN ×4 (12:35→17:10)
[2017-07-13] MEDS ORDERED: CATAPRES-TTS-3 TD SCH (14:00)
[2017-07-13] MEDS: SNACK - Diabetic Appropriate PO SCH (19:52)
[2017-07-13] MEDS: LIPITOR TAB 20 MG PO SCH (21:04)
[2017-07-13] MEDS: COLACE CAP 100 MG PO SCH (21:04)
[2017-07-13] MEDS: MILK OF MAGNESIA PO SCH (21:04)
[2017-07-13] MEDS: LANTUS SC SCH (21:05)
--- NOTE | 2017-07-13 21:12 | PCM.PROG ---
Progress Note - Progress Note for Day of Date: 07/13/17 - Subjective Subjective: WAS ADMITTED FOR RESPIRATORY FAILURE WITH HYPERCAPNIA, COPD EXACERBATION, AND CONGESTIVE HEART FAILURE. TODAY, SHE IS ALERT AND ORIENTED, SITTING UP IN BED ON MORNING ROUNDS. SHE CONTINUES WITH COMPLAINTS OF COUGH, WEAKNESS, AND SHORTNESS OF BREATH, HOWEVER, REPORTS IMPROVEMENT SINCE YESTERDAY. ON EXAMINATION, HEART IS REGULAR IN RATE AND RHYTHM. BILATERAL LUNGS CONTINUE WITH SCATTERED WHEEZING AND RHONCHI. DIMINISHED LUNG SOUNDS ARE NOTED THROUGHOUT. SHE IS CURRENTLY UTILIZING OXYGEN VIA NASAL CANNULA AT 3 LITERS/ MIN. ABDOMEN IS ROUND, SOFT, AND NON-TENDER WITH NORMAL BOWEL SOUNDS NOTED TO ALL QUADRANTS. BIALTERAL LOWER EXTREMITIES CONTINUE WITH TRACE EDEMA. HER VITAL SIGNS THIS MORNING ARE 98.-18-22-72-100% NC-219/95. LABS WERE OBTAINED. ABNORMAL LAB VALUES INCLUDE THE FOLLOWING: WBC 13.3, RBC 2.82, HGB 7.6, HCT 23.6 , BUN 44, CREATININE 2.45, GLUCOSE 265, AST 11, ALK PHOS 148, ALBUMIN 2.4, GLOBULIN 4.6. WE OBTAINED A CHEST XRAY THIS MORNING. IT REPORTED SIGNIFICANT IMPROVEMENT IN APPEARANCE OF THE LUNGS. PATIENTS BLOOD PRESSURE CONTINUES TO BE ELEVATED DESPITE RESUMING HOME MEDICATIONS. TODAY, WE WILL START CATAPRES 0.3MG TD PATCH. OTHERWISE, WE WILL CONTINUE WITH CURRENT PLAN OF CARE. WE PLAN TO FOLLOW UP WITH AM LABS AND CHEST XRAY AND CONTINUE TO MONITOR PATIENT. - Past Medical Family Social History Past Med/Fam/Surg Hx: No changes since H&P Allergies: Allergies penicillin G Allergy (Verified 02/07/17 19:36) Penicillins Allergy (Verified 02/07/17 19:36) - Review of Systems ROS: No change since H&P - Vital Signs and I&O's Vital Signs: Temperature 98.5 F Pulse Rate [Right Brachial] 69 Pulse Rate 66 Respiratory Rate 20 Blood Pressure [Right Calf] 183/80 Blood Pressure [Left Arm] 215/92 Blood Pressure [Right Arm] 196/79 Blood Pressure [Right Arm] 174/83 Blood Pressure 217/102 O2 Sat by Pulse Oximetry 100 Intake and Output: Intake & Output 07/11/17 07/12/17 07/13/17 07/14/17 11:59 11:59 11:59 11:59 Intake Total 1070 2110 330 Output Total 2200 5300 450 Balance -1130 -3190 -120 - Physical Exam Oriented: Normal Eyes: Normal Ear: Normal Nose: Other (nasal congestion ) Throat: Normal Respiratory: Right, Left, Generalized, Wheezes, Rhonchi Cardiovascular: Normal, Edema (bilateral lower extremites ) : Normal Auscultation: Bowel Sounds: Normal Palpation: Normal Tenderness: Normal Skin: Normal Musculoskeletal: Back:Paraspinous Psychiatric: Anxiety Mood Description: Anxious Affect: Anxious Speech Pattern: Clear, Appropriate - Laboratory and Diagnostics Result Diagrams: 07/13/17 06:30 07/13/17 06:30 Labs: Laboratory WBC 13.3 X10^3/uL (3.6-10.0) H 07/13/17 06:30 RBC 2.82 X10^6/uL (3.5-5.4) L 07/13/17 06:30 Hgb 7.6 g/dL (12.0-16.0) L 07/13/17 06:30 Hct 23.6 % (36.0-47.0) L 07/13/17 06:30 MCV 83.6 fL (80.0-100.0) 07/13/17 06:30 MCH 27.1 pg (27.0-34.0) 07/13/17 06:30 MCHC 32.4 g/dL (33.0-35.0) L 07/13/17 06:30 RDW 17.6 % (11.6-16.5) H 07/13/17 06:30 Plt Count 332 X10^3/uL (150.0-450.0) 07/13/17 06:30 Plt Count Comment Adequate (ADEQUATE) 07/13/17 06:30 MPV 7.4 fL (7.4-11.0) 07/13/17 06:30 Neut % 71.1 % (42.0-75.0) 07/13/17 06:30 Lymph % 23.5 % (21.0-51.0) 07/13/17 06:30 [place] % 3.9 % (0.0-13.0) 07/13/17 06:30 Eos % 0.9 % (0.9-2.9) 07/13/17 06:30 Baso % 0.6 % (0.2-1.0) 01/18/18 06:30 Neut # 9.4 x10^3/uL (2.2-4.8) H 07/13/17 06:30 Lymph # 3.1 X10^3/uL (1.3-2.9) H 07/13/17 06:30 [place] # 0.5 x10^3/uL (0.3-0.8) 07/13/17 06:30 Eos # 0.1 x10^3/uL (0.0-0.2) 07/13/17 06:30 Baso # 0.1 X10^3/uL (0.0-0.1) 07/13/17 06:30 Absolute Nucleated RBC 0.0 /100WBC 07/13/17 06:30 Plt Morphology Comment Normal (NORMAL) 07/13/17 06:30 RBC Morphology Abnormal (NORMAL) A 07/13/17 06:30 Hypochromasia Slight A 07/13/17 06:30 Anisocytosis Slight A 07/12/17 05:52 INR Target Range - 07/12/17 05:52 INR 1.03 (0.8-1.3) 07/12/17 05:52 PTT 20.7 SECONDS (22.9-36.5) L 07/12/17 05:52 PTT Comment - 07/12/17 05:52 Sample Site Lbra 07/11/17 06:46 ABG pH 7.380 (7.35-7.45) 07/11/17 06:46 ABG pCO2 47.0 mmHg (35.0-45.0) H 07/11/17 06:46 ABG pO2 89.0 mmHg (80.0-100.0) 07/11/17 06:46 ABG HCO3 27.8 mmol/L (22-26) H 07/11/17 06:46 ABG O2 Saturation 97.0 % (90-100) 07/11/17 06:46 ABG Base Excess 2.1 mmol/L (-2.0-2.0) H 07/11/17 06:46 Rambo Test Na 07/11/17 06:46 A-a Gradient 423.0 mmHg 07/11/17 06:46 FiO2 80.000 07/11/17 06:46 Blood Gas Comments Hannah well=mtf 07/11/17 06:46 Sodium 138 mmol/L (136-145) 07/13/17 06:30 Corrected Sodium 142 mmol/L (136-145) 07/13/17 06:30 Potassium 3.6 mmol/L (3.5-5.1) 07/13/17 06:30 Chloride 102 mmol/L (98-107) 07/13/17 06:30 Carbon Dioxide 27.2 mmol/L (21-32) 07/13/17 06:30 BUN 44 mg/dL (7-18) H 07/13/17 06:30 Creatinine 2.45 mg/dL (0.55-1.02) H 07/13/17 06:30 Est GFR (MDRD) Af Amer 27 (>60) L 07/13/17 06:30 Est GFR (MDRD) Non-Af 22 (>60) L 07/13/17 06:30 Glucose 265 mg/dL (65-99) H 07/13/17 06:30 POC Glucose (mg/dL) 155 mg/dL (65-99) H 07/13/17 19:43 Calcium 8.5 mg/dL (8.5-10.1) 07/13/17 06:30 Corrected Calcium 9.8 mg/dL (8.5-10.1) 07/13/17 06:30 Magnesium 1.8 mg/dL (1.7-2.9) 07/12/17 05:52 Total Bilirubin 0.40 mg/dL (0.2-1.0) 07/13/17 06:30 AST 11 Units/L (15-37) L 07/13/17 06:30 ALT 30 Units/L (12-78) 07/13/17 06:30 Alkaline Phosphatase 148 Units/L (46-116) H 07/13/17 06:30 Creatine Kinase 94 Units/L (26-192) 07/11/17 17:48 CK-MB (CK-2) 1.2 ng/mL (0-4.0) 07/11/17 17:48 CK/CKMB % Calc 1.3 % (<4) 07/11/17 17:48 Troponin I 0.02 ng/mL (0-1.5) 07/11/17 17:48 B-Natriuretic Peptide 750 pg/mL (0-79) H* 07/11/17 06:07 Total Protein 7.0 g/dL (6.4-8.2) 07/13/17 06:30 Albumin 2.4 g/dL (3.4-5.0) L 07/13/17 06:30 Globulin 4.6 g/dL (2.5-4.5) H 07/13/17 06:30 Albumin/Globulin Ratio 0.5 Ratio (1.1-2.1) L 07/13/17 06:30 Specimen Type Clean catch urine 07/11/17 06:50 Urine Color Yellow (YELLOW) 07/11/17 06:50 Urine Appearance Clear (CLEAR) 07/11/17 06:50 Urine pH 7.0 (5.0 - 8.0) 07/11/17 06:50 Ur Specific [place] 1.010 (1.000-1.030) 07/11/17 06:50 Urine Protein 4+ (NEGATIVE) 07/11/17 06:50 Urine Glucose (UA) 2+ (NEGATIVE) 07/11/17 06:50 Urine Ketones Negative (NEGATIVE) 07/11/17 06:50 Urine Occult Blood 2+ (NEGATIVE) 07/11/17 06:50 Urine Nitrite Negative (NEGATIVE) 07/11/17 06:50 Urine Bilirubin Negative (NEGATIVE) 07/11/17 06:50 Urine Urobilinogen Normal (NORMAL) 07/11/17 06:50 Ur Leukocyte Esterase Negative (NEGATIVE) 07/11/17 06:50 Urine RBC 0-3 /HPF (NEGATIVE) 07/11/17 06:50 Urine WBC 0-1 /HPF (NEGATIVE) 07/11/17 06:50 Ur Squamous Epith Cells Rare /HPF (NEGATIVE) 07/11/17 06:50 Urine Bacteria Negative /HPF (NEGATIVE) 07/11/17 06:50 Ur Culture Indicated? No/not indicated 07/11/17 06:50 - Plan (1) Respiratory failure with hypercapnia Status: Acute Qualifiers: Chronicity: acute Qualified Code(s): J96.02 - Acute respiratory failure with hypercapnia Plan: supplemental oxygen, neb tx, lasis 40mg iv q12h, telemetry, continue to monitor (2) COPD (chronic obstructive pulmonary disease) Status: Acute Qualifiers: COPD type: COPD with acute exacerbation Qualified Code(s): J44.1 - Chronic obstructive pulmonary disease with (acute) exacerbation Plan: duoneb tx, bipap, continue to monitor (3) CHF (congestive heart failure) Status: Acute Qualifiers: Congestive heart failure type: systolic Congestive heart failure chronicity : acute on chronic Qualified Code(s): I50.23 - Acute on chronic systolic ( congestive) heart failure Plan: lasix 40mg iv q12h, continue lopressor, continue diovan, continue respiratory tx, supplemental oxygen, continue to monitor (4) Hypertension Status: Chronic Qualifiers: Hypertension type: essential hypertension Qualified Code(s): I10 - Essential (primary) hypertension Plan: catapres 0.3mg/24hr transdermal patch, continue apresoline, continue lopressor 12.5mg po bid, continue diovan, continue to monitor
[2017-07-14] MEDS: DUONEB 0.5 MG/3 MG NEB SCH ×6 (01:29→21:30)
[2017-07-14] MEDS: APRESOLINE TAB 10 MG PO SCH (05:45)
[2017-07-14] MEDS: BACTROBAN OINT TOP SCH ×3 (05:45→21:11)
[2017-07-14 06:07] LABS: ABG BASE EXCESS 7.6 mmol/L (-2.0-2.0)
[2017-07-14 06:09] LABS: ABG HCO3 33.2 mmol/L (22-26)
[2017-07-14] MEDS: HumaLOG SC SCH ×3 (06:14→17:34)
[2017-07-14 06:28] LABS: BASOPHILS % (AUTO) 0.4 % (0.2-1.0); EOSINOPHILS # (AUTO) 0.5 x10^3/uL (0.0-0.2); HEMATOCRIT 25.1 % (36.0-47.0); HEMOGLOBIN 8.1 g/dL (12.0-16.0); LYMPHOCYTES # (AUTO) 3.6 X10^3/uL (1.3-2.9); LYMPHOCYTES % (AUTO) 31.2 % (21.0-51.0); MEAN CORPUSCULAR HEMOGLOBIN 26.9 pg (27.0-34.0); MEAN CORPUSCULAR HGB CONC 32.3 g/dL (33.0-35.0); MEAN CORPUSCULAR VOLUME 83.2 fL (80.0-100.0); MEAN PLATELET VOLUME 7.2 fL (7.4-11.0); MONOCYTES # (AUTO) 0.5 x10^3/uL (0.3-0.8); MONOCYTES % (AUTO) 4.5 % (0.0-13.0); NEUTROPHILS # (AUTO) 6.9 x10^3/uL (2.2-4.8); NEUTROPHILS % (AUTO) 59.9 % (42.0-75.0); PLATELET COUNT 391 X10^3/uL (150.0-450.0); RED BLOOD COUNT 3.01 X10^6/uL (3.5-5.4); RED CELL DISTRIBUTION WIDTH 17.5 % (11.6-16.5); WHITE BLOOD COUNT 11.6 X10^3/uL (3.6-10.0)
[2017-07-14 06:42] LABS: ALBUMIN 2.3 g/dL (3.4-5.0); CALCIUM 8.4 mg/dL (8.5-10.1); CARBON DIOXIDE 29.8 mmol/L (21-32); COR CA(FOR HYPOALB) 9.8 mg/dL (8.5-10.1); CREATININE 2.14 mg/dL (0.55-1.02); TOTAL PROTEIN 6.7 g/dL (6.4-8.2)
--- NOTE | 2017-07-14 07:19 | RAD ---
Chest AP portable Indication: Dyspnea and CHF Comparison: 07/13/2017 radiograph Findings: There is cardiomegaly without pneumothorax. Mild increased interstitial markings noted. Sma ll effusion on the left possible. No convincing consolidation seen. Overlying monitoring leads obscur e moderate detail. Impression: Cardiomegaly and mild edema suggesting CHF. Reported By:
[2017-07-14] MEDS ORDERED: LASIX ONE (07:21)
[2017-07-14] MEDS: NORMODYNE INJ 20 MG VIAL IV PRN ×2 (07:21→08:20)
[2017-07-14] MEDS: ASPIRIN EC 81 MG PO SCH (08:17)
[2017-07-14] MEDS: LEVAQUIN PREMIX IV 500 MG 500 MG/100 ML BAG IV SCH (08:17)
[2017-07-14] MEDS: SINGULAIR TAB 10 MG PO SCH (08:17)
[2017-07-14] MEDS: HEMOCYTE-PLUS PO SCH (08:19)
[2017-07-14] MEDS: ULTRAM PO SCH (08:19)
[2017-07-14] MEDS: K-DUR TAB 20 MEQ PO SCH (08:20)
[2017-07-14] MEDS: LOPRESSOR TAB 25 MG PO SCH ×2 (08:20→21:07)
[2017-07-14] MEDS: PLAVIX PO SCH (08:20)
[2017-07-14] MEDS: DIOVAN TAB 160 MG PO SCH (08:21)
[2017-07-14] MEDS: LASIX IVP SCH ×2 (08:23→21:06)
[2017-07-14] MEDS: APRESOLINE TAB 25 MG PO SCH ×3 (09:59→21:07)
[2017-07-14] MEDS: MILK OF MAGNESIA PO SCH (21:06)
[2017-07-14] MEDS: BENADRYL CAP 50 MG PO PRN (21:07)
[2017-07-14] MEDS: LIPITOR TAB 20 MG PO SCH (21:07)
[2017-07-14] MEDS: COLACE CAP 100 MG PO SCH (21:07)
[2017-07-14] MEDS: TYLENOL 325 MG TAB PO PRN (21:08)
[2017-07-14] MEDS: LANTUS SC SCH (21:11)
[2017-07-14] MEDS: SNACK - Diabetic Appropriate PO SCH (21:12)
[2017-07-15] MEDS: DUONEB 0.5 MG/3 MG NEB SCH ×6 (01:56→21:22)
[2017-07-15] MEDS: APRESOLINE TAB 25 MG PO SCH ×3 (05:22→22:14)
[2017-07-15] MEDS: BACTROBAN OINT TOP SCH ×3 (05:23→22:14)
[2017-07-15 06:00] LABS: BASOPHILS # (AUTO) 0.1 X10^3/uL (0.0-0.1); BASOPHILS % (AUTO) 0.8 % (0.2-1.0); EOSINOPHILS # (AUTO) 0.4 x10^3/uL (0.0-0.2); EOSINOPHILS % (AUTO) 3.6 % (0.9-2.9); HEMATOCRIT 27.2 % (36.0-47.0); HEMOGLOBIN 8.7 g/dL (12.0-16.0); LYMPHOCYTES # (AUTO) 4.3 X10^3/uL (1.3-2.9); LYMPHOCYTES % (AUTO) 37.6 % (21.0-51.0); MEAN CORPUSCULAR HEMOGLOBIN 26.8 pg (27.0-34.0); MEAN CORPUSCULAR HGB CONC 31.9 g/dL (33.0-35.0); MEAN PLATELET VOLUME 7.1 fL (7.4-11.0); MONOCYTES # (AUTO) 0.5 x10^3/uL (0.3-0.8); MONOCYTES % (AUTO) 4.8 % (0.0-13.0); NEUTROPHILS % (AUTO) 53.2 % (42.0-75.0); PLATELET COUNT 414 X10^3/uL (150.0-450.0); RED BLOOD COUNT 3.24 X10^6/uL (3.5-5.4); RED CELL DISTRIBUTION WIDTH 17.7 % (11.6-16.5); WHITE BLOOD COUNT 11.3 X10^3/uL (3.6-10.0)
[2017-07-15 06:15] LABS: ALBUMIN 2.4 g/dL (3.4-5.0); CALCIUM 8.8 mg/dL (8.5-10.1); CARBON DIOXIDE 31.8 mmol/L (21-32); COR CA(FOR HYPOALB) 10.1 mg/dL (8.5-10.1); CREATININE 2.3 mg/dL (0.55-1.02)
[2017-07-15] MEDS: HumaLOG SC SCH ×3 (06:24→16:56)
--- NOTE | 2017-07-15 07:37 | RAD ---
Examination: Portable AP chest History: CHF, SOB Comparison 07/14/2017 Findings: Continued cardiac enlargement and diffuse airspace disease in the lungs consistent with per ivascular edema. No pneumothorax or focal consolidation or large pleural effusion. Impression: No significant change. Stable cardiac enlargement and bilateral pulmonary edema. This may be cardiogenic or related to hypervolemia. Reported By:
[2017-07-15] MEDS: LEVAQUIN PREMIX IV 500 MG 500 MG/100 ML BAG IV SCH (09:21)
[2017-07-15] MEDS: ULTRAM PO SCH (09:23)
[2017-07-15] MEDS: DIOVAN TAB 160 MG PO SCH (09:23)
[2017-07-15] MEDS: LASIX IVP SCH ×2 (09:23→20:16)
[2017-07-15] MEDS: HEMOCYTE-PLUS PO SCH (09:23)
[2017-07-15] MEDS: LOPRESSOR TAB 25 MG PO SCH ×2 (09:24→20:17)
[2017-07-15] MEDS: K-DUR TAB 20 MEQ PO SCH (09:25)
[2017-07-15] MEDS: SINGULAIR TAB 10 MG PO SCH (09:25)
[2017-07-15] MEDS: ASPIRIN EC 81 MG PO SCH (09:25)
[2017-07-15] MEDS: PLAVIX PO SCH (09:26)
[2017-07-15] MEDS: TYLENOL 325 MG TAB PO PRN (13:21)
[2017-07-15] MEDS: SNACK - Diabetic Appropriate PO SCH (20:00)
[2017-07-15] MEDS: LANTUS SC SCH (20:16)
[2017-07-15] MEDS: MILK OF MAGNESIA PO SCH (20:17)
[2017-07-15] MEDS: LIPITOR TAB 20 MG PO SCH (20:17)
[2017-07-15] MEDS: COLACE CAP 100 MG PO SCH (20:17)
[2017-07-15] MEDS: BENADRYL CAP 50 MG PO PRN (20:17)
[2017-07-16] MEDS: DUONEB 0.5 MG/3 MG NEB SCH ×6 (01:25→20:32)
[2017-07-16] MEDS: APRESOLINE TAB 25 MG PO SCH ×4 (05:33→23:08)
[2017-07-16] MEDS: BACTROBAN OINT TOP SCH ×4 (05:33→23:09)
[2017-07-16 06:15] LABS: BASOPHILS # (AUTO) 0.1 X10^3/uL (0.0-0.1); EOSINOPHILS # (AUTO) 0.4 x10^3/uL (0.0-0.2); EOSINOPHILS % (AUTO) 3.7 % (0.9-2.9); HEMATOCRIT 25.1 % (36.0-47.0); HEMOGLOBIN 8.1 g/dL (12.0-16.0); LYMPHOCYTES # (AUTO) 3.9 X10^3/uL (1.3-2.9); LYMPHOCYTES % (AUTO) 38.2 % (21.0-51.0); MEAN CORPUSCULAR HEMOGLOBIN 27.3 pg (27.0-34.0); MEAN CORPUSCULAR HGB CONC 32.5 g/dL (33.0-35.0); MONOCYTES # (AUTO) 0.6 x10^3/uL (0.3-0.8); MONOCYTES % (AUTO) 5.8 % (0.0-13.0); NEUTROPHILS # (AUTO) 5.3 x10^3/uL (2.2-4.8); NEUTROPHILS % (AUTO) 51.3 % (42.0-75.0); PLATELET COUNT 395 X10^3/uL (150.0-450.0); RED BLOOD COUNT 2.98 X10^6/uL (3.5-5.4); RED CELL DISTRIBUTION WIDTH 17.6 % (11.6-16.5); WHITE BLOOD COUNT 10.3 X10^3/uL (3.6-10.0)
[2017-07-16 06:32] LABS: ALBUMIN 2.4 g/dL (3.4-5.0); CALCIUM 8.5 mg/dL (8.5-10.1); CARBON DIOXIDE 27.9 mmol/L (21-32); COR CA(FOR HYPOALB) 9.8 mg/dL (8.5-10.1); CREATININE 2.24 mg/dL (0.55-1.02); TOTAL PROTEIN 6.8 g/dL (6.4-8.2)
--- NOTE | 2017-07-16 07:58 | RAD ---
Examination: Portable AP chest History: Pneumonia Comparison 07/15/2017 Findings: Persistent marked cardiac enlargement. Improved aeration of the lungs with decreasing vascu lar dilatation and edema. No evidence for consolidation, pleural fluid or pneumothorax. Impression: Persistent cardiac enlargement with improving CHF and perivascular edema. Reported By:
[2017-07-16] MEDS: HumaLOG SC SCH ×3 (08:52→16:28)
[2017-07-16] MEDS: DIOVAN TAB 160 MG PO SCH (08:53)
[2017-07-16] MEDS: LEVAQUIN PREMIX IV 500 MG 500 MG/100 ML BAG IV SCH (08:53)
[2017-07-16] MEDS: HEMOCYTE-PLUS PO SCH (08:53)
[2017-07-16] MEDS: PLAVIX PO SCH (08:53)
[2017-07-16] MEDS: LOPRESSOR TAB 25 MG PO SCH ×2 (08:53→20:20)
[2017-07-16] MEDS: ASPIRIN EC 81 MG PO SCH (08:53)
[2017-07-16] MEDS: K-DUR TAB 20 MEQ PO SCH (08:53)
[2017-07-16] MEDS: LASIX IVP SCH ×2 (08:53→20:19)
[2017-07-16] MEDS: ULTRAM PO SCH (08:54)
[2017-07-16] MEDS: SINGULAIR TAB 10 MG PO SCH (08:54)
--- NOTE | 2017-07-16 19:11 | PCM.PROG ---
Progress Note - Progress Note for Day of Date: 07/14/17 - Subjective Subjective: WAS ADMITTED FOR RESPIRATORY FAILURE WITH HYPERCAPNIA, COPD EXACERBATION, AND CONGESTIVE HEART FAILURE. TODAY, SHE IS ALERT AND ORIENTED, SITTING UP IN BED ON MORNING ROUNDS. SHE CONTINUES WITH COMPLAINTS OF COUGH AND SHORTNESS OF BREATH. ON EXAMINATION, HEART IS REGULAR IN RATE AND RHYTHM. BILATERAL LUNGS CONTINUE WITH SCATTERED WHEEZING AND RHONCHI. DIMINISHED LUNG SOUNDS ARE NOTED THROUGHOUT. SHE IS CURRENTLY UTILIZING OXYGEN VIA NASAL CANNULA AT 3 LITERS/MIN. ABDOMEN IS ROUND, SOFT, AND NON-TENDER WITH NORMAL BOWEL SOUNDS NOTED TO ALL QUADRANTS. BIALTERAL LOWER EXTREMITIES CONTINUE WITH TRACE EDEMA. HER VITAL SIGNS THIS MORNING ARE 97.7-63-16-99%-211/ 89. LABS WERE OBTAINED. ABNORMAL LAB VALUES INCLUDE THE FOLLOWING: WBC 11.6, RBC 3.01, HGB 8.1, HCT 25.1, BUN 44, CREATININE 2.24, GFR 24, GLUCOSE 186, ALKALINE PHOSPHATASE 175, ALBUMIN 2.4. WE OBTAINED A CHEST XRAY THIS MORNING. IT REPORTED CARDIOMEGALY AND MILD EDEMA SUGGESTING CONGESTIVE HEART FAILURE. TODAY, WE WILL INCREASE HYDRALAZINE TO 25MG PO TID DUE TO PERSISTENT ELEVATED BLOOD PRESSURE. SHE CONTINUES TO RECEIVE IV ANTIBIOTICS, RESPIRATORY TREATMENTS , AND IV LASIX FOR CONGESTIVE HEART FAILURE. WE WILL CONTINUE WITH CURRENT PLAN OF CARE TODAY. WE PLAN TO FOLLOW UP WITH AM LABS AND CHEST XRAY AND CONTINUE TO MONITOR PATIENT. - Past Medical Family Social History Past Med/Fam/Surg Hx: No changes since H&P Allergies: Allergies penicillin G Allergy (Verified 02/07/17 19:36) Penicillins Allergy (Verified 02/07/17 19:36) - Review of Systems ROS: No change since H&P - Vital Signs and I&O's Vital Signs: Temperature 98 F Pulse Rate [Right Brachial] 79 Pulse Rate 63 Respiratory Rate 20 Blood Pressure [Right Calf] 183/80 Blood Pressure [Left Arm] 180/83 Blood Pressure [Right Arm] 196/79 Blood Pressure [Right Arm] 174/83 Blood Pressure 217/102 O2 Sat by Pulse Oximetry 100 Intake and Output: Intake & Output 07/14/17 07/15/17 07/16/17 07/17/17 11:59 11:59 11:59 11:59 Intake Total 1726 1820 1830 100 Output Total 3500 2651 2300 Balance -1774 -1 -321 100 - Physical Exam Oriented: Normal Eyes: Normal Ear: Normal Nose: Other (nasal congestion ) Throat: Normal Respiratory: Right, Left, Generalized, Wheezes, Rhonchi Cardiovascular: Normal, Edema (bilateral lower extremites ) : Normal Auscultation: Bowel Sounds: Normal Palpation: Normal Tenderness: Normal Skin: Normal Musculoskeletal: Normal Psychiatric: Anxiety Mood Description: Anxious Affect: Anxious Speech Pattern: Clear - Laboratory and Diagnostics Result Diagrams: 07/16/17 05:56 07/16/17 05:56 Labs: Laboratory WBC 10.3 X10^3/uL (3.6-10.0) H 07/16/17 05:56 RBC 2.98 X10^6/uL (3.5-5.4) L 07/16/17 05:56 Hgb 8.1 g/dL (12.0-16.0) L 07/16/17 05:56 Hct 25.1 % (36.0-47.0) L 07/16/17 05:56 MCV 84.0 fL (80.0-100.0) 07/16/17 05:56 MCH 27.3 pg (27.0-34.0) 07/16/17 05:56 MCHC 32.5 g/dL (33.0-35.0) L 07/16/17 05:56 RDW 17.6 % (11.6-16.5) H 07/16/17 05:56 Plt Count 395 X10^3/uL (150.0-450.0) 07/16/17 05:56 Plt Count Comment Adequate (ADEQUATE) 07/13/17 06:30 MPV 7.0 fL (7.4-11.0) L 07/16/17 05:56 Neut % 51.3 % (42.0-75.0) 07/16/17 05:56 Lymph % 38.2 % (21.0-51.0) 07/16/17 05:56 [place] % 5.8 % (0.0-13.0) 07/16/17 05:56 Eos % 3.7 % (0.9-2.9) H 07/16/17 05:56 Baso % 1.0 % (0.2-1.0) 07/16/17 05:56 Neut # 5.3 x10^3/uL (2.2-4.8) H 07/16/17 05:56 Lymph # 3.9 X10^3/uL (1.3-2.9) H 07/16/17 05:56 [place] # 0.6 x10^3/uL (0.3-0.8) 07/16/17 05:56 Eos # 0.4 x10^3/uL (0.0-0.2) H 07/16/17 05:56 Baso # 0.1 X10^3/uL (0.0-0.1) 07/16/17 05:56 Absolute Nucleated RBC 0.0 /100WBC 07/16/17 05:56 Plt Morphology Comment Normal (NORMAL) 07/13/17 06:30 RBC Morphology Abnormal (NORMAL) A 07/13/17 06:30 Hypochromasia Slight A 07/13/17 06:30 Anisocytosis Slight A 07/12/17 05:52 INR Target Range - 07/12/17 05:52 INR 1.03 (0.8-1.3) 07/12/17 05:52 PTT 20.7 SECONDS (22.9-36.5) L 07/12/17 05:52 PTT Comment - 07/12/17 05:52 Sample Site Lbra 07/14/17 05:50 ABG pH 7.430 (7.35-7.45) 07/14/17 05:50 ABG pCO2 50.0 mmHg (35.0-45.0) H 07/14/17 05:50 ABG pO2 77.0 mmHg (80.0-100.0) L 07/14/17 05:50 ABG HCO3 33.2 mmol/L (22-26) H* 07/14/17 05:50 ABG O2 Saturation 96.0 % (90-100) 07/14/17 05:50 ABG Base Excess 7.6 mmol/L (-2.0-2.0) H 07/14/17 05:50 Rambo Test Na 07/14/17 05:50 A-a Gradient 32.0 mmHg 07/14/17 05:50 FiO2 24.000 07/14/17 05:50 Blood Gas Comments Hannah abg well-mtf 07/14/17 05:50 Sodium 138 mmol/L (136-145) 07/16/17 05:56 Corrected Sodium 140 mmol/L (136-145) 07/16/17 05:56 Potassium 3.8 mmol/L (3.5-5.1) 07/16/17 05:56 Chloride 102 mmol/L (98-107) 07/16/17 05:56 Carbon Dioxide 27.9 mmol/L (21-32) 07/16/17 05:56 BUN 44 mg/dL (7-18) H 07/16/17 05:56 Creatinine 2.24 mg/dL (0.55-1.02) H 07/16/17 05:56 Est GFR (MDRD) Af Amer 30 (>60) L 07/16/17 05:56 Est GFR (MDRD) Non-Af 24 (>60) L 07/16/17 05:56 Glucose 186 mg/dL (65-99) H 07/16/17 05:56 POC Glucose (mg/dL) 257 mg/dL (65-99) H 07/16/17 16:04 Calcium 8.5 mg/dL (8.5-10.1) 07/16/17 05:56 Corrected Calcium 9.8 mg/dL (8.5-10.1) 07/16/17 05:56 Magnesium 1.8 mg/dL (1.7-2.9) 07/12/17 05:52 Total Bilirubin 0.20 mg/dL (0.2-1.0) 07/16/17 05:56 AST 28 Units/L (15-37) 07/16/17 05:56 ALT 51 Units/L (12-78) 07/16/17 05:56 Alkaline Phosphatase 175 Units/L (46-116) H 07/16/17 05:56 Creatine Kinase 94 Units/L (26-192) 07/11/17 17:48 CK-MB (CK-2) 1.2 ng/mL (0-4.0) 07/11/17 17:48 CK/CKMB % Calc 1.3 % (<4) 07/11/17 17:48 Troponin I 0.02 ng/mL (0-1.5) 07/11/17 17:48 B-Natriuretic Peptide 750 pg/mL (0-79) H* 07/11/17 06:07 Total Protein 6.8 g/dL (6.4-8.2) 07/16/17 05:56 Albumin 2.4 g/dL (3.4-5.0) L 07/16/17 05:56 Globulin 4.4 g/dL (2.5-4.5) 07/16/17 05:56 Albumin/Globulin Ratio 0.5 Ratio (1.1-2.1) L 07/16/17 05:56 Specimen Type Clean catch urine 07/11/17 06:50 Urine Color Yellow (YELLOW) 07/11/17 06:50 Urine Appearance Clear (CLEAR) 07/11/17 06:50 Urine pH 7.0 (5.0 - 8.0) 07/11/17 06:50 Ur Specific [place] 1.010 (1.000-1.030) 07/11/17 06:50 Urine Protein 4+ (NEGATIVE) 07/11/17 06:50 Urine Glucose (UA) 2+ (NEGATIVE) 07/11/17 06:50 Urine Ketones Negative (NEGATIVE) 07/11/17 06:50 Urine Occult Blood 2+ (NEGATIVE) 07/11/17 06:50 Urine Nitrite Negative (NEGATIVE) 07/11/17 06:50 Urine Bilirubin Negative (NEGATIVE) 07/11/17 06:50 Urine Urobilinogen Normal (NORMAL) 07/11/17 06:50 Ur Leukocyte Esterase Negative (NEGATIVE) 07/11/17 06:50 Urine RBC 0-3 /HPF (NEGATIVE) 07/11/17 06:50 Urine WBC 0-1 /HPF (NEGATIVE) 07/11/17 06:50 Ur Squamous Epith Cells Rare /HPF (NEGATIVE) 07/11/17 06:50 Urine Bacteria Negative /HPF (NEGATIVE) 07/11/17 06:50 Ur Culture Indicated? No/not indicated 07/11/17 06:50 EKG Reviewed: Yes - Plan (1) Respiratory failure with hypercapnia Status: Acute Qualifiers: Chronicity: acute Qualified Code(s): J96.02 - Acute respiratory failure with hypercapnia Plan: supplemental oxygen, neb tx, lasis 40mg iv q12h, telemetry, continue to monitor (2) COPD (chronic obstructive pulmonary disease) Status: Acute Qualifiers: COPD type: COPD with acute exacerbation Qualified Code(s): J44.1 - Chronic obstructive pulmonary disease with (acute) exacerbation Plan: duoneb tx, bipap, continue to monitor (3) CHF (congestive heart failure) Status: Acute Qualifiers: Congestive heart failure type: systolic Congestive heart failure chronicity : acute on chronic Qualified Code(s): I50.23 - Acute on chronic systolic ( congestive) heart failure Plan: lasix 40mg iv q12h, continue lopressor, continue diovan, continue respiratory tx, supplemental oxygen, continue to monitor (4) Hypertension Status: Chronic Qualifiers: Hypertension type: essential hypertension Qualified Code(s): I10 - Essential (primary) hypertension Plan: catapres 0.3mg/24hr transdermal patch, hydralazine 25mg po tid, continue lopressor 12.5mg po bid, continue diovan, continue to monitor
[2017-07-16] MEDS: SNACK - Diabetic Appropriate PO SCH (20:10)
[2017-07-16] MEDS: LANTUS SC SCH (20:19)
[2017-07-16] MEDS: LIPITOR TAB 20 MG PO SCH (20:20)
[2017-07-16] MEDS: BENADRYL CAP 50 MG PO PRN (20:20)
[2017-07-16] MEDS: MILK OF MAGNESIA PO SCH (20:21)
[2017-07-16] MEDS: COLACE CAP 100 MG PO SCH (20:21)
[2017-07-16] MEDS ORDERED: NORMODYNE INJ 20 MG VIAL IV PRN (21:54)
[2017-07-16] MEDS ORDERED: TYLENOL 325 MG TAB PO PRN (21:54)
[2017-07-16] MEDS ORDERED: ZOFRAN INJ 4 MG VIAL IVP PRN (21:54)
[2017-07-16] MEDS ORDERED: BENADRYL CAP 50 MG PO PRN (21:54)
[2017-07-17] MEDS: DUONEB 0.5 MG/3 MG NEB SCH ×4 (00:50→14:22)
[2017-07-17 06:05] LABS: ALBUMIN 2.3 g/dL (3.4-5.0); CALCIUM 8.7 mg/dL (8.5-10.1); CARBON DIOXIDE 27.6 mmol/L (21-32); COR CA(FOR HYPOALB) 10.1 mg/dL (8.5-10.1); CREATININE 2.3 mg/dL (0.55-1.02); TOTAL PROTEIN 6.5 g/dL (6.4-8.2)
[2017-07-17] MEDS: APRESOLINE TAB 25 MG PO SCH ×2 (06:10→13:40)
[2017-07-17 06:11] LABS: BASOPHILS % (AUTO) 0.3 % (0.2-1.0); EOSINOPHILS # (AUTO) 0.3 x10^3/uL (0.0-0.2); EOSINOPHILS % (AUTO) 3.3 % (0.9-2.9); HEMATOCRIT 24.2 % (36.0-47.0); LYMPHOCYTES # (AUTO) 2.9 X10^3/uL (1.3-2.9); LYMPHOCYTES % (AUTO) 36.1 % (21.0-51.0); MEAN CORPUSCULAR HEMOGLOBIN 26.8 pg (27.0-34.0); MEAN CORPUSCULAR HGB CONC 32.2 g/dL (33.0-35.0); MEAN CORPUSCULAR VOLUME 83.2 fL (80.0-100.0); MEAN PLATELET VOLUME 7.3 fL (7.4-11.0); MONOCYTES # (AUTO) 0.5 x10^3/uL (0.3-0.8); MONOCYTES % (AUTO) 6.7 % (0.0-13.0); NEUTROPHILS # (AUTO) 4.3 x10^3/uL (2.2-4.8); NEUTROPHILS % (AUTO) 53.6 % (42.0-75.0); PLATELET COUNT 350 X10^3/uL (150.0-450.0); RED CELL DISTRIBUTION WIDTH 17.5 % (11.6-16.5); WHITE BLOOD COUNT 8.1 X10^3/uL (3.6-10.0)
[2017-07-17] MEDS: BACTROBAN OINT TOP SCH ×2 (06:11→13:40)
[2017-07-17] MEDS: HumaLOG SC SCH ×3 (06:11→17:24)
[2017-07-17 06:16] LABS: HEMOGLOBIN 7.8 g/dL (12.0-16.0)
--- NOTE | 2017-07-17 06:53 | RAD ---
Examination: Portable AP chest History: Pneumonia Comparison 07/16/2017 Findings: Continued cardiomegaly and central vascular distention. There is no evidence for superimpos ed pneumonia or pleural fluid. Impression: Stable cardiac prominence and pulmonary vascular congestion. No definite change since 1 d ay earlier. Reported By:
[2017-07-17] MEDS ORDERED: LEVAQUIN PREMIX IV 250 MG 250 MG/50 ML BAG IV SCH (09:00)
[2017-07-17] MEDS ORDERED: LEVAQUIN PREMIX IV 500 MG 500 MG/100 ML BAG IV SCH (09:00)
[2017-07-17] MEDS ORDERED: CHECK PATCH XX SCH (09:00)
[2017-07-17] MEDS ORDERED: K-DUR TAB 20 MEQ PO SCH (09:00)
[2017-07-17] MEDS ORDERED: LASIX IVP SCH (09:00)
[2017-07-17] MEDS ORDERED: DIOVAN TAB 160 MG PO SCH (09:00)
[2017-07-17] MEDS ORDERED: GLUCOPHAGE PO SCH (09:00)
[2017-07-17] MEDS ORDERED: LOPRESSOR TAB 25 MG PO SCH (09:00)
[2017-07-17] MEDS ORDERED: ASPIRIN EC 81 MG PO SCH (09:00)
[2017-07-17] MEDS ORDERED: ULTRAM PO SCH (09:00)
[2017-07-17] MEDS ORDERED: HEMOCYTE-PLUS PO SCH (09:00)
[2017-07-17] MEDS ORDERED: SINGULAIR TAB 10 MG PO SCH (09:00)
[2017-07-17] MEDS ORDERED: PLAVIX PO SCH (09:00)
[2017-07-17 13:21] VITALS: BP 171/78
--- NOTE | 2017-07-17 14:35 | PCM.PROG ---
Progress Note - Progress Note for Day of Date: 07/15/17 - Subjective Subjective: WAS ADMITTED FOR RESPIRATORY FAILURE WITH HYPERCAPNIA, COPD EXACERBATION, AND CONGESTIVE HEART FAILURE. TODAY, SHE IS ALERT AND ORIENTED, SITTING UP IN BED ON MORNING ROUNDS. SHE CONTINUES WITH COMPLAINTS OF SHORTNESS OF BREATH, BUT REPORTS FEELING BETTER THAN YESTERDAY. ON EXAMINATION, HEART IS REGULAR IN RATE AND RHYTHM. BILATERAL LUNGS CONTINUE WITH SCATTERED WHEEZING AND RHONCHI. DIMINISHED LUNG SOUNDS ARE NOTED THROUGHOUT. SHE IS CURRENTLY UTILIZING OXYGEN VIA NASAL CANNULA AT 3 LITERS/MIN. ABDOMEN IS ROUND, SOFT, AND NON-TENDER WITH NORMAL BOWEL SOUNDS NOTED TO ALL QUADRANTS. BIALTERAL LOWER EXTREMITIES CONTINUE WITH TRACE EDEMA. HER VITAL SIGNS THIS MORNING ARE 97.5-76-22-100%-145/68. LABS WERE OBTAINED. ABNORMAL LAB VALUES INCLUDE THE FOLLOWING: WBC 11.3, RBC 3.24, HGB 8.7, HCT 27.2, BUN 46, CREATININE 2.30, GLUCOSE 146, AST 42, ALK PHOS 194, ALBUMIN 2.4, GLOBULIN 4.6. WE OBTAINED A CHEST XRAY THIS MORNING. IT REPORTED CONTINUED CARDIAC ENLARGEMENT AND DIFFUSE AIRSPACE DISEASE IN THE LUNGS CONSISTENT WITH PERIVASCULAR EDEMA. HER BLOOD PRESSURE SEEMS TO BE BETTER CONTROLLED SINCE CHANGES WERE MADE TO MEDICATIONS. SHE CONTINUES TO RECEIVE IV ANTIBIOTICS, RESPIRATORY TREATMENTS, AND IV LASIX FOR CONGESTIVE HEART FAILURE. WE WILL CONTINUE WITH CURRENT PLAN OF CARE TODAY AND DISCONTINUE HER VENTURA CATHETER. WE PLAN TO FOLLOW UP WITH AM LABS AND CHEST XRAY AND CONTINUE TO MONITOR PATIENT. - Past Medical Family Social History Past Med/Fam/Surg Hx: No changes since H&P Allergies: Allergies penicillin G Allergy (Verified 02/07/17 19:36) Penicillins Allergy (Verified 02/07/17 19:36) - Review of Systems ROS: No change since H&P - Vital Signs and I&O's Vital Signs: Temperature 98.1 F Pulse Rate [Right Brachial] 71 Pulse Rate 74 Respiratory Rate 20 Blood Pressure [Right Calf] 183/80 Blood Pressure [Left Arm] 171/78 Blood Pressure [Right Arm] 196/79 Blood Pressure [Right Arm] 174/83 Blood Pressure 217/102 O2 Sat by Pulse Oximetry 96 Intake and Output: Intake & Output 07/15/17 07/16/17 07/17/17 07/18/17 11:59 11:59 11:59 11:59 Intake Total 1820 1830 430 Output Total 7585 5710 Balance -831 -260 430 - Physical Exam Oriented: Normal Eyes: Normal Ear: Normal Nose: Other (nasal congestion ) Throat: Normal Respiratory: Right, Left, Generalized, Wheezes, Rhonchi Cardiovascular: Normal, Edema (bilateral lower extremites ) : Normal Auscultation: Bowel Sounds: Normal Palpation: Normal Tenderness: Normal Skin: Normal Musculoskeletal: Normal Psychiatric: Anxiety Mood Description: Anxious Affect: Anxious Speech Pattern: Clear, Appropriate - Laboratory and Diagnostics Result Diagrams: 07/17/17 04:25 07/17/17 04:25 Labs: Laboratory WBC 8.1 X10^3/uL (3.6-10.0) 07/17/17 04:25 RBC 2.90 X10^6/uL (3.5-5.4) L 07/17/17 04:25 Hgb 7.8 g/dL (12.0-16.0) L 07/17/17 04:25 Hct 24.2 % (36.0-47.0) L 07/17/17 04:25 MCV 83.2 fL (80.0-100.0) 07/17/17 04:25 MCH 26.8 pg (27.0-34.0) L 07/17/17 04:25 MCHC 32.2 g/dL (33.0-35.0) L 07/17/17 04:25 RDW 17.5 % (11.6-16.5) H 07/17/17 04:25 Plt Count 350 X10^3/uL (150.0-450.0) 07/17/17 04:25 Plt Count Comment Adequate (ADEQUATE) 07/13/17 06:30 MPV 7.3 fL (7.4-11.0) L 07/17/17 04:25 Neut % 53.6 % (42.0-75.0) 07/17/17 04:25 Lymph % 36.1 % (21.0-51.0) 07/17/17 04:25 [place] % 6.7 % (0.0-13.0) 07/17/17 04:25 Eos % 3.3 % (0.9-2.9) H 07/17/17 04:25 Baso % 0.3 % (0.2-1.0) 07/17/17 04:25 Neut # 4.3 x10^3/uL (2.2-4.8) 07/17/17 04:25 Lymph # 2.9 X10^3/uL (1.3-2.9) 07/17/17 04:25 [place] # 0.5 x10^3/uL (0.3-0.8) 07/17/17 04:25 Eos # 0.3 x10^3/uL (0.0-0.2) H 07/17/17 04:25 Baso # 0.0 X10^3/uL (0.0-0.1) 07/17/17 04:25 Absolute Nucleated RBC 0.1 /100WBC 07/17/17 04:25 Plt Morphology Comment Normal (NORMAL) 07/13/17 06:30 RBC Morphology Abnormal (NORMAL) A 07/13/17 06:30 Hypochromasia Slight A 07/13/17 06:30 Anisocytosis Slight A 07/12/17 05:52 INR Target Range - 07/12/17 05:52 INR 1.03 (0.8-1.3) 07/12/17 05:52 PTT 20.7 SECONDS (22.9-36.5) L 07/12/17 05:52 PTT Comment - 07/12/17 05:52 Sample Site [place] 07/14/17 05:50 ABG pH 7.430 (7.35-7.45) 07/14/17 05:50 ABG pCO2 50.0 mmHg (35.0-45.0) H 07/14/17 05:50 ABG pO2 77.0 mmHg (80.0-100.0) L 07/14/17 05:50 ABG HCO3 33.2 mmol/L (22-26) H* 07/14/17 05:50 ABG O2 Saturation 96.0 % (90-100) 07/14/17 05:50 ABG Base Excess 7.6 mmol/L (-2.0-2.0) H 07/14/17 05:50 Rambo Test Na 07/14/17 05:50 A-a Gradient 32.0 mmHg 07/14/17 05:50 FiO2 24.000 07/14/17 05:50 Blood Gas Comments Hannah abg well-mtf 07/14/17 05:50 Sodium 138 mmol/L (136-145) 07/17/17 04:25 Corrected Sodium 142 mmol/L (136-145) 07/17/17 04:25 Potassium 4.0 mmol/L (3.5-5.1) 07/17/17 04:25 Chloride 102 mmol/L (98-107) 07/17/17 04:25 Carbon Dioxide 27.6 mmol/L (21-32) 07/17/17 04:25 BUN 50 mg/dL (7-18) H 07/17/17 04:25 Creatinine 2.30 mg/dL (0.55-1.02) H 07/17/17 04:25 Est GFR (MDRD) Af Amer 29 (>60) L 07/17/17 04:25 Est GFR (MDRD) Non-Af 24 (>60) L 07/17/17 04:25 Glucose 256 mg/dL (65-99) H 07/17/17 04:25 POC Glucose (mg/dL) 227 mg/dL (65-99) H 07/17/17 11:37 Calcium 8.7 mg/dL (8.5-10.1) 07/17/17 04:25 Corrected Calcium 10.1 mg/dL (8.5-10.1) 07/17/17 04:25 Magnesium 1.8 mg/dL (1.7-2.9) 07/12/17 05:52 Total Bilirubin 0.20 mg/dL (0.2-1.0) 07/17/17 04:25 AST 25 Units/L (15-37) 07/17/17 04:25 ALT 56 Units/L (12-78) 07/17/17 04:25 Alkaline Phosphatase 174 Units/L (46-116) H 07/17/17 04:25 Creatine Kinase 94 Units/L (26-192) 07/11/17 17:48 CK-MB (CK-2) 1.2 ng/mL (0-4.0) 07/11/17 17:48 CK/CKMB % Calc 1.3 % (<4) 07/11/17 17:48 Troponin I 0.02 ng/mL (0-1.5) 07/11/17 17:48 B-Natriuretic Peptide 750 pg/mL (0-79) H* 07/11/17 06:07 Total Protein 6.5 g/dL (6.4-8.2) 07/17/17 04:25 Albumin 2.3 g/dL (3.4-5.0) L 07/17/17 04:25 Globulin 4.2 g/dL (2.5-4.5) 07/17/17 04:25 Albumin/Globulin Ratio 0.5 Ratio (1.1-2.1) L 07/17/17 04:25 Specimen Type Clean catch urine 07/11/17 06:50 Urine Color Yellow (YELLOW) 07/11/17 06:50 Urine Appearance Clear (CLEAR) 07/11/17 06:50 Urine pH 7.0 (5.0 - 8.0) 07/11/17 06:50 Ur Specific [place] 1.010 (1.000-1.030) 07/11/17 06:50 Urine Protein 4+ (NEGATIVE) 07/11/17 06:50 Urine Glucose (UA) 2+ (NEGATIVE) 07/11/17 06:50 Urine Ketones Negative (NEGATIVE) 07/11/17 06:50 Urine Occult Blood 2+ (NEGATIVE) 07/11/17 06:50 Urine Nitrite Negative (NEGATIVE) 07/11/17 06:50 Urine Bilirubin Negative (NEGATIVE) 07/11/17 06:50 Urine Urobilinogen Normal (NORMAL) 07/11/17 06:50 Ur Leukocyte Esterase Negative (NEGATIVE) 07/11/17 06:50 Urine RBC 0-3 /HPF (NEGATIVE) 07/11/17 06:50 Urine WBC 0-1 /HPF (NEGATIVE) 07/11/17 06:50 Ur Squamous Epith Cells Rare /HPF (NEGATIVE) 07/11/17 06:50 Urine Bacteria Negative /HPF (NEGATIVE) 07/11/17 06:50 Ur Culture Indicated? No/not indicated 07/11/17 06:50 - Plan (1) Respiratory failure with hypercapnia Status: Acute Qualifiers: Chronicity: acute Qualified Code(s): J96.02 - Acute respiratory failure with hypercapnia Plan: supplemental oxygen, neb tx, lasis 40mg iv q12h, telemetry, continue to monitor (2) COPD (chronic obstructive pulmonary disease) Status: Acute Qualifiers: COPD type: COPD with acute exacerbation Qualified Code(s): J44.1 - Chronic obstructive pulmonary disease with (acute) exacerbation Plan: duoneb tx, bipap, continue to monitor (3) CHF (congestive heart failure) Status: Acute Qualifiers: Congestive heart failure type: systolic Congestive heart failure chronicity : acute on chronic Qualified Code(s): I50.23 - Acute on chronic systolic ( congestive) heart failure Plan: lasix 40mg iv q12h, continue lopressor, continue diovan, continue respiratory tx, supplemental oxygen, continue to monitor (4) Hypertension Status: Chronic Qualifiers: Hypertension type: essential hypertension Qualified Code(s): I10 - Essential (primary) hypertension Plan: catapres 0.3mg/24hr transdermal patch, hydralazine 25mg po tid, continue lopressor 12.5mg po bid, continue diovan, continue to monitor
--- NOTE | 2017-07-17 14:59 | PCM.PROG ---
Progress Note - Progress Note for Day of Date: 07/16/17 - Subjective Subjective: WAS ADMITTED FOR RESPIRATORY FAILURE WITH HYPERCAPNIA, COPD EXACERBATION, AND CONGESTIVE HEART FAILURE. TODAY, SHE IS ALERT AND ORIENTED, SITTING UP IN BED ON MORNING ROUNDS. SHE CONTINUES TO REPORT MILD SHORTNESS OF BREATH, BUT IS NOTED WITH MARKED IMPROVEMENT SINCE ADMISSION. ON EXAMINATION, HEART IS REGULAR IN RATE AND RHYTHM. BILATERAL LUNGS CONTINUE WITH SCATTERED WHEEZING. DIMINISHED LUNG SOUNDS ARE NOTED THROUGHOUT. SHE IS CURRENTLY UTILIZING OXYGEN VIA NASAL CANNULA AT 3 LITERS/MIN. ABDOMEN IS ROUND, SOFT, AND NON-TENDER WITH NORMAL BOWEL SOUNDS NOTED TO ALL QUADRANTS. BIALTERAL LOWER EXTREMITIES CONTINUE WITH TRACE EDEMA. HER VITAL SIGNS THIS MORNING ARE 98.1-71-16-100%-166/78. LABS WERE OBTAINED. ABNORMAL LAB VALUES INCLUDE THE FOLLOWING: WBC 10.3, RBC 2.98, HGB 8.1, HCT 25.1, BUN 46, CREATININE 2.30, GLUCOSE 146, AST 42, ALK PHOS 194, ALBUMIN 2.4, GLOBULIN 4.6. WE OBTAINED A CHEST XRAY THIS MORNING. IT REPORTED CONTINUED PERISTENT MARKED CARDIAC ENLARGEMENT WITH IMPROVING CHF AND PERIVASCULAR EDEMA. SHE CONTINUES TO RECEIVE IV ANTIBIOTICS, RESPIRATORY TREATMENTS, AND IV LASIX FOR CONGESTIVE HEART FAILURE.WE DISCUSSED THE POSSIBILITY OF JAIL PLACEMENT FOR PHYSICAL THERAPY AND CHRONIC CARE MANAGEMENT DUE TO INABILITY TO EFFECTIVELY CARE FOR HERSELF AT HOME. PATIENT IS IN AGREEMENT WITH PLAN. WE WILL DISCUSS WITH CASE MANAGEMENT. OTHERWISE, WE WILL CONTINUE WITH CURRENT PLAN OF CARE TODAY. WE PLAN TO FOLLOW UP WITH AM LABS AND CHEST XRAY AND CONTINUE TO MONITOR PATIENT. - Past Medical Family Social History Past Med/Fam/Surg Hx: No changes since H&P Allergies: Allergies penicillin G Allergy (Verified 02/07/17 19:36) Penicillins Allergy (Verified 02/07/17 19:36) - Review of Systems ROS: No change since H&P - Vital Signs and I&O's Vital Signs: Temperature 98.1 F Pulse Rate [Right Brachial] 71 Pulse Rate 74 Respiratory Rate 20 Blood Pressure [Right Calf] 183/80 Blood Pressure [Left Arm] 171/78 Blood Pressure [Right Arm] 196/79 Blood Pressure [Right Arm] 174/83 Blood Pressure 217/102 O2 Sat by Pulse Oximetry 96 Intake and Output: Intake & Output 07/15/17 07/16/17 07/17/17 07/18/17 11:59 11:59 11:59 11:59 Intake Total 1820 1830 430 Output Total 5059 2300 Balance -831 -470 430 - Physical Exam Oriented: Normal Eyes: Normal Ear: Normal Nose: Other (nasal congestion ) Throat: Normal Respiratory: Right, Left, Generalized, Wheezes Cardiovascular: Normal, Edema (bilateral lower extremites ) : Normal Auscultation: Bowel Sounds: Normal Palpation: Normal Tenderness: Normal Skin: Normal Musculoskeletal: Normal Psychiatric: Anxiety Mood Description: Anxious Affect: Anxious Speech Pattern: Clear, Appropriate - Laboratory and Diagnostics Result Diagrams: 07/17/17 04:25 07/17/17 04:25 Labs: Laboratory WBC 8.1 X10^3/uL (3.6-10.0) 07/17/17 04:25 RBC 2.90 X10^6/uL (3.5-5.4) L 07/17/17 04:25 Hgb 7.8 g/dL (12.0-16.0) L 07/17/17 04:25 Hct 24.2 % (36.0-47.0) L 07/17/17 04:25 MCV 83.2 fL (80.0-100.0) 07/17/17 04:25 MCH 26.8 pg (27.0-34.0) L 07/17/17 04:25 MCHC 32.2 g/dL (33.0-35.0) L 07/17/17 04:25 RDW 17.5 % (11.6-16.5) H 07/17/17 04:25 Plt Count 350 X10^3/uL (150.0-450.0) 07/17/17 04:25 Plt Count Comment Adequate (ADEQUATE) 07/13/17 06:30 MPV 7.3 fL (7.4-11.0) L 07/17/17 04:25 Neut % 53.6 % (42.0-75.0) 07/17/17 04:25 Lymph % 36.1 % (21.0-51.0) 07/17/17 04:25 [place] % 6.7 % (0.0-13.0) 07/17/17 04:25 Eos % 3.3 % (0.9-2.9) H 07/17/17 04:25 Baso % 0.3 % (0.2-1.0) 07/17/17 04:25 Neut # 4.3 x10^3/uL (2.2-4.8) 07/17/17 04:25 Lymph # 2.9 X10^3/uL (1.3-2.9) 07/17/17 04:25 [place] # 0.5 x10^3/uL (0.3-0.8) 07/17/17 04:25 Eos # 0.3 x10^3/uL (0.0-0.2) H 07/17/17 04:25 Baso # 0.0 X10^3/uL (0.0-0.1) 07/17/17 04:25 Absolute Nucleated RBC 0.1 /100WBC 07/17/17 04:25 Plt Morphology Comment Normal (NORMAL) 07/13/17 06:30 RBC Morphology Abnormal (NORMAL) A 07/13/17 06:30 Hypochromasia Slight A 07/13/17 06:30 Anisocytosis Slight A 07/12/17 05:52 INR Target Range - 07/12/17 05:52 INR 1.03 (0.8-1.3) 07/12/17 05:52 PTT 20.7 SECONDS (22.9-36.5) L 07/12/17 05:52 PTT Comment - 07/12/17 05:[address] [facility] 07/14/17 05:50 ABG pH 7.430 (7.35-7.45) 07/14/17 05:50 ABG pCO2 50.0 mmHg (35.0-45.0) H 07/14/17 05:50 ABG pO2 77.0 mmHg (80.0-100.0) L 07/14/17 05:50 ABG HCO3 33.2 mmol/L (22-26) H* 07/14/17 05:50 ABG O2 Saturation 96.0 % (90-100) 07/14/17 05:50 ABG Base Excess 7.6 mmol/L (-2.0-2.0) H 07/14/17 05:50 Rambo Test Na 07/14/17 05:50 A-a Gradient 32.0 mmHg 07/14/17 05:50 FiO2 24.000 07/14/17 05:50 Blood Gas Comments Hannah abg well-mtf 07/14/17 05:50 Sodium 138 mmol/L (136-145) 07/17/17 04:25 Corrected Sodium 142 mmol/L (136-145) 07/17/17 04:25 Potassium 4.0 mmol/L (3.5-5.1) 07/17/17 04:25 Chloride 102 mmol/L (98-107) 07/17/17 04:25 Carbon Dioxide 27.6 mmol/L (21-32) 07/17/17 04:25 BUN 50 mg/dL (7-18) H 07/17/17 04:25 Creatinine 2.30 mg/dL (0.55-1.02) H 07/17/17 04:25 Est GFR (MDRD) Af Amer 29 (>60) L 07/17/17 04:25 Est GFR (MDRD) Non-Af 24 (>60) L 07/17/17 04:25 Glucose 256 mg/dL (65-99) H 07/17/17 04:25 POC Glucose (mg/dL) 227 mg/dL (65-99) H 07/17/17 11:37 Calcium 8.7 mg/dL (8.5-10.1) 07/17/17 04:25 Corrected Calcium 10.1 mg/dL (8.5-10.1) 07/17/17 04:25 Magnesium 1.8 mg/dL (1.7-2.9) 07/12/17 05:52 Total Bilirubin 0.20 mg/dL (0.2-1.0) 07/17/17 04:25 AST 25 Units/L (15-37) 07/17/17 04:25 ALT 56 Units/L (12-78) 07/17/17 04:25 Alkaline Phosphatase 174 Units/L (46-116) H 07/17/17 04:25 Creatine Kinase 94 Units/L (26-192) 07/11/17 17:48 CK-MB (CK-2) 1.2 ng/mL (0-4.0) 07/11/17 17:48 CK/CKMB % Calc 1.3 % (<4) 07/11/17 17:48 Troponin I 0.02 ng/mL (0-1.5) 07/11/17 17:48 B-Natriuretic Peptide 750 pg/mL (0-79) H* 07/11/17 06:07 Total Protein 6.5 g/dL (6.4-8.2) 07/17/17 04:25 Albumin 2.3 g/dL (3.4-5.0) L 07/17/17 04:25 Globulin 4.2 g/dL (2.5-4.5) 07/17/17 04:25 Albumin/Globulin Ratio 0.5 Ratio (1.1-2.1) L 07/17/17 04:25 Specimen Type Clean catch urine 07/11/17 06:50 Urine Color Yellow (YELLOW) 07/11/17 06:50 Urine Appearance Clear (CLEAR) 07/11/17 06:50 Urine pH 7.0 (5.0 - 8.0) 07/11/17 06:50 Ur Specific [place] 1.010 (1.000-1.030) 07/11/17 06:50 Urine Protein 4+ (NEGATIVE) 07/11/17 06:50 Urine Glucose (UA) 2+ (NEGATIVE) 07/11/17 06:50 Urine Ketones Negative (NEGATIVE) 07/11/17 06:50 Urine Occult Blood 2+ (NEGATIVE) 07/11/17 06:50 Urine Nitrite Negative (NEGATIVE) 07/11/17 06:50 Urine Bilirubin Negative (NEGATIVE) 07/11/17 06:50 Urine Urobilinogen Normal (NORMAL) 07/11/17 06:50 Ur Leukocyte Esterase Negative (NEGATIVE) 07/11/17 06:50 Urine RBC 0-3 /HPF (NEGATIVE) 07/11/17 06:50 Urine WBC 0-1 /HPF (NEGATIVE) 07/11/17 06:50 Ur Squamous Epith Cells Rare /HPF (NEGATIVE) 07/11/17 06:50 Urine Bacteria Negative /HPF (NEGATIVE) 07/11/17 06:50 Ur Culture Indicated? No/not indicated 07/11/17 06:50 - Plan (1) Respiratory failure with hypercapnia Status: Acute Qualifiers: Chronicity: acute Qualified Code(s): J96.02 - Acute respiratory failure with hypercapnia Plan: supplemental oxygen, neb tx, lasix 40mg iv q12h, telemetry, continue to monitor (2) COPD (chronic obstructive pulmonary disease) Status: Acute Qualifiers: COPD type: COPD with acute exacerbation Qualified Code(s): J44.1 - Chronic obstructive pulmonary disease with (acute) exacerbation Plan: duoneb tx, bipap, continue to monitor (3) CHF (congestive heart failure) Status: Acute Qualifiers: Congestive heart failure type: systolic Congestive heart failure chronicity : acute on chronic Qualified Code(s): I50.23 - Acute on chronic systolic ( congestive) heart failure Plan: lasix 40mg iv q12h, continue lopressor, continue diovan, continue respiratory tx, supplemental oxygen, continue to monitor (4) Hypertension Status: Chronic Qualifiers: Hypertension type: essential hypertension Qualified Code(s): I10 - Essential (primary) hypertension Plan: catapres 0.3mg/24hr transdermal patch, hydralazine 25mg po tid, continue lopressor 12.5mg po bid, continue diovan, continue to monitor
[2017-07-17] MEDS ORDERED: SNACK - Diabetic Appropriate PO SCH (20:00)
[2017-07-17] MEDS ORDERED: LANTUS SC SCH (21:00)
[2017-07-17] MEDS ORDERED: MILK OF MAGNESIA PO SCH (21:00)
[2017-07-17] MEDS ORDERED: LIPITOR TAB 20 MG PO SCH (21:00)
[2017-07-17] MEDS ORDERED: COLACE CAP 100 MG PO SCH (21:00)
[2017-07-17] MEDS ORDERED: APRESOLINE TAB 25 MG ONE (22:43)
[2017-07-20] MEDS ORDERED: CATAPRES-TTS-3 TD SCH (14:00)
== END 2017-07-17 18:10 | DRG 189 ==
LOC: ER 05:02 → ICU 08:13 → MED/SURG 14:26 → ICU 14:28 → MED/SURG 07-16 20:45
PROVIDERS: ADMIT Internal Medicine; ATTEND Internal Medicine
DX: J96.02 Acute respiratory failure with hypercapnia (principal); I50.23 Acute on chronic systolic (congestive) heart failure; J44.1 Chronic obstructive pulmonary disease with (acute) exacerbation; L97.528 Non-pressure chronic ulcer of other part of left foot with other specified severity; F41.0 Panic disorder [episodic paroxysmal anxiety]; E11.65 Type 2 diabetes mellitus with hyperglycemia; I10 Essential (primary) hypertension; R94.31 Abnormal electrocardiogram [ECG] [EKG]; E11.621 Type 2 diabetes mellitus with foot ulcer
CPT/HCPCS: 36415; 36600; 51702; 71045; 80053; 81001; 82550; 82553; 82803; 82947; 83735; 83880; 84484; 85025; 85610; 85730; 93005; 93010; 94640; 94660; 96365; 96374; 96375; 99284; 99285; A4216; A4222; A4618; A7030; J1815; J1817; J1940; J1956; J2405; J2920; J2930; J3490; J7620

== ENCOUNTER 2017-08-02 03:24 | Emergency (ER) | payer MEDICAID ==
[2017-08-02 03:36] VITALS: BMI 39.6
[2017-08-02 03:50] LABS: ABG BASE EXCESS 3.2 mmol/L (-2.0-2.0); ABG HCO3 26.9 mmol/L (22-26)
[2017-08-02 03:51] LABS: ABG ALLEN TEST POS
[2017-08-02] MEDS ORDERED: CATAPRES TAB 0.2 MG PO ONE ×2 (04:09→04:52)
[2017-08-02] MEDS ORDERED: CATAPRES TAB 0.2 MG ONE ×2 (04:12→04:55)
[2017-08-02] MEDS ORDERED: MYLICON TAB 80 MG CHEW PO ONE (05:02)
[2017-08-02 05:07] VITALS: BP 212/81
--- NOTE | 2017-08-02 05:47 | DR.HTN ---
HPI - Time Seen Time seen: 03:40 - Primary Care Physician Primary Care Physician: ELISEO - Complaints Chief Complaint Doctors Comments: Patient was transferred from the [place] secondary to elevated blood pressure systolic of 211. She take lopressor 12.5 bid, catapress TD patch 0.3, lasix 20mg bid and apresoline 25mg TID. Patient has an oxygen requirement on CPAP. She reports that she usually gets short of breath every time she eats. She is alert in no acute distress. Chief Complaint:: GOT UP TO BATHROOM AND BECAME SHORT OF BREATH, C/O CHEST PAIN AND NOT BEING ABLE TO BREATHE PER IFTIKHAR AT [facility]. - Source History Provided: [facility] - Mode of Arrival Mode of Arrival: Stretcher - Timing Onset of Chief Complaint: 08/02/17 PMH - PMH Past Medical History: Yes Past Medical History: Arthritis, CHF, Diabetes, Hypertension Past Surgical History: Yes Surgical History: CLIMBING GUIDE Surgery - Family History History of Family Medical Conditions: Yes Family Medical History: Hypertension - Social History Does patient currently use any type of tobacco product: No Have you used tobacco products in the last 12 months: No Type of Tobacco Use: None Does any household member use tobacco: No Alcohol Use: None Do you use any recreational Drugs:: No Lives Where: [facility] - infectious screening Have you traveled outside the country in the last 6 months?: No Isolation: Standard ROS - Review of Systems Eyes: No Symptoms Reported ENTM: No Symptoms Reported Respiratoy: No Symptoms Reported Cardiovascular: No Symptoms Reported Gastrointestinal/Abdominal: No Symptoms Reported Genitourinary: No Symptoms Reported Neurological: No Symptoms Reported Musculoskeletal: No Symptoms Reported Integumentary: No Symptoms Reported Hematologic/Lymphatic: No Symptoms Reported Endocrine: No Symptoms Reported Psychiatric: No Symptoms Reported PE - Vital Signs Vitals: Temperature 97.6 F Pulse Rate [Apical] 72 Pulse Rate 73 Respiratory Rate 22 Blood Pressure [Right Calf] 183/80 Blood Pressure [Left Arm] 212/81 Blood Pressure [Right Arm] 196/79 Blood Pressure [Right Arm] 174/83 Blood Pressure 211/92 O2 Sat by Pulse Oximetry 94 - General General Appearance: Alert, In No Apparent Distress - Head Head Exam: Normal Inspection, Atraumatic - Eyes Eye exam: Normal Appearance, PERRL, EOMI Pupils: Regular, Round: Bilateral Sclera/Conjunctival: Normal Inspection: Bilateral - ENT ENT Exam: Normal Exam, Normal Oropharynx - Neck Neck Exam: Normal Inspection, Full ROM - Chest Chest Inspection: Normal Inspection - Respiratory Respiratory Exam: Normal Lung Sounds Bilat Respiratory Exam: Bilateral Clear to Auscultation - Cardiovascular Cardiovascular Exam: Regular Rate, Normal Rhythm - Abdominal Exam Abdominal Exam: Normal Inspection, Normal Bowel Sounds Abdominal Tenderness: negative: RUQ, RLQ, LUQ, LLQ, Epigastrium, Suprapubic, Diffuse, Mild, Moderate, Severe, Other - Extremities Extremities Exam: Normal Inspection, Full ROM - Back Back Exam: Normal Inspection - Neurologic Neurological Exam: Alert, Oriented X3, CN II-XII Intact Speech: Fluid Speech Cranial Nerve Exam: EOM Function (II, III, IV, ): Normal Cerebellar Function: Finger to Nose: Normal - Psychiatric Psychiatric Exam: Normal Affect, Normal Mood - Skin Skin Exam: Warm, Dry, Intact - Other Exam Other Exam: wnl Course - Treatment Treatment: Clonidine tabs to decrease systolic gradually. Continued monitoring with adjustment upward of antihypertensive medication for better control. - Reevaluation 1st: Improved ROR - Labs Reviewed Laboratory: Sample Site Right radial 08/02/17 03:45 ABG pH 7.470 (7.35-7.45) H 08/02/17 03:45 ABG pCO2 37.0 mmHg (35.0-45.0) 08/02/17 03:45 ABG pO2 54.0 mmHg (80.0-100.0) L 08/02/17 03:45 ABG HCO3 26.9 mmol/L (22-26) H 08/02/17 03:45 ABG O2 Saturation 90.0 % (90-100) 08/02/17 03:45 ABG Base Excess 3.2 mmol/L (-2.0-2.0) H 08/02/17 03:45 Rambo Test Pos 08/02/17 03:45 A-a Gradient 128.0 mmHg 08/02/17 03:45 FiO2 32.000 08/02/17 03:45 Blood Gas Comments Hannah well jts 08/02/17 03:45 - Diagnosis Discharge Problem: Uncontrolled hypertension - Discharge Plan Condition: Stable - Follow ups/Referrals Follow ups/Referrals: Jf Mckeon [Primary Care Provider] - 3 days - Instructions Instructions: Hypertension, [id number]
== END 2017-08-02 05:42 | disposition short-term general hospital (02) ==
LOC: ER 03:24
DX: R06.02 Shortness of breath (principal)
CPT/HCPCS: 36415; 36600; 71045; 80053; 82009; 82550; 82553; 82803; 83605; 83880; 84484; 85025; 85610; 85730; 87040; 93005; 93010; 94640; 96365; 96367; 96372; 96374; 99282; 99285; A4222; J0696; J1940; J2920; J7620

== ENCOUNTER 2017-08-02 10:19 | Emergency (ER) | payer MEDICAID ==
[2017-08-02 10:32] VITALS: BMI 39.4
[2017-08-02 10:45] LABS: BASOPHILS # (AUTO) 0.1 X10^3/uL (0.0-0.1); BASOPHILS % (AUTO) 0.5 % (0.2-1.0); EOSINOPHILS # (AUTO) 0.2 x10^3/uL (0.0-0.2); EOSINOPHILS % (AUTO) 1.3 % (0.9-2.9); HEMATOCRIT 24.2 % (36.0-47.0); HEMOGLOBIN 7.9 g/dL (12.0-16.0); LYMPHOCYTES # (AUTO) 1.7 X10^3/uL (1.3-2.9); LYMPHOCYTES % (AUTO) 14.1 % (21.0-51.0); MEAN CORPUSCULAR HEMOGLOBIN 26.6 pg (27.0-34.0); MEAN CORPUSCULAR HGB CONC 32.9 g/dL (33.0-35.0); MEAN CORPUSCULAR VOLUME 80.8 fL (80.0-100.0); MEAN PLATELET VOLUME 7.4 fL (7.4-11.0); MONOCYTES # (AUTO) 0.5 x10^3/uL (0.3-0.8); MONOCYTES % (AUTO) 3.8 % (0.0-13.0); NEUTROPHILS # (AUTO) 9.9 x10^3/uL (2.2-4.8); NEUTROPHILS % (AUTO) 80.3 % (42.0-75.0); PLATELET COUNT 156 X10^3/uL (150.0-450.0); RED BLOOD COUNT 2.99 X10^6/uL (3.5-5.4); RED CELL DISTRIBUTION WIDTH 17.6 % (11.6-16.5); WHITE BLOOD COUNT 12.3 X10^3/uL (3.6-10.0)
--- NOTE | 2017-08-02 10:51 | RAD ---
History: Chest pain, dyspnea Study: Portable chest, comparison 07/17/2017 Findings: Portable AP erect chest labeled 10:43 a.m. shows the cardiac silhouette to be enlarged. The pulmonary vasculature is congested. There are interstitial infiltrates bilaterally with some areas o f alveolar opacity in the right and left upper lobe. This appearance is probably related to pulmonary interstitial and alveolar edema. Underlying pneumonia or hemorrhage would be within the differential . No pleural effusion is seen. No acute osseous abnormality is evident. Impression: 1. Cardiomegaly with CHF and findings most suggestive of interstitial and alveolar pulmonary edema. 2. The differential diagnosis would include pneumonia or parenchymal hemorrhage. Reported By:
[2017-08-02 11:00] LABS: BLOOD UREA NITROGEN 34 mg/dL (7-18); CALCIUM 8.8 mg/dL (8.5-10.1); CARBON DIOXIDE 26.9 mmol/L (21-32); CHLORIDE 105 mmol/L (98-107); COR NA(FOR HYPERGLY) 142 mmol/L (136-145); CREATININE 2.03 mg/dL (0.55-1.02); HYPOCHROMASIA SLIGHT; PLATELET MORPHOLOGY COMMENT NORMAL (NORMAL); SODIUM 140 mmol/L (136-145); TROPONIN I < 0.02 ng/mL (0-1.5); eGFR BLACK RACES 33 (>60); eGFR NON BLACK RACES 27 (>60)
[2017-08-02 11:04] LABS: ALANINE AMINOTRANSFERASE 31 Units/L (12-78); ALBUMIN 2.8 g/dL (3.4-5.0); ALKALINE PHOSPHATASE 121 Units/L (46-116); ASPARTATE AMINO TRANSFERASE 23 Units/L (15-37); CKMB % 1.6 % (<4); COR CA(FOR HYPOALB) 9.8 mg/dL (8.5-10.1); CREATINE KINASE 63 Units/L (26-192); TOTAL PROTEIN 7.2 g/dL (6.4-8.2)
[2017-08-02] MEDS ORDERED: LASIX IVP ONE ×2 (11:45→12:06)
--- NOTE | 2017-08-02 11:49 | DR.SOBA ---
HPI - Time Seen Time seen: 10:35 - Primary Care Physician Primary Care Physician: victoria - HPI Comment HPI Comment: WAS SEEN IN ED SEVERAL HOURS AGO. RETURN WITH INCREASING SOB AND CHEST FULLNESS. SHE IS WEAK AND DIZZY. HAVING HEAD ACHE WELL. COUGHING WITH PRODUCTIVE SPUTUM NO FEVER. BP ELEVATED IN ED. GLUCOSE NOT LOW. - Complaints Chief Complaint Doctors Comments: INCREASING SOB AND CHEST PAIN. HERE FROM [place]. Chief Complaint:: therese brought patient over due to pt c/o of her chest full with shallow and rapid respirations. - Reviewed Nurses Notes Reviewed: Yes - Source History Provided: [facility] - Mode of Arrival Mode of Arrival: Stretcher - Timing Onset of Chief Complaint: 08/02/17 - Duration Duration: Days - Context Onset:: At Rest PE Risk Factors:: None History of:: COPD, CHF - Modifying Factors Worsens:: Exertion Improves:: Nothing - Associated Signs and Symptoms Associated Signs and Symptoms: Wheeze, Cough, Chest Pain, Leg Swelling - If Chest Pain Quality: Other (FULLNESS) Location: Left Lower Chest, Substernal - If Cough Cough: Productive PMH - PMH Past Medical History: Yes Past Medical History: Arthritis, CHF, Diabetes, Hypertension Past Surgical History: Yes 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 - Family History History of Family Medical Conditions: Yes Family Medical History: Hypertension - Social History Does patient currently use any type of tobacco product: No Have you used tobacco products in the last 12 months: No Type of Tobacco Use: None Does any household member use tobacco: No Alcohol Use: None Do you use any recreational Drugs:: No Lives With: Other Lives Where: [facility] - infectious screening In the last 2 months have you had wt loss of >10#?: NO Have you had fever, night sweats or hemotysis?: No Have you traveled outside the country in the last 6 months?: No Isolation: Standard ROS - Review of Systems Constitutional: Weakness, Fatigue. negative: Chills, Fever Eyes: negative: Eye Pain, Discharge ENTM: negative: Ear Pain, Nose Discharge, Nose Congestion, Throat Pain Respiratoy: Productive Cough, Short of Breath, Wheezing. negative: Hemoptysis Cardiovascular: Chest Pain, Edema Gastrointestinal/Abdominal: No Symptoms Reported. negative: Abdominal Pain, Diarrhea, Nausea, Vomiting Genitourinary: negative: Dysuria, Hematuria Neurological: Headache, Weakness, Dizziness Musculoskeletal: Muscle Pain Integumentary: Change in Color Hematologic/Lymphatic: Anemia, Easy Bleeding Endocrine: Increased Thirst, Increased Urine. negative: Flushing All Other Systems: Reviewed and Negative PE - Vital Signs Vitals: Temperature 99.4 F Pulse Rate [Left Brachial] 67 Pulse Rate 73 Respiratory Rate 27 Blood Pressure [Right Calf] 183/80 Blood Pressure [Left Arm] 166/72 Blood Pressure [Right Arm] 196/79 Blood Pressure [Right Arm] 174/83 Blood Pressure 225/98 O2 Sat by Pulse Oximetry 95 - General Limitations: No Limitations General Appearance: Alert, In Distress - Head Head Exam: Normal Inspection - Eyes Eye exam: Normal Appearance - ENT ENT Exam: Normal External Ear Exam - Neck Neck Exam: Trachea Midline - Chest Chest Inspection: Symmetric Chest Wall Rise - Respiratory Respiratory Exam: Respiratory Distress Respiratory Exam: Bilateral Wheezing, Bilateral Rhonchi, Upper Wheezing, Lower Wheezing, Lower Rhonchi - Cardiovascular Cardiovascular Exam: Regular Rate, Normal Rhythm, Normal Heart Sounds - Abdominal Exam Abdominal Exam: Normal Bowel Sounds, Soft. negative: Tenderness - Extremities Extremities Exam: Edema - Back Back Exam: Normal Inspection - Neurologic Neurological Exam: Alert, Oriented X3 - Psychiatric Psychiatric Exam: Anxious - Skin Skin Exam: Erythema MDM - Additional Information Obtained Additional Information Obtained From: Family - Differential Diagnosis Differential Diagnosis: CHF, COPD, Hypertensive Emergency, Mycardial Infarction , Pneumonia, Pneumothorax, Respiratory Failure, Other (PULMONARY EDEMA.) Course - Treatment Treatment: SEE ORDERS. IV LASIX IN ED. - Consultation Consultation Comments: DISCUSS PATIENT WITH DR. SELLERS AT [facility]. HE ACCEPTED PATIENT FOR TRANSFER. - Education/Counseling Education/Counseling: Patient, Family, Education Educated On: Diagnosis ROR - Labs Reviewed Laboratory Results Reviewed?: Yes Result Diagrams: 08/02/17 10:37 08/02/17 10:37 Laboratory: WBC 12.3 X10^3/uL (3.6-10.0) H 08/02/17 10:37 RBC 2.99 X10^6/uL (3.5-5.4) L 08/02/17 10:37 Hgb 7.9 g/dL (12.0-16.0) L 08/02/17 10:37 Hct 24.2 % (36.0-47.0) L 08/02/17 10:37 MCV 80.8 fL (80.0-100.0) 08/02/17 10:37 MCH 26.6 pg (27.0-34.0) L 08/02/17 10:37 MCHC 32.9 g/dL (33.0-35.0) L 08/02/17 10:37 RDW 17.6 % (11.6-16.5) H 08/02/17 10:37 Plt Count 156 X10^3/uL (150.0-450.0) 08/02/17 10:37 Plt Count Comment Adequate (ADEQUATE) 08/02/17 10:37 MPV 7.4 fL (7.4-11.0) 08/02/17 10:37 Neut % 80.3 % (42.0-75.0) H 08/02/17 10:37 Lymph % 14.1 % (21.0-51.0) L 08/02/17 10:37 [place] % 3.8 % (0.0-13.0) 08/02/17 10:37 Eos % 1.3 % (0.9-2.9) 08/02/17 10:37 Baso % 0.5 % (0.2-1.0) 08/02/17 10:37 Neut # 9.9 x10^3/uL (2.2-4.8) H 08/02/17 10:37 Lymph # 1.7 X10^3/uL (1.3-2.9) 08/02/17 10:37 [place] # 0.5 x10^3/uL (0.3-0.8) 08/02/17 10:37 Eos # 0.2 x10^3/uL (0.0-0.2) 08/02/17 10:37 Baso # 0.1 X10^3/uL (0.0-0.1) 08/02/17 10:37 Absolute Nucleated RBC 0.0 /100WBC 08/02/17 10:37 Plt Morphology Comment Normal (NORMAL) 08/02/17 10:37 RBC Morphology Abnormal (NORMAL) A 08/02/17 10:37 Hypochromasia Slight A 08/02/17 10:37 INR Target Range - 08/02/17 10:37 INR 1.05 (0.8-1.3) 08/02/17 10:37 PTT 34.3 SECONDS (22.9-36.5) 08/02/17 10:37 PTT Comment - 08/02/17 10:37 Sample Site Lba 08/02/17 12:00 ABG pH 7.480 (7.35-7.45) H 08/02/17 12:00 ABG pCO2 38.0 mmHg (35.0-45.0) 08/02/17 12:00 ABG pO2 65.0 mmHg (80.0-100.0) L 08/02/17 12:00 ABG HCO3 28.3 mmol/L (22-26) H 08/02/17 12:00 ABG O2 Saturation 94.0 % (90-100) 08/02/17 12:00 ABG Base Excess 4.6 mmol/L (-2.0-2.0) H 08/02/17 12:00 Rambo Test Na 08/02/17 12:00 A-a Gradient 87.0 mmHg 08/02/17 12:00 FiO2 28.000 08/02/17 12:00 Blood Gas Comments Hannah well cs 08/02/17 12:00 Sodium 140 mmol/L (136-145) 08/02/17 10:37 Corrected Sodium 142 mmol/L (136-145) 08/02/17 10:37 Potassium 4.3 mmol/L (3.5-5.1) 08/02/17 10:37 Chloride 105 mmol/L (98-107) 08/02/17 10:37 Carbon Dioxide 26.9 mmol/L (21-32) 08/02/17 10:37 BUN 34 mg/dL (7-18) H 08/02/17 10:37 Creatinine 2.03 mg/dL (0.55-1.02) H 08/02/17 10:37 Est GFR (MDRD) Af Amer 33 (>60) L 08/02/17 10:37 Est GFR (MDRD) Non-Af 27 (>60) L 08/02/17 10:37 Glucose 185 mg/dL (65-99) H 08/02/17 10:37 Lactic Acid 0.7 mmol/L (0.4-2.0) 08/02/17 11:55 Calcium 8.8 mg/dL (8.5-10.1) 08/02/17 10:37 Corrected Calcium 9.8 mg/dL (8.5-10.1) 08/02/17 10:37 Total Bilirubin 0.80 mg/dL (0.2-1.0) 08/02/17 10:37 AST 23 Units/L (15-37) 08/02/17 10:37 ALT 31 Units/L (12-78) 08/02/17 10:37 Alkaline Phosphatase 121 Units/L (46-116) H 08/02/17 10:37 Creatine Kinase 63 Units/L (26-192) 08/02/17 10:37 CK-MB (CK-2) 1.0 ng/mL (0-4.0) 08/02/17 10:37 CK/CKMB % Calc 1.6 % (<4) 08/02/17 10:37 Troponin I < 0.02 ng/mL (0-1.5) 08/02/17 10:37 B-Natriuretic Peptide 719 pg/mL (0-79) H* 08/02/17 10:37 Total Protein 7.2 g/dL (6.4-8.2) 08/02/17 10:37 Albumin 2.8 g/dL (3.4-5.0) L 08/02/17 10:37 Globulin 4.4 g/dL (2.5-4.5) 08/02/17 10:37 Albumin/Globulin Ratio 0.6 Ratio (1.1-2.1) L 08/02/17 10:37 Acetone, Semi-Quant Negative (NEGATIVE) 08/02/17 10:37 - XRAY XRAY Interpreted by: Radiologist XRAY Findings: REPORT DISCUSS WITH PATIENT AND HER MOTHER. - EKG Rhythm: NSR (EKG NOTED) - Diagnosis Discharge Problem: CHF (congestive heart failure) Qualifiers: Congestive heart failure type: combined Congestive heart failure chronicity: acute on chronic Qualified Code(s): I50.43 - Acute on chronic combined systolic (congestive) and diastolic (congestive) heart failure COPD (chronic obstructive pulmonary disease) Qualifiers: COPD type: COPD with acute exacerbation Qualified Code(s): J44.1 - Chronic obstructive pulmonary disease with (acute) exacerbation Hypertension Qualifiers: Hypertension type: essential hypertension Qualified Code(s): I10 - Essential ( primary) hypertension Anemia Qualifiers: Anemia type: unspecified type Qualified Code(s): D64.9 - Anemia, unspecified - Discharge Plan Disposition: 02 XFER [facility] HOSP Condition: Stable - Follow ups/Referrals Follow ups/Referrals: Jf Mckeon [Primary Care Provider] - 3 days - Instructions
[2017-08-02] MEDS ORDERED: ROCEPHIN 1 GM IV PREMIX 1 GM/50 ML IV.SOLN. IV ONE (11:52)
[2017-08-02 12:07] LABS: ABG BASE EXCESS 4.6 mmol/L (-2.0-2.0); ABG HCO3 28.3 mmol/L (22-26)
[2017-08-02] MEDS ORDERED: NIFEDIPINE CAP 10 MG PO ONE (12:18)
[2017-08-02] MEDS ORDERED: NIFEDIPINE CAP 10 MG ONE (12:23)
[2017-08-02] MEDS ORDERED: ROCEPHIN VIAL 1 GM ONE (12:24)
[2017-08-02] MEDS ORDERED: DUONEB 0.5 MG/3 MG NEB ONE (12:27)
[2017-08-02] MEDS ORDERED: SOLU-Medrol 40 MG VIAL IVP ONE (12:28)
[2017-08-02] MEDS ORDERED: SOLU-Medrol 40 MG VIAL ONE (12:37)
[2017-08-02] MEDS ORDERED: DUONEB 0.5 MG/3 MG ONE (12:41)
[2017-08-02 13:24] VITALS: BP 166/72
== END 2017-08-02 13:28 | disposition short-term general hospital (02) ==
LOC: ER 10:19
DX: I50.43 Acute on chronic combined systolic (congestive) and diastolic (congestive) heart failure (principal); J44.1 Chronic obstructive pulmonary disease with (acute) exacerbation; I10 Essential (primary) hypertension; D64.89 Other specified anemias
CPT/HCPCS: 36415; 36600; 71045; 80053; 82009; 82550; 82553; 82803; 83605; 83880; 84484; 85025; 85610; 85730; 87040; 93005; 93010; 94640; 96365; 96367; 96372; 96374; 99285; J0696; J1940; J2920; J7620

== ENCOUNTER → 2017-08-28 | Outpatient (CLI) | payer MEDICAID ==
[2017-08-02 13:24] VITALS: BP 166/72
[2017-08-28 11:06] LABS: ALANINE AMINOTRANSFERASE 29 Units/L (12-78); ALBUMIN 3.3 g/dL (3.4-5.0); ALKALINE PHOSPHATASE 91 Units/L (46-116); ASPARTATE AMINO TRANSFERASE 23 Units/L (15-37); BLOOD UREA NITROGEN 33 mg/dL (7-18); CALCIUM 8.6 mg/dL (8.5-10.1); CHLORIDE 109 mmol/L (98-107); CHOL/HDL RATIO 2.7 (0.0-5.0); CHOLESTEROL 147 mg/dL (0-200); COR CA(FOR HYPOALB) 9.2 mg/dL (8.5-10.1); CREATININE 1.93 mg/dL (0.55-1.02); HDL CHOLESTEROL 54 mg/dL (40-60); SODIUM 145 mmol/L (136-145); TOTAL PROTEIN 7.7 g/dL (6.4-8.2); TRIGLYCERIDES 88 mg/dL (0-150); eGFR BLACK RACES 35 (>60); eGFR NON BLACK RACES 29 (>60)
[2017-08-28 11:12] LABS: BASOPHILS % (AUTO) 0.4 % (0.2-1.0); EOSINOPHILS # (AUTO) 0.2 x10^3/uL (0.0-0.2); EOSINOPHILS % (AUTO) 2.6 % (0.9-2.9); HEMATOCRIT 29.9 % (36.0-47.0); HEMOGLOBIN 9.8 g/dL (12.0-16.0); LYMPHOCYTES # (AUTO) 3.1 X10^3/uL (1.3-2.9); LYMPHOCYTES % (AUTO) 37.5 % (21.0-51.0); MEAN CORPUSCULAR HEMOGLOBIN 27.2 pg (27.0-34.0); MEAN CORPUSCULAR HGB CONC 32.9 g/dL (33.0-35.0); MEAN CORPUSCULAR VOLUME 82.8 fL (80.0-100.0); MEAN PLATELET VOLUME 7.8 fL (7.4-11.0); MONOCYTES # (AUTO) 0.5 x10^3/uL (0.3-0.8); MONOCYTES % (AUTO) 6.3 % (0.0-13.0); NEUTROPHILS # (AUTO) 4.4 x10^3/uL (2.2-4.8); NEUTROPHILS % (AUTO) 53.2 % (42.0-75.0); PLATELET COUNT 233 X10^3/uL (150.0-450.0); RED BLOOD COUNT 3.62 X10^6/uL (3.5-5.4); RED CELL DISTRIBUTION WIDTH 17.5 % (11.6-16.5); WHITE BLOOD COUNT 8.3 X10^3/uL (3.6-10.0)
[2017-08-28 11:22] LABS: CREATININE,URINE 149.14 mg/dL (29-226)
[2017-08-28 11:35] LABS: MICROALBUM/CREATININE RATIO,UR 1341 mg/g cre (0-29); MICROALBUMIN,URINE > 2000.0 mg/L
== END ==
LOC: LAB 09:58
PROVIDERS: ATTEND Nurse Practitioner Family
DX: E78.4 Other hyperlipidemia (principal); E11.9 Type 2 diabetes mellitus without complications
CPT/HCPCS: 36415; 80053; 80061; 82043; 83036; 85025

== ENCOUNTER → 2017-09-06 | Outpatient (CLI) | payer MEDICAID ==
--- NOTE | 2017-09-07 10:20 | MG ---
HISTORY: SCREENING Comparison: Previous mammograms dated 09/01/2016 and 06/13/2013 FINDINGS: Bilateral CC and MLO projections of the right and left breast were obtained. Scattered fibroglandula r tissue is seen to be present. No significant architectural distortion, mass or clustered microcalc ifications can be observed to suggest malignancy. No skin thickening or nipple retraction is appreci ated. No pathological lymphadenopathy can be identified. Benign-appearing calcifications scattered throughout the right and left breasts are observed. IMPRESSION: NO RADIOGRAPHIC EVIDENCE OF MALIGNANCY. ACR CATEGORY: 2 - benign findings. FOLLOW-UP EXAM 1 YEAR. Diagnostic CAD was utilized and reviewed. * 0 (ZERO) - ASSESSMENT INCOMPLETE; ADDITIONAL IMAGING IS NEEDED. * 1/1 (ONE) - NEGATIVE. * 2/II (TWO) - BENIGN FINDINGS. * 3/III (THREE) - PROBABLY BENIGN FINDING; SHORT INTERVAL FOLLOW-UP SUGGESTED. * 4/IV (FOUR) - SUSPICIOUS ABNORMALITY; BIOPSY SHOULD BE CONSIDERED. * 5/V - HIGHLY SUSPICIOUS OF MALIGNANCY; BIOPSY SHOULD BE PERFORMED. A NEGATIVE X-RAY REPORT SHOULD NOT DELAY BIOPSY IF A DOMINANT OR CLINICALLY SUSPICIOUS MASS IS PRESENT; 4 TO 8 PERCENT OF CANCERS ARE NOT IDENTIFIED BY X-RAY. A NEGA TIVE REPORT MAY REINFORCE THE CLINICAL IMPRESSION. ADENOSIS AND DENSE BREASTS MAY OBSCURE AN UNDERLY ING NEOPLASM. Reported By:
== END ==
LOC: RAD 13:59
PROVIDERS: ATTEND Nurse Practitioner Family
DX: Z12.31 Encounter for screening mammogram for malignant neoplasm of breast (principal)
CPT/HCPCS: 77067

== ENCOUNTER → 2017-09-11 | Outpatient (CLI) | payer MEDICAID ==
[2017-09-11 13:06] LABS: ALBUMIN 3.3 g/dL (3.4-5.0); CALCIUM 8.5 mg/dL (8.5-10.1); CARBON DIOXIDE 28.9 mmol/L (21-32); COR CA(FOR HYPOALB) 9.1 mg/dL (8.5-10.1); CREATININE 2.08 mg/dL (0.55-1.02); PHOSPHORUS 3.3 mg/dL (2.6-4.7)
--- NOTE | 2017-09-12 10:54 | RAD ---
HISTORY: Chronic low back pain and bilateral radiculopathy Study: Five views lumbar spine Comparison: June 02, 2017 Findings: There is preservation of vertebral body height and alignment. No destructive osseous lesions are seen . There is mild lower lumbar discogenic degenerative disease and facet arthropathy. Cholecystectomy c lips are noted. There is a transitional 5th lumbar vertebrae. IMPRESSION: Mild lumbar spondylosis. Reported By:
== END ==
LOC: LAB 12:22
PROVIDERS: ATTEND Nurse Practitioner Family
DX: I10 Essential (primary) hypertension (principal); M54.5 Low back pain; M47.896 Other spondylosis, lumbar region
CPT/HCPCS: 36415; 72110; 80069

== ENCOUNTER 2017-09-26 16:56 | Emergency (ER) | payer MEDICAID ==
[2017-09-26 17:07] VITALS: BMI 32.9
--- NOTE | 2017-09-26 17:07 | DR.GENAD ---
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 negative: Productive Cough, Wheezing, Hemoptysis Cardiovascular: Edema (TRACE EDEMA ANKLE) Gastrointestinal/Abdominal: No Symptoms Reported Genitourinary: No Symptoms Reported Neurological: Pre-existing Deficit, Problems Walking Musculoskeletal: No Symptoms Reported Integumentary: No Symptoms Reported Hematologic/Lymphatic: No Symptoms Reported Endocrine: negative: Flushing All Other Systems: Reviewed and Negative PE - Vital Signs Vitals: Temperature 98.8 F Pulse Rate 66 Respiratory Rate 20 Blood Pressure [Right Calf] 183/80 Blood Pressure [Left Arm] 194/90 Blood Pressure [Right Arm] 196/79 Blood Pressure [Right Arm] 174/83 Blood Pressure 143/74 O2 Sat by Pulse Oximetry 99 - General Limitations: No Limitations General Appearance: Alert - Head Head Exam: Normal Inspection - Eyes Eye exam: Normal Appearance - ENT ENT Exam: Normal External Ear Exam External Ear Exam: Normal External Inspection TM/Canal Exam: Bilateral Normal Nose Exam: Normal Nose Exam Mouth Exam: Normal Inspection Throat Exam: Normal Inspection - Neck Neck Exam: Trachea Midline - Chest Chest Inspection: Symmetric Chest Wall Rise - Respiratory Respiratory Exam: Normal Lung Sounds Bilat Respiratory Exam: Bilateral Rhonchi, Lower Rhonchi - Cardiovascular Cardiovascular Exam: Regular Rate, Normal Rhythm, Normal Heart Sounds - Abdominal Exam Abdominal Exam: Normal Bowel Sounds, Soft. negative: Tenderness - Extremities Extremities Exam: Normal Inspection - Back Back Exam: Normal Inspection - Neurologic Neurological Exam: Alert, Oriented X3 - Psychiatric Psychiatric Exam: Normal Affect, Normal Mood - Skin Skin Exam: Normal Color MDM - Differential Diagnosis Differential Diagnosis: HYPERGLYCEMIA, HYPERTENSION Course - Treatment Treatment: SEE ORDERS. - Education/Counseling Education/Counseling: Patient, Education Educated On: Diagnosis, Needs for Follow Up ROR - Labs Reviewed Laboratory Results Reviewed?: Yes Result Diagrams: 09/26/17 17:27 09/26/17 17:27 Laboratory: WBC 9.2 X10^3/uL (3.6-10.0) 09/26/17 17: RBC 3.88 X10^6/uL (3.5-5.4) 09/26/17 17: Hgb 10.4 g/dL (12.0-16.0) L 09/26/17 17: Hct 31.4 % (36.0-47.0) L 09/26/17 17: MCV 80.8 fL (80.0-100.0) 09/26/17 17: MCH 26.8 pg (27.0-34.0) L 09/26/17: MCHC 33.2 g/dL (33.0-35.0) 09/26/17: RDW 17.2 % (11.6-16.5) H 09/26/17: Plt Count 238 X10^3/uL (150.0-450.0) 09/26/17: MPV 7.4 fL (7.4-11.0) 09/26/17 17: Neut % (Auto) 54.4 % (42.0-75.0) 09/26/17 17: Lymph % (Auto) 36.0 % (21.0-51.0) 09/26/17 17: [place] % (Auto) 6.4 % (0.0-13.0) 09/26/17 17: Eos % (Auto) 2.5 % (0.9-2.9) 09/26/17: Baso % (Auto) 0.7 % (0.2-1.0) 09/26/17: Neut # (Auto) 5.0 x10^3/uL (2.2-4.8) H 09/26/17 17: Lymph # (Auto) 3.3 X10^3/uL (1.3-2.9) H 09/26/17 17: [place] # (Auto) 0.6 x10^3/uL (0.3-0.8) 09/26/17 17: Eos # (Auto) 0.2 x10^3/uL (0.0-0.2) 04/03/18 17:27 Baso # (Auto) 0.1 X10^3/uL (0.0-0.1) 09/26/17 17:27 Absolute Nucleated RBC 0.0 /100WBC 09/26/17 17:27 Sodium 143 mmol/L (136-145) 09/26/17 17:27 Corrected Sodium 147 mmol/L (136-145) H 09/26/17 17:27 Potassium 3.6 mmol/L (3.5-5.1) 09/26/17 17:27 Chloride 106 mmol/L (98-107) 09/26/17 17:27 Carbon Dioxide 29.8 mmol/L (21-32) 09/26/17 17:27 BUN 31 mg/dL (7-18) H 09/26/17 17:27 Creatinine 2.45 mg/dL (0.55-1.02) H 09/26/17 17:27 Est GFR (MDRD) Af Amer 27 (>60) L 09/26/17 17:27 Est GFR (MDRD) Non-Af 22 (>60) L 09/26/17 17:27 Glucose 249 mg/dL (65-99) H 09/26/17 17:27 Calcium 8.2 mg/dL (8.5-10.1) L 09/26/17 17:27 Corrected Calcium 9.0 mg/dL (8.5-10.1) 09/26/17 17:27 Total Bilirubin 0.10 mg/dL (0.2-1.0) L 09/26/17 17:27 AST 41 Units/L (15-37) H 09/26/17 17:27 ALT 65 Units/L (12-78) 09/26/17 17:27 Alkaline Phosphatase 143 Units/L (46-116) H 09/26/17 17:27 Total Protein 7.3 g/dL (6.4-8.2) 09/26/17 17:27 Albumin 3.0 g/dL (3.4-5.0) L 09/26/17 17:27 Globulin 4.3 g/dL (2.5-4.5) 09/26/17 17:27 Albumin/Globulin Ratio 0.7 Ratio (1.1-2.1) L 09/26/17 17:27 Specimen Type Clean catch urine 09/26/17 17:49 Urine Color Yellow (YELLOW) 09/26/17 17:49 Urine Appearance Clear (CLEAR) 09/26/17 17:49 Urine pH 6.0 (5.0 - 8.0) 09/26/17 17:49 Ur Specific [place] 1.015 (1.000-1.030) 09/26/17 17:49 Urine Protein 4+ (NEGATIVE) 09/26/17 17:49 Urine Glucose (UA) 2+ (NEGATIVE) 09/26/17 17:49 Urine Ketones Negative (NEGATIVE) 09/26/17 17:49 Urine Occult Blood 1+ (NEGATIVE) 09/26/17 17:49 Urine Nitrite Negative (NEGATIVE) 09/26/17 17:49 Urine Bilirubin Negative (NEGATIVE) 09/26/17 17:49 Urine Urobilinogen Normal (NORMAL) 09/26/17 17:49 Ur Leukocyte Esterase Negative (NEGATIVE) 09/26/17 17:49 Urine RBC 0-2 /HPF (NONE SEEN) 09/26/17 17:49 Urine WBC 3-5 /HPF (NONE SEEN) 09/26/17 17:49 Ur Squamous Epith Cells Few /HPF (NEGATIVE) 09/26/17 17:49 Urine Bacteria Trace /HPF (NEGATIVE) 09/26/17 17:49 Ur Culture Indicated? No/not indicated 09/26/17 17:49 Acetone, Semi-Quant Negative (NEGATIVE) 09/26/17 17:27 - Diagnosis Discharge Problem: Hyperglycemia Hypertension Qualifiers: Hypertension type: essential hypertension Qualified Code(s): I10 - Essential ( primary) hypertension - Discharge Plan Disposition: 01 HOME, SELF-CARE Condition: Stable - Follow ups/Referrals Follow ups/Referrals: Jf Mckeon [Primary Care Provider] - 3 days - Instructions Instructions: Hyperglycemia, [id number], Hypertension, [id number] Additional Instructions: RETURN TO ED IF WORSE.
[2017-09-26] MEDS ORDERED: NIFEDIPINE CAP 10 MG PO ONE (17:16)
[2017-09-26] MEDS ORDERED: NIFEDIPINE CAP 10 MG ONE (17:21)
[2017-09-26 17:35] LABS: BASOPHILS # (AUTO) 0.1 X10^3/uL (0.0-0.1); BASOPHILS % (AUTO) 0.7 % (0.2-1.0); EOSINOPHILS # (AUTO) 0.2 x10^3/uL (0.0-0.2); EOSINOPHILS % (AUTO) 2.5 % (0.9-2.9); HEMATOCRIT 31.4 % (36.0-47.0); HEMOGLOBIN 10.4 g/dL (12.0-16.0); LYMPHOCYTES # (AUTO) 3.3 X10^3/uL (1.3-2.9); MEAN CORPUSCULAR HEMOGLOBIN 26.8 pg (27.0-34.0); MEAN CORPUSCULAR HGB CONC 33.2 g/dL (33.0-35.0); MEAN CORPUSCULAR VOLUME 80.8 fL (80.0-100.0); MEAN PLATELET VOLUME 7.4 fL (7.4-11.0); MONOCYTES # (AUTO) 0.6 x10^3/uL (0.3-0.8); MONOCYTES % (AUTO) 6.4 % (0.0-13.0); NEUTROPHILS % (AUTO) 54.4 % (42.0-75.0); PLATELET COUNT 238 X10^3/uL (150.0-450.0); RED BLOOD COUNT 3.88 X10^6/uL (3.5-5.4); RED CELL DISTRIBUTION WIDTH 17.2 % (11.6-16.5); WHITE BLOOD COUNT 9.2 X10^3/uL (3.6-10.0)
[2017-09-26 17:49] LABS: CALCIUM 8.2 mg/dL (8.5-10.1); CARBON DIOXIDE 29.8 mmol/L (21-32); CREATININE 2.45 mg/dL (0.55-1.02); TOTAL PROTEIN 7.3 g/dL (6.4-8.2)
[2017-09-26 17:54] LABS: BILIRUBIN,URINE NEGATIVE (NEGATIVE); BLOOD/HEMOGLOBIN,URINE 1+ (NEGATIVE); GLUCOSE, URINE 2+ (NEGATIVE); KETONES,URINE NEGATIVE (NEGATIVE); LEUKOCYTE ESTERASE ,URINE NEGATIVE (NEGATIVE); NITRITES,URINE NEGATIVE (NEGATIVE); PROTEIN,URINE 4+ (NEGATIVE); UROBILINOGEN,URINE NORMAL (NORMAL)
[2017-09-26 17:58] LABS: APPEARANCE,URINE CLEAR (CLEAR); COLOR,URINE YELLOW (YELLOW); RBC,URINE 0-2 /HPF (NONE SEEN)
[2017-09-26 17:59] LABS: BACTERIA,URINE TRACE /HPF (NEGATIVE); SQUAMOUS EPITHELIAL CELL,UR FEW /HPF (NEGATIVE)
[2017-09-26 19:34] VITALS: BP 194/90
== END 2017-09-26 19:43 | disposition home or self-care (01) ==
LOC: ER 16:56
DX: R73.9 Hyperglycemia, unspecified (principal); I10 Essential (primary) hypertension
CPT/HCPCS: 36415; 80053; 81001; 82009; 85025; 99283

== ENCOUNTER → 2017-10-12 | Outpatient (CLI) | payer MEDICAID ==
[2017-09-26 19:34] VITALS: BP 194/90
--- NOTE | 2017-10-12 18:18 | RAD ---
HISTORY: Acute abdominal pain Study: PA chest with supine and upright abdominal views Comparison: AP portable chest 08/02/2017 Findings: The lungs are clear. [id number] cardiomegaly is present. No acute bony abnormalities are iden tified. Examination of the abdomen demonstrates scattered large and small bowel gas. I see no evidence of ebony wel obstruction or pneumoperitoneum. No acute bony abnormalities are identified. The patient appear s to be status post cholecystectomy. IMPRESSION: 1. Cardiomegaly without evidence of failure. 2. No evidence of bowel obstruction or pneumoperitoneum. Reported By:
== END | disposition home or self-care (01) | DRG 392 ==
LOC: LAB 16:27
PROVIDERS: ATTEND Nurse Practitioner Family
DX: R10.9 Unspecified abdominal pain (principal); I51.7 Cardiomegaly
CPT/HCPCS: 36415; 74022; 86677

== ENCOUNTER 2017-10-24 20:20 | Emergency (ER) | payer MEDICAID ==
--- NOTE | 2017-10-24 20:40 | DR.GENAD ---
HPI - Complaint/Symptoms Chief Complaint Doctors Comments: Patient presented to the ED via EMS status post being found unresponsive at home when a neighbor tried to get in touch with her and had EMS to contact her. She was unresponsive according to EMS. She would make groaning noised with sternal rub. 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 - Family History Family Medical History: Hypertension - Social History Do you use any recreational Drugs:: No ROS - Review of Systems Eyes: No Symptoms Reported ENTM: No Symptoms Reported Respiratoy: No Symptoms Reported Cardiovascular: No Symptoms Reported Gastrointestinal/Abdominal: No Symptoms Reported Genitourinary: No Symptoms Reported Neurological: No Symptoms Reported Musculoskeletal: No Symptoms Reported Integumentary: No Symptoms Reported Hematologic/Lymphatic: No Symptoms Reported Endocrine: No Symptoms Reported Psychiatric: No Symptoms Reported All Other Systems: Reviewed and Negative PE - Vital Signs Vitals: Temperature 98.2 F Pulse Rate [Left Radial] 89 Pulse Rate 74 Respiratory Rate 12 Blood Pressure [Right Calf] 183/80 Blood Pressure [Left Arm] 204/83 Blood Pressure [Right Arm] 196/79 Blood Pressure [Right Arm] 174/83 Blood Pressure 120/74 O2 Sat by Pulse Oximetry 100 - General Limitations: No Limitations General Appearance: Alert - Head Head Exam: Normal Inspection, Atraumatic - Eyes Eye exam: Normal Appearance, Mydrasis - ENT ENT Exam: Normal Exam External Ear Exam: Normal External Inspection TM/Canal Exam: Bilateral Normal Nose Exam: Normal Nose Exam Mouth Exam: Normal Inspection Throat Exam: Normal Inspection - Neck Neck Exam: Normal Inspection - Chest Chest Inspection: Normal Inspection - Respiratory Respiratory Exam: Normal Lung Sounds Bilat Respiratory Exam: Bilateral Clear to Auscultation - Cardiovascular Cardiovascular Exam: Regular Rate, Normal Rhythm - Abdominal Exam Abdominal Exam: Normal Inspection, Normal Bowel Sounds Abdominal Tenderness: RUQ, RLQ, LUQ, LLQ, Epigastrium, Suprapubic, Diffuse, Mild , Moderate, Severe, Other - Extremities Extremities Exam: Normal Inspection, Full ROM - Back Back Exam: Normal Inspection - Neurologic Neurological Exam: Alert - Skin Skin Exam: Warm, Dry, Intact Course - Reevaluation 1st: Unchanged - Consultation Called: 22:05 (Dr Austin accepted patient conditionally) Consultation Comments: Ammonia level/intubation ROR - Labs Reviewed Result Diagrams: 10/24/17 20:35 10/24/17 20:35 Laboratory: WBC 15.7 X10^3/uL (3.6-10.0) H 10/24/17 20:35 RBC 5.21 X10^6/uL (3.5-5.4) 10/24/17 20:35 Hgb 14.1 g/dL (12.0-16.0) 10/24/17 20:35 Hct 42.7 % (36.0-47.0) 10/24/17 20:35 MCV 81.9 fL (80.0-100.0) 10/24/17 20:35 MCH 27.1 pg (27.0-34.0) 10/24/17 20:35 MCHC 33.1 g/dL (33.0-35.0) 10/24/17 20:35 RDW 17.2 % (11.6-16.5) H 10/24/17 20:35 Plt Count 263 X10^3/uL (150.0-450.0) 10/24/17 20:35 MPV 8.3 fL (7.4-11.0) 10/24/17 20:35 Neut % (Auto) 77.1 % (42.0-75.0) H 10/24/17 20:35 Lymph % (Auto) 14.0 % (21.0-51.0) L 10/24/17 20:35 [place] % (Auto) 8.1 % (0.0-13.0) 10/24/17 20:35 Eos % (Auto) 0.1 % (0.9-2.9) L 10/24/17 20:35 Baso % (Auto) 0.7 % (0.2-1.0) 10/24/17 20:35 Neut # (Auto) 12.1 x10^3/uL (2.2-4.8) H 10/24/17 20:35 Lymph # (Auto) 2.2 X10^3/uL (1.3-2.9) 10/24/17 20:35 [place] # (Auto) 1.3 x10^3/uL (0.3-0.8) H 10/24/17 20:35 Eos # (Auto) 0.0 x10^3/uL (0.0-0.2) 10/24/17 20:35 Baso # (Auto) 0.1 X10^3/uL (0.0-0.1) 10/24/17 20:35 Absolute Nucleated RBC 0.1 /100WBC 10/24/17 20:35 Sample Site Right radial 10/24/17 21:07 ABG pH 7.480 (7.35-7.45) H 10/24/17 21:07 ABG pCO2 43.0 mmHg (35.0-45.0) 10/24/17 21:07 ABG pO2 133.0 mmHg (80.0-100.0) H 10/24/17 21:07 ABG HCO3 32.0 mmol/L (22-26) H* 10/24/17 21:07 ABG O2 Saturation 99.0 % (90-100) 10/24/17 21:07 ABG Base Excess 7.6 mmol/L (-2.0-2.0) H 10/24/17 21:07 Rambo Test Pos 10/24/17 21:07 A-a Gradient 13.0 mmHg 10/24/17 21:07 FiO2 28.000 10/24/17 21:07 Blood Gas Comments Hannah well jts 10/24/17 21:07 Sodium 148 mmol/L (136-145) H 10/24/17 20:35 Corrected Sodium 153 mmol/L (136-145) H 10/24/17 20:35 Potassium 3.9 mmol/L (3.5-5.1) 10/24/17 20:35 Chloride 106 mmol/L (98-107) 10/24/17 20:35 Carbon Dioxide 31.3 mmol/L (21-32) 10/24/17 20:35 BUN 93 mg/dL (7-18) H 10/24/17 20:35 Creatinine 3.40 mg/dL (0.55-1.02) H 10/24/17 20:35 Est GFR (MDRD) Af Amer 18 (>60) L 10/24/17 20:35 Est GFR (MDRD) Non-Af 15 (>60) L 10/24/17 20:35 Glucose 295 mg/dL (65-99) H 10/24/17 20:35 POC Glucose (mg/dL) 262 mg/dL (65-99) H 10/24/17 22:47 Calcium 9.8 mg/dL (8.5-10.1) 10/24/17 20:35 Corrected Calcium TNP 10/24/17 20:35 Total Bilirubin 0.50 mg/dL (0.2-1.0) 10/24/17 20:35 AST 69 Units/L (15-37) H 10/24/17 20:35 ALT 76 Units/L (12-78) 10/24/17 20:35 Alkaline Phosphatase 173 Units/L (46-116) H 10/24/17 20:35 Ammonia < 10 umol/L (11-32) L 10/24/17 22:46 Total Protein 9.3 g/dL (6.4-8.2) H 10/24/17 20:35 Albumin 3.7 g/dL (3.4-5.0) 10/24/17 20:35 Globulin 5.6 g/dL (2.5-4.5) H 10/24/17 20:35 Albumin/Globulin Ratio 0.7 Ratio (1.1-2.1) L 10/24/17 20:35 Specimen Type Catherized urine 10/24/17 20:38 Urine Color Yellow (YELLOW) 10/24/17 20:38 Urine Appearance Slightly hazy (CLEAR) 10/24/17 20:38 Urine pH 6.0 (5.0 - 8.0) 10/24/17 20:38 Ur Specific [place] 1.015 (1.000-1.030) 10/24/17 20:38 Urine Protein 4+ (NEGATIVE) 10/24/17 20:38 Urine Glucose (UA) 2+ (NEGATIVE) 10/24/17 20:38 Urine Ketones 1+ (NEGATIVE) 10/24/17 20:38 Urine Occult Blood 4+ (NEGATIVE) 10/24/17 20:38 Urine Nitrite Negative (NEGATIVE) 10/24/17 20:38 Urine Bilirubin Negative (NEGATIVE) 10/24/17 20:38 Urine Urobilinogen Normal (NORMAL) 10/24/17 20:38 Ur Leukocyte Esterase Negative (NEGATIVE) 10/24/17 20:38 Urine RBC 30-50 /HPF (NONE SEEN) 10/24/17 20:38 Urine WBC 3-5 /HPF (NONE SEEN) 10/24/17 20:38 Ur Squamous Epith Cells Rare /HPF (NEGATIVE) 10/24/17 20:38 Amorphous Sediment 1+ /HPF (NEGATIVE) 10/24/17 20:38 Urine Bacteria Trace /HPF (NEGATIVE) 10/24/17 20:38 Hyaline Casts Few /LPF (NEGATIVE) 10/24/17 20:38 Urine Mucus Rare /HPF (NEGATIVE) 10/24/17 20:38 Ur Culture Indicated? No/not indicated 10/24/17 20:38 Urine Opiates Screen Negative (NEG=<300) 10/24/17 20:38 Urine Methadone Screen Negative (NEG=<300) 10/24/17 20:38 Ur Barbiturates Screen Negative (NEG=<200) 10/24/17 20:38 Ur Phencyclidine Scrn Negative (NEG=<25) 10/24/17 20:38 Ur Amphetamines Screen Negative (NEG=<1000) 10/24/17 20:38 U Benzodiazepines Scrn Negative (NEG=<200) 10/24/17 20:38 Urine Cocaine Screen Negative (NEG=<300) 10/24/17 20:38 U Marijuana (THC) Screen Negative (NEG=<50) 10/24/17 20:38 - XRAY XRAY Interpreted by: Radiologist (Chest: No acute abnormality; CT Brain:No acute intracranial abnormality, stable atrophy and chronic ischemic changes.) - Diagnosis Discharge Problem: Acute renal failure Qualifiers: Acute renal failure type: unspecified Qualified Code(s): N17.9 - Acute kidney failure, unspecified Altered mental status Qualifiers: Altered mental status type: stupor Qualified Code(s): R40.1 - Stupor - Discharge Plan Condition: Stable - Follow ups/Referrals Follow ups/Referrals: ROBERTO HUMPHREY [Primary Care Provider] - 3 days - Instructions
[2017-10-24 20:48] LABS: BASOPHILS # (AUTO) 0.1 X10^3/uL (0.0-0.1); BASOPHILS % (AUTO) 0.7 % (0.2-1.0); EOSINOPHILS % (AUTO) 0.1 % (0.9-2.9); HEMATOCRIT 42.7 % (36.0-47.0); HEMOGLOBIN 14.1 g/dL (12.0-16.0); LYMPHOCYTES # (AUTO) 2.2 X10^3/uL (1.3-2.9); MEAN CORPUSCULAR HEMOGLOBIN 27.1 pg (27.0-34.0); MEAN CORPUSCULAR HGB CONC 33.1 g/dL (33.0-35.0); MEAN CORPUSCULAR VOLUME 81.9 fL (80.0-100.0); MEAN PLATELET VOLUME 8.3 fL (7.4-11.0); MONOCYTES # (AUTO) 1.3 x10^3/uL (0.3-0.8); MONOCYTES % (AUTO) 8.1 % (0.0-13.0); NEUTROPHILS # (AUTO) 12.1 x10^3/uL (2.2-4.8); NEUTROPHILS % (AUTO) 77.1 % (42.0-75.0); PLATELET COUNT 263 X10^3/uL (150.0-450.0); RED BLOOD COUNT 5.21 X10^6/uL (3.5-5.4); RED CELL DISTRIBUTION WIDTH 17.2 % (11.6-16.5); WHITE BLOOD COUNT 15.7 X10^3/uL (3.6-10.0)
[2017-10-24 20:52] VITALS: BMI 35.5
[2017-10-24 20:53] LABS: ALANINE AMINOTRANSFERASE 76 Units/L (12-78); ALBUMIN 3.7 g/dL (3.4-5.0); ALKALINE PHOSPHATASE 173 Units/L (46-116); ASPARTATE AMINO TRANSFERASE 69 Units/L (15-37); BLOOD UREA NITROGEN 93 mg/dL (7-18); CALCIUM 9.8 mg/dL (8.5-10.1); CARBON DIOXIDE 31.3 mmol/L (21-32); CHLORIDE 106 mmol/L (98-107); COR NA(FOR HYPERGLY) 153 mmol/L (136-145); SODIUM 148 mmol/L (136-145); TOTAL PROTEIN 9.3 g/dL (6.4-8.2); eGFR BLACK RACES 18 (>60); eGFR NON BLACK RACES 15 (>60)
[2017-10-24 20:54] LABS: BILIRUBIN,URINE NEGATIVE (NEGATIVE); BLOOD/HEMOGLOBIN,URINE 4+ (NEGATIVE); GLUCOSE, URINE 2+ (NEGATIVE); KETONES,URINE 1+ (NEGATIVE); LEUKOCYTE ESTERASE ,URINE NEGATIVE (NEGATIVE); NITRITES,URINE NEGATIVE (NEGATIVE); PROTEIN,URINE 4+ (NEGATIVE); UROBILINOGEN,URINE NORMAL (NORMAL)
[2017-10-24 20:55] LABS: APPEARANCE,URINE SLIGHTLY HAZY (CLEAR); COLOR,URINE YELLOW (YELLOW)
[2017-10-24] MEDS ORDERED: NS 1000 ML 1,000 ML IV SCH (21:00)
[2017-10-24 21:03] LABS: RBC,URINE 30-50 /HPF (NONE SEEN); SQUAMOUS EPITHELIAL CELL,UR RARE /HPF (NEGATIVE)
[2017-10-24 21:04] LABS: AMORPHOUS SEDIMENT,UR 1+ /HPF (NEGATIVE); BACTERIA,URINE TRACE /HPF (NEGATIVE); HYALINE CASTS, URINE FEW /LPF (NEGATIVE); MUCUS,URINE RARE /HPF (NEGATIVE)
--- NOTE | 2017-10-24 21:07 | CT ---
CT head without contrast Indication: Unresponsive Technique: Helical CT images of the brain were obtained without IV contrast. Reformatted images in th e coronal and sagittal planes were also generated for review. Comparison: 07/06/2017 Findings: There is stable atrophy, patchy periventricular and subcortical white matter hypoattenuatio n and remote lacunar infarct of the right basal ganglia. Cox-white differentiation is otherwise main tained. No visible acute infarct, intracranial hemorrhage, extra-axial collection, hydrocephalus or m ass is identified. The visualized paranasal sinuses and mastoid air cells are clear. The extracranial structures are grossly unremarkable. Impression: No acute intracranial abnormality. Stable atrophy and chronic ischemic changes, as above. Reported By:
[2017-10-24] MEDS ORDERED: NS 1000 ML 1,000 ML ONE ×2 (21:11→22:51)
[2017-10-24 21:13] LABS: ABG BASE EXCESS 7.6 mmol/L (-2.0-2.0)
[2017-10-24 21:14] LABS: ABG ALLEN TEST POS
--- NOTE | 2017-10-24 21:22 | RAD ---
HISTORY: Unresponsive, unconscious Study: Single view chest Comparison: 08/02/2017 Findings: Single portable view submitted. No infiltrate, effusion or pneumothorax identified. The cardiac and m ediastinal contours are within normal limits. The soft tissues are unremarkable. IMPRESSION: 1. No acute cardiopulmonary abnormality. Reported By:
[2017-10-24] MEDS ORDERED: NS 1000 ML 1,000 ML IV ONE ×2 (22:52→22:53)
[2017-10-24 23:43] VITALS: BP 175/74
== END 2017-10-24 23:28 | disposition short-term general hospital (02) ==
LOC: ER 20:21
DX: N17.9 Acute kidney failure, unspecified (principal); R41.1 Anterograde amnesia
CPT/HCPCS: 36415; 36600; 51702; 70450; 71045; 80053; 80307; 81001; 82140; 82803; 85025; 93005; 93010; 93041; 96365; 96367; 99285; A4222; G0434